=== PATIENT | female | born 1955 | race Caucasian/White ===

== ENCOUNTER → 2016-08-22 | Outpatient (REF) | payer MEDICARE, MEDICAID ==
[~2016-08-22] MED LIST: BACT2OIN2 TOP; CALC600T57 PO; COUM1TAB17 PO; COUM7.5T PO; DIGO0.12 PO; FOLI1TAB2 PO; FURO20TA2 PO; HYDR2.5C TOP; LASI40TA PO; LEVO125T3 PO; MACR100C42 PO; METH2.5TA PO; PRAV1TAB39 PO; PRED25TA PO; PRED5PAK PO; SPIR25TA2 PO; TORS20TA2 PO; TRAM50TA2 PO; TYVA0.6S INH; VERA120T2 PO; VITA-121 PO; WARF-22 PO; WARF-23 PO; [UNRECOGNIZED DRUG - CODE] PO; [UNRECOGNIZED DRUG - CODE] PO
== END ==
LOC: M SFHCLERA 18:42
PROVIDERS: ATTEND Nurse Practitioner Family
DX: J02.9 Acute pharyngitis, unspecified (principal)

== ENCOUNTER 2016-11-24 02:58 | Emergency (ER) | payer MEDICARE, MEDICAID ==
[~2016-11-24] VITALS: Ht 165.1 cm; Wt 71.7 kg
[2016-11-24] MEDS ORDERED: OMEP40CA2 PO (03:29)
[2016-11-24] MEDS ORDERED: TORS20TA2 PO (03:29)
[2016-11-24] MEDS ORDERED: ZYRT10CA PO (03:29)
[2016-11-24] MEDS ORDERED: TESS100C PO (03:29)
[2016-11-24 03:42] LABS: DIFF SLIDE NUMBER 121; MEAN CORPUSCULAR HEMOGLOBIN 29.1 pg (27.0-33.0); MEAN CORPUSCULAR HGB CONC 29.1 g/dl (32.0-36.5); PLATELET COUNT, AUTOMATED 184 k/mm3 (150-450); WHITE BLOOD COUNT 4.4 K/mm3 (4.0-10.0)
[2016-11-24 03:46] LABS: CALCIUM LEVEL 8.2 MG/DL (8.8-10.2); CREATININE FOR GFR 1.44 MG/DL (0.55-1.02); GLOMERULAR FILTRATION RATE 39.4 (>45)
[2016-11-24 04:03] LABS: BASOPHILS 1 % (0-4)
[2016-11-24 04:04] LABS: ANISOCYTOSIS 1+; HYPOCHROMASIA 2+; OVALOCYTES 1+
[2016-11-24 04:28] LABS: INR 2.06
[2016-11-24] MEDS ORDERED: ISOVUE-370 76% 100ML VIAL (Q9967) As Ordered ONE (04:29)
[2016-11-24] MEDS ORDERED: MORPHINE 4 MG/ML 1ML SYRINGE IV PRN (04:30)
[2016-11-24] MEDS ORDERED: ONDANSETRON 4MG/2ML VIAL (J2405) IV ONE (04:30)
[2016-11-24] MEDS ORDERED: MORPHINE 4 MG/ML 1ML SYRINGE As Ordered ONE (04:47)
[2016-11-24] MEDS ORDERED: ONDANSETRON 4MG/2ML VIAL (J2405) As Ordered ONE (04:47)
--- NOTE | 2016-11-24 05:00 | REP ---
Clinical: Trauma. Technique: Axial contrast enhanced images from the thoracic inlet to the upper abdomen using 100 ml Isovue 370 intravenous contrast material with coronal and sagittal re-formations. Comparison: 12/03/2014. Findings: Bilateral lung coon demonstrate diffuse moderate to advanced chronic fibrosis and interstitial disease along with mild bronchiectasis. No discrete focal consolidation, pleural effusion or pneumothorax. Cardiomegaly is unchanged. No pericardial effusion. Thoracic aorta demonstrates atherosclerotic changes without aneurysm or dissection. Mediastinal adenopathy is unchanged. Surrounding osseous structures are intact without evidence for acute injury. Impression: 1. Stable cardiomegaly. 2. Stable mediastinal adenopathy. 3. Moderate to advanced chronic fibrosis and interstitial disease similar to prior examination. 4. No acute mediastinal or pleuroparenchymal process. 5. Osseous structures appear intact. Signed by Matt Saxena MD 11/24/2016 04:51 A
--- NOTE | 2016-11-24 05:06 | REP ---
Clinical: Trauma. Technique: Axial contrast enhanced images from the lung bases to the pubic symphysis using 100 ml Isovue 370 intravenous contrast material with coronal and sagittal re-formations. Comparison: 01/30/2016. Findings: Lung bases demonstrate cardiomegaly along with chronic fibrosis and interstitial disease. No evidence for solid organ injury. Liver, spleen, pancreas, bilateral adrenal glands and kidneys are normal. The patient is status post cholecystectomy. The enteric system demonstrates fluid-filled esophagus suggesting the possibility of reflux disease. The stomach, small, and large bowel is unremarkable and without evidence for obstruction or acute inflammatory process. Scattered colonic diverticula noted without acute diverticulitis. Normal terminal ileum and appendix identified in the right lower quadrant. Pelvis demonstrates normal bladder and uterus/adnexa. No pelvic fluid or ascites. No free air. 2 cm fat containing midline ventral hernia noted. Atherosclerotic changes of the aorta and vasculature without aneurysm or dissection. No significant adenopathy. Musculoskeletal structures demonstrate age-related changes without evidence for acute injury. Impression: No evidence for acute pathology or trauma/injury. Chronic stable changes as described above. Signed by Matt Saxena MD 11/24/2016 04:57 A
[2016-11-24] MEDS ORDERED: PERCOCET 5MG/325MG TAB PO ONE (07:00)
[2016-11-24] MEDS ORDERED: PERC5TAB6 PO (07:32)
[2016-11-24 08:07] VITALS: BP 124/58
--- NOTE | 2016-11-24 08:25 | REP ---
Portable chest, single AP view, the patient semi upright: Comparison is 01/31/2016. Cardiomegaly and diffuse bilateral interstitial coarsening are again noted, unchanged. No definite pleural effusions are identified. No masses. Impression: No interval change. Signed by Harshad Harvey MD 11/24/2016 08:16 A
--- NOTE | 2016-11-25 20:06 | ECGEPIP ---
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
--- NOTE | 2016-11-25 20:09 | ECGEPIP ---
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
== END 2016-11-24 08:14 | disposition home or self-care (01) ==
LOC: M ED 04:00
DX: S30.1XXA Contusion of abdominal wall, initial encounter (principal); W19.XXXA Unspecified fall, initial encounter; Y92.89 Other specified places as the place of occurrence of the external cause; Y93.89 Activity, other specified; Y99.8 Other external cause status; I48.91 Unspecified atrial fibrillation; I45.10 Unspecified right bundle-branch block; R94.31 Abnormal electrocardiogram [ECG] [EKG]; Z79.899 Other long term (current) drug therapy; Z79.01 Long term (current) use of anticoagulants; Z79.52 Long term (current) use of systemic steroids
CPT/HCPCS: 71010; 71260; 74177; 80048; 82550; 82553; 84484; 85025; 85610; 85730; 93005; 93041; 94760; 96374; 96375; 99285; J2405; Q9967

== ENCOUNTER 2016-12-03 16:11 | Inpatient (IN) | payer MEDICARE, MEDICAID ==
[~2016-12-03] VITALS: Ht 167.6 cm; Wt 80.8 kg
[~2016-12-03 16:11] MED LIST changes: +OMEP40CA2 PO; +PERC5TAB6 PO; +TESS100C PO; +ZYRT10CA PO
[2016-12-03] MEDS ORDERED: ONDANSETRON 4MG/2ML VIAL (J2405) IV ONE (17:15)
[2016-12-03] MEDS ORDERED: MORPHINE 4 MG/ML 1ML SYRINGE IV ONE (17:15)
[2016-12-03 17:59] LABS: ADD MORPHOLOGY? YES; BASO % 0.3 % (0.0-1.0); EOS % 0.6 % (0.0-3.0); LARGE UNSTAINED CELL # 0.1 K/mm3 (0.0-0.4); LARGE UNSTAINED CELL % 1.3 % (0.0-4.0); LYMPH # 0.8 K/mm3 (1.5-4.5); LYMPH % 16.9 % (24.0-44.0); MEAN CORPUSCULAR HEMOGLOBIN 31.6 pg (27.0-33.0); MEAN CORPUSCULAR HGB CONC 31.6 g/dl (32.0-36.5); MONO # 0.3 K/mm3 (0.0-0.8); MONO % 6.9 % (0.0-5.0); NEUTROPHILS # 3.4 K/mm3 (1.8-7.7); PLATELET COUNT, AUTOMATED 177 k/mm3 (150-450); RED CELL DISTRIBUTION WIDTH 17.6 % (11.5-14.5); WHITE BLOOD COUNT 4.6 K/mm3 (4.0-10.0)
[2016-12-03 18:00] LABS: ALBUMIN 3.1 GM/DL (3.2-5.2); ALBUMIN/GLOBULIN RATIO 0.66 (1.00-1.93); BILIRUBIN,DIRECT 0.5 MG/DL (0.0-0.2); BILIRUBIN,TOTAL 1.1 MG/DL (0.2-1.0); CALCIUM LEVEL 8.4 MG/DL (8.8-10.2); CREATININE FOR GFR 1.41 MG/DL (0.55-1.02); GLOMERULAR FILTRATION RATE 40.4 (>45); TOTAL PROTEIN 7.8 GM/DL (6.4-8.2)
[2016-12-03] MEDS ORDERED: MORPHINE 2 MG/ML 1ML SYRINGE IV ONE (18:00)
[2016-12-03] MEDS ORDERED: MORPHINE 2 MG/ML 1ML SYRINGE As Ordered ONE (18:01)
[2016-12-03 18:12] LABS: POTASSIUM SERUM 5.4 MEQ/L (3.5-5.1)
[2016-12-03] MEDS ORDERED: ISOVUE-370 76% 100ML VIAL (Q9967) As Ordered ONE (18:32)
[2016-12-03 18:47] LABS: INR 2.27
--- NOTE | 2016-12-03 19:00 | REPUSA ---
Clinical history: Cough. Findings: Frontal and lateral views of the chest were obtained. The mediastinum is within normal limi ts. The heart is enlarged. There are diffuse interstitial changes noted. No pleural effusion or pneum othorax is seen. The osseous structures and soft tissues are unremarkable. Impression: Diffuse interstitial changes, suggesting a mixture of interstital lung disease and mild c ongestive heart failure. Cardiomegaly.
[2016-12-03 19:11] LABS: POLYCHROMASIA 1+
[2016-12-03 19:12] LABS: ANISOCYTOSIS 1+; HYPOCHROMASIA 1+; OVALOCYTES 1+; POIKILOCYTOSIS 1+; SCHISTOCYTES 1+
[2016-12-03] MEDS ORDERED: VERAP80TA PO (19:48)
[2016-12-03] MEDS ORDERED: LETA1TAB PO (19:48)
[2016-12-03] MEDS ORDERED: CALC600T68 PO (19:48)
[2016-12-03] MEDS ORDERED: WARF-23 PO (19:48)
[2016-12-03] MEDS ORDERED: PERC5TAB6 PO (19:49)
[2016-12-03] MEDS ORDERED: SPIR25TA2 PO (19:49)
[2016-12-03] MEDS ORDERED: cefTRIAXone SOD 1 GM in D5W MINI-BAG PLUS 50 ML IV ONE (20:15)
[2016-12-03] MEDS: TREPROSTINIL INH SCH (21:00)
[2016-12-03] MEDS ORDERED: NS 1,000 ML IV SCH (21:12)
[2016-12-03] MEDS ORDERED: ONDANSETRON 4MG/2ML VIAL (J2405) IV PRN (21:15)
[2016-12-03] MEDS ORDERED: traMADol 50 MG TAB PO PRN (21:30)
[2016-12-03] MEDS ORDERED: MUPIROCIN 2% OINT 22 GM TUBE TOP PRN (21:30)
[2016-12-03] MEDS ORDERED: ANUSOL HC CREAM 30GM TOP PRN (21:30)
--- NOTE | 2016-12-03 22:06 | HPEPDOC ---
General Date of Admission Primary Care Physician: PEGGY GARCES DO Attending Physician: LEANNE BUTTERFIELD MD Chief Complaint The patient is a 61-year-old female admitted with a reason for visit of Abdominal Pain. Source: Patient, Family Exam Limitations: No limitations History of Present Illness Ms. Novak is a 61-year-old female who presented to the emergency department with a two-week history of constipation and abdominal pain, who suddenly had intractable diarrhea today. She states that her abdominal pain and constipation has been off and on for the past 2 weeks, she has had intermittent episodes of nausea, but no vomiting. She did have one episode of diarrhea for 5 days ago, however at that time she had taken a laxative to help her with her constipation. Today however, she did not use any laxatives, but she was on and off the toilet every 15-30 minutes. She denies any recent antibiotic use, she has not drank for many wells, she denies any sick contacts. Denies fevers, chills, recent weight gain or weight loss. She is however on chronic prednisone therapy, as well as many other medications for her scleroderma and pulmonary fibrosis. In the emergency department was noted that she had an abnormal urinalysis, therefore this was sent for culture and she was given [address] scan of her abdomen also showed possible mild enteritis with mild mural thickening of small bowel in the left mid abdomen. No free air. No ascites. Chronic stable changes. Cardiomegaly and a small right effusion with mild pulmonary vascular congestion and chronic pulmonary changes. No fever, no leukocytosis, lipase and lactic acid are negative. She does have a mild elevation of her troponins, however these are chronically elevated and she has no acute changes on her EKG. Home Medications Scheduled (Letairis) 5 Mg Tab, 10 MG PO DAILY, (Reported) Calcium/Vitamin D (Calcium 600+D3 600-400 mg-Unit) 1 Tab Tab, 1 TAB PO DAILY, ( Reported) Cholecalciferol (Vitamin D-3) 1,000 Unit Tab, 1,000 UNIT PO DAILY, (Reported) Digoxin (Digoxin) 0.125 Mg Tab, 0.125 MG PO DAILY, (Reported) Levothyroxine Sodium (Synthroid) 125 Mcg Tab, 125 MCG PO DAILY, (Reported) Omeprazole (Omeprazole) 40 Mg Cap, 40 MG PO DAILY, (Reported) Pravastatin Sodium (Pravachol) 20 Mg Tab, 20 MG PO DAILY, (Reported) Prednisone (Prednisone) 2.5 Mg Tab, 2.5 MG PO BID, (Reported) Sildenafil Citrate (Revatio) 20 Mg Tab, 40 MG PO TID, (Reported) Spironolactone (Spironolactone) 25 Mg Tab, 25 MG PO BID, (Reported) Torsemide (Torsemide) 20 Mg Tab, 20 MG PO BID, (Reported) Treprostinil (Tyvaso) 0.6 Mg/Ml Ly, 1 NEB INH QID, (Reported) Verapamil HCl (Verapamil HCl) 80 Mg Tab, 80 MG PO TID, (Reported) Warfarin Sod (Warfarin Sodium) 5 Mg Tab, 5 MG PO DAILY, (Reported) @ 1900 Scheduled PRN Hydrocortisone Base (Hydrocortisone) 2.5 % Cre, 1 DOSE TOP for RASH/ITCHING, ( Reported) APPLIED TO ANKLES Mupirocin (Pseudomonas Fluores (Bactroban) 2 % Oin, 1 DOSE TOP TID PRN for REDNESS/IRRITATION, (Reported) APPLIED TO FINGERS Oxycodone/Acetaminophen (Percocet 5-325 mg) 1 Tab Tab, 1 TAB PO Q6H PRN for PAIN , (Reported) Tramadol HCl (Tramadol HCl) 50 Mg Tab, 100 MG PO TID PRN for PAIN, (Reported) Allergies Coded Allergies: No Known Allergies (Verified , 11/24/16) Past Medical History Medical History The scleroderma, mixed connective tissue disorder Interstitial pulmonary fibrosis Pulmonary hypertension, she does wear 2 L oxygen at home 24 hours a day Hypothyroidism Obstructive sleep apnea, has not worn her CPAP and years Atrial fibrillation Osteopenia Right sided congestive heart failure Raynaud's phenomenon of her fingers and toes Surgical History 2 Spinal surgeries in 1996 and 1997 Cholecystectomy 3-4 years ago Heart ablation 05/18/2015 Family History Father had multiple myeloma and a stroke and at the age of 67 years. Otherwise no additional pertinent family history Social History * Smoker: Denies Alcohol: Denies Drugs: denies Recent Travel/Sick Contacts: Denies: Recent travel, Recent sick contacts Review of Symptoms Constitutional: Reports: Malaise, Weakness, Fatigue, Denies: Chills, Fever, Night Sweats, Weight Loss, Lethargy Skin: Reports: Other (chronic skin changes consistent with scleroderma, however no new rashes, lumps, bumps, or bruises she cannot account for) Pulmonary: Reports: Dyspnea (chronic, although somewhat worsened by her recent illness), Denies: Cough, Pleuritic Chest Pain Cardiovascular: Reports: Edema (intermittent, not bad today), Denies: Chest Pain, Palpitations, Orthopnea Gastrointestinal: Reports: Nausea, Abdominal Pain, Diarrhea, Constipation, Denies: Vomiting, Melena Genitourinary: Reports: Retention (has had this in the past, but she does not feel it), Denies: Dysuria, Frequency, Incontinence, Hematuria Hematologic: Denies: Bruising, Bleeding Excessively Endocrine: Denies: Polydipsia, Polyphagia, Polyuria Musculoskeletal: Reports: Other Symptoms (chronic musculoskeletal complaints) Neurological: Denies: Weakness, Numbness, Change in speech, Confusion Psych: Reports: Mood Normal Physical Examination General Exam: Positive: Alert, Cooperative, Moderate Distress Eye Exam: Positive: Conjunctiva & lids normal, EOMI, Negative: Sclera icteric ENT Exam: Positive: Atraumatic, Mucous membr. moist/pink, Pharynx Normal Chest Exam: Positive: Rales (throughout, but most prominent at the bases) Heart Exam: Positive: Irregular Rhythm (irregularly irregular), Murmurs (2/6 systolic), Negative: Rubs Telemetry: Positive: Atrial fibrillation Abdomen Exam: Positive: Normal bowel sounds, Tenderness (she is significantly tender in all quadrants of her abdomen), Other (midline surgical scar noted from prior cholecystectomy) Extremity Exam: Positive: Normal pulses, Other (chronic changes consistent with scleroderma. Her toes are purple which is chronic Raynaud's phenomena) Skin Exam: Positive: Nl turgor and temperature, Negative: Breakdown, Lesion Neuro Exam: Positive: Normal Speech, Normal Tone, Sensation Intact, Cranial Nerves 3-12 NL Psych Exam: Positive: Mental status NL, Mood NL, Oriented x 3 Vital Signs Vital Signs Date Time Temp Pulse Resp B/P (MAP) Pulse Ox O2 Delivery O2 Flow Rate FiO2 12/03/16 18:14 85 26 96 Nasal Cannula 3.0 12/03/16 18:04 107/58 12/03/16 16:27 97.3 Laboratory Data Labs 24H Laboratory Tests 2 12/03/16 17:05: White Blood Count 4.6, Red Blood Count 2.90L, Hemoglobin 9.2L, Hematocrit 29.0L , Mean Corpuscular Volume 100.0H, Mean Corpuscular Hemoglobin 31.6, Mean Corpuscular Hemoglobin Concent 31.6L, Red Cell Distribution Width 17.6H, Platelet Count 177, Neutrophils (%) (Auto) 74.0H, Lymphocytes (%) (Auto) 16.9L, Monocytes (%) (Auto) 6.9H, Eosinophils (%) (Auto) 0.6, Basophils (%) (Auto) 0.3 , Neutrophils # (Auto) 3.4, Lymphocytes # (Auto) 0.8L, Monocytes # (Auto) 0.3, Eosinophils # (Auto) 0.0, Basophils # (Auto) 0.0, Large Unclassified Cells % 1.3 , Large Unclassified Cells # 0.1, Platelet Estimate NORMAL, Polychromasia 1+, Hypochromasia 1+, Poikilocytosis 1+, Anisocytosis 1+, Ovalocytes 1+, Schistocytes 1+, Prothrombin Time 25.1H, Prothromb Time International Ratio 2.27 , Activated Partial Thromboplast Time 33.8, Urine Appearance CLEAR, Urine Color YELLOW, Urine pH 5.0, Urine Specific [place] 1.008, Urine Protein NEGATIVE, Urine Glucose (UA) NEGATIVE, Urine Ketones NEGATIVE, Urine Urobilinogen 0.2, Urine Bilirubin NEGATIVE, Urine Leukocyte Esterase 1+H, Urine Blood 1+H, Urine Nitrite POSITIVE, Urine WBC (Auto) 8H, Urine RBC (Auto) 3, Urine Hyaline Casts ( Auto) 5, Urine Bacteria (Auto) 2+H, Urine Squamous Epithelial Cells 1, Urine Mucus (Auto) SMALL, Urine Sperm (Auto) , Anion Gap 10, Glomerular Filtration Rate 40.4L, Lactic Acid Level 1.8, Calcium Level 8.4L, Aspartate Amino Transf ( AST/SGOT) 12L, Alanine Aminotransferase (ALT/SGPT) 15, Alkaline Phosphatase 147H , Total Bilirubin 1.1H, Direct Bilirubin 0.5H, Total Creatine Kinase 41, Creatine Kinase MB 4.2H, Creatine Kinase MB Relative Index 10.24H, Troponin I 0.17H, Total Protein 7.8, Albumin 3.1L, Albumin/Globulin Ratio 0.66L, Lipase 104 , Digoxin Level 2.5H CBC/BMP Laboratory Tests 12/03/16 17:05 Red Blood Count 2.90 L, Mean Corpuscular Volume 100.0 H, Mean Corpuscular Hemoglobin 31.6, Mean Corpuscular Hemoglobin Concent 31.6 L, Red Cell Distribution Width 17.6 H, Neutrophils (%) (Auto) 74.0 H, Lymphocytes (%) (Auto ) 16.9 L, Monocytes (%) (Auto) 6.9 H, Eosinophils (%) (Auto) 0.6, Basophils (%) (Auto) 0.3, Neutrophils # (Auto) 3.4, Lymphocytes # (Auto) 0.8 L, Monocytes # ( Auto) 0.3, Eosinophils # (Auto) 0.0, Basophils # (Auto) 0.0 Microbiology Microbiology 12/03/16 Urine Culture, Received Pending Problems (1) Abdominal pain Status: Acute (2) Diarrhea Status: Acute (3) Urinary tract infection Status: Acute (4) Hyponatremia Status: Acute (5) Scleroderma Status: Chronic (6) Pulmonary hypertension Status: Chronic (7) Raynaud's disease Status: Chronic (8) Hypothyroidism Status: Chronic (9) Hypertension Status: Chronic (10) Congestive heart failure (CHF) Status: Chronic (11) Obstructive sleep apnea Status: Chronic Plan / VTE VTE Prophylaxis Ordered?: Yes (Warfarin) Plan Plan Will admit the patient to [facility] under the care Dr. Cierra Taveras. One dose of Rocephin and started been given in the ED for suspected UTI, urine cultures have been sent. Although she does not have fever or leukocytosis, she is on immunomodulators and may not be able to mount an appropriate response, therefore a GI panel has been sent. Will check an ESR and CRP. We will await the results of his GI panel prior to ordering additional antibiotics. Given her history of CHF and lung disease, and negative lactic acid with stable vitals, and the fact that her diarrhea has only been present for 1 day, we will only give her gentle rehydration for 1 L NS at this time. In regards to her hyponatremia, will check a random urine and serum osmolality, as well as put in for urine sodium and urea. BRANDY NAVARRETE DO Dec 03, 2016 22:06
[2016-12-03 23:04] LABS: ERYTHROCYTE SEDIMENTATION RATE 67 mm/hr (0-30)
[2016-12-03 23:30] VITALS: BP 102/78
[2016-12-03] MEDS: VERAPAMIL 80 MG TAB PO SCH (23:30)
[2016-12-04] MEDS: SILDENAFIL CITRATE 20 MG TABLET (REVATIO) PO SCH ×4 (01:33→20:16)
[2016-12-04] MEDS: predniSONE 2.5 MG TAB PO SCH ×2 (01:33→10:28)
[2016-12-04] MEDS: WARFARIN SOD 5 MG TAB PO SCH ×2 (01:34→16:54)
--- NOTE | 2016-12-04 04:31 | REP ---
Clinical: Diffuse abdominal pain and diarrhea. Technique: Axial contrast enhanced images from the thoracic inlet to the upper abdomen using 100 ml Isovue 370 intravenous contrast material with coronal and sagittal re-formations. Comparison: 11/24/2016. Findings: Lung bases demonstrate cardiomegaly along with small right pleural effusion and moderate pulmonary interstitial edema as well as chronic fibroatelectatic changes. Associated reflux into the hepatic veins as well as subcutaneous edema and subtle haziness to the central mesentery all suggest chronic cardiac dysfunction. Liver, spleen, pancreas, bilateral adrenal glands are normal. Kidneys demonstrate chronic-appearing age-related changes with satisfactory, symmetric enhancement and no evidence for hydroureteronephrosis or obvious abnormality. The enteric system suggests mural thickening to the small bowel in the left mid abdomen which may reflect a mild enteritis. There is no evidence for bowel obstruction. Pelvis demonstrates normal bladder and age-appropriate uterus/adnexa. Trace pelvic free fluid is nonspecific. Vasculature demonstrates minimal atherosclerotic changes without aortic aneurysm or dissection. Surrounding musculoskeletal structures demonstrate age-related degenerative changes. There is a stable 3 cm fat containing periumbilical hernia. Impression: 1. Mild enteritis cannot be excluded. 2. Cardiomegaly with evidence for moderate pulmonary interstitial edema, small right pleural effusion and chronic cardiac dysfunction. 3. 3 cm fat containing periumbilical hernia. Signed by Matt Saxena MD 12/04/2016 04:22 A
[2016-12-04] MEDS: LEVOTHYROXINE 0.125 MG TAB (125 MCG) PO SCH (05:56)
[2016-12-04 06:07] LABS: INR 2.5
[2016-12-04 06:13] LABS: MEAN CORPUSCULAR HGB CONC 29.6 g/dl (32.0-36.5); MEAN CORPUSCULAR VOLUME 101.5 fl (80.0-96.0); RED CELL DISTRIBUTION WIDTH 17.9 % (11.5-14.5)
[2016-12-04 06:23] LABS: CALCIUM LEVEL 8.6 MG/DL (8.8-10.2); CREATININE FOR GFR 1.45 MG/DL (0.55-1.02); GLOMERULAR FILTRATION RATE 39.1 (>45)
[2016-12-04 06:32] VITALS: BP 124/62
[2016-12-04] MEDS ORDERED: DEXTROSE 50% 50 ML SYRINGE IV STA (06:35)
[2016-12-04] MEDS ORDERED: GLUCAGON FOR INJ 1 MG VIAL (J1610) SC PRN (08:15)
[2016-12-04] MEDS ORDERED: DEXTROSE 50% 50 ML SYRINGE IV PRN (08:15)
[2016-12-04] MEDS ORDERED: GLUCOSE 4 GM CHEW TABLET PO PRN (08:15)
[2016-12-04] MEDS ORDERED: DIGOXIN 0.125 MG TAB PO SCH (09:00)
[2016-12-04] MEDS: TORSEMIDE 20 MG TAB PO SCH ×2 (09:00→16:37)
[2016-12-04] MEDS: VERAPAMIL 80 MG TAB PO SCH ×3 (09:00→20:15)
[2016-12-04] MEDS: SPIRONOLACTONE 25 MG TAB PO SCH ×2 (09:00→16:37)
[2016-12-04 10:00] VITALS: BP 103/59
[2016-12-04] MEDS: PRAVASTATIN 20 MG TAB PO SCH (10:25)
[2016-12-04] MEDS: VITAMIN D 1,000 INTERNATIONAL UNITS TABLET PO SCH (10:25)
[2016-12-04] MEDS: OMEPRAZOLE 20 MG CAP PO SCH (10:25)
[2016-12-04] MEDS: CALCIUM/VITAMIN D 500 MG TAB PO SCH (10:25)
[2016-12-04] MEDS: LETAIRIS 10 MG PO SCH (10:28)
--- NOTE | 2016-12-04 12:50 | IPNPDOC ---
Date Seen The patient was seen on 12/04/16. Progress Note Hospitalist Progress Note Subjective: The patient is able to be awoken easily. She states that she has not had any more diarrhea, but that her abdomen is quite sore. Objective: Physical Exam: Vitals: Vital Sign - Last 24 Hours 12/03/16 12/03/16 12/03/16 12/03/16 16:27 16:32 16:56 17:03 Temp 97.3 Pulse 93 81 82 Resp 20 28 B/P (MAP) 124/65 (84) 124/65 128/63 (84) Pulse Ox 88 87 92 O2 Delivery Nasal Cannula Nasal Cannula O2 Flow Rate 2.0 3.0 12/03/16 12/03/16 12/03/16 12/03/16 17:11 17:16 17:26 17:26 Pulse 82 80 Resp Pulse Ox 94 94 94 93 O2 Delivery Nasal Cannula Nasal Cannula O2 Flow Rate 3.0 3.0 12/03/16 12/03/16 12/03/16 12/03/16 17:33 17:35 18:04 18:14 Pulse 83 81 85 Resp 26 26 B/P (MAP) 110/58 (75) 107/58 Pulse Ox 93 93 95 96 O2 Delivery Nasal Cannula Nasal Cannula Nasal Cannula O2 Flow Rate 3.0 3.0 3.0 12/03/16 12/03/16 12/03/16 12/03/16 19:33 19:48 20:03 20:18 Pulse 82 B/P (MAP) 106/57 (73) 99/51 (67) 108/55 (72) 117/63 (81) Pulse Ox 96 12/03/16 12/03/16 12/03/16 12/03/16 20:33 20:48 21:03 21:18 B/P (MAP) 115/62 (79) 125/66 (85) 120/63 (82) 117/61 (79) 12/03/16 12/03/16 12/03/16 12/03/16 21:33 21:48 22:03 22:18 Pulse 84 B/P (MAP) 116/61 (79) 114/62 (79) 102/57 (72) 92/53 (66) Pulse Ox 96 12/03/16 12/03/16 12/03/16 12/03/16 22:33 23:30 23:30 23:47 Temp 98.3 97.8 Pulse 89 89 Resp 20 24 22 B/P (MAP) 98/55 (69) 102/78 (86) 102/78 Pulse Ox 92 90 O2 Delivery Nasal Cannula Nasal Cannula O2 Flow Rate 3.0 4.0 12/04/16 12/04/16 12/04/16 12/04/16 00:21 06:32 06:40 07:30 Temp 96.6 Pulse 89 101 Resp 18 18 B/P (MAP) 124/62 (82) O2 Delivery Nasal Cannula Nasal Cannula Nasal Cannula Nasal Cannula O2 Flow Rate 3.0 3.5 3.5 3.5 FiO2 92 12/04/16 12/04/16 09:00 10:00 Temp 96.9 Pulse 74 74 Resp 16 B/P (MAP) 103/59 103/59 (74) Pulse Ox 91 O2 Delivery Nasal Cannula O2 Flow Rate 3.5 General: Awake, alert, no acute distress HEENT: Normocephalic, atraumatic, extraocular movements intact CV: Irregularly irregular Lungs: Clear to auscultation bilaterally Abd: Soft, nondistended, diffuse tenderness to palpation Extremities: No edema Neuro: Alert and oriented 3, seems to be processing things just slightly slowly , normal speech Psych: Normal mood and affect Labs and Imaging: Laboratory Tests 12/03/16 17:05 Red Blood Count 2.90 L, Mean Corpuscular Volume 100.0 H, Mean Corpuscular Hemoglobin 31.6, Mean Corpuscular Hemoglobin Concent 31.6 L, Red Cell Distribution Width 17.6 H, Neutrophils (%) (Auto) 74.0 H, Lymphocytes (%) (Auto ) 16.9 L, Monocytes (%) (Auto) 6.9 H, Eosinophils (%) (Auto) 0.6, Basophils (%) (Auto) 0.3, Neutrophils # (Auto) 3.4, Lymphocytes # (Auto) 0.8 L, Monocytes # ( Auto) 0.3, Eosinophils # (Auto) 0.0, Basophils # (Auto) 0.0 12/04/16 05:47 Red Blood Count 3.17 L, Mean Corpuscular Volume 101.5 H, Mean Corpuscular Hemoglobin 30.0, Mean Corpuscular Hemoglobin Concent 29.6 L, Red Cell Distribution Width 17.9 H, Calcium Level 8.6 L Assessment and Plan: 61-year-old female with scleroderma, interstitial pulmonary fibrosis, chronic hypoxic respiratory failure secondary to pulmonary hypertension on 2 L chronically at home, hypothyroidism, KELLY, chronic A. fib, right-sided heart failure, Raynaud who presented to the emergency department with abdominal pain and diarrhea. This morning she is noted to be hypoglycemic, and I am concerned that she may have an adrenal insufficiency secondary to her chronic steroid use. It is unclear at this time, what has triggered it, but I suspect that she may have a UTI. 1. Concern for adrenal insufficiency: The patient has had soft BPs since admission last night. This morning, she was hypoglycemic to 27, and she has no history of diabetes and does not take any medication that would lower her glucose. Additionally, she was mildly hyponatremic and mildly hyperkalemic upon admission. All of these things work together to point to the potential adrenal crisis. At this time, we will stop her daily prednisone, and start her on stress dose hydrocortisone. We will monitor her fingersticks closely, and if necessary, we will start her on IV fluids with D5. 2. Supratherapeutic digoxin level: The patient's digoxin level is slightly above normal at 2.5. Some of the symptoms she is experiencing could also potentially be explained by her elevated digoxin level. We will hold her home digoxin, and check all level in the morning. We will also transfer her to the PCU for telemetry monitoring. 3. Hyponatremia: Sodium upon admission was 129. I believe that this is likely secondary to the above-mentioned concerns. She has been on IV fluids and has improved slightly to 1:30. We'll continue IV fluids. 4. Hyperkalemia: Potassium upon admission was 5.4. This has now resolved to 5.0 , but given the above concerns for potential adrenal insufficiency and supratherapeutic digoxin level, we will transfer her to the PCU for telemetry monitoring. 5. Abdominal pain and diarrhea: Etiology is not entirely clear at this point. CT of the abdomen and pelvis shows possible mild enteritis, which could certainly be the cause, and may even be why she is experiencing an adrenal crisis. GI panel has been ordered, but she has not stooled at this point. It is also possible, that the symptoms are secondary to an adrenal crisis or even supratherapeutic digoxin level. We will monitor her response to the stress dose steroids. 6. Possible UTI: UA showed 1+ blood and 1+ leuk esterase, as well as 2+ bacteria and nitrite. The patient received a dose of Rocephin in the ER, and I' ll continue it at this time. Urine culture is pending, and she is afebrile with a normal white count. 7. Scleroderma: Holding home prednisone while we are currently stress dosing her steroids. 8. Chronic hypoxic respiratory failure secondary to Interstitial pulmonary fibrosis and pulmonary hypertension on 2 L chronically at home: The patient is currently requiring a little bit more than her baseline oxygen. We will continue her on her home tyvaso, sildenafil and letairis. 9. Hypothyroidism: Continue home Synthroid. 10. Chronic A. fib: Patient is currently rate controlled, and her INR is therapeutic. We will continue home Coumadin, as well as home verapamil. We will also monitor her on telemetry. 11. Right-sided heart failure: Continue home Aldactone, torsemide. 12. Anemia: Upon review of the EMR, this appears to be chronic over the last year. Baseline hemoglobin is in the 8-9s, and she is currently at baseline. 13. Chronic kidney disease stage III: The patient's baseline creatinine appears to be in the low ones. She is near baseline but may be slightly above it right now at 1.4. We will continue IV fluids and monitor closely. DVT prophylaxis: Home Coumadin Dispo: pending improvement in her blood pressure and glucose, as well as further workup of her likely UTI VS, I&O, 24H, Fishbone Vital Signs/I&O Vital Signs Date Time Temp Pulse Resp B/P (MAP) Pulse Ox O2 Delivery O2 Flow Rate FiO2 12/04/16 10:00 96.9 74 16 103/59 (74) 91 Nasal Cannula 3.5 12/04/16 00:21 92 I&O- Last 24 Hours up to 6 AM 12/04/16 06:00 Intake Total 650 ml Output Total 450 ml Balance 200 ml Laboratory Data 24H LABS Laboratory Tests 2 12/03/16 17:05: White Blood Count 4.6, Red Blood Count 2.90L, Hemoglobin 9.2L, Hematocrit 29.0L , Mean Corpuscular Volume 100.0H, Mean Corpuscular Hemoglobin 31.6, Mean Corpuscular Hemoglobin Concent 31.6L, Red Cell Distribution Width 17.6H, Platelet Count 177, Neutrophils (%) (Auto) 74.0H, Lymphocytes (%) (Auto) 16.9L, Monocytes (%) (Auto) 6.9H, Eosinophils (%) (Auto) 0.6, Basophils (%) (Auto) 0.3 , Neutrophils # (Auto) 3.4, Lymphocytes # (Auto) 0.8L, Monocytes # (Auto) 0.3, Eosinophils # (Auto) 0.0, Basophils # (Auto) 0.0, Large Unclassified Cells % 1.3 , Large Unclassified Cells # 0.1, Platelet Estimate NORMAL, Polychromasia 1+, Hypochromasia 1+, Poikilocytosis 1+, Anisocytosis 1+, Ovalocytes 1+, Schistocytes 1+, Erythrocyte Sedimentation Rate 67H, Prothrombin Time 25.1H, Prothromb Time International Ratio 2.27, Activated Partial Thromboplast Time 33.8, Urine Appearance CLEAR, Urine Color YELLOW, Urine pH 5.0, Urine Specific [place] 1.008, Urine Protein NEGATIVE, Urine Glucose (UA) NEGATIVE, Urine Ketones NEGATIVE, Urine Urobilinogen 0.2, Urine Bilirubin NEGATIVE, Urine Leukocyte Esterase 1+H, Urine Blood 1+H, Urine Nitrite POSITIVE, Urine WBC (Auto ) 8H, Urine RBC (Auto) 3, Urine Hyaline Casts (Auto) 5, Urine Bacteria (Auto) 2+ H, Urine Squamous Epithelial Cells 1, Urine Mucus (Auto) SMALL, Urine Sperm ( Auto) , Anion Gap 10, Glomerular Filtration Rate 40.4L, Osmolality 279L, Lactic Acid Level 1.8, Calcium Level 8.4L, Aspartate Amino Transf (AST/SGOT) 12L, Alanine Aminotransferase (ALT/SGPT) 15, Alkaline Phosphatase 147H, Total Bilirubin 1.1H, Direct Bilirubin 0.5H, Total Creatine Kinase 41, Creatine Kinase MB 4.2H, Creatine Kinase MB Relative Index 10.24H, Troponin I 0.17H, Total Protein 7.8, Albumin 3.1L, Albumin/Globulin Ratio 0.66L, Lipase 104, Digoxin Level 2.5H 12/03/16 17:08: Urine Random Osmolality 341L, Urine Random Sodium 91 12/03/16 22:59: Total Creatine Kinase 34, Creatine Kinase MB 3.2, Creatine Kinase MB Relative Index 9.41H, Troponin I 0.14H, C-Reactive Protein, Quantitative 0.43H 12/04/16 05:47: Prothrombin Time 27.1H, Prothromb Time International Ratio 2.50, Anion Gap 11, Glomerular Filtration Rate 39.1L, Lactic Acid Level 2.0, Calcium Level 8.6L, Blood Urea Nitrogen 32H, Creatinine 1.45H, Sodium Level 130L, Potassium Level 5.0, Chloride Level 98, Carbon Dioxide Level 21 12/04/16 07:05: Bedside Glucose (Misc Panel) 130H 12/04/16 11:12: Bedside Glucose (Misc Panel) 87 CBC/BMP Laboratory Tests 12/03/16 17:05 Red Blood Count 2.90 L, Mean Corpuscular Volume 100.0 H, Mean Corpuscular Hemoglobin 31.6, Mean Corpuscular Hemoglobin Concent 31.6 L, Red Cell Distribution Width 17.6 H, Neutrophils (%) (Auto) 74.0 H, Lymphocytes (%) (Auto ) 16.9 L, Monocytes (%) (Auto) 6.9 H, Eosinophils (%) (Auto) 0.6, Basophils (%) (Auto) 0.3, Neutrophils # (Auto) 3.4, Lymphocytes # (Auto) 0.8 L, Monocytes # ( Auto) 0.3, Eosinophils # (Auto) 0.0, Basophils # (Auto) 0.0 12/04/16 05:47 Red Blood Count 3.17 L, Mean Corpuscular Volume 101.5 H, Mean Corpuscular Hemoglobin 30.0, Mean Corpuscular Hemoglobin Concent 29.6 L, Red Cell Distribution Width 17.9 H, Calcium Level 8.6 L Microbiology Microbiology 12/03/16 Urine Culture, Received Pending RAAD GEE Dec 04, 2016 12:50
[2016-12-04] MEDS ORDERED: HYDROCORTISONE 100 MG/2 ML VIAL (J1720) IV ONE (13:00)
[2016-12-04] MEDS: NS 1,000 ML IV SCH (13:08)
[2016-12-04 14:00] VITALS: BP 106/60
[2016-12-04 14:55] VITALS: BP 103/58
[2016-12-04 16:00] VITALS: BP 106/58
[2016-12-04] MEDS: TREPROSTINIL INH SCH ×3 (17:10→21:25)
[2016-12-04 20:00] VITALS: BP 111/60
[2016-12-04] MEDS: HYDROCORTISONE 100 MG/2 ML VIAL (J1720) IV SCH (20:16)
[2016-12-04] MEDS: cefTRIAXone SOD 1 GM in D5W MINI-BAG PLUS 50 ML IV SCH (20:17)
[2016-12-05 00:27] VITALS: BP 105/56
[2016-12-05] MEDS: PERCOCET 5MG/325MG TAB PO PRN (00:32)
[2016-12-05 03:38] VITALS: BP 114/60
[2016-12-05] MEDS: NS 1,000 ML IV SCH ×2 (04:43→20:41)
[2016-12-05] MEDS: LEVOTHYROXINE 0.125 MG TAB (125 MCG) PO SCH (04:44)
[2016-12-05] MEDS: HYDROCORTISONE 100 MG/2 ML VIAL (J1720) IV SCH ×3 (04:44→20:39)
[2016-12-05 05:29] LABS: MEAN CORPUSCULAR HEMOGLOBIN 29.5 pg (27.0-33.0); MEAN CORPUSCULAR HGB CONC 29.8 g/dl (32.0-36.5); RED CELL DISTRIBUTION WIDTH 17.8 % (11.5-14.5); WHITE BLOOD COUNT 5.2 K/mm3 (4.0-10.0)
[2016-12-05 05:30] LABS: INR 3.78
[2016-12-05 05:41] LABS: CALCIUM LEVEL 8.1 MG/DL (8.8-10.2); CREATININE FOR GFR 1.27 MG/DL (0.55-1.02); DIGOXIN LEVEL 1.5 NG/ML (0.5-2.0); GLOMERULAR FILTRATION RATE 45.5 (>45); MAGNESIUM LEVEL 2.1 MG/DL (1.8-2.4)
[2016-12-05 05:44] LABS: POTASSIUM SERUM 5.6 MEQ/L (3.5-5.1)
--- NOTE | 2016-12-05 05:51 | ECGEPIP ---
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
[2016-12-05 07:25] VITALS: BP 107/57
[2016-12-05] MEDS ORDERED: SOD POLYSTYRENE SULFONATE SUSP 15 GM/60 ML UD PO ONE (08:00)
[2016-12-05] MEDS: VERAPAMIL 80 MG TAB PO SCH ×3 (09:00→20:40)
[2016-12-05] MEDS: TREPROSTINIL INH SCH ×3 (09:00→20:36)
[2016-12-05] MEDS: TORSEMIDE 20 MG TAB PO SCH ×2 (09:00→16:19)
[2016-12-05] MEDS: PRAVASTATIN 20 MG TAB PO SCH (09:12)
[2016-12-05] MEDS: LETAIRIS 10 MG PO SCH ×2 (09:12→11:56)
[2016-12-05] MEDS: CALCIUM/VITAMIN D 500 MG TAB PO SCH (09:12)
[2016-12-05] MEDS: OMEPRAZOLE 20 MG CAP PO SCH (09:12)
[2016-12-05] MEDS: VITAMIN D 1,000 INTERNATIONAL UNITS TABLET PO SCH (09:13)
[2016-12-05] MEDS: SILDENAFIL CITRATE 20 MG TABLET (REVATIO) PO SCH ×3 (09:18→20:40)
[2016-12-05 12:00] VITALS: BP 122/71
--- NOTE | 2016-12-05 14:32 | IPNPDOC ---
Date Seen The patient was seen on 12/05/16. Progress Note Hospitalist Progress Note Subjective: The patient feels much better today but still reports a sore abd and no BM Objective: Physical Exam: Vitals: Vital Sign - Last 24 Hours 12/04/16 12/04/16 12/04/16 12/04/16 14:45 14:55 16:00 16:00 Temp 98.3 98.6 Pulse 97 93 87 Resp 18 18 B/P (MAP) 103/58 (73) 106/58 (74) 106/58 Pulse Ox 94 95 O2 Delivery Nasal Cannula Nasal Cannula Nasal Cannula O2 Flow Rate 3.0 3.0 3.0 12/04/16 12/04/16 12/04/16 12/04/16 20:00 20:00 20:15 21:01 Temp 99.1 Pulse 100 88 Resp 20 18 B/P (MAP) 111/60 (77) 111/60 Pulse Ox 96 O2 Delivery Nasal Cannula Nasal Cannula Nasal Cannula O2 Flow Rate 3.0 3.0 3.0 12/04/16 12/05/16 12/05/16 12/05/16 21:31 00:27 00:32 01:02 Temp 98.5 Pulse 95 Resp 18 18 18 20 B/P (MAP) 105/56 (72) Pulse Ox 93 O2 Delivery Nasal Cannula Nasal Cannula Nasal Cannula Nasal Cannula O2 Flow Rate 3.0 3.0 3.0 3.0 12/05/16 12/05/16 12/05/16 12/05/16 03:38 07:25 07:30 09:00 Temp 98.5 96.9 Pulse 112 101 101 Resp 22 20 B/P (MAP) 114/60 (78) 107/57 (74) 107/57 Pulse Ox 92 99 O2 Delivery Nasal Cannula Nasal Cannula Nasal Cannula O2 Flow Rate 3.0 3.0 3.0 12/05/16 12:00 Temp 96.1 Pulse 104 Resp 20 B/P (MAP) 122/71 (88) Pulse Ox 95 O2 Delivery Nasal Cannula O2 Flow Rate 3.0 General: Awake, alert, no acute distress HEENT: Normocephalic, atraumatic, extraocular movements intact CV: Irregularly irregular Lungs: Clear to auscultation bilaterally Abd: Soft, nondistended, diffuse tenderness to palpation Extremities: No edema Neuro: Alert and oriented 3, normal speech, much quicker today and no longer processing things slowly Psych: Normal mood and affect Labs and Imaging: Laboratory Tests 12/04/16 21:46 12/05/16 04:36 Red Blood Count 2.74 L, Mean Corpuscular Volume 99.0 H, Mean Corpuscular Hemoglobin 29.5, Mean Corpuscular Hemoglobin Concent 29.8 L, Red Cell Distribution Width 17.8 H, Calcium Level 8.1 L Assessment and Plan: 61-year-old female with scleroderma, interstitial pulmonary fibrosis, chronic hypoxic respiratory failure secondary to pulmonary hypertension on 2 L chronically at home, hypothyroidism, KELLY, chronic A. fib, right-sided heart failure, Raynaud who presented to the emergency department with abdominal pain and diarrhea. The morning after admission she was noted to be hypoglycemic, and I am concerned that she may have an adrenal insufficiency secondary to her chronic steroid use, triggered by a UTI. 1. Concern for adrenal insufficiency: The patient has had soft BPs since admission. The morning after admission, she was hypoglycemic to 27, and she has no history of diabetes and does not take any medication that would lower her glucose. Additionally, she was mildly hyponatremic and mildly hyperkalemic upon admission. All of these things work together to point to the potential adrenal crisis. We have now stopped her daily prednisone, and start her on stress dose hydrocortisone. Hypoglycemia has resolved. 2. Supratherapeutic digoxin level: The patient's digoxin level was slightly above normal at 2.5. Some of the symptoms she is experiencing could also potentially be explained by her elevated digoxin level. We are holding her home digoxin, and check the level in the morning. Continue telemetry monitoring. 3. Hyponatremia: Sodium upon admission was 129. I believe that this is likely secondary to the above-mentioned concerns. She has been on IV fluids and has improved slightly to 131. We'll continue IV fluids. 4. Hyperkalemia: Potassium upon admission was 5.4. This initially resolved, but given the above concerns for potential adrenal insufficiency and supratherapeutic digoxin level, we transferred her to the PCU for telemetry monitoring. Today, K is 5.6 again, so I am stopping her spironolactone, giving a dose of kayexelate, and will recheck K this afternoon. 5. Abdominal pain and diarrhea: Etiology is not entirely clear at this point. CT of the abdomen and pelvis shows possible mild enteritis, which could certainly be the cause, and may even be why she is experiencing an adrenal crisis. GI panel has been ordered, but she has not stooled at this point. It is also possible, that the symptoms are secondary to an adrenal crisis or even supratherapeutic digoxin level. We will monitor her response to the stress dose steroids. 6. UTI: UA showed 1+ blood and 1+ leuk esterase, as well as 2+ bacteria and nitrite. Ucx grew klebsiella. Continue rocephin; she is afebrile with a normal white count. 7. Scleroderma: Holding home prednisone while we are currently stress dosing her steroids. 8. Chronic hypoxic respiratory failure secondary to Interstitial pulmonary fibrosis and pulmonary hypertension on 2 L chronically at home: The patient is currently requiring a little bit more than her baseline oxygen. We will continue her on her home tyvaso, sildenafil and letairis. 9. Hypothyroidism: Continue home Synthroid. 10. Chronic A. fib: Patient is currently rate controlled. We will continue home verapamil. We will also monitor her on telemetry. INR is supratherapeutic today so we will hold coumadin and recheck daily INR. 11. Right-sided heart failure: Continue home torsemide. Stop home aldactone given hyperkalemia. 12. Anemia: Upon review of the EMR, this appears to be chronic over the last year. Baseline hemoglobin is in the 8-9s, and she is currently at baseline. 13. Chronic kidney disease stage III: The patient's baseline creatinine appears to be in the low ones. She is near baseline. We will continue IV fluids and monitor closely. DVT prophylaxis: supratherapeutic INR Dispo: pending improvement in her blood pressure and glucose and completion of stress dose steroids VS, I&O, 24H, Fishbone Vital Signs/I&O Vital Signs Date Time Temp Pulse Resp B/P (MAP) Pulse Ox O2 Delivery O2 Flow Rate FiO2 12/05/16 12:00 96.1 104 20 122/71 (88) 95 Nasal Cannula 3.0 12/04/16 00:21 92 I&O- Last 24 Hours up to 6 AM 12/05/16 06:00 Intake Total 3570 ml Output Total 850 ml Balance 2720 ml Laboratory Data 24H LABS Laboratory Tests 2 12/04/16 15:58: Bedside Glucose (Misc Panel) 105 12/04/16 20:56: Bedside Glucose (Misc Panel) 132H 12/05/16 04:36: Prothrombin Time 37.3H, Prothromb Time International Ratio 3.78, Anion Gap 8, Glomerular Filtration Rate 45.5, Blood Urea Nitrogen 28H, Creatinine 1.27H, Sodium Level 131L, Potassium Level 5.6H, Chloride Level 101, Carbon Dioxide Level 22, Calcium Level 8.1L, Magnesium Level 2.1, Digoxin Level 1.5 CBC/BMP Laboratory Tests 12/04/16 21:46 12/05/16 04:36 Red Blood Count 2.74 L, Mean Corpuscular Volume 99.0 H, Mean Corpuscular Hemoglobin 29.5, Mean Corpuscular Hemoglobin Concent 29.8 L, Red Cell Distribution Width 17.8 H, Calcium Level 8.1 L Microbiology Microbiology 12/03/16 Urine Culture - Final, Complete Klebsiella Pneumoniae RAAD GEE December 05, 2016 14:32
[2016-12-05 16:00] VITALS: BP 122/63
[2016-12-05 20:00] VITALS: BP 138/72
[2016-12-05] MEDS: cefTRIAXone SOD 1 GM in D5W MINI-BAG PLUS 50 ML IV SCH (20:41)
[2016-12-06] VITALS: BP 121/69
[2016-12-06 04:00] VITALS: BP 154/60
[2016-12-06] MEDS: LEVOTHYROXINE 0.125 MG TAB (125 MCG) PO SCH (06:05)
[2016-12-06] MEDS: HYDROCORTISONE 100 MG/2 ML VIAL (J1720) IV SCH ×2 (06:05→17:47)
[2016-12-06 06:09] LABS: MEAN CORPUSCULAR HEMOGLOBIN 30.4 pg (27.0-33.0); MEAN CORPUSCULAR HGB CONC 29.8 g/dl (32.0-36.5); RED CELL DISTRIBUTION WIDTH 17.9 % (11.5-14.5); WHITE BLOOD COUNT 6.4 K/mm3 (4.0-10.0)
[2016-12-06 06:12] LABS: INR 4.25
[2016-12-06 06:47] LABS: CALCIUM LEVEL 7.8 MG/DL (8.8-10.2); CREATININE FOR GFR 1.34 MG/DL (0.55-1.02); DIGOXIN LEVEL 1.2 NG/ML (0.5-2.0); GLOMERULAR FILTRATION RATE 42.8 (>45); MAGNESIUM LEVEL 2.1 MG/DL (1.8-2.4)
[2016-12-06 07:30] VITALS: BP 107/59
[2016-12-06] MEDS: TREPROSTINIL INH SCH ×4 (07:35→20:11)
--- NOTE | 2016-12-06 08:22 | IPNPDOC ---
Subjective Date Seen The patient was seen on 12/06/16. Subjective Chief Complaint/HPI The patient is a 61-year-old female admitted with a reason for visit of Abdominal Pain. General: Denies: ROS Unobtainable, Chills, Night Sweats, Fatigue, Malaise, Normal Appetite, Other Symptoms Constitutional: Denies: Chills, Fever, Malaise, Night Sweats, Weakness, Fatigue , Weight Loss, Lethargy, Other Eyes: Denies: Pain, Vision change, Conjunctivae inflammation, Eyelid inflammation, Redness, Other ENT: Denies: Head Aches, Ear Pain, Dysphagia, Sinus Congestion, Post Nasal Drip , Sore Throat, Epistaxis, Other Symptoms Skin: Denies: Rash, Lesions, Jaundice, Bruising, Itching, Dry, Breakdown, Nail Changes, Other Pulmonary: Denies: Dyspnea, Cough, Pleuritic Chest Pain, Other Symptoms Cardiovascular: Denies: Chest Pain, Palpitations, Orthopnea, Paroxysmal Noc. Dyspnea, Edema, Lt Headedness, Other Symptoms Gastrointestinal: Reports: Constipation, Denies: Nausea, Vomiting, Abdominal Pain, Diarrhea, Melena, Hematochezia, Other Symptoms Genitourinary: Denies: Dysuria, Frequency, Incontinence, Hematuria, Retention, Other Symptoms Objective Physical Examination General Exam: Positive: Alert, Cooperative, Moderate Distress Eye Exam: Positive: Conjunctiva & lids normal, EOMI, Negative: Sclera icteric ENT Exam: Positive: Atraumatic, Mucous membr. moist/pink, Pharynx Normal Chest Exam: Positive: Rales (throughout, but most prominent at the bases) Heart Exam: Positive: Irregular Rhythm (irregularly irregular), Murmurs (2/6 systolic), Negative: Rubs Telemetry: Positive: Atrial fibrillation Abdomen Exam: Positive: Normal bowel sounds, Tenderness (she is significantly tender in all quadrants of her abdomen), Other (midline surgical scar noted from prior cholecystectomy) Extremity Exam: Positive: Normal pulses, Other (chronic changes consistent with scleroderma. Her toes are purple which is chronic Raynaud's phenomena) Skin Exam: Positive: Nl turgor and temperature, Negative: Breakdown, Lesion Neuro Exam: Positive: Normal Speech Psych Exam: Positive: Mental status NL, Mood NL, Oriented x 3 Assessment /Plan Problems (1) Adrenal insufficiency Response to Treatment: Improving Discussed With: Patient Problem Specific Plan: Monitor Clinically Problem Text: Stress dose hydrocortisone. Wean to q12 h dosing for tomorrow (2) Abdominal pain Status: Acute Response to Treatment: Improving Discussed With: Patient Problem Specific Plan: Monitor Clinically (3) Diarrhea Status: Resolved Discussed With: Patient Problem Specific Plan: Monitor Clinically Problem Text: Actually has constipation now. Will continue with gentle bowel prep. Encourage ambulation. (4) Urinary tract infection Status: Acute Response to Treatment: Progressing Discussed With: Patient Problem Specific Plan: Monitor Clinically Problem Text: Continue rocephin. Patient is asymptomatic. (5) Hyponatremia Status: Acute Response to Treatment: Improving Discussed With: Patient Problem Specific Plan: Monitor Clinically, Repeat Labs Problem Text: Continue IV fluids (6) Scleroderma Status: Chronic Discussed With: Patient Problem Specific Plan: Monitor Clinically Problem Text: Continue steroids. (7) Pulmonary hypertension Status: Chronic Discussed With: Patient Problem Specific Plan: Monitor Clinically Problem Text: Continue letairis, revatio, treprostinil. (8) Raynaud's disease Status: Chronic Discussed With: Patient Problem Specific Plan: Monitor Clinically (9) Hypothyroidism Status: Chronic Discussed With: Patient Problem Specific Plan: Monitor Clinically Problem Text: Continue synthroid (10) Hypertension Status: Chronic Discussed With: Patient Problem Specific Plan: Monitor Clinically Problem Text: torsemide has been mostly held due to low systolic (11) Congestive heart failure (CHF) Status: Chronic Discussed With: Patient Problem Specific Plan: Monitor Clinically Problem Text: Continue torsemide. Aldactone on hold given hyperkalemia on admission. (12) Afib Status: Chronic Discussed With: Patient Problem Specific Plan: Monitor Clinically Problem Text: rate controlled with verapamil. coumadin on hold given elevated INR dig levels superatherapeutic on admission - resolved - therapeutic now resume digoxin (13) CKD (chronic kidney disease) Status: Chronic Discussed With: Patient Problem Specific Plan: Repeat Labs Problem Text: grossly at baseline (14) Anemia Status: Chronic Discussed With: Patient Problem Specific Plan: Monitor Clinically, Repeat Labs Problem Text: grossly at baseline h/h stable (15) Obstructive sleep apnea on CPAP Status: Chronic Discussed With: Patient Problem Specific Plan: Monitor Clinically Plan/VTE VTE Prophylaxis Ordered?: Yes (Warfarin) Plan IVF: Continue Diet: Continue Current Activity: Continue Current Therapy: PT Medications: Replete Electrolytes IV Respiratory: Wean Oxygen Diagnostics: Repeat Labs in AM Anticipated Discharge: Home, Home With Services Disposition Continue IV fluids, taper steroids, IV antibiotics. VS, I&O, 24H, Fishbone Vital Signs/I&O Vital Signs Date Time Temp Pulse Resp B/P (MAP) Pulse Ox O2 Delivery O2 Flow Rate FiO2 12/06/16 07:30 96.4 60 20 107/59 (75) 95 Nasal Cannula 2.0 12/04/16 00:21 92 I&O- Last 24 Hours up to 6 AM 12/06/16 06:00 Intake Total 2930 ml Output Total 300 ml Balance 2630 ml Laboratory Data 24H LABS Laboratory Tests 2 12/05/16 11:23: Bedside Glucose (Misc Panel) 119H 12/05/16 16:21: Bedside Glucose (Misc Panel) 116H 12/05/16 19:29: Bedside Glucose (Misc Panel) 148H 12/06/16 05:56: Prothrombin Time 40.8H, Prothromb Time International Ratio 4.25, Anion Gap 10, Glomerular Filtration Rate 42.8L, Blood Urea Nitrogen 31H, Creatinine 1.34H, Sodium Level 133L, Potassium Level 5.0, Chloride Level 102, Carbon Dioxide Level 21, Calcium Level 7.8L, Magnesium Level 2.1, Digoxin Level 1.2 CBC/BMP Laboratory Tests 12/05/16 14:15 12/05/16 21:59 12/06/16 05:56 Red Blood Count 2.68 L, Mean Corpuscular Volume 102.0 H, Mean Corpuscular Hemoglobin 30.4, Mean Corpuscular Hemoglobin Concent 29.8 L, Red Cell Distribution Width 17.9 H, Calcium Level 7.8 L Microbiology Microbiology 12/03/16 Urine Culture - Final, Complete Klebsiella Pneumoniae ALEX STAHL MD December 06, 2016 08:22
[2016-12-06] MEDS: VERAPAMIL 80 MG TAB PO SCH ×3 (09:00→20:49)
[2016-12-06] MEDS: TORSEMIDE 20 MG TAB PO SCH ×2 (09:00→17:47)
[2016-12-06] MEDS: PRAVASTATIN 20 MG TAB PO SCH (09:09)
[2016-12-06] MEDS: VITAMIN D 1,000 INTERNATIONAL UNITS TABLET PO SCH (09:09)
[2016-12-06] MEDS: CALCIUM/VITAMIN D 500 MG TAB PO SCH (09:09)
[2016-12-06] MEDS: SILDENAFIL CITRATE 20 MG TABLET (REVATIO) PO SCH ×3 (09:09→20:49)
[2016-12-06] MEDS: OMEPRAZOLE 20 MG CAP PO SCH (09:09)
[2016-12-06] MEDS: NS 1,000 ML IV SCH (10:06)
[2016-12-06 12:00] VITALS: BP 131/68
[2016-12-06 16:00] VITALS: BP 137/75
[2016-12-06 20:00] VITALS: BP 139/83
[2016-12-06] MEDS: cefTRIAXone SOD 1 GM in D5W MINI-BAG PLUS 50 ML IV SCH (20:47)
[2016-12-07] VITALS (8 sets, daily range): BP systolic 113–135; BP diastolic 61–77
[2016-12-07] MEDS: NS 1,000 ML IV SCH (03:12)
[2016-12-07] MEDS: LEVOTHYROXINE 0.125 MG TAB (125 MCG) PO SCH (05:09)
[2016-12-07] MEDS: HYDROCORTISONE 100 MG/2 ML VIAL (J1720) IV SCH (05:09)
[2016-12-07 05:57] LABS: INR 3.15; MEAN CORPUSCULAR HGB CONC 29.8 g/dl (32.0-36.5); MEAN CORPUSCULAR VOLUME 100.9 fl (80.0-96.0); RED CELL DISTRIBUTION WIDTH 18.1 % (11.5-14.5); WHITE BLOOD COUNT 6.8 K/mm3 (4.0-10.0)
[2016-12-07 06:21] LABS: CALCIUM LEVEL 8.1 MG/DL (8.8-10.2); CREATININE FOR GFR 1.56 MG/DL (0.55-1.02); GLOMERULAR FILTRATION RATE 35.9 (>45); POTASSIUM SERUM 4.5 MEQ/L (3.5-5.1)
[2016-12-07] MEDS: TREPROSTINIL INH SCH ×4 (07:22→20:44)
[2016-12-07] MEDS: VERAPAMIL 80 MG TAB PO SCH ×3 (09:00→21:44)
[2016-12-07] MEDS: TORSEMIDE 20 MG TAB PO SCH ×2 (09:00→16:16)
[2016-12-07] MEDS: CALCIUM/VITAMIN D 500 MG TAB PO SCH (09:19)
[2016-12-07] MEDS: VITAMIN D 1,000 INTERNATIONAL UNITS TABLET PO SCH (09:19)
[2016-12-07] MEDS: SILDENAFIL CITRATE 20 MG TABLET (REVATIO) PO SCH ×3 (09:19→21:45)
[2016-12-07] MEDS: OMEPRAZOLE 20 MG CAP PO SCH (09:20)
[2016-12-07] MEDS: LETAIRIS 10 MG PO SCH (09:21)
[2016-12-07] MEDS: PRAVASTATIN 20 MG TAB PO SCH (09:21)
[2016-12-07] MEDS: PERCOCET 5MG/325MG TAB PO PRN ×2 (10:31→18:05)
--- NOTE | 2016-12-07 13:38 | IPNPDOC ---
Subjective Date Seen The patient was seen on 12/07/16. Subjective Chief Complaint/HPI The patient is a 61-year-old female admitted with a reason for visit of Abdominal Pain. General: Denies: ROS Unobtainable, Chills, Night Sweats, Fatigue, Malaise, Normal Appetite, Other Symptoms Constitutional: Denies: Chills, Fever, Malaise, Night Sweats, Weakness, Fatigue , Weight Loss, Lethargy, Other Eyes: Denies: Pain, Vision change, Conjunctivae inflammation, Eyelid inflammation, Redness, Other Skin: Denies: Rash, Lesions, Jaundice, Bruising, Itching, Dry, Breakdown, Nail Changes, Other Pulmonary: Reports: Cough, Denies: Dyspnea Cardiovascular: Denies: Chest Pain, Palpitations, Orthopnea, Paroxysmal Noc. Dyspnea, Edema, Lt Headedness, Other Symptoms Gastrointestinal: Reports: Abdominal Pain, Denies: Nausea, Vomiting, Diarrhea, Constipation, Melena, Hematochezia, Other Symptoms Genitourinary: Denies: Dysuria, Frequency, Incontinence, Hematuria, Retention, Other Symptoms Objective Physical Examination General Exam: Positive: Alert, Cooperative, Moderate Distress Eye Exam: Positive: Conjunctiva & lids normal, EOMI, Negative: Sclera icteric ENT Exam: Positive: Atraumatic, Mucous membr. moist/pink, Pharynx Normal Chest Exam: Positive: Rales (throughout, but most prominent at the bases) Heart Exam: Positive: Irregular Rhythm (irregularly irregular), Murmurs (2/6 systolic), Negative: Rubs Telemetry: Positive: Atrial fibrillation Abdomen Exam: Positive: Normal bowel sounds, Tenderness (RLQ tenderness), Other (midline surgical scar noted from prior cholecystectomy) Extremity Exam: Positive: Normal pulses, Other (chronic changes consistent with scleroderma. Her toes are purple which is chronic Raynaud's phenomena) Skin Exam: Positive: Nl turgor and temperature, Negative: Breakdown, Lesion Neuro Exam: Positive: Normal Speech Psych Exam: Positive: Mental status NL, Mood NL, Oriented x 3 Assessment /Plan Problems (1) Adrenal insufficiency Response to Treatment: Improving Discussed With: Patient Problem Specific Plan: Monitor Clinically Problem Text: Stress dose hydrocortisone. Wean to PO prednisone tomorrow (2) Abdominal pain Status: Acute Response to Treatment: Improving Discussed With: Patient Problem Specific Plan: Monitor Clinically (3) Diarrhea Status: Resolved Discussed With: Patient Problem Specific Plan: Monitor Clinically Problem Text: Actually has constipation now. Will continue with gentle bowel prep. Encourage ambulation. (4) Urinary tract infection Status: Acute Response to Treatment: Progressing Discussed With: Patient Problem Specific Plan: Monitor Clinically Problem Text: Continue rocephin. Patient is asymptomatic. (5) Hyponatremia Status: Acute Response to Treatment: Improving Discussed With: Patient Problem Specific Plan: Monitor Clinically, Repeat Labs Problem Text: Continue IV fluids (6) Scleroderma Status: Chronic Discussed With: Patient Problem Specific Plan: Monitor Clinically Problem Text: Continue steroids. (7) Pulmonary hypertension Status: Chronic Discussed With: Patient Problem Specific Plan: Monitor Clinically Problem Text: Continue letairis, revatio, treprostinil. (8) Raynaud's disease Status: Chronic Discussed With: Patient Problem Specific Plan: Monitor Clinically (9) Hypothyroidism Status: Chronic Discussed With: Patient Problem Specific Plan: Monitor Clinically Problem Text: Continue synthroid (10) Hypertension Status: Chronic Discussed With: Patient Problem Specific Plan: Monitor Clinically Problem Text: torsemide has been mostly held due to low systolic (11) Congestive heart failure (CHF) Status: Chronic Discussed With: Patient Problem Specific Plan: Monitor Clinically Problem Text: Continue torsemide. Aldactone on hold given hyperkalemia on admission. (12) Afib Status: Chronic Discussed With: Patient Problem Specific Plan: Monitor Clinically Problem Text: rate controlled with verapamil. coumadin on hold given elevated INR dig levels superatherapeutic on admission - resolved - therapeutic now resume digoxin (13) CKD (chronic kidney disease) Status: Chronic Discussed With: Patient Problem Specific Plan: Repeat Labs Problem Text: grossly at baseline (14) Anemia Status: Chronic Discussed With: Patient Problem Specific Plan: Monitor Clinically, Repeat Labs Problem Text: grossly at baseline h/h stable (15) Obstructive sleep apnea on CPAP Status: Chronic Discussed With: Patient Problem Specific Plan: Monitor Clinically Plan/VTE VTE Prophylaxis Ordered?: Yes (Warfarin) Plan IVF: Discontinue Diet: Advance Activity: Continue Current Therapy: PT Medications: Replete Electrolytes IV Respiratory: Wean Oxygen Diagnostics: Repeat Labs in AM Anticipated Discharge: Home, Home With Services VS, I&O, 24H, [facility] Vital Signs/I&O Vital Signs Date Time Temp Pulse Resp B/P (MAP) Pulse Ox O2 Delivery O2 Flow Rate FiO2 12/07/16 12:00 97.9 99 16 113/63 (80) 97 Nasal Cannula 2.0 12/04/16 00:21 92 I&O- Last 24 Hours up to 6 AM 12/07/16 06:00 Intake Total 3560 ml Output Total 1050 ml Balance 2510 ml Laboratory Data 24H LABS Laboratory Tests 2 12/07/16 05:29: Prothrombin Time 32.4H, Prothromb Time International Ratio 3.15, Anion Gap 10, Glomerular Filtration Rate 35.9L, Blood Urea Nitrogen 35H, Creatinine 1.56H, Sodium Level 134L, Potassium Level 4.5, Chloride Level 104, Carbon Dioxide Level 20L, Calcium Level 8.1L, Magnesium Level 2.0 CBC/BMP Laboratory Tests 12/06/16 13:50 12/06/16 21:50 12/07/16 05:29 Red Blood Count 2.69 L, Mean Corpuscular Volume 100.9 H, Mean Corpuscular Hemoglobin 30.0, Mean Corpuscular Hemoglobin Concent 29.8 L, Red Cell Distribution Width 18.1 H, Calcium Level 8.1 L Microbiology Microbiology 12/06/16 Gastrointestinal Tract Panel (PCR) - Final, Complete 12/03/16 Urine Culture - Final, Complete Klebsiella Pneumoniae ALEX STAHL MD December 07, 2016 13:38
--- NOTE | 2016-12-07 14:13 | REP ---
KUB ONE VIEW: HISTORY: Abdominal pain. Air is present in small and large intestine. There are no air-fluid levels or dilated loops of intestine. There is no pneumoperitoneum. Surgical clips are present in the right upper quadrant. IMPRESSION: Nonspecific bowel gas pattern. Signed by Kelvin Felix MD 12/07/2016 02:23 P
[2016-12-07] MEDS ORDERED: SLF 3 ML SYR IV PRN (15:30)
[2016-12-07] MEDS ORDERED: HYDROCORTISONE 100 MG/2 ML VIAL (J1720) IV ONE (18:00)
[2016-12-07] MEDS: cefTRIAXone SOD 1 GM in D5W MINI-BAG PLUS 50 ML IV SCH (19:49)
[2016-12-07] MEDS: SLF 3 ML SYR IV SCH (21:45)
[2016-12-08 03:56] VITALS: BP 121/67
[2016-12-08] MEDS: LEVOTHYROXINE 0.125 MG TAB (125 MCG) PO SCH (05:39)
[2016-12-08] MEDS: SLF 3 ML SYR IV SCH ×3 (05:39→21:00)
[2016-12-08 05:56] LABS: INR 2.4
[2016-12-08 06:08] LABS: MEAN CORPUSCULAR HEMOGLOBIN 30.6 pg (27.0-33.0); MEAN CORPUSCULAR HGB CONC 29.8 g/dl (32.0-36.5); MEAN CORPUSCULAR VOLUME 102.6 fl (80.0-96.0); RED CELL DISTRIBUTION WIDTH 17.8 % (11.5-14.5); WHITE BLOOD COUNT 7.9 K/mm3 (4.0-10.0)
[2016-12-08 06:13] LABS: CALCIUM LEVEL 8.2 MG/DL (8.8-10.2); CREATININE FOR GFR 1.38 MG/DL (0.55-1.02); GLOMERULAR FILTRATION RATE 41.4 (>45); MAGNESIUM LEVEL 1.9 MG/DL (1.8-2.4); POTASSIUM SERUM 4.4 MEQ/L (3.5-5.1)
[2016-12-08] MEDS: TREPROSTINIL INH SCH ×4 (07:09→21:26)
[2016-12-08 08:15] VITALS: BP 124/69
[2016-12-08] MEDS: PRAVASTATIN 20 MG TAB PO SCH (09:51)
[2016-12-08] MEDS: VITAMIN D 1,000 INTERNATIONAL UNITS TABLET PO SCH (09:51)
[2016-12-08] MEDS: VERAPAMIL 80 MG TAB PO SCH ×3 (09:52→20:59)
[2016-12-08] MEDS: OMEPRAZOLE 20 MG CAP PO SCH (09:52)
[2016-12-08] MEDS: predniSONE 50 MG TAB PO SCH (09:52)
[2016-12-08] MEDS: SILDENAFIL CITRATE 20 MG TABLET (REVATIO) PO SCH ×3 (09:52→20:59)
[2016-12-08] MEDS: CALCIUM/VITAMIN D 500 MG TAB PO SCH (09:52)
[2016-12-08] MEDS: TORSEMIDE 20 MG TAB PO SCH ×2 (09:53→16:32)
[2016-12-08] MEDS: LETAIRIS 10 MG PO SCH (09:55)
--- NOTE | 2016-12-08 10:44 | IPNPDOC ---
Subjective Date Seen The patient was seen on 12/08/16. Subjective Chief Complaint/HPI The patient is a 61-year-old female admitted with a reason for visit of Abdominal Pain. General: Denies: ROS Unobtainable, Chills, Night Sweats, Fatigue, Malaise, Normal Appetite, Other Symptoms Constitutional: Denies: Chills, Fever, Malaise, Night Sweats, Weakness, Fatigue , Weight Loss, Lethargy, Other Eyes: Denies: Pain, Vision change, Conjunctivae inflammation, Eyelid inflammation, Redness, Other ENT: Denies: Head Aches, Ear Pain, Dysphagia, Sinus Congestion, Post Nasal Drip , Sore Throat, Epistaxis, Other Symptoms Skin: Denies: Rash, Lesions, Jaundice, Bruising, Itching, Dry, Breakdown, Nail Changes, Other Pulmonary: Denies: Dyspnea, Cough, Pleuritic Chest Pain, Other Symptoms Cardiovascular: Denies: Chest Pain, Palpitations, Orthopnea, Paroxysmal Noc. Dyspnea, Edema, Lt Headedness, Other Symptoms Gastrointestinal: Denies: Nausea, Vomiting, Abdominal Pain, Diarrhea, Constipation, Melena, Hematochezia, Other Symptoms Objective Physical Examination General Exam: Positive: Alert, Cooperative, Moderate Distress Eye Exam: Positive: PERRLA, Conjunctiva & lids normal, EOMI, Negative: Sclera icteric ENT Exam: Positive: Atraumatic, Mucous membr. moist/pink, Pharynx Normal Neck Exam: Positive: Supple Chest Exam: Positive: Normal air movement, Other (bilateral crackles R>L) Heart Exam: Positive: Tachycardic, Irregular Rhythm (irregularly irregular), Murmurs (2/6 systolic), Negative: Rubs Telemetry: Positive: Atrial fibrillation Abdomen Exam: Positive: Normal bowel sounds, Tenderness (RLQ tenderness), Other (midline surgical scar noted from prior cholecystectomy) Extremity Exam: Positive: Normal pulses, Other (chronic changes consistent with scleroderma. Her toes are purple which is chronic Raynaud's phenomena) Skin Exam: Positive: Nl turgor and temperature, Negative: Breakdown, Lesion Neuro Exam: Positive: Normal Speech Psych Exam: Positive: Mental status NL, Mood NL, Oriented x 3 Assessment /Plan Problems (1) Adrenal insufficiency Response to Treatment: Improving Discussed With: Patient Problem Specific Plan: Monitor Clinically Problem Text: Weaned to PO prednisone today. (2) Abdominal pain Status: Chronic Response to Treatment: Improving Discussed With: Patient Problem Specific Plan: Monitor Clinically (3) Diarrhea Status: Resolved Discussed With: Patient Problem Specific Plan: Monitor Clinically Problem Text: Actually has constipation now. Will continue with gentle bowel prep. Encourage ambulation. (4) Urinary tract infection Status: Resolved Response to Treatment: Progressing Discussed With: Patient Problem Specific Plan: Monitor Clinically Problem Text: Completed 5 day course of Rocephin. Patient is asymptomatic. (5) Hyponatremia Status: Acute Response to Treatment: Improving Discussed With: Patient Problem Specific Plan: Monitor Clinically, Repeat Labs Problem Text: Asymptomatic. Continue to follow BMP. (6) Scleroderma Status: Chronic Discussed With: Patient Problem Specific Plan: Monitor Clinically Problem Text: Continue steroids. (7) Pulmonary hypertension Status: Chronic Discussed With: Patient Problem Specific Plan: Monitor Clinically Problem Text: Continue letairis, revatio, treprostinil. (8) Raynaud's disease Status: Chronic Discussed With: Patient Problem Specific Plan: Monitor Clinically (9) Hypothyroidism Status: Chronic Discussed With: Patient Problem Specific Plan: Monitor Clinically Problem Text: Continue synthroid. Check TSH. (10) Hypertension Status: Chronic Discussed With: Patient Problem Specific Plan: Monitor Clinically Problem Text: torsemide has been mostly held due to low systolic (11) Congestive heart failure (CHF) Status: Chronic Discussed With: Patient Problem Specific Plan: Monitor Clinically Problem Text: Continue torsemide. Aldactone on hold given hyperkalemia on admission. (12) Afib Status: Chronic Discussed With: Patient Problem Specific Plan: Monitor Clinically Problem Text: appears to be in RVR late last night - continue verapamil. ECG pending resumed coumadin dig levels supratherapeutic on admission - resolved - therapeutic now resumed digoxin (13) CKD (chronic kidney disease) Status: Chronic Discussed With: Patient Problem Specific Plan: Repeat Labs Problem Text: grossly at baseline (14) Anemia Status: Chronic Discussed With: Patient Problem Specific Plan: Monitor Clinically, Repeat Labs Problem Text: grossly at baseline h/h stable (15) Obstructive sleep apnea on CPAP Status: Chronic Discussed With: Patient Problem Specific Plan: Monitor Clinically Plan/VTE VTE Prophylaxis Ordered?: Yes (Warfarin) Plan IVF: Discontinue Diet: Advance Activity: Continue Current Therapy: PT Respiratory: Wean Oxygen Diagnostics: Repeat Labs in AM, EKG Anticipated Discharge: Home, Home With Services Monitor on telemetry for tachycardia. ECG pending. TSH pending. Have transitioned to PO prednisone. VS, I&O, 24H, Fishbone Vital Signs/I&O Vital Signs Date Time Temp Pulse Resp B/P (MAP) Pulse Ox O2 Delivery O2 Flow Rate FiO2 12/08/16 09:52 98 124/69 12/08/16 08:15 98.3 20 100 Nasal Cannula 2.0 12/04/16 00:21 92 I&O- Last 24 Hours up to 6 AM 12/08/16 06:00 Intake Total 1958 ml Output Total 1650 ml Balance 308 ml Laboratory Data 24H LABS Laboratory Tests 2 12/07/16 18:47: Bedside Glucose (Misc Panel) 124H 12/07/16 21:38: Bedside Glucose (Misc Panel) 107 12/08/16 05:39: Prothrombin Time 26.2H, Prothromb Time International Ratio 2.40, Anion Gap 10, Glomerular Filtration Rate 41.4L, Blood Urea Nitrogen 34H, Creatinine 1.38H, Sodium Level 133L, Potassium Level 4.4, Chloride Level 102, Carbon Dioxide Level 21, Calcium Level 8.2L, Magnesium Level 1.9 CBC/BMP Laboratory Tests 12/08/16 05:39 Red Blood Count 2.76 L, Mean Corpuscular Volume 102.6 H, Mean Corpuscular Hemoglobin 30.6, Mean Corpuscular Hemoglobin Concent 29.8 L, Red Cell Distribution Width 17.8 H, Calcium Level 8.2 L Microbiology Microbiology 12/06/16 Gastrointestinal Tract Panel (PCR) - Final, Complete 12/03/16 Urine Culture - Final, Complete Klebsiella Pneumoniae ALEX STAHL MD December 08, 2016 10:44
[2016-12-08] MEDS: DIGOXIN 0.125 MG TAB PO SCH (11:26)
[2016-12-08 12:00] VITALS: BP 128/70
--- NOTE | 2016-12-08 15:31 | REP ---
Right lower extremity Duplex Doppler venous ultrasound: Real time compression and duplex Doppler interrogation of the right lower extremity deep venous system is performed. The right common femoral, superficial femoral and popliteal veins are fully compressible with transducer pressure and demonstrate normal spontaneous and phasic flow, without evidence of deep venous thrombosis. Impression: No evidence of deep venous thrombosis of the right lower extremity femoral popliteal venous system. Signed by Harshad Rosas MD 12/08/2016 03:23 P
[2016-12-08 16:00] VITALS: BP 146/52
[2016-12-08] MEDS: WARFARIN SOD 4 MG TAB PO SCH (16:33)
--- NOTE | 2016-12-08 18:56 | ECGEPIP ---
Stationary ECG Study 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
[2016-12-08] MEDS: cefTRIAXone SOD 1 GM in D5W MINI-BAG PLUS 50 ML IV SCH (20:59)
[2016-12-08 23:23] VITALS: BP 117/64
[2016-12-09 03:18] VITALS: BP 100/62
[2016-12-09 05:44] LABS: INR 1.79
[2016-12-09 05:45] LABS: MEAN CORPUSCULAR HGB CONC 30.1 g/dl (32.0-36.5); MEAN CORPUSCULAR VOLUME 99.4 fl (80.0-96.0); RED CELL DISTRIBUTION WIDTH 17.9 % (11.5-14.5); WHITE BLOOD COUNT 5.8 K/mm3 (4.0-10.0)
[2016-12-09 05:55] LABS: CALCIUM LEVEL 8.6 MG/DL (8.8-10.2); CREATININE FOR GFR 1.37 MG/DL (0.55-1.02); GLOMERULAR FILTRATION RATE 41.7 (>45); POTASSIUM SERUM 4.6 MEQ/L (3.5-5.1)
[2016-12-09] MEDS: SLF 3 ML SYR IV SCH ×3 (06:28→21:54)
[2016-12-09] MEDS: LEVOTHYROXINE 0.125 MG TAB (125 MCG) PO SCH (06:28)
[2016-12-09 08:00] VITALS: BP 119/59
[2016-12-09] MEDS: TREPROSTINIL INH SCH ×4 (08:04→20:09)
--- NOTE | 2016-12-09 08:19 | IPNPDOC ---
Subjective Date Seen The patient was seen on 12/09/16. Subjective Chief Complaint/HPI The patient is a 61-year-old female admitted with a reason for visit of Abdominal Pain. General: Denies: ROS Unobtainable, Chills, Night Sweats, Fatigue, Malaise, Normal Appetite, Other Symptoms Constitutional: Denies: Chills, Fever, Malaise, Night Sweats, Weakness, Fatigue , Weight Loss, Lethargy, Other Eyes: Denies: Pain, Vision change, Conjunctivae inflammation, Eyelid inflammation, Redness, Other ENT: Denies: Head Aches, Ear Pain, Dysphagia, Sinus Congestion, Post Nasal Drip , Sore Throat, Epistaxis, Other Symptoms Skin: Denies: Rash, Lesions, Jaundice, Bruising, Itching, Dry, Breakdown, Nail Changes, Other Pulmonary: Reports: Dyspnea, Cough, Denies: Pleuritic Chest Pain, Other Symptoms Cardiovascular: Denies: Chest Pain, Palpitations, Orthopnea, Paroxysmal Noc. Dyspnea, Edema, Lt Headedness, Other Symptoms Gastrointestinal: Denies: Nausea, Vomiting, Abdominal Pain, Diarrhea, Constipation, Melena, Hematochezia, Other Symptoms Genitourinary: Denies: Dysuria, Frequency, Incontinence, Hematuria, Retention, Other Symptoms Objective Physical Examination General Exam: Positive: Alert, Cooperative, No Acute Distress Eye Exam: Positive: PERRLA, Conjunctiva & lids normal, EOMI, Negative: Sclera icteric ENT Exam: Positive: Atraumatic, Mucous membr. moist/pink, Pharynx Normal Neck Exam: Positive: Supple Chest Exam: Positive: Normal air movement, Other (bilateral crackles R>L) Heart Exam: Positive: Rate Normal, Irregular Rhythm (irregularly irregular), Murmurs (2/6 systolic), Negative: Rubs Telemetry: Positive: Atrial fibrillation Abdomen Exam: Positive: Normal bowel sounds, Other (midline surgical scar noted from prior cholecystectomy), Negative: Tenderness Extremity Exam: Positive: Normal pulses, Other (chronic changes consistent with scleroderma. Her toes are purple which is chronic Raynaud's phenomena) Skin Exam: Positive: Nl turgor and temperature, Negative: Breakdown, Lesion Neuro Exam: Positive: Normal Speech Psych Exam: Positive: Mental status NL, Mood NL, Oriented x 3 Assessment /Plan Problems (1) Anemia Status: Chronic Response to Treatment: Progressing Discussed With: Patient Problem Specific Plan: Monitor Clinically, Repeat Labs Problem Text: h/h slowly dropping - today 7.9 repeat h/h this afternoon stool for occult blood last colonoscopy on our record is from 2004 which was unremarkable - egd also unremarkable - performed because of melena (2) Adrenal insufficiency Response to Treatment: Improving Discussed With: Patient Problem Specific Plan: Monitor Clinically Problem Text: Weaned to PO prednisone today. (3) Abdominal pain Status: Chronic Response to Treatment: Improving Discussed With: Patient Problem Specific Plan: Monitor Clinically (4) Diarrhea Status: Resolved Discussed With: Patient Problem Specific Plan: Monitor Clinically Problem Text: Actually has constipation now. Will continue with gentle bowel prep. Encourage ambulation. (5) Urinary tract infection Status: Resolved Response to Treatment: Progressing Discussed With: Patient Problem Specific Plan: Monitor Clinically Problem Text: Completed 5 day course of Rocephin. Patient is asymptomatic. (6) Hyponatremia Status: Chronic Response to Treatment: Improving Discussed With: Patient Problem Specific Plan: Monitor Clinically, Repeat Labs Problem Text: Asymptomatic. Continue to follow BMP. (7) Scleroderma Status: Chronic Discussed With: Patient Problem Specific Plan: Monitor Clinically Problem Text: Continue steroids. (8) Pulmonary hypertension Status: Chronic Discussed With: Patient Problem Specific Plan: Monitor Clinically Problem Text: Continue letairis, revatio, treprostinil. (9) Raynaud's disease Status: Chronic Discussed With: Patient Problem Specific Plan: Monitor Clinically (10) Hypothyroidism Status: Chronic Discussed With: Patient Problem Specific Plan: Monitor Clinically Problem Text: Continue synthroid. Check TSH. (11) Hypertension Status: Chronic Discussed With: Patient Problem Specific Plan: Monitor Clinically Problem Text: torsemide has been mostly held due to low systolic (12) Congestive heart failure (CHF) Status: Chronic Discussed With: Patient Problem Specific Plan: Monitor Clinically Problem Text: Continue torsemide. Aldactone on hold given hyperkalemia on admission. (13) Afib Status: Chronic Discussed With: Patient Problem Specific Plan: Monitor Clinically Problem Text: appears to be in RVR late last night - continue verapamil. ECG pending resumed coumadin dig levels supratherapeutic on admission - resolved - therapeutic now resumed digoxin (14) CKD (chronic kidney disease) Status: Chronic Discussed With: Patient Problem Specific Plan: Repeat Labs Problem Text: grossly at baseline (15) Obstructive sleep apnea on CPAP Status: Chronic Discussed With: Patient Problem Specific Plan: Monitor Clinically Plan/VTE VTE Prophylaxis Ordered?: Yes (Warfarin) Plan IVF: Discontinue Diet: Advance Activity: Continue Current Therapy: PT Respiratory: Wean Oxygen Diagnostics: Repeat Labs in AM, EKG Anticipated Discharge: Home, Home With Services continue to monitor h/h if stable - recommend outpatient colonoscopy if continues to drop likely inpatient colonoscopy transfuse if <7 VS, I&O, 24H, Fishbone Vital Signs/I&O Vital Signs Date Time Temp Pulse Resp B/P (MAP) Pulse Ox O2 Delivery O2 Flow Rate FiO2 12/09/16 03:18 98.1 80 18 100/62 (75) 93 Nasal Cannula 2.0 12/08/16 12:00 92 I&O- Last 24 Hours up to 6 AM 12/09/16 05:59 Intake Total 1520 ml Output Total 1815 ml Balance -295 ml Laboratory Data 24H LABS Laboratory Tests 2 12/09/16 05:22: Prothrombin Time 20.9H, Prothromb Time International Ratio 1.79 12/09/16 05:23: Anion Gap 8, Glomerular Filtration Rate 41.7L, Blood Urea Nitrogen 39H, Creatinine 1.37H, Sodium Level 133L, Potassium Level 4.6, Chloride Level 102, Carbon Dioxide Level 23, Calcium Level 8.6L, Magnesium Level 2.0 CBC/BMP Laboratory Tests 12/09/16 05:23 Red Blood Count 2.63 L, Mean Corpuscular Volume 99.4 H, Mean Corpuscular Hemoglobin 30.0, Mean Corpuscular Hemoglobin Concent 30.1 L, Red Cell Distribution Width 17.9 H, Calcium Level 8.6 L Microbiology Microbiology 12/06/16 Gastrointestinal Tract Panel (PCR) - Final, Complete 12/03/16 Urine Culture - Final, Complete Klebsiella Pneumoniae ALEX STAHL MD December 09, 2016 08:19
[2016-12-09] MEDS: CALCIUM/VITAMIN D 500 MG TAB PO SCH (08:34)
[2016-12-09] MEDS: VITAMIN D 1,000 INTERNATIONAL UNITS TABLET PO SCH (08:34)
[2016-12-09] MEDS: SILDENAFIL CITRATE 20 MG TABLET (REVATIO) PO SCH ×3 (08:34→21:53)
[2016-12-09] MEDS: DIGOXIN 0.125 MG TAB PO SCH (08:35)
[2016-12-09] MEDS: predniSONE 50 MG TAB PO SCH (08:35)
[2016-12-09] MEDS: VERAPAMIL 80 MG TAB PO SCH ×3 (08:37→21:53)
[2016-12-09] MEDS: PRAVASTATIN 20 MG TAB PO SCH (08:38)
[2016-12-09] MEDS: TORSEMIDE 20 MG TAB PO SCH ×2 (08:38→16:30)
[2016-12-09] MEDS: OMEPRAZOLE 20 MG CAP PO SCH (08:38)
[2016-12-09] MEDS: LETAIRIS 10 MG PO SCH (08:39)
[2016-12-09 12:00] VITALS: BP 100/68
[2016-12-09 16:00] VITALS: BP 110/70
[2016-12-09] MEDS: WARFARIN SOD 4 MG TAB PO SCH (16:29)
[2016-12-09 20:00] VITALS: BP 125/70
[2016-12-09 23:59] VITALS: BP 106/56
[2016-12-10 04:00] VITALS: BP 127/74
[2016-12-10] MEDS: LEVOTHYROXINE 0.125 MG TAB (125 MCG) PO SCH (05:07)
[2016-12-10] MEDS: SLF 3 ML SYR IV SCH (05:07)
[2016-12-10 05:53] LABS: INR 1.64
[2016-12-10 05:55] LABS: MEAN CORPUSCULAR HEMOGLOBIN 30.9 pg (27.0-33.0); MEAN CORPUSCULAR HGB CONC 30.4 g/dl (32.0-36.5); MEAN CORPUSCULAR VOLUME 101.6 fl (80.0-96.0); RED CELL DISTRIBUTION WIDTH 17.9 % (11.5-14.5)
[2016-12-10 06:11] LABS: CALCIUM LEVEL 8.1 MG/DL (8.8-10.2); CREATININE FOR GFR 1.23 MG/DL (0.55-1.02); GLOMERULAR FILTRATION RATE 47.3 (>45); MAGNESIUM LEVEL 1.9 MG/DL (1.8-2.4); POTASSIUM SERUM 4.5 MEQ/L (3.5-5.1)
[2016-12-10] MEDS ORDERED: PRED10TA PO (07:46)
[2016-12-10 08:00] VITALS: BP 113/70
[2016-12-10] MEDS: TREPROSTINIL INH SCH ×2 (08:03→12:40)
[2016-12-10 09:00] VITALS: BP 113/70
[2016-12-10] MEDS ORDERED: predniSONE 20 MG TAB PO SCH (09:00)
[2016-12-10] MEDS: VERAPAMIL 80 MG TAB PO SCH (09:00)
[2016-12-10] MEDS: TORSEMIDE 20 MG TAB PO SCH (09:00)
[2016-12-10] MEDS: LETAIRIS 10 MG PO SCH (09:52)
[2016-12-10] MEDS: DIGOXIN 0.125 MG TAB PO SCH (09:52)
[2016-12-10] MEDS: VITAMIN D 1,000 INTERNATIONAL UNITS TABLET PO SCH (09:53)
[2016-12-10] MEDS: OMEPRAZOLE 20 MG CAP PO SCH (09:53)
[2016-12-10] MEDS: SILDENAFIL CITRATE 20 MG TABLET (REVATIO) PO SCH (09:53)
[2016-12-10] MEDS: CALCIUM/VITAMIN D 500 MG TAB PO SCH (09:54)
[2016-12-10] MEDS: PRAVASTATIN 20 MG TAB PO SCH (09:54)
--- NOTE | 2016-12-10 10:07 | DS.PDOC ---
Discharge Summary General Date of Admission Dec 03, 2016 at 21:40 Date of Discharge 12/10/16 Primary Care Physician: PEGGY GARCES DO Discharge Summary PROCEDURES PERFORMED DURING STAY: [None]. DISCHARGE DIAGNOSES: 1. Adrenal insufficiency 1. Scleroderma - mixed connective tissue disorder - chronic steroid therapy 2. pulmonary fibrosis - interstitial lung disease 3. pulmonary hypertension 4. chronic hypoxic respiratory failure - 2L supplemental O2 at baseline 5. KELLY - non compliant with CPAP 6. Hypothyroidism 7. A fib - s/p ablation on coumadin 8. Anemia 9. right sided CHF 10. Raynauds's phenomenon COMPLICATIONS/CHIEF COMPLAINT: Abdominal Pain. HOSPITAL COURSE: 61-year old female presented for two weeks constipation and abdominal pain, with sudden onset diarrhea. She was found to have UTI, with CT evidence of enteritis/colitis. No diarrhea during hospital stay, was actually constipated. She completed a 5 day course of Rocephin for her UTI. Patient was found to hyponatremic and hyperkalemic with hypoglycemia. Deemed to be secondary to adrenal insufficiency, and stress dose steroids implemented which resolved her electrolyte abnormalities. Digoxin levels also found to be supratherapeutic, digoxin was held and resumed when levels returned to therapeutic limits. Hospital stay also significant for asymptomatic anemia, in the setting of chronic anti-coagulation for afib. Stool for occult blood was negative. Her anemia is likely multi-factorial however recommendations to follow up CBC with her PCP in the setting of warfarin use. DISCHARGE MEDICATIONS: Please see below. ALLERGIES: Please see below. PHYSICAL EXAMINATION ON DISCHARGE: VITAL SIGNS: Please see below. GENERAL: NAD HEENT: NC/AT, EOMI, PERRL NECK: supple CARDIOVASCULAR EXAMINATION: +S1S2, irregularly irregular, + systolic murmur RESPIRATORY EXAMINATION: CTA B/L ABDOMINAL EXAMINATION: soft, NT, +BS EXTREMITIES: no edema PSYCHIATRIC EXAMINATION: AAOx3 LABORATORY DATA: Please see below. ACTIVITY: As tolerated DIET: 2 gram sodium DISPOSITION: Discharge home. DISCHARGE INSTRUCTIONS: 1. PCP in 3-5 days. 2. Medications as directed. ITEMS TO FOLLOWUP ON ON OUTPATIENT: 1. Follow up CBC. DISCHARGE CONDITION: [Stable]. TIME SPENT ON DISCHARGE: Greater than 30 minutes. Vital Signs/I&Os Vital Signs Date Time Temp Pulse Resp B/P (MAP) Pulse Ox O2 Delivery O2 Flow Rate FiO2 12/10/16 08:00 97.0 111 19 113/70 (84) 92 Nasal Cannula 2.0 12/08/16 12:00 92 I&O- Last 24 Hours up to 6 AM 12/10/16 06:00 Intake Total 1420 ml Output Total 1600 ml Balance -180 ml Laboratory Data Labs 24H Laboratory Tests 2 12/09/16 12:44: Bedside Glucose (Misc Panel) 77L 12/10/16 04:53: Prothrombin Time 19.5H, Prothromb Time International Ratio 1.64, Anion Gap 8, Glomerular Filtration Rate 47.3, Blood Urea Nitrogen 36H, Creatinine 1.23H, Sodium Level 134L, Potassium Level 4.5, Chloride Level 102, Carbon Dioxide Level 24, Calcium Level 8.1L, Magnesium Level 1.9 CBC/BMP Laboratory Tests 12/09/16 14:55 12/10/16 04:53 Red Blood Count 2.61 L, Mean Corpuscular Volume 101.6 H, Mean Corpuscular Hemoglobin 30.9, Mean Corpuscular Hemoglobin Concent 30.4 L, Red Cell Distribution Width 17.9 H, Calcium Level 8.1 L FSBS Laboratory Tests Test 12/09/16 12:44 Range/Units Bedside Glucose (Misc Panel) 77 80-115 MG/DL Microbiology Microbiology 12/09/16 Stool Occult Blood (KARLA) - Final, Complete 12/06/16 Gastrointestinal Tract Panel (PCR) - Final, Complete 12/03/16 Urine Culture - Final, Complete Klebsiella Pneumoniae Discharge Medications Scheduled (Letairis) 5 Mg Tab, 10 MG PO DAILY, (Reported) Calcium/Vitamin D (Calcium 600+D3 600-400 mg-Unit) 1 Tab Tab, 1 TAB PO DAILY, ( Reported) Cholecalciferol (Vitamin D-3) 1,000 Unit Tab, 1,000 UNIT PO DAILY, (Reported) Digoxin (Digoxin) 0.125 Mg Tab, 0.125 MG PO DAILY, (Reported) Levothyroxine Sodium (Synthroid) 125 Mcg Tab, 125 MCG PO DAILY, (Reported) Omeprazole (Omeprazole) 40 Mg Cap, 40 MG PO DAILY, (Reported) Pravastatin Sodium (Pravachol) 20 Mg Tab, 20 MG PO DAILY, (Reported) Prednisone (Prednisone) 10 Mg Tab, 10 MG PO ASDIRECTED Sildenafil Citrate (Revatio) 20 Mg Tab, 40 MG PO TID, (Reported) Spironolactone (Spironolactone) 25 Mg Tab, 25 MG PO BID, (Reported) Torsemide (Torsemide) 20 Mg Tab, 20 MG PO BID, (Reported) Treprostinil (Tyvaso) 0.6 Mg/Ml Ly, 1 NEB INH QID, (Reported) Verapamil HCl (Verapamil HCl) 80 Mg Tab, 80 MG PO TID, (Reported) Warfarin Sod (Warfarin Sodium) 5 Mg Tab, 5 MG PO DAILY, (Reported) @ 1900 Scheduled PRN Hydrocortisone Base (Hydrocortisone) 2.5 % Cre, 1 DOSE TOP for RASH/ITCHING, ( Reported) APPLIED TO ANKLES Mupirocin (Pseudomonas Fluores (Bactroban) 2 % Oin, 1 DOSE TOP TID PRN for REDNESS/IRRITATION, (Reported) APPLIED TO FINGERS Oxycodone/Acetaminophen (Percocet 5-325 mg) 1 Tab Tab, 1 TAB PO Q6H PRN for PAIN , (Reported) Tramadol HCl (Tramadol HCl) 50 Mg Tab, 100 MG PO TID PRN for PAIN, (Reported) Allergies Coded Allergies: No Known Allergies (Verified , 11/24/16) ALEX STAHL MD December 10, 2016 10:07
== END 2016-12-10 13:35 | disposition home or self-care (01) | DRG 644 ==
LOC: EDBD 16:11 → M ED 17:18 → EDBEDREQSVC 20:17 → M ED INP 21:40 → M MSPAV 23:30 → M PCU 12-04 14:46
PROVIDERS: ADMIT Internal Medicine; ATTEND Hospitalist
DX: E27.2 Addisonian crisis (principal); N39.0 Urinary tract infection, site not specified; J96.11 Chronic respiratory failure with hypoxia; E87.1 Hypo-osmolality and hyponatremia; N18.3 Chronic kidney disease, stage 3 (moderate); G47.33 Obstructive sleep apnea (adult) (pediatric); E03.9 Hypothyroidism, unspecified; D64.9 Anemia, unspecified; K59.00 Constipation, unspecified; E87.5 Hyperkalemia; I48.91 Unspecified atrial fibrillation; I73.00 Raynaud's syndrome without gangrene; I50.9 Heart failure, unspecified; M34.9 Systemic sclerosis, unspecified; I27.2 Other secondary pulmonary hypertension; J84.10 Pulmonary fibrosis, unspecified; Z79.52 Long term (current) use of systemic steroids; Z79.899 Other long term (current) drug therapy; Z91.19 Patient's noncompliance with other medical treatment and regimen; Z79.01 Long term (current) use of anticoagulants; Z99.81 Dependence on supplemental oxygen; Z90.49 Acquired absence of other specified parts of digestive tract; Z80.7 Family history of other malignant neoplasms of lymphoid, hematopoietic and related tissues; Z82.3 Family history of stroke

== ENCOUNTER → 2016-12-16 | Outpatient (REF) | payer MEDICARE, MEDICAID ==
[~2016-12-16] MED LIST changes: +CALC600T68 PO; +LETA1TAB PO; +PRED10TA PO; +VERAP80TA PO
[2016-12-16 12:17] LABS: BASO % 0.3 % (0.0-1.0); EOS # 0.2 K/mm3 (0.0-0.50); EOS % 2.3 % (0.0-3.0); LARGE UNSTAINED CELL # 0.1 K/mm3 (0.0-0.4); LARGE UNSTAINED CELL % 1.1 % (0.0-4.0); LYMPH # 0.8 K/mm3 (1.5-4.5); LYMPH % 12.1 % (24.0-44.0); MEAN CORPUSCULAR HEMOGLOBIN 30.3 pg (27.0-33.0); MEAN CORPUSCULAR HGB CONC 29.4 g/dl (32.0-36.5); MEAN CORPUSCULAR VOLUME 102.9 fl (80.0-96.0); MONO # 0.5 K/mm3 (0.0-0.8); MONO % 7.5 % (0.0-5.0); NEUTROPHILS # 5.2 K/mm3 (1.8-7.7); NEUTROPHILS % 76.7 % (36.0-66.0); PLATELET COUNT, AUTOMATED 197 k/mm3 (150-450); RED CELL DISTRIBUTION WIDTH 17.7 % (11.5-14.5); WHITE BLOOD COUNT 6.7 K/mm3 (4.0-10.0)
[2016-12-16 12:19] LABS: CALCIUM LEVEL 8.5 MG/DL (8.8-10.2); CREATININE FOR GFR 1.49 MG/DL (0.55-1.02); GLOMERULAR FILTRATION RATE 37.9 (>45); POTASSIUM SERUM 4.5 MEQ/L (3.5-5.1)
== END ==
LOC: M SFHCPLAZ 08:45
PROVIDERS: ATTEND Family Medicine
DX: E27.40 Unspecified adrenocortical insufficiency (principal); D64.9 Anemia, unspecified

== ENCOUNTER 2016-12-21 21:32 | Inpatient (IN) | payer MEDICARE, MEDICAID ==
[~2016-12-21] VITALS: Ht 167.6 cm; Wt 75.1 kg
[~2016-12-21 21:32] MED LIST changes: -BUME1TA PO; -DEXT30SUSP PO; -PRED5TA PO
[2016-12-21] MEDS ORDERED: DEXT30SUSP PO (22:02)
[2016-12-21] MEDS ORDERED: PRED5TA PO (22:02)
[2016-12-21] MEDS ORDERED: ASPIRIN 81 MG CHEW TABLET PO ONE (22:15)
[2016-12-21] MEDS ORDERED: NITROGLYCERIN 0.4 MG SUBL TABLET SL PRN (22:15)
[2016-12-21] MEDS ORDERED: FUROSEMIDE 40 MG/4 ML VIAL (J1940) IV ONE (22:30)
[2016-12-21 22:52] LABS: ABG BASE EXCESS 1.1 (-2.0-2.0); ABG HCO3 25.5 MEQ/L (22.0-26.0); ABG PARTIAL PRESSURE CO2 39.8 mmHg (35.0-45.0); ABG PARTIAL PRESSURE O2 92.2 mmHg (75.0-100.0); ABG STANDARD HCO3 25.4 MEQ/L (22.0-26.0); ABG TOTAL CO2 26.8 MEQ/L (23.0-31.0); ABG pH (ARTERIAL) 7.425 UNITS (7.350-7.450)
[2016-12-21 23:05] LABS: BASO % 0.3 % (0.0-1.0); EOS # 0.1 K/mm3 (0.0-0.50); EOS % 1.7 % (0.0-3.0); LARGE UNSTAINED CELL # 0.1 K/mm3 (0.0-0.4); LARGE UNSTAINED CELL % 1.1 % (0.0-4.0); LYMPH # 0.6 K/mm3 (1.5-4.5); LYMPH % 9.7 % (24.0-44.0); MEAN CORPUSCULAR HEMOGLOBIN 30.7 pg (27.0-33.0); MEAN CORPUSCULAR HGB CONC 30.4 g/dl (32.0-36.5); MONO # 0.3 K/mm3 (0.0-0.8); MONO % 4.7 % (0.0-5.0); NEUTROPHILS # 5.5 K/mm3 (1.8-7.7); NEUTROPHILS % 82.5 % (36.0-66.0); PLATELET COUNT, AUTOMATED 174 k/mm3 (150-450); RED CELL DISTRIBUTION WIDTH 18.3 % (11.5-14.5); WHITE BLOOD COUNT 6.6 K/mm3 (4.0-10.0)
[2016-12-21 23:25] LABS: CALCIUM LEVEL 8.7 MG/DL (8.8-10.2); CREATININE FOR GFR 1.97 MG/DL (0.55-1.02); GLOMERULAR FILTRATION RATE 27.4 (>45)
[2016-12-21 23:30] LABS: POTASSIUM SERUM 5.4 MEQ/L (3.5-5.1)
[2016-12-22] VITALS (15 sets, daily range): BP systolic 98–113; BP diastolic 50–60
[2016-12-22] MEDS ORDERED: DOPamine HCL 400 MG in APPROPRIATE DILUENT 1 EA IV SCH (00:15)
[2016-12-22 01:14] LABS: PERCENT SATURATION 6.2 % (13.2-37.4)
[2016-12-22] MEDS: FUROSEMIDE injection 250 MG in D5W 225 ML IV SCH (01:34)
[2016-12-22] MEDS ORDERED: ANUSOL HC CREAM 30GM TOP PRN (02:30)
[2016-12-22] MEDS ORDERED: MUPIROCIN 2% OINT 22 GM TUBE TOP PRN (02:30)
--- NOTE | 2016-12-22 02:39 | HPEPDOC ---
General Date of Admission December 22, 2016 at 00:03 Primary Care Physician: PEGGY GARCES DO Attending Physician: BETITO STEINBERG MD Chief Complaint The patient is a 61-year-old female admitted with a reason for visit of Congestive Heart Failure. Source: Patient, Family, RN notes reviewed, Old records Exam Limitations: No limitations Timing/Duration: Day(s) Associated Symptoms: Chest Pain, Cough, Loss of appetite, Shortness of breath, Weakness, Dizziness History of Present Illness Ms. Novak is a 61-year-old female who presents to [facility]'s emergency Department with chest pain and difficulty breathing. She is accompanied by her and daughter. They provide some of the history. Past medical history is significant for diastolic congestive heart failure, pulmonary hypertension, pulmonary fibrosis, Raynaud's phenomenon, anemia, atrial fibrillation, obstructive sleep apnea, scleroderma, osteopenia, gastroesophageal reflux disease, dyslipidemia, rheumatoid arthritis. Patient reports a centralized, tight chest pain and difficulty breathing since yesterday. Reports that her medications have not been relieving symptoms. Reports a sore throat with a cough productive of phlegm that was initially yellow, but turned white. Denies emesis. Admits to abdominal pain. Describes chronic and unrelenting edema in her lower extremities. States that she feels weak and unsteady on her feet. Reports decreased appetite. Reports shortness of breath. Admits to constipation without melena or hematochezia. Other review of systems were negative. Patient reports similar episode last year. Patient was recently admitted on 12/03/2016 and discharged on 12/10/2016. At that time she presented with two weeks constipation and abdominal pain and sudden onset diarrhea. She was found to have UTI, with CT evidence of enteritis/ colitis. No diarrhea during hospital stay, was actually constipated. She completed a 5 day course of Rocephin for her UTI. Patient was found to hyponatremic and hyperkalemic with hypoglycemia. Deemed to be secondary to adrenal insufficiency, and stress dose steroids implemented which resolved her electrolyte abnormalities. Digoxin levels also found to be supratherapeutic, digoxin was held and resumed when levels returned to therapeutic limits. Hospital stay also significant for asymptomatic anemia, in the setting of chronic anti-coagulation for atrial fibrillation. Stool for occult blood was negative. Her anemia is likely multi-factorial however recommendations to follow up CBC with her PCP in the setting of warfarin use. Hospitalist service was consulted and patient was admitted for further medical management. Home Medications Scheduled (Letairis) 5 Mg Tab, 10 MG PO DAILY, (Reported) Calcium/Vitamin D (Calcium 600+D3 600-400 mg-Unit) 1 Tab Tab, 1 TAB PO DAILY, ( Reported) Cholecalciferol (Vitamin D-3) 1,000 Unit Tab, 1,000 UNIT PO DAILY, (Reported) Digoxin (Digoxin) 0.125 Mg Tab, 0.125 MG PO DAILY, (Reported) Levothyroxine Sodium (Synthroid) 125 Mcg Tab, 125 MCG PO DAILY, (Reported) Omeprazole (Omeprazole) 40 Mg Cap, 40 MG PO QHS, (Reported) Pravastatin Sodium (Pravachol) 20 Mg Tab, 20 MG PO QHS, (Reported) Prednisone (Prednisone) 5 Mg Tab, 5 MG PO DAILY, (Reported) Sildenafil Citrate (Revatio) 20 Mg Tab, 40 MG PO TID, (Reported) Spironolactone (Spironolactone) 25 Mg Tab, 25 MG PO BID, (Reported) Torsemide (Torsemide) 20 Mg Tab, 20 MG PO BID, (Reported) Treprostinil (Tyvaso) 0.6 Mg/Ml Ly, 1 NEB INH QID, (Reported) Verapamil HCl (Verapamil HCl) 80 Mg Tab, 80 MG PO BID, (Reported) Warfarin Sod (Warfarin Sodium) 5 Mg Tab, 5 MG PO DAILY, (Reported) @ 1900 Scheduled PRN Dextromethorphan (Delsym) 5 Ml Susp, 5 ML PO Q12H PRN for COUGH, (Reported) Hydrocortisone Base (Hydrocortisone) 2.5 % Cre, 1 DOSE TOP for RASH/ITCHING, ( Reported) APPLIED TO ANKLES Mupirocin (Pseudomonas Fluores (Bactroban) 2 % Oin, 1 DOSE TOP TID PRN for REDNESS/IRRITATION, (Reported) APPLIED TO FINGERS Tramadol HCl (Tramadol HCl) 50 Mg Tab, 100 MG PO TID PRN for PAIN, (Reported) Allergies Coded Allergies: No Known Allergies (Verified , 11/24/16) Past Medical History Medical History 1. Diastolic congestive heart failure 2. Pulmonary hypertension 3. Raynaud's phenomena 4. Anemia 5. Atrial fibrillation 6. History of obstructive sleep apnea 7. Pulmonary fibrosis 8. Scleroderma 9. Osteopenia 10. Gastroesophageal reflux disease 11. Dyslipidemia 12. Rheumatoid arthritis Surgical History 1. Cholecystectomy 2. Cardiac ablation, 2015 3. Spinal surgeries 4. Bronchoscopy 5. Colonoscopy 6. 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 [employer] Admits to horses on the property Denies environmental exposures Denies tobacco use, alcohol, illicit drug use Review of Symptoms Constitutional: Reports: Weakness, Weight Loss (unintentional, many years ago) , Denies: Chills, Fever, Night Sweats Eyes: Denies: Vision change ENT: Reports: Sore Throat, Denies: Head Aches, Sinus Congestion, Post Nasal Drip, Epistaxis Skin: Denies: Rash, Lesions Pulmonary: Reports: Dyspnea, Cough Cardiovascular: Reports: Chest Pain, Edema, Denies: Palpitations Gastrointestinal: Reports: Abdominal Pain, Constipation, Denies: Nausea, Vomiting, Diarrhea, Melena, Hematochezia Genitourinary: Denies: Dysuria, Frequency, Incontinence, Hematuria Hematologic: Denies: Bruising, Petecchia, Enlarged Lymph Nodes Musculoskeletal: Denies: Neck Pain, Back Pain, Joint Pain Neurological: Reports: Weakness, Denies: Numbness Physical Examination General Exam: Positive: Alert, Cooperative Eye Exam: Positive: PERRLA, Conjunctiva & lids normal, EOMI, Negative: Sclera icteric, Ptosis ENT Exam: Positive: Atraumatic, Tongue Midline, Nares Patent Neck Exam: Positive: Supple, Negative: JVD, thyromegaly, Lymphadenopathy Chest Exam: Positive: Rales Heart Exam: Positive: Irregular Rhythm, Normal S1, Normal S2, Murmurs Telemetry: Positive: Atrial fibrillation Abdomen Exam: Positive: BS Hypoactive, Soft, Tenderness Extremity Exam: Positive: Cyanosis, Edema, Normal pulses, Negative: Clubbing, Tenderness Skin Exam: Negative: Rash, Lesion Neuro Exam: Positive: Normal Speech, Strength at 5/5 X4 ext, Cranial Nerves 3- 12 NL Vital Signs Vital Signs Date Time Temp Pulse Resp B/P (MAP) Pulse Ox O2 Delivery O2 Flow Rate FiO2 12/22/16 01:17 65 95 12/22/16 01:16 102/59 (73) 12/22/16 00:17 Venturi Mask 15.0 50 12/21/16 21:45 97.3 22 Height (in): 66 Weight (kg): 84.7 BMI (kg): 30.1 Laboratory Data Labs 24H Laboratory Tests 2 12/21/16 22:35: White Blood Count 6.6, Red Blood Count 2.69L, Hemoglobin 8.3L, Hematocrit 27.2L , Mean Corpuscular Volume 101.0H, Mean Corpuscular Hemoglobin 30.7, Mean Corpuscular Hemoglobin Concent 30.4L, Red Cell Distribution Width 18.3H, Platelet Count 174, Neutrophils (%) (Auto) 82.5H, Lymphocytes (%) (Auto) 9.7L, Monocytes (%) (Auto) 4.7, Eosinophils (%) (Auto) 1.7, Basophils (%) (Auto) 0.3, Neutrophils # (Auto) 5.5, Lymphocytes # (Auto) 0.6L, Monocytes # (Auto) 0.3, Eosinophils # (Auto) 0.1, Basophils # (Auto) 0.0, Large Unclassified Cells % 1.1 , Large Unclassified Cells # 0.1, Anion Gap 7L, Glomerular Filtration Rate 27.4L , Blood Urea Nitrogen 57H, Creatinine 1.97H, Sodium Level 127L, Potassium Level 5.4H, Chloride Level 89L, Carbon Dioxide Level 31, Calcium Level 8.7L, Total Creatine Kinase 41, Iron Level 24L, Total Iron Binding Capacity 390, Transferrin % Saturation 6.2L, Ferritin 35, Creatine Kinase MB 4.6H, Creatine Kinase MB Relative Index 11.21H, Troponin I 0.10, B-Type Natriuretic Peptide 3240H 12/21/16 22:36: Blood Gas Bicarbonate Standard 25.4, Arterial Blood pH 7.425, Arterial Blood Partial Pressure CO2 39.8, Arterial Blood Partial Pressure O2 92.2, Arterial Blood Total CO2 26.8, Arterial Blood HCO3 25.5, Arterial Blood Base Excess 1.1, Arterial Blood Oxygen Saturation 97.0 CBC/BMP Laboratory Tests 12/21/16 22:35 Red Blood Count 2.69 L, Mean Corpuscular Volume 101.0 H, Mean Corpuscular Hemoglobin 30.7, Mean Corpuscular Hemoglobin Concent 30.4 L, Red Cell Distribution Width 18.3 H, Neutrophils (%) (Auto) 82.5 H, Lymphocytes (%) (Auto ) 9.7 L, Monocytes (%) (Auto) 4.7, Eosinophils (%) (Auto) 1.7, Basophils (%) ( Auto) 0.3, Neutrophils # (Auto) 5.5, Lymphocytes # (Auto) 0.6 L, Monocytes # ( Auto) 0.3, Eosinophils # (Auto) 0.1, Basophils # (Auto) 0.0, Calcium Level 8.7 L , Total Creatine Kinase 41 Assessment/Plan Ms. Novak is a 61-year-old female with a past medical history is significant for diastolic congestive heart failure, pulmonary hypertension, pulmonary fibrosis, Raynaud's phenomenon, anemia, atrial fibrillation, obstructive sleep apnea, scleroderma, osteopenia, gastroesophageal reflux disease, dyslipidemia, rheumatoid arthritis to be in respiratory failure secondary to exacerbation of diastolic congestive heart failure. Plan / VTE VTE Prophylaxis Ordered?: Yes (Warfarin) Plan / Urinary Catheter Reason for insertion/continuin: Critical Pt monitoring Plan Plan Acute respiratory failure Likely secondary to acute exacerbation of congestive heart failure and cor pulmonale. Pulmonary hypertension and pulmonary fibrosis likely exacerbated clinical picture. ABG was optimal. Remains on Venturi mask with appropriate oxygenation. Initiate furosemide drip. Obtain echocardiogram. Monitor strict I/ Os. Admit to the intensive care unit. Hypotension Likely secondary to decreased renal perfusion. Initiating furosemide drip. Could consider adding a vasodilator to increase renal perfusion in order to improve blood pressure. Monitor vital signs. Acute kidney injury superimposed on chronic kidney disease Likely cardiorenal component secondary to exacerbation of diastolic congestive heart failure. Nephrotoxic medications held at this time. Consulted nephrology. Monitor BMP every 12 hours. Chest pain EKG shows atrial fibrillation. Obtaining cardiac markers. Hyponatremia Likely cardiorenal component. Lasix drip will provide some replenishment. Monitor with BMP every 12 hours. Hyperkalemia Likely secondary to blood pressure medication. Holding spironolactone at this time. Anemia Asymptomatic this time. Obtaining iron studies, vitamin B12 level, and folate level. Monitor with CBC. Atrial fibrillation Currently stable. Obtain digoxin level. Continue with her medication regimen. Obtain daily PT/INRs secondary to being on warfarin. Disposition Admit: Intensive care unit And is better hospitalization: 2 nights Attending: Dr. Shetty Diet: Continue Current Activity: Continue Current Diagnostics: Check Labs, Repeat Labs in AM, TTE Anticipated Discharge: Home MATTHEW KAPLAN December 22, 2016 02:39 BETITO STEINBERG MD December 23, 2016 01:01
[2016-12-22 04:33] LABS: MEAN CORPUSCULAR HEMOGLOBIN 31.2 pg (27.0-33.0); MEAN CORPUSCULAR HGB CONC 31.2 g/dl (32.0-36.5); MEAN CORPUSCULAR VOLUME 100.2 fl (80.0-96.0); RED CELL DISTRIBUTION WIDTH 18.3 % (11.5-14.5)
[2016-12-22 04:50] LABS: INR 3.54
[2016-12-22 04:59] LABS: CALCIUM LEVEL 8.4 MG/DL (8.8-10.2); CREATININE FOR GFR 1.87 MG/DL (0.55-1.02); GLOMERULAR FILTRATION RATE 29.1 (>45)
[2016-12-22 05:02] LABS: POTASSIUM SERUM 5.2 MEQ/L (3.5-5.1)
[2016-12-22] MEDS: LEVOTHYROXINE 0.125 MG TAB (125 MCG) PO SCH (06:19)
--- NOTE | 2016-12-22 07:38 | IPNPDOC ---
Subjective Date Seen The patient was seen on 12/22/16. Subjective Chief Complaint/HPI The patient is a 61-year-old female admitted with a reason for visit of Congestive Heart Failure. General: Denies: ROS Unobtainable, Chills, Night Sweats, Fatigue, Malaise, Normal Appetite, Other Symptoms Constitutional: Denies: Chills, Fever, Malaise, Night Sweats, Weakness, Fatigue , Weight Loss, Lethargy, Other Eyes: Denies: Pain, Vision change, Conjunctivae inflammation, Eyelid inflammation, Redness, Other ENT: Denies: Head Aches, Ear Pain, Dysphagia, Sinus Congestion, Post Nasal Drip , Sore Throat, Epistaxis, Other Symptoms Skin: Denies: Rash, Lesions, Jaundice, Bruising, Itching, Dry, Breakdown, Nail Changes, Other Pulmonary: Reports: Dyspnea, Denies: Cough, Pleuritic Chest Pain, Other Symptoms Cardiovascular: Denies: Chest Pain, Palpitations, Orthopnea, Paroxysmal Noc. Dyspnea, Edema, Lt Headedness, Other Symptoms Gastrointestinal: Denies: Nausea, Vomiting, Abdominal Pain, Diarrhea, Constipation, Melena, Hematochezia, Other Symptoms Objective Physical Examination General Exam: Positive: Alert, Cooperative, No Acute Distress Eye Exam: Positive: PERRLA, Conjunctiva & lids normal, EOMI, Negative: Sclera icteric, Ptosis ENT Exam: Positive: Atraumatic, Tongue Midline, Nares Patent Neck Exam: Positive: Supple, Negative: JVD, thyromegaly, Lymphadenopathy Chest Exam: Positive: Rales, Negative: Clear to auscultation Heart Exam: Positive: Irregular Rhythm, Normal S1, Normal S2, Murmurs Telemetry: Positive: Atrial fibrillation Abdomen Exam: Positive: Soft, Tenderness Extremity Exam: Positive: Cyanosis, Edema, Normal pulses, Negative: Clubbing, Tenderness Skin Exam: Negative: Rash, Lesion Psych Exam: Positive: Oriented x 3 Assessment /Plan Problems (1) Acute on chronic respiratory failure with hypoxia Status: Acute Response to Treatment: Improving Discussed With: Patient Problem Specific Plan: Consult Specialist, Monitor Clinically, Repeat Labs Problem Text: Secondary to decompensated heart failure, currently on continuous furosemide infusion. Follow as per nephrology, assistance appreciated. Wean O2 - baseline 2L O2 via nasal cannula. (2) Congestive heart failure (CHF) Status: Acute Response to Treatment: Improving Discussed With: Patient Problem Specific Plan: Consult Specialist, Monitor Clinically, Repeat Labs Problem Text: as per a/c respiratory failure lasix gtt nephro c/s 2d echo pending (3) Rheumatoid arthritis Status: Chronic Problem Specific Plan: Monitor Clinically Problem Text: chronic steroid prednisone 5mg daily (4) Pulmonary fibrosis Status: Chronic Discussed With: Patient Problem Specific Plan: Monitor Clinically Problem Text: Further complicating factor to her respiratory failure. Cor pulmonale. (5) Afib Status: Chronic Discussed With: Patient Problem Text: dig levels were supratherapeuric on admission - digoxin on hold inr supratherapeuric - coumadin on hold - check daily inr (6) Obstructive sleep apnea Status: Chronic Discussed With: Patient (7) Hypertension Status: Chronic Discussed With: Patient Problem Specific Plan: Monitor Clinically (8) Hypothyroidism Status: Chronic Problem Text: continue synthroid (9) Raynaud's disease Status: Chronic Discussed With: Patient Problem Specific Plan: Monitor Clinically (10) Pulmonary hypertension Status: Chronic Discussed With: Patient Problem Specific Plan: Monitor Clinically Problem Text: continue revatio, tyvaso, letairis (11) Scleroderma Status: Chronic Discussed With: Patient Problem Specific Plan: Monitor Clinically Problem Text: chronic steroid - prednisone 5mg daily (12) CKD (chronic kidney disease) Status: Acute Discussed With: Patient Problem Specific Plan: Consult Specialist, Monitor Clinically, Repeat Labs Problem Text: acute on chronic kidney disease - likely hypoperfusion d/t decomp chf Plan/VTE VTE Prophylaxis Ordered?: Yes (supratherapeutic on coumadin) Plan/Urinary Catheter Reason for insertion/continuin: Critical Pt monitoring Plan Diet: Continue Current Activity: Continue Current Respiratory: Wean Oxygen Diagnostics: Check Labs, Repeat Labs in AM, TTE Anticipated Discharge: Home Continue lasix gtt, wean O2, 2d echo, follow up with nephro. Patient to discuss code status with today, currently full code. VS, I&O, 24H, Fishbone Vital Signs/I&O Vital Signs Date Time Temp Pulse Resp B/P (MAP) Pulse Ox O2 Delivery O2 Flow Rate FiO2 12/22/16 04:30 72 99/54 (69) 97 Venturi Mask 50 12/22/16 04:00 98.1 18 12/22/16 00:17 15.0 I&O- Last 24 Hours up to 6 AM 12/22/16 06:00 Intake Total 40 ml Output Total 650 ml Balance -610 ml Laboratory Data 24H LABS Laboratory Tests 2 12/21/16 22:35: White Blood Count 6.6, Red Blood Count 2.69L, Hemoglobin 8.3L, Hematocrit 27.2L , Mean Corpuscular Volume 101.0H, Mean Corpuscular Hemoglobin 30.7, Mean Corpuscular Hemoglobin Concent 30.4L, Red Cell Distribution Width 18.3H, Platelet Count 174, Neutrophils (%) (Auto) 82.5H, Lymphocytes (%) (Auto) 9.7L, Monocytes (%) (Auto) 4.7, Eosinophils (%) (Auto) 1.7, Basophils (%) (Auto) 0.3, Neutrophils # (Auto) 5.5, Lymphocytes # (Auto) 0.6L, Monocytes # (Auto) 0.3, Eosinophils # (Auto) 0.1, Basophils # (Auto) 0.0, Large Unclassified Cells % 1.1 , Large Unclassified Cells # 0.1, Anion Gap 7L, Glomerular Filtration Rate 27.4L , Blood Urea Nitrogen 57H, Creatinine 1.97H, Sodium Level 127L, Potassium Level 5.4H, Chloride Level 89L, Carbon Dioxide Level 31, Calcium Level 8.7L, Total Creatine Kinase 41, Iron Level 24L, Total Iron Binding Capacity 390, Transferrin % Saturation 6.2L, Ferritin 35, Creatine Kinase MB 4.6H, Creatine Kinase MB Relative Index 11.21H, Troponin I 0.10, B-Type Natriuretic Peptide 3240H, Digoxin Level 3.0*H 12/21/16 22:36: Blood Gas Bicarbonate Standard 25.4, Arterial Blood pH 7.425, Arterial Blood Partial Pressure CO2 39.8, Arterial Blood Partial Pressure O2 92.2, Arterial Blood Total CO2 26.8, Arterial Blood HCO3 25.5, Arterial Blood Base Excess 1.1, Arterial Blood Oxygen Saturation 97.0 12/22/16 04:23: Anion Gap 8, Glomerular Filtration Rate 29.1L, Blood Urea Nitrogen 57H, Creatinine 1.87H, Sodium Level 126L, Potassium Level 5.2H, Chloride Level 90L, Carbon Dioxide Level 28, Calcium Level 8.4L, Total Creatine Kinase 30, Creatine Kinase MB 3.4, Creatine Kinase MB Relative Index 11.33H, Troponin I 0.12H, Prothrombin Time 35.4H, Prothromb Time International Ratio 3.54 CBC/BMP Laboratory Tests 12/21/16 22:35 Red Blood Count 2.69 L, Mean Corpuscular Volume 101.0 H, Mean Corpuscular Hemoglobin 30.7, Mean Corpuscular Hemoglobin Concent 30.4 L, Red Cell Distribution Width 18.3 H, Neutrophils (%) (Auto) 82.5 H, Lymphocytes (%) (Auto ) 9.7 L, Monocytes (%) (Auto) 4.7, Eosinophils (%) (Auto) 1.7, Basophils (%) ( Auto) 0.3, Neutrophils # (Auto) 5.5, Lymphocytes # (Auto) 0.6 L, Monocytes # ( Auto) 0.3, Eosinophils # (Auto) 0.1, Basophils # (Auto) 0.0, Calcium Level 8.7 L , Total Creatine Kinase 41 12/22/16 04:23 Red Blood Count 2.61 L, Mean Corpuscular Volume 100.2 H, Mean Corpuscular Hemoglobin 31.2, Mean Corpuscular Hemoglobin Concent 31.2 L, Red Cell Distribution Width 18.3 H, Calcium Level 8.4 L, Total Creatine Kinase 30 ALEX STAHL MD December 22, 2016 07:38
[2016-12-22] MEDS: TREPROSTINIL INH SCH ×4 (08:00→20:06)
--- NOTE | 2016-12-22 08:07 | ECGEPIP ---
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
--- NOTE | 2016-12-22 08:20 | ECGEPIP ---
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
--- NOTE | 2016-12-22 08:42 | REP ---
Portable chest, single AP view, the patient semi upright, 10:34 p.m., 12/21/2016. Comparison is 12/03/2016. Cardiomegaly and diffuse interstitial coarsening are again noted, unchanged. There are no pleural effusions. The lauren, mediastinum, and bony thorax are unremarkable. Signed by Harshad Harvey MD 12/22/2016 08:34 A
[2016-12-22] MEDS ORDERED: DIGOXIN 0.125 MG TAB PO SCH (09:00)
[2016-12-22 09:29] LABS: FOLATE 14.2 NG/ML (>5.4)
[2016-12-22] MEDS: VITAMIN D 1,000 INTERNATIONAL UNITS TABLET PO SCH (09:39)
[2016-12-22] MEDS: predniSONE 5 MG TAB PO SCH (09:39)
[2016-12-22] MEDS: SILDENAFIL CITRATE 20 MG TABLET (REVATIO) PO SCH ×3 (09:39→20:26)
[2016-12-22] MEDS: LETAIRIS 10MG TABLET PO SCH (11:17)
--- NOTE | 2016-12-22 13:59 | CR ---
DATE OF CONSULTATION: 12/22/2016 REQUESTING PHYSICIAN: Dr. Kelvin Shetty. CONSULTING PHYSICIAN: Dr. Moya. REASON FOR CONSULTATION: Management of acute kidney injury and hyponatremia along with hyperkalemia. CHIEF COMPLAINT: Patient presented to the emergency room last night because of progressive shortness of breath and edema. HISTORY OF PRESENT ILLNESS: Kimberly Novak is a 61-year-old female with past medical history of chronic kidney disease with a baseline creatinine of around 1.2 to 1.4 as outpatient. She has history of pulmonary hypertension, pulmonary fibrosis, Raynaud's disease, scleroderma along with right heart failure. Patient presented to the emergency room last night because of progressively worsening shortness of breath, some cough with phlegm that was initially yellow but it turned white later on. She was progressively gaining weight. She had swelling of the lower extremities. She reports that her diuretic regimen was recently increased as outpatient but that was not helping her. She felt very weak and unsteady. Patient also report decreased appetite. On initial presentation yesterday, patient was found to have a creatinine of 1.97, sodium was 127, potassium was 5.4. Patient was found to be in congestive heart failure. She has been started on IV Lasix drip. She is currently in the intensive care unit (ICU). Nephrology service was called for further help in the management of acute kidney injury along with multiple electrolyte abnormalities. As reported by patient since overnight, ever since she was started on Lasix drip, her shortness of breath is improving. She was on VentiMask initially. She is currently on 2 liters of nasal cannula. She is 900 mL negative so far. She is making good amount of urine, however patient continues to be hyponatremic and hyperkalemic at this time. PAST MEDICAL HISTORY: 1. Pulmonary fibrosis. 2. Severe pulmonary hypertension. 3. Scleroderma. 4. Congestive heart failure, most likely right heart failure. 5. Raynaud's phenomena. 6. Anemia. 7. Atrial fibrillation. 8. Obstructive sleep apnea. 9. Arthritis. PAST SURGICAL HISTORY: 1. Status post cholecystectomy. 2. Status post spinal surgery. 3. History of ablation for atrial fibrillation in 2014. ALLERGIES: No known drug allergies. FAMILY HISTORY: No significant family history of end stage renal disease or hemodialysis in the family but her father had multiple myeloma and cerebrovascular accident (CVA) and mother had heart disease. SOCIAL HISTORY: Patient lives at home with her . She denies any smoking, elicit drug abuse or alcohol abuse. REVIEW OF SYSTEMS: Constitutional: Patient reported feeling very weak, tired and fatigued. Eyes: She denies any blurry vision or double vision. ENT: Patient reported sore throat and cough. Otherwise she denies any ear discharge or nose bleeds. Cardiovascular: Patient reports history of congestive heart failure (CHF) and she reports edema. Respiratory: Patient reports cough, dyspnea and phlegm. Gastrointestinal (GI): Patient reports abdominal pain, constipation, decreased appetite. Genitourinary: Patient denies any dysuria or hematuria but she does report decreased urine output. Hematological/oncological: Patient reports history of anemia. Otherwise she denies any history of tumors. Musculoskeletal: Patient reports muscle weakness. She does report history of back pain. Central nervous system: Patient reports weakness but denies any history of seizures or strokes. Psych: Patient denies any history of depression or anxiety. Skin: Patient denies any rashes or ulcers. Endocrine: There is no history of diabetes, hypothyroidism or hyperthyroidism. All other review of system is negative. PHYSICAL EXAMINATION: General: Patient is awake, alert, oriented times three, sitting on the bed in mild respiratory distress. Vital signs: Temperature is 99 degrees Fahrenheit, blood pressure is 105/60, pulse is 72, respiratory rate of 16, saturating 99% on nasal cannula at 3 liters. Intake and output: Urine output recorded so far is 1.1 liters so far. She is 995 mL negative since overnight. Head and neck exam: Extraocular muscles intact. Pupils equally round and reactive to light. Mucous membranes are moist. There is mild cyanosis of the lips. Neck is supple, there is significantly jugular venous distention (JVD). Cardiovascular: S1, S2. Irregularly irregular heart rate. Otherwise no murmur , rub or gallop. Respiratory: Decreased breath sounds at the bases. Crepitations at the bases bilaterally on inspiration. Abdomen: Soft, positive bowel sounds, mild amount of ascites. Mild amount of abdominal wall edema. There is no organomegaly. Extremities: Patient has cyanosed toes bilaterally. She has 3+ pitting edema of the bilateral lower extremities. Central nervous system: No focal neurological deficit. Power is 5/5 in bilateral upper extremities. Skin: No rashes or ulcers. Psych: Normal mood and affect. Lymph node: No significant cervical, axillary or inguinal lymphadenopathy. LAB REVIEW: CBC showed WBC of 7, hemoglobin 8.1, platelets 139. INR is 3.5. BMP showed sodium 126, potassium 5.2, chloride 90, bicarbonate 28, BUN 57, creatinine 1.8. It was 1.9 yesterday. Glomerular filtration rate is 29. Calcium is 8.4. Troponin is 0.12. BNP is 3240. Iron is 24. TIBC 33/90. Transferrin saturation is 6.2%. Ferritin is 35. Imaging: Chest x-ray was done last night which showed cardiomegaly and diffuse interstitial coarsening which is concerning for edema. CURRENT INPATIENT MEDICATIONS: Patient's inpatient medications are all reviewed by me. She is currently on: - Lasix infusion at 10 mg/hr - aspirin 325 mg one dose was given - digoxin is on hold because of high digoxin levels - levothyroxine 0.25 mcg by mouth daily - omeprazole 40 mg by mouth daily at bedtime - Pravachol 20 mg daily at bedtime - prednisone 5 mg by mouth daily - Revatio 40 mg by mouth three times daily - tramadol 100 mg by mouth three times daily - vitamin D 1000 units by mouth daily - warfarin 5 mg by mouth daily ASSESSMENT: 61-year-old female with past medical history of pulmonary fibrosis, severe pulmonary hypertension, Raynaud's phenomena, congestive heart failure, admitted this time because of acute decompressive acute congestive heart failure and fluid overload along with acute kidney injury and multiple electrolyte abnormalities. PLAN: 1. Acute kidney injury. It is most likely cardiorenal in nature. Echocardiogram report is pending but clinically the patient looks like to be in severe right heart failure. I agree with the Lasix drip at this time. If patient becomes hypotensive, she will need dobutamine infusion. Patient is responding well to the Lasix taper. I will not add any more diuretics at this time. Continue to monitor daily weight and intake and output. 2. Acute decompressive decongestive heart failure. Patient most likely has cor pulmonale secondary to severe pulmonary hypertension. Continue Revatio at this time. Continue diuretics. It will be very technical to diurese this patient because she might be dependent on pre-load because of severe pulmonary hypertension and right heart failure. Patient's prognosis is guarded at this time and it was explained to the family as well. 3. Hyponatremia. Hyponatremia is secondary to hypervolemia. Continue aggressive diuresis. Sodium level is expected to improve with diuretics. 4. Hyperkalemia. Hyperkalemia is secondary to acute renal failure. Potassium is 5.2. It is acceptable at this time. Avoid giving Kayexalate to this patient because she has digoxin toxicity as well and hyperkalemia is protective. I expect that the potassium level will come down with the diuresis that patient is having. 5. Atrial fibrillation. Patient's heart rate is controlled at this time. Continue Coumadin as per primary team. Digoxin is on hold because of high digoxin levels. 6. Severe pulmonary hypertension. Continue Revatio 40 mg by mouth twice daily. Continue Letairis 10 mg as per home dose. Continue Treprostinil as per patient' s home dose as well. 7. Iron deficiency anemia. Patient is being diuresed at this time. Once patient's volume status improves, I would give her IV Venofer. Continue to monitor for now. No need of blood transfusion at this time. 8. Digoxin toxicity. Patient's digoxin level is 3. Digoxin is on hold. She is hemodynamically stable at this time. Continue to monitor for now. Thank you for involving us in the case of this patient. We shall be happy to follow the patient along with you tomorrow morning. Plan of care was discussed with patient's family members at the bedside and with the patient's RN. CARLOS
[2016-12-22] MEDS ORDERED: WARFARIN SOD 5 MG TAB PO SCH (17:00)
[2016-12-22 18:37] LABS: CALCIUM LEVEL 8.4 MG/DL (8.8-10.2); CREATININE FOR GFR 1.91 MG/DL (0.55-1.02); GLOMERULAR FILTRATION RATE 28.4 (>45)
[2016-12-22] MEDS: OMEPRAZOLE 20 MG CAP PO SCH (20:33)
[2016-12-22] MEDS: PRAVASTATIN 20 MG TAB PO SCH (20:33)
[2016-12-23] VITALS (13 sets, daily range): BP systolic 95–113; BP diastolic 50–57
[2016-12-23] MEDS: FUROSEMIDE injection 250 MG in D5W 225 ML IV SCH (00:45)
[2016-12-23] MEDS: traMADol 50 MG TAB PO PRN (01:43)
[2016-12-23 04:33] LABS: MEAN CORPUSCULAR HEMOGLOBIN 30.2 pg (27.0-33.0); MEAN CORPUSCULAR HGB CONC 30.2 g/dl (32.0-36.5); MEAN CORPUSCULAR VOLUME 99.9 fl (80.0-96.0); RED CELL DISTRIBUTION WIDTH 18.4 % (11.5-14.5); WHITE BLOOD COUNT 6.6 K/mm3 (4.0-10.0)
[2016-12-23 04:43] LABS: INR 3.83
[2016-12-23 05:13] LABS: CALCIUM LEVEL 8.2 MG/DL (8.8-10.2); CREATININE FOR GFR 1.76 MG/DL (0.55-1.02); DIGOXIN LEVEL 2.5 NG/ML (0.5-2.0); GLOMERULAR FILTRATION RATE 31.3 (>45); POTASSIUM SERUM 4.8 MEQ/L (3.5-5.1)
[2016-12-23] MEDS: LEVOTHYROXINE 0.125 MG TAB (125 MCG) PO SCH (05:53)
[2016-12-23] MEDS: TREPROSTINIL INH SCH ×4 (08:08→20:12)
[2016-12-23] MEDS: predniSONE 5 MG TAB PO SCH (08:20)
[2016-12-23] MEDS: SILDENAFIL CITRATE 20 MG TABLET (REVATIO) PO SCH ×3 (08:20→21:05)
[2016-12-23] MEDS: VITAMIN D 1,000 INTERNATIONAL UNITS TABLET PO SCH (08:20)
[2016-12-23] MEDS: LETAIRIS 10MG TABLET PO SCH (08:20)
--- NOTE | 2016-12-23 08:25 | IPNPDOC ---
Subjective Date Seen The patient was seen on 12/23/16. Subjective Chief Complaint/HPI The patient is a 61-year-old female admitted with a reason for visit of Congestive Heart Failure. General: Denies: ROS Unobtainable, Chills, Night Sweats, Fatigue, Malaise, Normal Appetite, Other Symptoms Constitutional: Denies: Chills, Fever, Malaise, Night Sweats, Weakness, Fatigue , Weight Loss, Lethargy, Other Eyes: Denies: Pain, Vision change, Conjunctivae inflammation, Eyelid inflammation, Redness, Other ENT: Denies: Head Aches, Ear Pain, Dysphagia, Sinus Congestion, Post Nasal Drip , Sore Throat, Epistaxis, Other Symptoms Skin: Denies: Rash, Lesions, Jaundice, Bruising, Itching, Dry, Breakdown, Nail Changes, Other Pulmonary: Denies: Dyspnea, Cough, Pleuritic Chest Pain, Other Symptoms Cardiovascular: Denies: Chest Pain, Palpitations, Orthopnea, Paroxysmal Noc. Dyspnea, Edema, Lt Headedness, Other Symptoms Gastrointestinal: Denies: Nausea, Vomiting, Abdominal Pain, Diarrhea, Constipation, Melena, Hematochezia, Other Symptoms Genitourinary: Denies: Dysuria, Frequency, Incontinence, Hematuria, Retention, Other Symptoms Objective Physical Examination General Exam: Positive: Alert, Cooperative, No Acute Distress Eye Exam: Positive: PERRLA, Conjunctiva & lids normal, EOMI, Negative: Sclera icteric, Ptosis ENT Exam: Positive: Atraumatic, Tongue Midline, Nares Patent Neck Exam: Positive: Supple, Negative: Lymphadenopathy Chest Exam: Positive: Normal air movement, Rales Heart Exam: Positive: Irregular Rhythm, Normal S1, Normal S2, Murmurs Telemetry: Positive: Atrial fibrillation Abdomen Exam: Positive: BS Hypoactive, Soft, Tenderness Neuro Exam: Positive: Normal Speech, Cranial Nerves 3-12 NL Psych Exam: Positive: Oriented x 3 Assessment /Plan Problems (1) Acute on chronic respiratory failure with hypoxia Status: Resolved Discussed With: Patient Problem Specific Plan: Consult Specialist, Monitor Clinically, Repeat Labs Problem Text: Secondary to decompensated heart failure, currently on continuous furosemide infusion. Saturating well on 2L - as per her baseline. Anticipating d/c furosemide drip today. Follow as per nephrology, assistance appreciated. (2) Congestive heart failure (CHF) Status: Resolved Discussed With: Patient Problem Specific Plan: Consult Specialist, Monitor Clinically, Repeat Labs Problem Text: as per a/c respiratory failure lasix gtt - anticipating d/c today nephro c/s appreciated 2d echo pending (3) Rheumatoid arthritis Status: Chronic Problem Specific Plan: Monitor Clinically Problem Text: chronic steroid prednisone 5mg daily (4) Pulmonary fibrosis Status: Chronic Discussed With: Patient Problem Specific Plan: Monitor Clinically Problem Text: Further complicating factor to her respiratory failure. Cor pulmonale. (5) Afib Status: Chronic Discussed With: Patient Problem Text: dig levels were supratherapeuric on admission - therapeutic today digoxin on hold - likely resume M, W, F dosing inr supratherapeutic - coumadin on hold - check daily inr (6) Obstructive sleep apnea Status: Chronic Discussed With: Patient (7) Hypertension Status: Chronic Discussed With: Patient Problem Specific Plan: Monitor Clinically (8) Hypothyroidism Status: Chronic Problem Text: continue synthroid (9) Raynaud's disease Status: Chronic Discussed With: Patient Problem Specific Plan: Monitor Clinically (10) Pulmonary hypertension Status: Chronic Discussed With: Patient Problem Specific Plan: Monitor Clinically Problem Text: continue revatio, tyvaso, letairis (11) Scleroderma Status: Chronic Discussed With: Patient Problem Specific Plan: Monitor Clinically Problem Text: chronic steroid - prednisone 5mg daily (12) CKD (chronic kidney disease) Status: Acute Response to Treatment: Improving Discussed With: Patient Problem Specific Plan: Consult Specialist, Monitor Clinically, Repeat Labs Problem Text: acute on chronic kidney disease - likely hypoperfusion d/t decomp chf Plan/VTE VTE Prophylaxis Ordered?: Yes (Warfarin) Plan/Urinary Catheter Reason for insertion/continuin: Critical Pt monitoring Plan Diet: Continue Current Activity: Continue Current Respiratory: Wean Oxygen Diagnostics: Check Labs, Repeat Labs in AM, TTE Anticipated Discharge: Home Likely transfer to PCU today, anticipating discontinuing lasix drip. 2d echo pending. likely resume digoxin with m,w,f dosing. INR still supra therapeutic. Resume lower dosage when therapeutic. VS, I&O, 24H, Fishbone Vital Signs/I&O Vital Signs Date Time Temp Pulse Resp B/P (MAP) Pulse Ox O2 Delivery O2 Flow Rate FiO2 12/23/16 04:00 Nasal Cannula 2.0 12/23/16 04:00 97.4 94 18 110/52 (71) 100 5/18/17 04:30 50 I&O- Last 24 Hours up to 6 AM 12/23/16 06:00 Intake Total 910 ml Output Total 5425 ml Balance -4515 ml Laboratory Data 24H LABS Laboratory Tests 2 12/22/16 12:01: Osmolality 282, Total Creatine Kinase 24L, Creatine Kinase MB 2.8, Creatine Kinase MB Relative Index 11.66H, Troponin I 0.12H 12/22/16 12:32: Urine Random Osmolality 273L, Urine Random Creatinine 15.1, Urine Random Sodium 94 12/22/16 17:49: Total Creatine Kinase 25L, Creatine Kinase MB 2.6, Creatine Kinase MB Relative Index 10.40H, Anion Gap 7L, Glomerular Filtration Rate 28.4L, Blood Urea Nitrogen 61H, Creatinine 1.91H, Sodium Level 125L, Potassium Level 5.0, Chloride Level 88L, Carbon Dioxide Level 30, Calcium Level 8.4L 12/23/16 04:21: Anion Gap 7L, Glomerular Filtration Rate 31.3L, Blood Urea Nitrogen 57H, Creatinine 1.76H, Sodium Level 127L, Potassium Level 4.8, Chloride Level 88L, Carbon Dioxide Level 32, Calcium Level 8.2L, Prothrombin Time 37.7H, Prothromb Time International Ratio 3.83, Digoxin Level 2.5H CBC/BMP Laboratory Tests 12/22/16 17:49 Calcium Level 8.4 L, Total Creatine Kinase 25 L 12/23/16 04:21 Calcium Level 8.2 L, Red Blood Count 2.64 L, Mean Corpuscular Volume 99.9 H, Mean Corpuscular Hemoglobin 30.2, Mean Corpuscular Hemoglobin Concent 30.2 L, Red Cell Distribution Width 18.4 H ALEX STAHL MD December 23, 2016 08:25
[2016-12-23] MEDS: FERROUS SULFATE 325MG TAB PO SCH (10:42)
[2016-12-23 11:08] LABS: MAGNESIUM LEVEL 2.3 MG/DL (1.8-2.4); PHOSPHORUS LEVEL 3.2 MG/DL (2.5-4.9)
[2016-12-23] MEDS: IRON SUCROSE 100 MG/5 ML INJ (J1756) IV SCH (11:19)
[2016-12-23] MEDS: FUROSEMIDE 40 MG/4 ML VIAL (J1940) IV SCH ×2 (11:20→17:24)
--- NOTE | 2016-12-23 16:51 | IPN ---
DATE: 12/23/2016 SUBJECTIVE: Patient was seen and examined at the bedside today morning in the intensive care unit (ICU). She reports her shortness of breath is significantly getting better. Patient is on intravenous (IV) Lasix infusion at this time. She had a very good urine output. She made about 5 liters of urine in the last 24 hours. Patient otherwise is hemodynamically stable at this time. REVIEW OF SYSTEMS: Patient denies any fevers, chills, rigors, headache, nausea, vomiting, chest pain. She does report shortness of breath is significantly getting better. Patient does report decreased appetite, but she denies any constipation or diarrhea. Rest of review of systems is negative. OBJECTIVE: Vital signs: Temperature is 98.2 degrees Fahrenheit, blood pressure is 103/56, pulse is 91, respiratory rate of 18, saturating 97% on nasal cannula at 2 liters. Intake and output: Urine output recorded is 5 liters yesterday, 3.2 liters so far today since overnight. Weight in the bed scale is 85 kg. PHYSICAL EXAMINATION: GENERAL: Patient is awake, alert, oriented times three, sitting in the bed in No apparent distress. HEAD AND NECK: Extraocular muscles intact. Pupils equally round and reactive to light. Mucous membranes are moist. Neck is supple. There is moderate elevated jugular venous distention (JVD). CARDIOVASCULAR: S1, S2, irregularly irregular heart rate. No murmur, rub, or gallop. RESPIRATORY: Decreased breath sounds at the bases with crepitations on deep inspiration. ABDOMEN: Abdomen is soft. Positive bowel sounds. Nontender. No ascites. Mild amount of abdominal wall edema. EXTREMITIES: Patient has cyanosed toes in both feet, and she has 2+ pitting edema of the bilateral lower extremities. CENTRAL NERVOUS SYSTEM: No focal neurological deficit. Power is 5/5 in all extremities. PSYCHIATRIC: Normal mood and affect. LABORATORY REVIEW: CBC showed a WBC 6.6, hemoglobin is 8, platelets are 133. INR is 3.8. BMP showed sodium 127, potassium 4.8, chloride 88, bicarbonate is 32, BUN 57, creatinine is 1.7, glucose is 82, calcium is 8.2, phosphorus is 3.2, magnesium is 2.3. Digoxin level is 2.5. CURRENT MEDICATIONS: The patient's medications were all reviewed by me. I have stopped her Lasix infusion. I have changed her oral digoxin to 0.125 mg by mouth 48 hours. She has been started on oral iron 325 mg by mouth daily. Patient has been started on Lasix 40 mg IV every 6 hours. She has been started on IV Venofer 100 mg IV daily times five doses. There is no other change in the medications today as compared with yesterday. ASSESSMENT: A 61-year-old female with past medical history of pulmonary fibrosis, severe pulmonary hypertension, Raynaud's phenomenon, congestive heart failure, admitted this time because of acute decompensated congestive heart failure and fluid overload along with acute kidney injury and multiple electrolyte abnormalities. PLAN: 1. Acute kidney injury. It is secondary to cardiorenal syndrome. Her official echocardiogram report is pending. She is on IV Lasix drip at this time. She made about 5 liters of urine yesterday. I have stopped the Lasix drip, and I am starting the patient on Lasix 40 mg IV every 6 hours. Continue to monitor daily intake and output and daily weight as well. 2. Acute decompensated congestive heart failure. Patient most likely has cor pulmonale secondary to severe pulmonary hypertension and pulmonary fibrosis. Continue Revatio. Continue the diuretics as mentioned above. 3. Hyponatremia. It is hypervolemic hyponatremia. Continue the aggressive diuretics at this time. 4. Hyperkalemia. Her potassium level is significantly better with diuresis now. Potassium is 4.8 at this time. Diuresis will help maintain low potassium levels. 5. Atrial fibrillation. Patient's digoxin levels are still high. I have changed the digoxin dose to 0.125 mcg by mouth every 48 hours. 6. Severe pulmonary hypertension. Continue current home dose of Revatio 40 mg by mouth twice a day, Letairis 10 mg, and treprostinil as per home dose as well. 7. Iron deficiency anemia. Patient has been started on oral iron 325 mg by mouth daily, and I have ordered IV Venofer 100 mg IV daily times five doses. No need of blood transfusion at this time. The plan of care was discussed with the hospitalist team, Dr. Kelvin Shetty.
[2016-12-23] MEDS ORDERED: SLF 3 ML SYR IV PRN (17:45)
[2016-12-23 18:35] LABS: CALCIUM LEVEL 8.8 MG/DL (8.8-10.2); CREATININE FOR GFR 1.76 MG/DL (0.55-1.02); GLOMERULAR FILTRATION RATE 31.3 (>45); POTASSIUM SERUM 4.9 MEQ/L (3.5-5.1)
--- NOTE | 2016-12-23 19:34 | ECHO ---
DATE OF PROCEDURE: 12/22/2016 AGE: 61 GENDER: Female HEIGHT: 66 inches. WEIGHT: 183 pounds. BODY SURFACE AREA: 1.93 sq m. INPATIENT: Progressive care unit (PCU) Room 3210 REFERRING PHYSICIAN: Dr. Margot Henriquez INDICATION: Dyspnea. MEASUREMENTS: 2D MEASUREMENTS: RV - 5.6 cm LV- 5.4 cm Septum - 1.2 cm Posterior wall - 1.2 cm Aortic root - 3.5 cm LA - 4.5 cm LVEF - 55-60% DOPPLER MEASUREMENTS: AV - 2.5 m/s LVOT - 0.64 m/s LVOT diameter - 2.0 cm Mean AV gradient- 13 mmHg MV E-110 Early mitral deceleration time 144 ms E-prime - 7.6 E/E prime ratio - 14 PV - 0.6 m/s Pulmonary artery acceleration time 77 ms RVSP - 99 mmHg IVC - 2.9 cm COMMENTS: Underlying atrial fibrillation with controlled ventricular response. No intraventricular conduction disturbance. Moderately dilated left atrium but normal left ventricular size. Prominently dilated right atrium and right ventricle. Mild concentric left ventricle hypertrophy with also hypertrophy of the right ventricular free wall. On real-time imaging from the parasternal and projections there appeared to be a subtle septal wall motion abnormality believed to be due to right ventricular pressure overload but other left ventricular barrett move normally or were hyperkinetic. Right ventricular wall motion was markedly hypokinetic. There is moderately thickened mitral annulus with slight thickening of the mitral leaflets with "low flow" appearance to mitral leaflet motion. Three equal size aortic cusps with mildly thickened cusp edges and slightly reduced cusp separation with premature cusp closure suggestive of a reduced forward stroke volume. No apparent intracardiac mass. Very small posterior pericardial effusion. The patient's coronary sinus was markedly dilated. Color flow Doppler study taken from the parasternal and apical projection showed very mild aortic, moderate mitral and mild pulmonic as well as moderately severe tricuspid insufficiency. Guided continuous wave Doppler of her aortic valve and pulsed Doppler study of her left ventricle (LV) outflow tract taken from the apical long axis of five chamber projection showed an increased peak systolic velocity and mean gradient with dimensionless index of 0.34 - in keeping with at least mild calcific aortic stenosis. Pulsed and continuous wave Doppler of her LV inflow tract taken from the apical four-chamber projection showed normal diastolic filling velocities against mitral stenosis. There was only early diastolic / passive filling pattern as we would expect with her atrial fibrillation. Her early mitral deceleration time was somewhat abbreviated but current estimated mean left atrial pressure was only mildly increased. Pulsed and continuous wave Doppler of her pulmonary trunk showed a normal peak systolic velocity against right ventricular (RV) outflow tract obstruction. Her pulmonary artery acceleration time was abbreviated consistent with an elevated pulmonary vascular resistance. Guided continuous wave Doppler of her tricuspid valve allowed our estimation of her right ventricular systolic pressure (severely increased). Her inferior vena cava was also prominently dilated with absent respiratory collapse in keeping with markedly elevated central venous pressure of 20 mmHg or higher. CONCLUSIONS: Mild concentric left ventricle hypertrophy with septal wall motion abnormality due to right ventricular pressure overload yet preserved global left ventricular systolic function. Moderately dilated left atrium with estimated mean left atrial pressure least mildly increased. Reduced forward cardiac output. Prominently dilated right heart chambers with right ventricular hypertrophy and marked hypokinesis. Doppler evidence of very severe pulmonary hypertension. Markedly dilated inferior vena cava and coronary sinus in keeping with a markedly elevated central venous pressure / right heart failure. Mild calcific aortic stenosis with very mild insufficiency. Moderate mitral annular calcification without inflow tract obstruction but moderate insufficiency. Normal appearing tricuspid valve but at least moderately severe insufficiency. Small pericardial effusion. Comparing the above test findings with those described on 12/15/2013, there did not appear to be a significant change with the observed severe pulmonary hypertension, the fact that she has survived to this point, (3 years) is quite remarkable. Her prognosis is extremely guarded.
[2016-12-23] MEDS: PRAVASTATIN 20 MG TAB PO SCH (21:05)
[2016-12-23] MEDS: OMEPRAZOLE 20 MG CAP PO SCH (21:05)
[2016-12-23] MEDS: SLF 3 ML SYR IV SCH (21:06)
[2016-12-24 04:00] VITALS: BP 117/58
[2016-12-24] MEDS: LEVOTHYROXINE 0.125 MG TAB (125 MCG) PO SCH (05:19)
[2016-12-24] MEDS: FUROSEMIDE 40 MG/4 ML VIAL (J1940) IV SCH ×2 (05:19)
[2016-12-24] MEDS: SLF 3 ML SYR IV SCH ×3 (05:20→21:06)
[2016-12-24 05:27] LABS: MEAN CORPUSCULAR HEMOGLOBIN 30.1 pg (27.0-33.0); MEAN CORPUSCULAR HGB CONC 30.1 g/dl (32.0-36.5); RED CELL DISTRIBUTION WIDTH 18.3 % (11.5-14.5); WHITE BLOOD COUNT 6.6 K/mm3 (4.0-10.0)
[2016-12-24 05:35] LABS: CALCIUM LEVEL 8.5 MG/DL (8.8-10.2); CREATININE FOR GFR 1.48 MG/DL (0.55-1.02); GLOMERULAR FILTRATION RATE 38.2 (>45); INR 3.12; POTASSIUM SERUM 4.6 MEQ/L (3.5-5.1)
[2016-12-24 08:00] VITALS: BP 104/56
[2016-12-24] MEDS: TREPROSTINIL INH SCH ×5 (08:00→19:56)
[2016-12-24] MEDS: VITAMIN D 1,000 INTERNATIONAL UNITS TABLET PO SCH (09:38)
[2016-12-24] MEDS: LETAIRIS 10MG TABLET PO SCH (09:39)
[2016-12-24] MEDS: predniSONE 5 MG TAB PO SCH (09:39)
[2016-12-24] MEDS: IRON SUCROSE 100 MG/5 ML INJ (J1756) IV SCH (09:39)
[2016-12-24] MEDS: SILDENAFIL CITRATE 20 MG TABLET (REVATIO) PO SCH ×3 (09:39→21:06)
[2016-12-24] MEDS: FERROUS SULFATE 325MG TAB PO SCH (09:39)
--- NOTE | 2016-12-24 10:39 | IPNPDOC ---
Subjective Date Seen The patient was seen on 12/24/16. Subjective Chief Complaint/HPI The patient is a 61-year-old female admitted with a reason for visit of Congestive Heart Failure. General: Denies: ROS Unobtainable, Chills, Night Sweats, Fatigue, Malaise, Normal Appetite, Other Symptoms Constitutional: Denies: Chills, Fever, Malaise, Night Sweats, Weakness, Fatigue , Weight Loss, Lethargy, Other Eyes: Denies: Pain, Vision change, Conjunctivae inflammation, Eyelid inflammation, Redness, Other ENT: Denies: Head Aches, Ear Pain, Dysphagia, Sinus Congestion, Post Nasal Drip , Sore Throat, Epistaxis, Other Symptoms Skin: Denies: Rash, Lesions, Jaundice, Bruising, Itching, Dry, Breakdown, Nail Changes, Other Pulmonary: Reports: Dyspnea, Cough, Denies: Pleuritic Chest Pain, Other Symptoms Cardiovascular: Denies: Chest Pain, Palpitations, Orthopnea, Paroxysmal Noc. Dyspnea, Edema, Lt Headedness, Other Symptoms Gastrointestinal: Denies: Nausea, Vomiting, Abdominal Pain, Diarrhea, Constipation, Melena, Hematochezia, Other Symptoms Genitourinary: Reports: Frequency, Denies: Dysuria, Incontinence, Hematuria, Retention, Other Symptoms Objective Physical Examination General Exam: Positive: Alert, Cooperative, No Acute Distress Eye Exam: Positive: PERRLA, Conjunctiva & lids normal, EOMI, Negative: Sclera icteric, Ptosis ENT Exam: Positive: Atraumatic, Tongue Midline, Nares Patent Neck Exam: Positive: Supple, Negative: Lymphadenopathy Chest Exam: Positive: Normal air movement, Rales Heart Exam: Positive: Irregular Rhythm, Normal S1, Normal S2, Murmurs Telemetry: Positive: Atrial fibrillation Abdomen Exam: Positive: BS Hypoactive, Soft, Tenderness Neuro Exam: Positive: Normal Speech, Cranial Nerves 3-12 NL Psych Exam: Positive: Oriented x 3 Assessment /Plan Problems (1) Acute on chronic respiratory failure with hypoxia Status: Resolved Discussed With: Patient Problem Specific Plan: Consult Specialist, Monitor Clinically, Repeat Labs Problem Text: Secondary to decompensated heart failure, currently on IV lasix - significant urinary output. Saturating well on 2L - as per her baseline. Follow as per nephrology, assistance appreciated. (2) Congestive heart failure (CHF) Status: Resolved Discussed With: Patient Problem Specific Plan: Consult Specialist, Monitor Clinically, Repeat Labs Problem Text: as per a/c respiratory failure lasix iv nephro c/s appreciated 2d echo with preserved lv systolic function (3) Rheumatoid arthritis Status: Chronic Problem Specific Plan: Monitor Clinically Problem Text: chronic steroid prednisone 5mg daily (4) Pulmonary fibrosis Status: Chronic Discussed With: Patient Problem Specific Plan: Monitor Clinically Problem Text: Further complicating factor to her respiratory failure. Cor pulmonale. (5) Afib Status: Chronic Discussed With: Patient Problem Text: dig levels were supratherapeuric on admission - therapeutic today digoxin on hold - likely resume M, W, F dosing inr supratherapeutic - coumadin on hold - check daily inr - likely resume coumadin tomorrow and reduced dosage (6) Obstructive sleep apnea Status: Chronic Discussed With: Patient (7) Hypertension Status: Chronic Discussed With: Patient Problem Specific Plan: Monitor Clinically (8) Hypothyroidism Status: Chronic Problem Text: continue synthroid (9) Raynaud's disease Status: Chronic Discussed With: Patient Problem Specific Plan: Monitor Clinically (10) Pulmonary hypertension Status: Chronic Discussed With: Patient Problem Specific Plan: Monitor Clinically Problem Text: continue revatio, tyvaso, letairis (11) Scleroderma Status: Chronic Discussed With: Patient Problem Specific Plan: Monitor Clinically Problem Text: chronic steroid - prednisone 5mg daily (12) CKD (chronic kidney disease) Status: Acute Response to Treatment: Improving Discussed With: Patient Problem Specific Plan: Consult Specialist, Monitor Clinically, Repeat Labs Problem Text: acute on chronic kidney disease - likely hypoperfusion d/t decomp chf Plan/VTE VTE Prophylaxis Ordered?: Yes (Warfarin) Plan/Urinary Catheter Reason for insertion/continuin: Critical Pt monitoring Plan Diet: Continue Current Activity: Continue Current Respiratory: Wean Oxygen Diagnostics: Check Labs, Repeat Labs in AM Anticipated Discharge: Home Diuresing with IV lasix. Follow up with nephrology. Anticipating discharge in 48-72 hours. VS, I&O, 24H, Fishbone Vital Signs/I&O Vital Signs Date Time Temp Pulse Resp B/P (MAP) Pulse Ox O2 Delivery O2 Flow Rate FiO2 12/24/16 08:00 98.1 104 20 104/56 (72) 99 Nasal Cannula 3.0 12/22/16 04:30 50 I&O- Last 24 Hours up to 6 AM 12/24/16 06:00 Intake Total 760 ml Output Total 8150 ml Balance -7390 ml Laboratory Data 24H LABS Laboratory Tests 2 12/23/16 18:05: Anion Gap 5L, Glomerular Filtration Rate 31.3L, Blood Urea Nitrogen 53H, Creatinine 1.76H, Sodium Level 126L, Potassium Level 4.9, Chloride Level 85L, Carbon Dioxide Level 36H, Calcium Level 8.8 12/24/16 04:44: Anion Gap 6L, Glomerular Filtration Rate 38.2L, Blood Urea Nitrogen 47H, Creatinine 1.48H, Sodium Level 126L, Potassium Level 4.6, Chloride Level 83L, Carbon Dioxide Level 37H, Calcium Level 8.5L, Prothrombin Time 32.1H, Prothromb Time International Ratio 3.12 CBC/BMP Laboratory Tests 12/23/16 18:05 Calcium Level 8.8 12/24/16 04:44 Calcium Level 8.5 L, Red Blood Count 2.67 L, Mean Corpuscular Volume 100.0 H, Mean Corpuscular Hemoglobin 30.1, Mean Corpuscular Hemoglobin Concent 30.1 L, Red Cell Distribution Width 18.3 H ALEX STAHL MD December 24, 2016 10:39
[2016-12-24 12:00] VITALS: BP 102/54
[2016-12-24] MEDS ORDERED: TOLVAPTAN 15 MG TAB (SAMSCA) PO ONE (13:00)
[2016-12-24 16:00] VITALS: BP 107/53
[2016-12-24 18:18] LABS: CALCIUM LEVEL 8.6 MG/DL (8.8-10.2); CREATININE FOR GFR 1.48 MG/DL (0.55-1.02); GLOMERULAR FILTRATION RATE 38.2 (>45); POTASSIUM SERUM 4.6 MEQ/L (3.5-5.1)
[2016-12-24 20:00] VITALS: BP 123/56
[2016-12-24] MEDS: PRAVASTATIN 20 MG TAB PO SCH (21:06)
[2016-12-24] MEDS: OMEPRAZOLE 20 MG CAP PO SCH (21:06)
[2016-12-24 22:00] VITALS: BP 112/57
[2016-12-25] MEDS: SLF 3 ML SYR IV SCH ×3 (05:33→20:56)
[2016-12-25] MEDS: LEVOTHYROXINE 0.125 MG TAB (125 MCG) PO SCH (05:33)
[2016-12-25 06:00] VITALS: BP 120/58
[2016-12-25 06:26] LABS: MEAN CORPUSCULAR HEMOGLOBIN 30.6 pg (27.0-33.0); MEAN CORPUSCULAR VOLUME 101.7 fl (80.0-96.0); RED CELL DISTRIBUTION WIDTH 18.4 % (11.5-14.5); WHITE BLOOD COUNT 4.7 K/mm3 (4.0-10.0)
[2016-12-25 06:28] LABS: INR 2.28
[2016-12-25 07:02] LABS: CALCIUM LEVEL 8.7 MG/DL (8.8-10.2); CREATININE FOR GFR 1.38 MG/DL (0.55-1.02); DIGOXIN LEVEL 1.6 NG/ML (0.5-2.0); GLOMERULAR FILTRATION RATE 41.4 (>45); MAGNESIUM LEVEL 2.3 MG/DL (1.8-2.4); POTASSIUM SERUM 4.5 MEQ/L (3.5-5.1)
[2016-12-25] MEDS: TREPROSTINIL INH SCH ×4 (07:17→20:56)
--- NOTE | 2016-12-25 08:08 | IPNPDOC ---
Subjective Date Seen The patient was seen on 12/25/16. Subjective Chief Complaint/HPI The patient is a 61-year-old female admitted with a reason for visit of Congestive Heart Failure. General: Denies: ROS Unobtainable, Chills, Night Sweats, Fatigue, Malaise, Normal Appetite, Other Symptoms Constitutional: Denies: Chills, Fever, Malaise, Night Sweats, Weakness, Fatigue , Weight Loss, Lethargy, Other Eyes: Denies: Pain, Vision change, Conjunctivae inflammation, Eyelid inflammation, Redness, Other ENT: Denies: Head Aches, Ear Pain, Dysphagia, Sinus Congestion, Post Nasal Drip , Sore Throat, Epistaxis, Other Symptoms Skin: Denies: Rash, Lesions, Jaundice, Bruising, Itching, Dry, Breakdown, Nail Changes, Other Pulmonary: Reports: Cough, Denies: Dyspnea, Pleuritic Chest Pain, Other Symptoms Cardiovascular: Denies: Chest Pain, Palpitations, Orthopnea, Paroxysmal Noc. Dyspnea, Edema, Lt Headedness, Other Symptoms Gastrointestinal: Denies: Nausea, Vomiting, Abdominal Pain, Diarrhea, Constipation, Melena, Hematochezia, Other Symptoms Genitourinary: Reports: Frequency, Denies: Dysuria, Incontinence, Hematuria, Retention, Other Symptoms Hematologic: Denies: Bruising, Bleeding Excessively, Petecchia, Purpura, Enlarged Lymph Nodes, Other Hematologic Objective Physical Examination General Exam: Positive: Alert, Cooperative, No Acute Distress Eye Exam: Positive: PERRLA, Conjunctiva & lids normal ENT Exam: Positive: Atraumatic Neck Exam: Positive: Supple, Negative: Lymphadenopathy Chest Exam: Positive: Normal air movement, Rales Heart Exam: Positive: Irregular Rhythm, Normal S1, Normal S2, Murmurs Abdomen Exam: Positive: Normal bowel sounds, Soft, Negative: Tenderness Psych Exam: Positive: Oriented x 3 Assessment /Plan Problems (1) Acute on chronic respiratory failure with hypoxia Status: Resolved Discussed With: Patient Problem Specific Plan: Consult Specialist, Monitor Clinically, Repeat Labs Problem Text: Secondary to decompensated heart failure, currently receiving Bumex - excellent urinary output. Saturating well on 2L - as per her baseline. Follow as per nephrology, assistance appreciated. (2) Congestive heart failure (CHF) Status: Resolved Discussed With: Patient Problem Specific Plan: Consult Specialist, Monitor Clinically, Repeat Labs Problem Text: as per a/c respiratory failure Bumex nephro c/s appreciated 2d echo with preserved lv systolic function (3) Rheumatoid arthritis Status: Chronic Problem Specific Plan: Monitor Clinically Problem Text: chronic steroid prednisone 5mg daily (4) Pulmonary fibrosis Status: Chronic Discussed With: Patient Problem Specific Plan: Monitor Clinically Problem Text: Further complicating factor to her respiratory failure. Cor pulmonale. (5) Afib Status: Chronic Discussed With: Patient Problem Text: dig levels were supratherapeuric on admission - therapeutic today digoxin - resumed today inr therapeutic - resumed coumadin - check daily inr (6) Obstructive sleep apnea Status: Chronic Discussed With: Patient (7) Hypertension Status: Chronic Discussed With: Patient Problem Specific Plan: Monitor Clinically (8) Hypothyroidism Status: Chronic Problem Text: continue synthroid (9) Raynaud's disease Status: Chronic Discussed With: Patient Problem Specific Plan: Monitor Clinically (10) Pulmonary hypertension Status: Chronic Discussed With: Patient Problem Specific Plan: Monitor Clinically Problem Text: continue revatio, tyvaso, letairis (11) Scleroderma Status: Chronic Discussed With: Patient Problem Specific Plan: Monitor Clinically Problem Text: chronic steroid - prednisone 5mg daily (12) CKD (chronic kidney disease) Status: Acute Response to Treatment: Improving Discussed With: Patient Problem Specific Plan: Consult Specialist, Monitor Clinically, Repeat Labs Problem Text: acute on chronic kidney disease - likely hypoperfusion d/t decomp chf (13) Hyponatremia Status: Acute Discussed With: Patient Problem Specific Plan: Consult Specialist, Repeat Labs Problem Text: Vaptan administered yesterday follow as per nephrology, assistance appreciated. Plan/VTE VTE Prophylaxis Ordered?: Yes (Warfarin) Plan/Urinary Catheter Reason for insertion/continuin: Critical Pt monitoring Plan Diet: Continue Current Activity: Continue Current Respiratory: Wean Oxygen Diagnostics: Check Labs, Repeat Labs in AM Anticipated Discharge: Home VS, I&O, [facility] Vital Signs/I&O Vital Signs Date Time Temp Pulse Resp B/P (MAP) Pulse Ox O2 Delivery O2 Flow Rate FiO2 12/25/16 06:00 99.2 117 20 120/58 (78) 92 Nasal Cannula 3.0 12/22/16 04:30 50 I&O- Last 24 Hours up to 6 AM 12/25/16 06:00 Intake Total 480 ml Output Total 4925 ml Balance -4445 ml Laboratory Data 24H LABS Laboratory Tests 2 5/20/17 17:40: Anion Gap 8, Glomerular Filtration Rate 38.2L, Blood Urea Nitrogen 45H, Creatinine 1.48H, Sodium Level 127L, Potassium Level 4.6, Chloride Level 82L, Carbon Dioxide Level 37H, Calcium Level 8.6L, Magnesium Level 2.0 12/25/16 05:18: Anion Gap 7L, Glomerular Filtration Rate 41.4L, Blood Urea Nitrogen 42H, Creatinine 1.38H, Sodium Level 131L, Potassium Level 4.5, Chloride Level 85L, Carbon Dioxide Level 39H, Calcium Level 8.7L, Magnesium Level 2.3, Prothrombin Time 25.2H, Prothromb Time International Ratio 2.28, Digoxin Level 1.6 CBC/BMP Laboratory Tests 12/24/16 17:40 Calcium Level 8.6 L 12/25/16 05:18 Calcium Level 8.7 L, Red Blood Count 2.85 L, Mean Corpuscular Volume 101.7 H, Mean Corpuscular Hemoglobin 30.6, Mean Corpuscular Hemoglobin Concent 30.0 L, Red Cell Distribution Width 18.4 H ALEX STAHL MD December 25, 2016 08:08
[2016-12-25] MEDS ORDERED: DIGOXIN 0.125 MG TAB PO SCH (09:00)
[2016-12-25] MEDS ORDERED: TOLVAPTAN 15 MG TAB (SAMSCA) PO ONE (09:00)
[2016-12-25] MEDS ORDERED: BUMETANIDE 1 MG TAB PO SCH (09:00)
[2016-12-25] MEDS: VITAMIN D 1,000 INTERNATIONAL UNITS TABLET PO SCH (09:13)
[2016-12-25] MEDS: predniSONE 5 MG TAB PO SCH (09:13)
[2016-12-25] MEDS: FERROUS SULFATE 325MG TAB PO SCH (09:13)
[2016-12-25] MEDS: SILDENAFIL CITRATE 20 MG TABLET (REVATIO) PO SCH ×3 (09:13→20:56)
[2016-12-25] MEDS: IRON SUCROSE 100 MG/5 ML INJ (J1756) IV SCH (09:15)
[2016-12-25] MEDS: LETAIRIS 10MG TABLET PO SCH (09:15)
[2016-12-25] MEDS: DIGOXIN 0.125 MG TAB PO SCH (11:17)
[2016-12-25] MEDS: traMADol 50 MG TAB PO PRN (11:20)
--- NOTE | 2016-12-25 12:20 | IPN ---
DATE: 12/24/2016 SUBJECTIVE: The patient was seen and examined at the bedside today. She is currently asymptomatic. Her shortness of breath is significantly better. She is afebrile, hemodynamically stable. She is having very good urine output with the current dose of diuretics, and her creatinine continues to improve. REVIEW OF SYSTEMS: The patient denies any fever, chills, rigors, headache, nausea, vomiting or chest pain. She does report mild shortness of breath, which is significantly improving as compared with 2 days ago, and she also reports that the leg edema is also significantly getting better. The rest of the review of systems is negative. OBJECTIVE: VITAL SIGNS: Temperature is 97.6 degrees Fahrenheit, blood pressure is 107/53, pulse is 104, respiratory rate of 18, saturating 94% on nasal cannula at 3 liters. INTAKE/OUTPUT: Urine output recorded as 7 liters yesterday, 3.9 liters so far today since overnight. Weight on the bed scale is 77 kg. PHYSICAL EXAMINATION: GENERAL: The patient is awake, alert, oriented times three, sitting in the bed, in no apparent distress. HEAD AND NECK EXAM: Extraocular muscles intact. Pupils equally round and reactive to light. Mucous membranes are moist. Neck is supple. There is mild elevation of jugular venous distention (JVD). CARDIOVASCULAR: S1, S2, irregularly irregular heart rate. No murmur, rub or gallop. RESPIRATORY: Mildly decreased breath sounds at the bases with mild crepitations on deep inspiration. ABDOMEN: Abdomen is soft. Positive bowel sounds. Nontender. No ascites. EXTREMITIES: The patient has cyanosed bilateral toes, which are significantly better as compared with yesterday and her leg edema is also getting better. She only has 1+ edema at this time. CENTRAL NERVOUS SYSTEM: No focal neurological deficit. Power is 5/5 in all extremities. PSYCHIATRIC: Normal mood and affect. LAB REVIEW: CBC showed a WBC of 6.6, hemoglobin is 8, platelets are 124. BMP showed sodium 126, potassium 4.6, chloride 83, bicarbonate is 37, BUN is 47, creatinine is 1.4, calcium is 8.5. CURRENT MEDICATIONS: The patient's medications are all reviewed by me. Her IV Lasix has been stopped. The patient has been started on Bumex 2 mg by mouth daily. Her digoxin has been changed to 0.125 mg by mouth every 48 hours, and the patient was given one dose of tolvaptan 15 mg by mouth today. ASSESSMENT: A 61-year-old female with a past medical history of pulmonary fibrosis, severe pulmonary hypertension, Raynaud's phenomena, congestive heart failure with severe cor pulmonale, admitted at this time because of acute decompensated congestive heart failure and fluid overload, along with acute kidney injury. PLAN: 1. Acute kidney injury. It is secondary to cardiorenal syndrome. The patient is being aggressively diuresed. She was on Lasix 40 mg IV every 6 hours. She is in a negative fluid balance for the last 3 days, and she is getting slightly alkalotic, so I have stopped her IV Lasix today. She will be started on oral Bumex starting tomorrow morning. 2. Acute decompensated congestive heart failure. It is secondary to severe pulmonary hypertension and cor pulmonale. The patient responded very well to diuretics. The regimen has been changed, as mentioned above, because the patient has congestive heart failure (CHF), patient continues to be hyponatremic. 3. Hyponatremia. It is hypervolemic hyponatremia in the setting of decompensated CHF. The patient's sodium level continues to be 126. I have given the patient a dose of tolvaptan 15 mg by mouth daily, which would do selective aquaresis and help in the improvement of hyponatremia. At the same time, would treat CHF as well. 4. Hyperkalemia. Hyperkalemia is significantly better. Potassium is 4.6. Continue to monitor for now. 5. Atrial fibrillation. Continue current dose of digoxin 0.125 mg by mouth every 48 hours. 6. Severe pulmonary hypertension. Continue the home dosage of Revatio, Letairis and treprostinil. The rest of the management is as per pulmonary service. 7. Iron deficiency anemia. Continue oral iron. The patient is getting IV Venofer 100 mg daily. She will get a total of five doses. Hemoglobin is 8 at this time. No need of blood transfusion at this time because we are already treating the patient for congestive heart failure.
[2016-12-25 14:00] VITALS: BP 131/59
--- NOTE | 2016-12-25 16:38 | IPN ---
DATE: 12/25/2016 SUBJECTIVE: The patient was seen and examined at the bedside today in the morning. She feels much better. Shortness of breath is significantly better. She was getting ready to eat her breakfast when I saw her. The patient had good urine output with a Samsca tablet yesterday. Her sodium is also coming up. REVIEW OF SYSTEMS: The patient denies any fevers, chills, rigors, headaches, nausea, vomiting, chest pain. She denies any shortness of breath. She denies any pain abdomen, constipation, or diarrhea. Rest of review of systems is negative. OBJECTIVE: VITAL SIGNS: Temperature is 98.5 degrees Fahrenheit, blood pressure is 131/59, pulse is 113, respiratory rate of 18, saturating 100% on nasal cannula at two liters. INTAKE AND OUTPUT: Urine output recorded as six liters yesterday, 1900 mL so far today since overnight. Weight in the bed scale is 76.5 kg. PHYSICAL EXAMINATION: GENERAL: The patient is awake, alert, and oriented times three, sitting in the bed in no apparent distress. HEAD/NECK: Extraocular muscles intact. Pupils equal, round, and reactive to light. Mucous membranes are moist. Neck is supple. There is no jugular venous distention (JVD) at this time. CARDIOVASCULAR: S1, S2, irregularly irregular heart rate and slightly tachycardic. No murmur, rub, or gallop. RESPIRATORY: Mildly decreased breath sounds at the bases. No significant crepitations today. ABDOMEN: Soft. Positive bowel sounds. Nontender. No ascites. No organomegaly. EXTREMITIES: Cyanosis of the toes has improved. The patient has very trace edema on the bilateral lower extremities. CENTRAL NERVOUS SYSTEM ([employer]ATE F[employer]ER): No focal neurological deficit. Power is 5/5 in all extremities. PSYCHIATRIC: Normal mood and affect. LABORATORY DATA: CBC showed a WBC of 4.7, hemoglobin 8.7, platelets of 124. BMP showed sodium 131, potassium 4.5, chloride 85, bicarbonate 39, BUN 42, creatinine 1.3, calcium 8.7. Digoxin level is 1.6. CURRENT MEDICATIONS: The patient's medications were all reviewed by me. She has been restarted on digoxin 0.125 mg by mouth every 48 hours. One dose was given this morning. Bumex is on hold. She will get the first dose of Bumex 2 mg tomorrow. She was given one dose of tolvaptan 15 mg yesterday. ASSESSMENT: A 61-year-old female with past medical history of pulmonary fibrosis, severe pulmonary hypertension, Raynaud's phenomena, congestive heart failure, with severe cor pulmonale, admitted this time because of acute decompensated congestive heart failure, along with acute kidney injury. PLAN: 1. Acute kidney injury. It is secondary to cardiorenal syndrome. The patient is responding very well to diuretics. Her creatinine has improved to 1.38 today. Her diuretics are on hold. At this time, the patient will be given another dose of Samsca today. 2. Acute decompensated congestive heart failure. It is secondary to severe pulmonary hypertension and cor pulmonale. She was not responding to oral diuretics. She was given intravenous (IV) Lasix which was stopped yesterday. The patient was given a dose of Samsca yesterday. She had a very good urine output with that. I will give her another dose of Samsca today instead of diuretics because it would help improve her sodium level as well. The patient will start Bumex 2 mg by mouth daily starting from tomorrow morning. 3. Hyponatremia. It his hypervolemic hyponatremia in the setting of decompensated congestive heart failure. Sodium was not improving despite aggressive diuresis. I gave the patient one dose of tolvaptan yesterday that has improved sodium from 126 to 131. The patient will get another dose of tolvaptan. I am hopeful that by tomorrow her sodium level will be around 135. 4. Hyperkalemia. Hyperkalemia is stable at this time. Potassium is 4.5. Continue to monitor for now. 5. Metabolic alkalosis. It is secondary to aggressive diuresis. The patient was making about 6-7 liters of urine for the last two days. I stopped the diuretics. Today patient will just get a dose of tolvaptan. Bicarbonate level is expected to improve by holding diuretics. If bicarbonate does not improve by tomorrow, then patient will be started on acetazolamide instead of Bumex. 6. Atrial fibrillation with rapid ventricular rate. The patient's digoxin was on hold because of high digoxin levels. Levels are normal today. We are restarting the digoxin 0.125 mg by mouth every 48 hours. First dose will be given today. 7. Iron-deficiency anemia. The patient's hemoglobin is gradually improving. It is 8.7 today. Continue IV Venofer for a total of five days. Last dose will be given on 12/27/2016. 8. Severe pulmonary hypertension. Continue home dose of Revatio, Letairis and treprostinil.
[2016-12-25] MEDS: WARFARIN SOD 3 MG TAB PO SCH (17:07)
[2016-12-25 19:13] LABS: CALCIUM LEVEL 8.3 MG/DL (8.8-10.2); CREATININE FOR GFR 1.36 MG/DL (0.55-1.02); GLOMERULAR FILTRATION RATE 42.1 (>45); POTASSIUM SERUM 4.6 MEQ/L (3.5-5.1)
[2016-12-25] MEDS: PRAVASTATIN 20 MG TAB PO SCH (20:56)
[2016-12-25] MEDS: OMEPRAZOLE 20 MG CAP PO SCH (20:56)
[2016-12-25 22:00] VITALS: BP 117/57
[2016-12-26] MEDS: traMADol 50 MG TAB PO PRN (02:58)
[2016-12-26 06:00] VITALS: BP 123/59
[2016-12-26 06:15] LABS: MEAN CORPUSCULAR HEMOGLOBIN 30.6 pg (27.0-33.0); MEAN CORPUSCULAR HGB CONC 30.1 g/dl (32.0-36.5); RED CELL DISTRIBUTION WIDTH 18.6 % (11.5-14.5); WHITE BLOOD COUNT 4.7 K/mm3 (4.0-10.0)
[2016-12-26 06:23] LABS: INR 2.1
[2016-12-26] MEDS: LEVOTHYROXINE 0.125 MG TAB (125 MCG) PO SCH (06:23)
[2016-12-26] MEDS: SLF 3 ML SYR IV SCH ×3 (06:23→20:17)
[2016-12-26 06:28] LABS: CALCIUM LEVEL 8.7 MG/DL (8.8-10.2); CREATININE FOR GFR 1.17 MG/DL (0.55-1.02); GLOMERULAR FILTRATION RATE 50.1 (>45); MAGNESIUM LEVEL 2.5 MG/DL (1.8-2.4); POTASSIUM SERUM 4.3 MEQ/L (3.5-5.1)
[2016-12-26] MEDS: TREPROSTINIL INH SCH ×4 (07:13→20:15)
[2016-12-26] MEDS: IRON SUCROSE 100 MG/5 ML INJ (J1756) IV SCH (07:47)
[2016-12-26] MEDS: LETAIRIS 10MG TABLET PO SCH (07:47)
[2016-12-26] MEDS: BUMETANIDE 1 MG TAB PO SCH (07:48)
[2016-12-26] MEDS: VITAMIN D 1,000 INTERNATIONAL UNITS TABLET PO SCH (07:49)
[2016-12-26] MEDS: SILDENAFIL CITRATE 20 MG TABLET (REVATIO) PO SCH ×3 (07:49→20:17)
[2016-12-26] MEDS: predniSONE 5 MG TAB PO SCH (07:49)
[2016-12-26] MEDS: FERROUS SULFATE 325MG TAB PO SCH (07:49)
--- NOTE | 2016-12-26 07:52 | IPNPDOC ---
Subjective Date Seen The patient was seen on 12/26/16. Subjective Chief Complaint/HPI The patient is a 61-year-old female admitted with a reason for visit of Congestive Heart Failure. General: Denies: ROS Unobtainable, Chills, Night Sweats, Fatigue, Malaise, Normal Appetite, Other Symptoms Constitutional: Denies: Chills, Fever, Malaise, Night Sweats, Weakness, Fatigue , Weight Loss, Lethargy, Other Eyes: Denies: Pain, Vision change, Conjunctivae inflammation, Eyelid inflammation, Redness, Other ENT: Denies: Head Aches, Ear Pain, Dysphagia, Sinus Congestion, Post Nasal Drip , Sore Throat, Epistaxis, Other Symptoms Skin: Denies: Rash, Lesions, Jaundice, Bruising, Itching, Dry, Breakdown, Nail Changes, Other Pulmonary: Denies: Dyspnea, Cough, Pleuritic Chest Pain, Other Symptoms Cardiovascular: Denies: Chest Pain, Palpitations, Orthopnea, Paroxysmal Noc. Dyspnea, Edema, Lt Headedness, Other Symptoms Gastrointestinal: Denies: Nausea, Vomiting, Abdominal Pain, Diarrhea, Constipation, Melena, Hematochezia, Other Symptoms Genitourinary: Denies: Dysuria, Frequency, Incontinence, Hematuria, Retention, Other Symptoms Objective Physical Examination General Exam: Positive: Alert, Cooperative, No Acute Distress Eye Exam: Positive: PERRLA, Conjunctiva & lids normal ENT Exam: Positive: Atraumatic, Negative: Mucous membr. moist/pink Neck Exam: Positive: Supple, Negative: Lymphadenopathy Chest Exam: Positive: Normal air movement Heart Exam: Positive: Tachycardic, Irregular Rhythm, Normal S1, Normal S2, Murmurs Abdomen Exam: Positive: Normal bowel sounds, Soft, Negative: Tenderness Psych Exam: Positive: Oriented x 3 Assessment /Plan Problems (1) Acute on chronic respiratory failure with hypoxia Status: Resolved Discussed With: Patient Problem Specific Plan: Consult Specialist, Monitor Clinically, Repeat Labs Problem Text: Secondary to decompensated heart failure, currently receiving Bumex - good urinary output. Saturating well on 2L - as per her baseline. Follow as per nephrology, assistance appreciated. (2) Congestive heart failure (CHF) Status: Resolved Discussed With: Patient Problem Specific Plan: Consult Specialist, Monitor Clinically, Repeat Labs Problem Text: as per a/c respiratory failure Bumex nephro c/s appreciated 2d echo with preserved lv systolic function likely dc macario today - trial of voiding (3) Rheumatoid arthritis Status: Chronic Problem Specific Plan: Monitor Clinically Problem Text: chronic steroid prednisone 5mg daily (4) Pulmonary fibrosis Status: Chronic Discussed With: Patient Problem Specific Plan: Monitor Clinically Problem Text: Further complicating factor to her respiratory failure. Cor pulmonale. (5) Afib Status: Chronic Discussed With: Patient Problem Text: dig levels were supratherapeuric on admission digoxin - resumed q48h inr therapeutic - resumed coumadin - check daily inr (6) Obstructive sleep apnea Status: Chronic Discussed With: Patient (7) Hypertension Status: Chronic Discussed With: Patient Problem Specific Plan: Monitor Clinically (8) Hypothyroidism Status: Chronic Problem Text: continue synthroid (9) Raynaud's disease Status: Chronic Discussed With: Patient Problem Specific Plan: Monitor Clinically (10) Pulmonary hypertension Status: Chronic Discussed With: Patient Problem Specific Plan: Monitor Clinically Problem Text: continue revatio, tyvaso, letairis (11) Scleroderma Status: Chronic Discussed With: Patient Problem Specific Plan: Monitor Clinically Problem Text: chronic steroid - prednisone 5mg daily (12) CKD (chronic kidney disease) Status: Acute Response to Treatment: Improving Discussed With: Patient Problem Specific Plan: Consult Specialist, Monitor Clinically, Repeat Labs Problem Text: acute on chronic kidney disease - likely hypoperfusion d/t decomp chf creatinine improving follow up with nephrology - assistance appreciated (13) Hyponatremia Status: Resolved Response to Treatment: Stable Discussed With: Patient Problem Specific Plan: Consult Specialist, Repeat Labs Problem Text: excellent response to vaptan therapy - resolved follow as per nephrology, assistance appreciated. Plan/VTE VTE Prophylaxis Ordered?: Yes (Warfarin) Plan/Urinary Catheter Urinary Catheter: D/C Macario (anticipating d/c macario today) Reason for insertion/continuin: Critical Pt monitoring Plan Diet: Continue Current Activity: Continue Current Therapy: PT, OT Respiratory: Wean Oxygen Diagnostics: Check Labs, Repeat Labs in AM Anticipated Discharge: Home D/C macario today, trial of voiding. PT/OT eval/treat. Follow up nephrology. Still tachycardic/rapid afib - continue digoxin Anticipating discharge 24-48 hours. VS, I&O, 24H, Fishbone Vital Signs/I&O Vital Signs Date Time Temp Pulse Resp B/P (MAP) Pulse Ox O2 Delivery O2 Flow Rate FiO2 5/22/17 06:00 98.4 110 20 123/59 (80) 94 Nasal Cannula 2.0 12/22/16 04:30 50 I&O- Last 24 Hours up to 6 AM 12/26/16 05:59 Intake Total 840 ml Output Total 1900 ml Balance -1060 ml Laboratory Data 24H LABS Laboratory Tests 2 12/25/16 18:40: Anion Gap 4L, Glomerular Filtration Rate 42.1L, Blood Urea Nitrogen 37H, Creatinine 1.36H, Sodium Level 133L, Potassium Level 4.6, Chloride Level 89L, Carbon Dioxide Level 40H, Calcium Level 8.3L 12/26/16 05:48: Anion Gap 4L, Glomerular Filtration Rate 50.1, Blood Urea Nitrogen 34H, Creatinine 1.17H, Sodium Level 136, Potassium Level 4.3, Chloride Level 94L, Carbon Dioxide Level 38H, Calcium Level 8.7L, Prothrombin Time 23.6H, Prothromb Time International Ratio 2.10, Magnesium Level 2.5H CBC/BMP Laboratory Tests 12/25/16 18:40 Calcium Level 8.3 L 12/26/16 05:48 Calcium Level 8.7 L, Red Blood Count 2.63 L, Mean Corpuscular Volume 102.0 H, Mean Corpuscular Hemoglobin 30.6, Mean Corpuscular Hemoglobin Concent 30.1 L, Red Cell Distribution Width 18.6 H ALEX STAHL MD December 26, 2016 07:52
[2016-12-26] MEDS ORDERED: DIGOXIN 0.125 MG TAB PO SCH (09:00)
--- NOTE | 2016-12-26 13:02 | IPN ---
DATE OF VISIT: 12/26/2016 Mrs. Novak was seen this morning on her bedside. She remains short of breath and weak. She denies any nausea or vomiting. She has no fever or chills. There is no history of hemoptysis or cough. She has been admitted with decompensated congestive heart failure in the setting of cor pulmonale and also had hyponatremia. She has been diuresed and was also given two doses of Samsca over last 2 days. She responded well and her hyponatremia has completely resolved. Her volume status has improved significantly. Today on physical exam, her temperature is 98.4 degrees Fahrenheit, heart rate 110 per minute and respiratory rate 20 per minute. Blood pressure 123/59 mmHg and oxygen saturation 94% on 2 liters oxygen. Intake and output records from yesterday reveals intake 840 and output 1900 while last 3 days her output has been between 5 and 7 liters. So I am not sure if yesterday's output was recorded accurately. Her total intake and output since admission is negative by 18.5 liters. Her head is atraumatic. Neck veins are at least 8 cm above sternal angle. Neck is supple and there is no thyroid enlargement. Pupils are equal and reactive to light and sclera is anicteric. Ears, nose and throat are unremarkable. She is using oxygen via nasal cannula. Heart sounds are irregular in rhythm and tachycardiac. Lungs with bilateral coarse basilar crepitations. Abdomen soft and nontender, and bowel sounds are normal. Extremities have no cyanosis or clubbing. She has a petechial rash on her legs and 1+ edema. Today's sodium level is 136 and potassium 4.3. CO2 38 and chloride 94, BUN 34 and creatinine 1.17. Calcium level 8.5 and magnesium 2.5. WBC count is 4.7, hemoglobin 8.1 and hematocrit 26.9. Platelets 121. PROBLEMS: 1. Acute kidney injury superimposed on chronic kidney disease. Kidney function is improving nicely as her congestive heart failure is improving. Her kidney injury is most likely related to cardiorenal syndrome. 2. Decompensated congestive heart failure. Volume status has improved significantly and she is 18.5 liters negative fluid balance since admission. She is now on Bumex 2 mg daily. We will see how much she diuresis today. So far she has about 1 liter negative fluid balance today. 3. Hyponatremia. Sodium level has corrected and we will not give Samsca any further. She would have risk of worsening hypernatremia. 4. Anemia. Her anemia is stable and she is receiving intravenous (IV) iron. She does have iron deficiency and IV iron is likely to help with her anemia. 5. Thrombocytopenia. This is chronic and unchanged. She has petechial rash on her leg. At this point, we will continue to monitor. 6. Atrial fibrillation. Her ventricular rate is still about 100. She is now getting digoxin and her digoxin level need to be monitored. I feel that she can probably have a daily dose of digoxin as her kidney function has now improved. Yesterday, her digoxin level was therapeutic at 1.6.
[2016-12-26 14:00] VITALS: BP 121/61
[2016-12-26] MEDS: WARFARIN SOD 3 MG TAB PO SCH (15:58)
[2016-12-26 19:21] LABS: CALCIUM LEVEL 8.6 MG/DL (8.8-10.2); CREATININE FOR GFR 1.25 MG/DL (0.55-1.02); GLOMERULAR FILTRATION RATE 46.4 (>45); POTASSIUM SERUM 4.6 MEQ/L (3.5-5.1)
[2016-12-26] MEDS: PRAVASTATIN 20 MG TAB PO SCH (20:17)
[2016-12-26] MEDS: OMEPRAZOLE 20 MG CAP PO SCH (20:17)
[2016-12-26 22:00] VITALS: BP 110/61
[2016-12-27] MEDS: SLF 3 ML SYR IV SCH ×3 (06:00→20:53)
[2016-12-27] MEDS: LEVOTHYROXINE 0.125 MG TAB (125 MCG) PO SCH (06:00)
[2016-12-27 06:52] LABS: INR 2.03
[2016-12-27 07:02] LABS: MAGNESIUM LEVEL 2.1 MG/DL (1.8-2.4)
[2016-12-27 07:51] LABS: ALBUMIN 2.5 GM/DL (3.2-5.2); CALCIUM LEVEL 8.4 MG/DL (8.8-10.2); CREATININE FOR GFR 1.02 MG/DL (0.55-1.02); GLOMERULAR FILTRATION RATE 58.7 (>45); PHOSPHORUS LEVEL 2.4 MG/DL (2.5-4.9); POTASSIUM SERUM 4.1 MEQ/L (3.5-5.1)
[2016-12-27] MEDS: TREPROSTINIL INH SCH ×4 (08:00→20:34)
[2016-12-27] MEDS: FERROUS SULFATE 325MG TAB PO SCH (08:41)
[2016-12-27] MEDS: BUMETANIDE 1 MG TAB PO SCH (08:41)
[2016-12-27] MEDS: SILDENAFIL CITRATE 20 MG TABLET (REVATIO) PO SCH ×3 (08:41→20:52)
[2016-12-27] MEDS: DIGOXIN 0.125 MG TAB PO SCH ×2 (08:42→09:00)
[2016-12-27] MEDS: predniSONE 5 MG TAB PO SCH (08:42)
[2016-12-27] MEDS: LETAIRIS 10MG TABLET PO SCH (09:00)
[2016-12-27] MEDS: VITAMIN D 1,000 INTERNATIONAL UNITS TABLET PO SCH (09:00)
[2016-12-27] MEDS: IRON SUCROSE 100 MG/5 ML INJ (J1756) IV SCH (10:18)
[2016-12-27] MEDS: VERAPAMIL 80 MG TAB PO SCH ×2 (10:18→20:53)
[2016-12-27 12:30] VITALS: BP 92/50
[2016-12-27 14:00] VITALS: BP 116/57
[2016-12-27 14:30] VITALS: O2SAT 98
[2016-12-27] MEDS: WARFARIN SOD 3 MG TAB PO SCH (16:18)
--- NOTE | 2016-12-27 19:20 | IPNPDOC ---
Subjective Date Seen The patient was seen on 12/27/16. Subjective Chief Complaint/HPI The patient is a 61-year-old female admitted with a reason for visit of Congestive Heart Failure. Events since last encounter Feeling better - would like to go home, tolerating diet, feeling stronger, on home level of oxygen Constitutional: Denies: Chills, Fever Pulmonary: Denies: Dyspnea, Cough Cardiovascular: Denies: Chest Pain, Palpitations Gastrointestinal: Denies: Nausea, Vomiting, Abdominal Pain Objective Physical Examination General Exam: Positive: Alert, Cooperative, No Acute Distress Eye Exam: Negative: Sclera icteric ENT Exam: Positive: Atraumatic, Negative: Mucous membr. moist/pink Neck Exam: Positive: Supple, Negative: Lymphadenopathy Chest Exam: Positive: Normal air movement Heart Exam: Positive: Tachycardic, Irregular Rhythm, Normal S1, Normal S2, Murmurs Abdomen Exam: Positive: Normal bowel sounds, Soft, Negative: Tenderness Psych Exam: Positive: Oriented x 3 Assessment /Plan Problems (1) Acute on chronic respiratory failure with hypoxia Status: Resolved Discussed With: Patient Problem Specific Plan: Consult Specialist, Monitor Clinically, Repeat Labs Problem Text: Secondary to decompensated right sided heart failure, currently receiving Bumex - good urinary output. Saturating well on 2L - as per her baseline. Follow as per nephrology, assistance appreciated. (2) Congestive heart failure (CHF) Status: Resolved Discussed With: Patient Problem Specific Plan: Consult Specialist, Monitor Clinically, Repeat Labs Problem Text: as per a/c respiratory failure Bumex nephro c/s appreciated 2d echo with preserved lv systolic function macario removed (3) Rheumatoid arthritis Status: Chronic Problem Specific Plan: Monitor Clinically Problem Text: chronic steroid prednisone 5mg daily (4) Pulmonary fibrosis Status: Chronic Discussed With: Patient Problem Specific Plan: Monitor Clinically Problem Text: Further complicating factor to her respiratory failure. Cor pulmonale. (5) Afib Status: Chronic Discussed With: Patient Problem Text: dig levels were supratherapeuric on admission digoxin - resumed daily inr therapeutic - resumed coumadin - check daily inr Resumed calcium channel dottie due to tachycardia (6) Obstructive sleep apnea Status: Chronic Discussed With: Patient (7) Hypertension Status: Chronic Discussed With: Patient Problem Specific Plan: Monitor Clinically (8) Hypothyroidism Status: Chronic Problem Text: continue synthroid (9) Raynaud's disease Status: Chronic Discussed With: Patient Problem Specific Plan: Monitor Clinically (10) Pulmonary hypertension Status: Chronic Discussed With: Patient Problem Specific Plan: Monitor Clinically Problem Text: continue revatiodmitriy letairis (11) Scleroderma Status: Chronic Discussed With: Patient Problem Specific Plan: Monitor Clinically Problem Text: chronic steroid - prednisone 5mg daily (12) CKD (chronic kidney disease) Status: Acute Response to Treatment: Improving Discussed With: Patient Problem Specific Plan: Consult Specialist, Monitor Clinically, Repeat Labs Problem Text: acute on chronic kidney disease - likely hypoperfusion d/t decomp chf creatinine improving follow up with nephrology - assistance appreciated (13) Hyponatremia Status: Resolved Response to Treatment: Stable Discussed With: Patient Problem Specific Plan: Consult Specialist, Repeat Labs Problem Text: excellent response to vaptan therapy - resolved I discussed with Dr. Puckett Plan/VTE VTE Prophylaxis Ordered?: Yes (Warfarin) Plan/Urinary Catheter Urinary Catheter: D/C Macario (anticipating d/c macario today) Reason for insertion/continuin: Critical Pt monitoring Plan Diet: Continue Current Activity: Continue Current Therapy: PT, OT Respiratory: Wean Oxygen Diagnostics: Check Labs, Repeat Labs in AM Anticipated Discharge: Home VS, I&O, 24H, [facility] Vital Signs/I&O Vital Signs Date Time Temp Pulse Resp B/P (MAP) Pulse Ox O2 Delivery O2 Flow Rate FiO2 12/27/16 14:30 98 Nasal Cannula 2.0 12/27/16 14:00 98.3 68 18 116/57 (76) 12/22/16 04:30 50 I&O- Last 24 Hours up to 6 AM 12/27/16 06:00 Intake Total 1560 ml Output Total 3150 ml Balance -1590 ml Laboratory Data 24H LABS Laboratory Tests 2 12/27/16 06:22: Prothrombin Time 23.0H, Prothromb Time International Ratio 2.03, Blood Urea Nitrogen 28H, Creatinine 1.02, Sodium Level 134L, Potassium Level 4.1, Chloride Level 93L, Carbon Dioxide Level 34H, Anion Gap 7L, Glomerular Filtration Rate 58.7, Calcium Level 8.4L, Phosphorus Level 2.4L, Magnesium Level 2.1, Albumin 2.5L CBC/BMP Laboratory Tests 12/27/16 06:22 Anion Gap 7 L LEANNE BUTTERFIELD MD December 27, 2016 19:19
--- NOTE | 2016-12-27 20:32 | IPN ---
DATE: 12/27/2016 Mrs. Novak is seen this afternoon on her bedside. She is feeling much better and currently sitting in the chair. She is anticipating discharge to home tomorrow. Her dyspnea and leg edema has improved significantly. She denies any nausea, vomiting, fever or chills. PHYSICAL EXAMINATION: Temperature is 98.3 degrees Fahrenheit, heart rate 68 per minute and respiratory rate 18 per minute. Blood pressure 116/57 mmHg and oxygen saturation is 100% on 2 liters oxygen. Intake and output records from yesterday showed total intake 900 and output 4550. Her total cumulative intake and output records since admission show a negative fluid balance of almost 21 liters. Her head is atraumatic. Neck veins are still moderately distended. Ears, nose and throat are unremarkable. Neck is supple and without any thyroid enlargement. Heart: Sounds are regular and without a pericardial friction rub. Lungs: Have bibasilar coarse crepitations. Abdomen: Soft and nontender and without a palpable organomegaly. Extremities: Have no cyanosis or clubbing. Skin has petechial rash on her lower legs. Neurologically, she is awake, alert and oriented x3. Today's labs show sodium level 134, potassium 4.1, chloride 93, CO2 34, BUN 28 and creatinine 1.02. Glucose 71, calcium 8.4 and phosphorus 2.4. She did not have a CBC done today. PROBLEMS: 1. Acute kidney injury. Kidney function has improved and this is the best kidney function in last 5 days. We will recheck her renal profile tomorrow morning. 2. Hyponatremia. Once again she has developed mild hyponatremia while on diuretic. She remains on fluid restriction of less than 1500 mL per day. She is diuresing well. We will continue with Bumex 2 mg daily and recheck her electrolytes tomorrow morning. 3. Congestive heart failure/hypervolemia. She is about 21 liters negative in fluid balance and her volume status has improved significantly. We will continue to diurese her as she still has elevated neck veins and peripheral edema. 4. Hypophosphatemia. This is nutritional and likely to improve as her appetite improved. She is not on any phosphate binders. 5. Anemia. She has iron deficiency anemia and has received oral and intravenous iron supplement. CBC will be checked again tomorrow morning. There is no indication for transfusion. However, she will need followup for her anemia, even after discharge.
[2016-12-27] MEDS: PRAVASTATIN 20 MG TAB PO SCH (20:52)
[2016-12-27] MEDS: OMEPRAZOLE 20 MG CAP PO SCH (20:53)
[2016-12-27 22:00] VITALS: BP 120/65
[2016-12-28 06:00] VITALS: BP 100/54
[2016-12-28] MEDS: SLF 3 ML SYR IV SCH (06:00)
[2016-12-28] MEDS: LEVOTHYROXINE 0.125 MG TAB (125 MCG) PO SCH (06:17)
[2016-12-28] MEDS ORDERED: BUME1TA PO (06:42)
[2016-12-28 07:12] LABS: INR 2.02
[2016-12-28] MEDS: TREPROSTINIL INH SCH ×2 (07:53→11:30)
[2016-12-28 08:12] LABS: ALBUMIN 2.6 GM/DL (3.2-5.2); CALCIUM LEVEL 8.2 MG/DL (8.8-10.2); CREATININE FOR GFR 1.22 MG/DL (0.55-1.02); GLOMERULAR FILTRATION RATE 47.7 (>45); PHOSPHORUS LEVEL 2.1 MG/DL (2.5-4.9); POTASSIUM SERUM 4.4 MEQ/L (3.5-5.1)
[2016-12-28] MEDS: DIGOXIN 0.125 MG TAB PO SCH (08:59)
[2016-12-28 09:00] VITALS: BP 99/52
[2016-12-28] MEDS: LETAIRIS 10MG TABLET PO SCH (09:00)
[2016-12-28] MEDS: VERAPAMIL 80 MG TAB PO SCH (09:00)
[2016-12-28] MEDS: VITAMIN D 1,000 INTERNATIONAL UNITS TABLET PO SCH (09:01)
[2016-12-28] MEDS: BUMETANIDE 1 MG TAB PO SCH (09:01)
[2016-12-28] MEDS: FERROUS SULFATE 325MG TAB PO SCH (09:02)
[2016-12-28] MEDS: predniSONE 5 MG TAB PO SCH (09:02)
[2016-12-28] MEDS: SILDENAFIL CITRATE 20 MG TABLET (REVATIO) PO SCH (09:03)
--- NOTE | 2016-12-30 16:33 | DSES ---
DATE OF ADMISSION: 12/22/2016 DATE OF DISCHARGE: 12/28/2016 Specialists involved in her care include Dr. Glen Puckett and Dr. Destiny Moya. No procedures performed during her stay. No complications of her stay. DISCHARGE DIAGNOSES: 1. Acute on chronic respiratory failure with hypoxia, baseline oxygen requirement of 2 liters. 2. Congestive heart failure with diastolic dysfunction. 3. Rheumatoid arthritis. 4. Pulmonary fibrosis. 5. Atrial fibrillation. 6. Obstructive sleep apnea. 7. Hypertension. 8. Hypothyroidism. 9. Raynaud's disease. 10. Pulmonary hypertension. 11. Scleroderma. 12. Chronic kidney disease. 13. Hyponatremia. The following is a summary of her hospitalization: This is a 61-year-old who presented with chest pain and difficulty breathing who was thought to have acute on chronic respiratory failure with hypoxia and congestive heart failure. Consultation was obtained from nephrology and she was started on diuresis. 2D echocardiogram was obtained which showed mild concentric left ventricular hypertrophy with septal wall motion abnormality due to right ventricular pressure overload with normal left ventricular function, small pericardial effusion with no significant change when compared to December 2013. She had an element of acute kidney injury and was thought to have cardiorenal syndrome. Heart failure was thought to be due to right-sided overload and cor pulmonale. She did respond well to diuretics. Did have an element of hyperkalemia at the beginning of her stay which resolved nicely. Her fluid status improved slowly and she was evaluated by physical therapy and thought to be safe to return home. On the day of discharge, she is feeling well. She did have tachycardia on the day prior to discharge which was resolved by restarting her calcium channel dottie. On the day of discharge, temperature is 98.3, pulse 90, respiratory rate 18, blood pressure 100/54, 98% on 2 liters. She is awake, appropriately interactive, pleasantly conversant. Breathing is symmetrical, rested, speaking in complete sentences, no accessory muscle use. Heart is distant sounding, normal S1, S2, borderline tachycardic. Abdomen soft, doughy, nontender. White cell count 4.7 on 12/26/2016, and hemoglobin 8.1. Creatinine on 12/28/2016, is 1.22. DISCHARGE INSTRUCTIONS: Include the following: Followup with Dr. Mcneil in 1 week, Dr. Puckett in 2 weeks. Activity as tolerated. 2 gram sodium diet with 1.8 mL per 24 hour fluid restriction. PT, INR, and CBC are ordered for followup as an outpatient. Continue: - bumetanide 2 mg by mouth daily - calcium with vitamin D supplement - vitamin B supplement - dextromethorphan 5 mg by mouth every 12 hours as needed for cough - digoxin 0.125 mg by mouth daily - hydrocortisone cream as needed - Letairis 10 mg by mouth daily - Synthroid 125 mcg by mouth daily - Bactroban topically as needed - omeprazole 40 mg by mouth daily at bedtime - Pravachol 20 mg by mouth daily at bedtime - prednisone 5 mg by mouth daily - sildenafil 40 mg by mouth three times a day - tramadol 100 mg by mouth three times a day - Tyvaso inhaled four times daily - verapamil 80 mg by mouth twice daily - coumadin 5 mg by mouth daily Discontinue spironolactone, discontinue torsemide for now.
== END 2016-12-28 12:25 | disposition home or self-care (01) | DRG 291 ==
LOC: M ED 23:31 → M ED INP 12-22 00:03 → M ICU 12-22 02:14 → M PCU 12-23 15:18 → M MS5PR 12-24 22:42
PROVIDERS: ADMIT General Practice; ATTEND Internal Medicine
DX: I13.0 Hypertensive heart and chronic kidney disease with heart failure and stage 1 through stage 4 chronic kidney disease, or unspecified chronic kidney disease (principal); J96.21 Acute and chronic respiratory failure with hypoxia; I50.33 Acute on chronic diastolic (congestive) heart failure; E87.2 Acidosis; E87.1 Hypo-osmolality and hyponatremia; M34.9 Systemic sclerosis, unspecified; I27.2 Other secondary pulmonary hypertension; J84.10 Pulmonary fibrosis, unspecified; I73.00 Raynaud's syndrome without gangrene; E83.39 Other disorders of phosphorus metabolism; D50.9 Iron deficiency anemia, unspecified; D69.6 Thrombocytopenia, unspecified; I27.81 Cor pulmonale (chronic); I48.2 Chronic atrial fibrillation; G47.33 Obstructive sleep apnea (adult) (pediatric); M85.80 Other specified disorders of bone density and structure, unspecified site; T46.0X5A Adverse effect of cardiac-stimulant glycosides and drugs of similar action, initial encounter; K21.9 Gastro-esophageal reflux disease without esophagitis; E87.5 Hyperkalemia; N18.9 Chronic kidney disease, unspecified; E78.5 Hyperlipidemia, unspecified; M06.9 Rheumatoid arthritis, unspecified; Z79.01 Long term (current) use of anticoagulants; Z79.899 Other long term (current) drug therapy; Z79.52 Long term (current) use of systemic steroids

== ENCOUNTER → 2016-12-21 | Outpatient (REF) | payer MEDICARE, MEDICAID ==
[~2016-12-21] MED LIST changes: +BUME1TA PO; +DEXT30SUSP PO; +PRED5TA PO
[2016-12-24 00:07] LABS: FREE CORTISOL 24HR URINE 2 ug/24 hr (0-50); FREE CORTISOL URINE 2 ug/L (Undefined)
== END ==
LOC: M SFHCPLAZ 09:47
PROVIDERS: ATTEND Family Medicine
DX: D64.9 Anemia, unspecified (principal); E27.40 Unspecified adrenocortical insufficiency

== ENCOUNTER → 2016-12-30 | Outpatient (REF) | payer MEDICARE, MEDICAID ==
[~2016-12-30] MED LIST changes: +BUME1TA PO; +DEXT30SUSP PO; +PRED5TA PO
== END ==
LOC: M LAB REF 16:39
PROVIDERS: ATTEND Surgery
DX: Z53.8 Procedure and treatment not carried out for other reasons (principal)

== ENCOUNTER → 2016-12-30 | Outpatient (CLI) | payer MEDICARE, MEDICAID ==
[2016-12-30 18:14] LABS: MEAN CORPUSCULAR HEMOGLOBIN 31.3 pg (27.0-33.0); MEAN CORPUSCULAR HGB CONC 30.4 g/dl (32.0-36.5); MEAN CORPUSCULAR VOLUME 102.9 fl (80.0-96.0); RED CELL DISTRIBUTION WIDTH 19.5 % (11.5-14.5); WHITE BLOOD COUNT 4.7 K/mm3 (4.0-10.0)
== END ==
LOC: M LRY 11:14
PROVIDERS: ATTEND Internal Medicine
DX: D64.9 Anemia, unspecified (principal)

== ENCOUNTER → 2017-01-05 | Outpatient (REF) | payer MEDICARE, MEDICAID ==
[2017-01-05 15:58] LABS: MEAN CORPUSCULAR HEMOGLOBIN 31.6 pg (27.0-33.0); MEAN CORPUSCULAR VOLUME 101.9 fl (80.0-96.0); RED CELL DISTRIBUTION WIDTH 18.9 % (11.5-14.5); WHITE BLOOD COUNT 5.3 K/mm3 (4.0-10.0)
== END ==
LOC: M SFHCPLAZ 15:30
PROVIDERS: ATTEND Student in an Organized Health Care Education/Training Program
DX: I50.9 Heart failure, unspecified (principal)
CPT/HCPCS: 36415; 85027; G0463

== ENCOUNTER → 2017-01-18 | Outpatient (REF) | payer MEDICARE, MEDICAID ==
[2017-01-18 14:09] LABS: FREE T4 1.53 NG/DL (0.76-1.46)
[2017-01-18 18:21] LABS: PERCENT SATURATION 20.7 % (13.2-37.4)
== END ==
LOC: M LAB REF 13:32
PROVIDERS: ATTEND Internal Medicine Nephrology
DX: E03.9 Hypothyroidism, unspecified (principal); D50.9 Iron deficiency anemia, unspecified; I50.33 Acute on chronic diastolic (congestive) heart failure

== ENCOUNTER → 2017-01-19 | Outpatient (REF) | payer MEDICARE, MEDICAID ==
[2017-01-19 14:16] LABS: INR 4.22
== END ==
LOC: M LAB REF 13:30
PROVIDERS: ATTEND Student in an Organized Health Care Education/Training Program
DX: Z51.81 Encounter for therapeutic drug level monitoring (principal); Z79.01 Long term (current) use of anticoagulants

== ENCOUNTER 2017-02-13 11:31 | Inpatient (IN) | payer MEDICARE, MEDICAID ==
[~2017-02-13] VITALS: Ht 167.6 cm; Wt 65.9 kg
[~2017-02-13 11:31] MED LIST changes: +BACT2OIN10 TOP; -BACT2OIN2 TOP; -FOLI1TAB2 PO; +FOLI1TAB4 PO; -LEVO125T3 PO; +LEVO125T4 PO; +PERC5TAB12 PO; -PERC5TAB6 PO; -PRED10TA PO; +PRED10TA2 PO
[2017-02-13] MEDS ORDERED: Oxygen (11:56)
[2017-02-13] MEDS ORDERED: SPIR50TA2 PO (11:56)
[2017-02-13] MEDS ORDERED: FERR325T16 PO (11:56)
[2017-02-13 12:33] LABS: BASO % 1.2 % (0.0-1.0); EOS % 1.2 % (0.0-3.0); LARGE UNSTAINED CELL # 0.1 K/mm3 (0.0-0.4); LARGE UNSTAINED CELL % 1.4 % (0.0-4.0); LYMPH # 0.7 K/mm3 (1.5-4.5); LYMPH % 13.5 % (24.0-44.0); MEAN CORPUSCULAR HEMOGLOBIN 31.7 pg (27.0-33.0); MEAN CORPUSCULAR HGB CONC 31.8 g/dl (32.0-36.5); MEAN CORPUSCULAR VOLUME 99.9 fl (80.0-96.0); MONO # 0.3 K/mm3 (0.0-0.8); MONO % 5.8 % (0.0-5.0); NEUTROPHILS # 3.4 K/mm3 (1.8-7.7); NEUTROPHILS % 76.9 % (36.0-66.0); PLATELET COUNT, AUTOMATED 199 k/mm3 (150-450); RED CELL DISTRIBUTION WIDTH 16.3 % (11.5-14.5); WHITE BLOOD COUNT 4.4 K/mm3 (4.0-10.0)
[2017-02-13 12:39] LABS: ABG PARTIAL PRESSURE CO2 46.7 mmHg (35.0-45.0); ABG PARTIAL PRESSURE O2 133.6 mmHg (75.0-100.0); ABG TOTAL CO2 31.5 MEQ/L (23.0-31.0); ABG pH (ARTERIAL) 7.426 UNITS (7.350-7.450)
[2017-02-13 12:44] LABS: ALBUMIN 2.7 GM/DL (3.2-5.2); ALBUMIN/GLOBULIN RATIO 0.51 (1.00-1.93); BILIRUBIN,DIRECT 0.6 MG/DL (0.0-0.2); CALCIUM LEVEL 9.3 MG/DL (8.8-10.2); CREATININE FOR GFR 1.33 MG/DL (0.55-1.02); GLOMERULAR FILTRATION RATE 43.2 (>45); POTASSIUM SERUM 4.7 MEQ/L (3.5-5.1)
[2017-02-13] MEDS ORDERED: ONDANSETRON 4MG/2ML VIAL (J2405) IV ONE (13:00)
[2017-02-13] MEDS ORDERED: fentaNYL 100 MCG/2 ML INJECTION (J3010) IV ONE (13:00)
[2017-02-13] MEDS ORDERED: ISOVUE-370 76% 100ML VIAL (Q9967) As Ordered ONE (13:01)
[2017-02-13] MEDS ORDERED: NS 500 ML IV ONE ×2 (13:15→14:30)
[2017-02-13] MEDS ORDERED: DEXTROSE 50% 50 ML SYRINGE IV STA ×2 (13:23→14:16)
--- NOTE | 2017-02-13 13:47 | REP ---
REASON FOR EXAM: Diffuse abdominal pain. COMPARISON: 12/03/2016 The contrast utilized 100 mL Isovue 370. There are chronic changes seen throughout the lung bases with evidence of fibrosis and pine cone lung changes. There are no pleural or pericardial effusions. There is four-chamber cardiac enlargement status quo. The liver and spleen are unchanged. The patient is status post cholecystectomy. The pancreas, adrenal glands, and kidneys are unchanged. The abdominal aorta and para-aortic regions are unchanged. The bowel loops and their mesenteries are within normal limits. There is no free fluid or free air in the abdomen. There is a tiny ventral hernia status quo. There is no evidence of an intra-abdominal mass or adenopathy. CT PELVIS: There is no free fluid or free air. There is no evidence of a mass or adenopathy. The bowel loops and their mesenteries are within normal limits. Bone window technique throughout the exam shows no significant change in the appearance of the osseous structures. L5 laminotomy defect status quo. IMPRESSION: 1. Chronic lung coon changes. 2. No evidence of acute intra-abdominal or intrapelvic disease with findings as described above. Signed by Bryce Tracey DO 02/13/2017 01:58 P
[2017-02-13] MEDS ORDERED: BUME1TAB29 PO (14:15)
[2017-02-13] MEDS ORDERED: BENZ100C5 PO (14:16)
--- NOTE | 2017-02-13 15:16 | HPEPDOC ---
Medical History and Physical Date of Admission 02/13/17 History and Physical ATTENDING: Dr. Riley PCP: Dr Hines [facility]. Tile Layer Helper. Dr Puckett. Pulmonary. Dr Acuña Isotope Hydrologist. Dr Dominique CC: abnormal lab results. Sent to ED from Dr Puckett's office. HPI: 61yoF most recently admitted to [facility] 12/22/16-12/28/16 with acute respiratory failure,hypoxia and CHF. She reports that 2 days ago she began to feel weak, nauseated with decreased po intake, back pain and flank pain bilaterally. Denies vomiting. She also reports feeling SOB, denies cough. She states "annoying" chest pain " on and off" for past 1 week. Denies association with activity. Denies radiation of pain, diaphoresis, palpitations. Denies any fevers, chills, BOLIVAR, abdominal pain, or changes in bowel or bladder habits. Upon presentation to the hospital the patient was found to have hyponatremia, thus the hospitalist team was consulted. PMHx: 1. Diastolic congestive heart failure. Dr Dominique. 2. Pulmonary hypertension. Follows with Dr Acuña and Pulm [facility]. 3. Raynaud's phenomena 4. Anemia 5. Atrial fibrillation 6. History of obstructive sleep apnea 7. Pulmonary fibrosis 8. Scleroderma 9. Osteopenia 10. Gastroesophageal reflux disease 11. Dyslipidemia 12. Rheumatoid arthritis 13. CKD3. Lavern. Surgical History 1. Cholecystectomy 2. Cardiac ablation, 2014 3. Spinal surgeries 4. Bronchoscopy 5. Colonoscopy 6. 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 PE: GEN: 61yoF, appears stated age. thin appearing. No acute distress. Alert and oriented x 3. Pleasant, interactive. HEENT: Normocephalic, atraumatic. Pupils are equal, round, and reactive to light. Extraocular movements are intact. No nystagmus appreciated. Sclera are nonicteric. Conjunctiva without injection. Nose midline. Nasal turbinates without bogginess. EACs both patent BL. TMs both visualized and garcia with good cone of light, no bulging or erythema. No facial asymmetry. Moist mucous membranes. Dentition fair. Pharynx pink and moist, no cobblestoning. Neck supple , trachea midline. No lymphadenopathy or thyromegaly appreciated. Cardiac: irreg irreg S1S2. Systolic murmur noted. JVD does not appear elevated. CHEST:Insp rales bilaterally. No wheezes, rhonchi. Breathing appears symmetric and easy. Patient is speaking in full sentences. No accessory muscle use. ABD: Flat, soft, TTP across upper abdomen, non-distended. +Bowel sounds throughout. No rebound or guarding. No costovertebral angle tenderness. EXT: Chronic venous stasis changes noted. Trace lower extremity edema appreciated. SKIN: Viola, dry, warm. NEURO: Alert and oriented x 3. Cranial nerves III-XII are intact. No focal deficits appreciated. CT A/P: Chronic lung coon changes. No evidence of acute intra-abdominal or intrapelvic disease with findings as described above. EKG: Afib, 68bpm, RAD, inc RBBB, ST T abn. LA 0.6 A&P: 61yoF most recently admitted to [facility] 12/22/16-12/28/16 with acute respiratory failure,hypoxia and CHF. She reports that 2 days ago she began to feel weak, nauseated with decreased po intake, back pain and flank pain bilaterally. Denies vomiting. She also reports feeling SOB, denies cough. She states "annoying" chest pain " on and off" for past 1 week 1. The patient will be admitted to PCU for at least [address] Riley's service. Pt is discussed with Dr Garcia. 2. Hyponatremia. Recent trend 125-132. S/P IVF 1 liter in ED. Monitor BMP Q12hr. Ur Na/Osm/Ur Cr/TSH pending. 3. CP. No EKG changes at this time. Troponin 0.15 , could be related to CKD. PCU/TM. Serial CIP/Troponin. Consider Cardiology if CIP/Trop trends upward. 4. Nausea with poor po intake. IVF @75cc/hr. Zofran prn. Clear liq diet. 5. CKD3. Appears to be at baseline 1.2-1.4. Consider nephrology consult if needed. 4. Diastolic CHF. Hold diuretics temporarily. Consider restarting in Am. ( Bumex/Aldactone) 5. Pulmonary HTN. Cont outpt regimen. 6. Hypothyroid. Continue supplement. TSH pending. 5. HLD. Statin. 6. GERD. PPI. 7. KELLY. CPAP from home. 8. Chronic Afib. Hold Verapamil related to hypotension. Continue digoxin, add dig level. Coumadin continue with home dose, INR today pending. Daily INR. 9. Anemia in CKD. Cont Fe supplement. DVT prophylaxis. Pt on Coumadin. Vital Signs Vital Signs Date Time Temp Pulse Resp B/P (MAP) Pulse Ox O2 Delivery O2 Flow Rate FiO2 02/13/17 13:42 105/54 (71) 02/13/17 13:31 72 02/13/17 13:28 18 02/13/17 13:01 91 02/13/17 12:04 Nasal Cannula 3.0 02/13/17 11:37 97.3 Laboratory Data Labs 24H Laboratory Tests 2 02/13/17 11:58: White Blood Count 4.4, Red Blood Count 3.36L, Hemoglobin 10.7L, Hematocrit 33.6L , Mean Corpuscular Volume 99.9H, Mean Corpuscular Hemoglobin 31.7, Mean Corpuscular Hemoglobin Concent 31.8L, Red Cell Distribution Width 16.3H, Platelet Count 199, Neutrophils (%) (Auto) 76.9H, Lymphocytes (%) (Auto) 13.5L, Monocytes (%) (Auto) 5.8H, Eosinophils (%) (Auto) 1.2, Basophils (%) (Auto) 1.2H , Neutrophils # (Auto) 3.4, Lymphocytes # (Auto) 0.7L, Monocytes # (Auto) 0.3, Eosinophils # (Auto) 0.0, Basophils # (Auto) 0.0, Large Unclassified Cells % 1.4 , Large Unclassified Cells # 0.1, Anion Gap 7L, Glomerular Filtration Rate 43.2L , Calcium Level 9.3, Aspartate Amino Transf (AST/SGOT) 20, Alanine Aminotransferase (ALT/SGPT) 15, Alkaline Phosphatase 202H, Total Bilirubin 1.0, Direct Bilirubin 0.6H, Total Protein 8.0, Albumin 2.7L, Albumin/Globulin Ratio 0.51L, Lipase 100 02/13/17 12:29: Blood Gas Bicarbonate Standard 29.0H, Arterial Blood pH 7.426, Arterial Blood Partial Pressure CO2 46.7H, Arterial Blood Partial Pressure O2 133.6H, Arterial Blood Total CO2 31.5H, Arterial Blood HCO3 30.0H, Arterial Blood Base Excess 5.0H, Arterial Blood Oxygen Saturation 99.0 02/13/17 13:21: Lactic Acid Level 0.6, Total Creatine Kinase 20L, Creatine Kinase MB 2.1, Creatine Kinase MB Relative Index 10.50H, Troponin I 0.15H 02/13/17 14:14: Bedside Glucose (Misc Panel) 70L CBC/BMP Laboratory Tests 02/13/17 11:58 Red Blood Count 3.36 L, Mean Corpuscular Volume 99.9 H, Mean Corpuscular Hemoglobin 31.7, Mean Corpuscular Hemoglobin Concent 31.8 L, Red Cell Distribution Width 16.3 H, Neutrophils (%) (Auto) 76.9 H, Lymphocytes (%) (Auto ) 13.5 L, Monocytes (%) (Auto) 5.8 H, Eosinophils (%) (Auto) 1.2, Basophils (%) (Auto) 1.2 H, Neutrophils # (Auto) 3.4, Lymphocytes # (Auto) 0.7 L, Monocytes # (Auto) 0.3, Eosinophils # (Auto) 0.0, Basophils # (Auto) 0.0 Home Medications Scheduled (Letairis) 5 Mg Tab, 10 MG PO DAILY Bumetanide (Bumex) 2 Mg Tab, 2 MG PO BID Calcium/Vitamin D (Calcium 600+D3 600-400 mg-Unit) 1 Tab Tab, 1 TAB PO DAILY Digoxin (Digoxin) 0.125 Mg Tab, 0.125 MG PO DAILY Ferrous Gluconate (Ferrous Gluconate) 324 Mg Tab, 324 MG PO BID Levothyroxine Sodium (Synthroid) 125 Mcg Tab, 125 MCG PO DAILY Omeprazole (Omeprazole) 40 Mg Cap, 40 MG PO QHS Pravastatin Sodium (Pravachol) 20 Mg Tab, 20 MG PO QHS Prednisone (Prednisone) 5 Mg Tab, 5 MG PO QHS Sildenafil Citrate (Revatio) 20 Mg Tab, 40 MG PO TID Spironolactone (Spironolactone) 50 Mg Tab, 25 MG PO BID Treprostinil (Tyvaso) 0.6 Mg/Ml Ly, 1 NEB INH QID Verapamil HCl (Verapamil HCl) 80 Mg Tab, 80 MG PO BID Warfarin Sod (Warfarin Sodium) 5 Mg Tab, 5 MG PO QPM @ 1900 Scheduled PRN Benzonatate (Benzonatate) 100 Mg Cap, 100 MG PO TID PRN for COUGH Hydrocortisone Base (Hydrocortisone) 2.5 % Cre, 1 DOSE TOP for RASH/ITCHING APPLIED TO ANKLES Mupirocin (Pseudomonas Fluores (Bactroban) 2 % Oin, 1 DOSE TOP TID PRN for REDNESS/IRRITATION APPLIED TO FINGERS Tramadol HCl (Tramadol HCl) 50 Mg Tab, 100 MG PO TID PRN for PAIN Allergies Coded Allergies: No Known Allergies (Verified , 11/24/16) Monik Mcelroy Feb 13, 2017 15:15
[2017-02-13] MEDS ORDERED: ONDANSETRON 4MG/2ML VIAL (J2405) IV PRN (15:30)
[2017-02-13] MEDS ORDERED: BENZONATATE 100 MG CAP PO PRN (15:30)
[2017-02-13] MEDS: SILDENAFIL CITRATE 20 MG TABLET (REVATIO) PO SCH ×2 (16:00→20:10)
[2017-02-13 17:05] VITALS: BP 114/56
[2017-02-13] MEDS: NS 1,000 ML IV SCH (17:29)
[2017-02-13 18:11] LABS: INR 1.9
[2017-02-13 18:21] LABS: CALCIUM LEVEL 8.4 MG/DL (8.8-10.2); CREATININE FOR GFR 1.17 MG/DL (0.55-1.02); GLOMERULAR FILTRATION RATE 50.1 (>45); POTASSIUM SERUM 4.6 MEQ/L (3.5-5.1)
[2017-02-13 18:31] LABS: MAGNESIUM LEVEL 1.9 MG/DL (1.8-2.4); URIC ACID 6.4 MG/DL (2.6-6.0)
[2017-02-13 19:57] VITALS: BP 109/53
[2017-02-13] MEDS: PRAVASTATIN 20 MG TAB PO SCH (20:08)
[2017-02-13] MEDS: FERROUS GLUCONATE 324 MG TAB PO SCH (20:08)
[2017-02-13] MEDS: WARFARIN SOD 5 MG TAB PO SCH (20:08)
[2017-02-13] MEDS: predniSONE 5 MG TAB PO SCH (20:08)
[2017-02-13] MEDS ORDERED: OMEPRAZOLE 20 MG CAP PO SCH (21:00)
[2017-02-13] MEDS ORDERED: VERAPAMIL 80 MG TAB PO SCH (21:00)
[2017-02-13 23:59] VITALS: BP 109/56
[2017-02-14 04:00] VITALS: BP 115/56
[2017-02-14] MEDS: LEVOTHYROXINE 125MCG TABLET (0.125MG) PO SCH (05:31)
[2017-02-14] MEDS: NS 1,000 ML IV SCH ×2 (05:32→23:51)
[2017-02-14 05:47] LABS: MEAN CORPUSCULAR HEMOGLOBIN 31.5 pg (27.0-33.0); MEAN CORPUSCULAR HGB CONC 31.2 g/dl (32.0-36.5); MEAN CORPUSCULAR VOLUME 100.8 fl (80.0-96.0); RED CELL DISTRIBUTION WIDTH 16.3 % (11.5-14.5); WHITE BLOOD COUNT 3.6 K/mm3 (4.0-10.0)
[2017-02-14 05:51] LABS: INR 2.13
[2017-02-14 06:09] LABS: ALBUMIN 2.1 GM/DL (3.2-5.2); ALBUMIN/GLOBULIN RATIO 0.5 (1.00-1.93); BILIRUBIN,TOTAL 0.8 MG/DL (0.2-1.0); CALCIUM LEVEL 8.4 MG/DL (8.8-10.2); CREATININE FOR GFR 1.05 MG/DL (0.55-1.02); GLOMERULAR FILTRATION RATE 56.7 (>45); POTASSIUM SERUM 4.8 MEQ/L (3.5-5.1); TOTAL PROTEIN 6.3 GM/DL (6.4-8.2)
[2017-02-14 07:45] VITALS: BP 103/55
[2017-02-14] MEDS: FERROUS GLUCONATE 324 MG TAB PO SCH ×2 (08:28→21:05)
[2017-02-14] MEDS: DIGOXIN 0.125 MG TAB PO SCH (08:29)
[2017-02-14] MEDS: SILDENAFIL CITRATE 20 MG TABLET (REVATIO) PO SCH ×3 (09:00→21:00)
[2017-02-14] MEDS: LETAIRIS 10 MG PO SCH ×2 (09:00→17:16)
[2017-02-14] MEDS: TYVASO INH SCH ×4 (09:00→21:00)
[2017-02-14] MEDS ORDERED: MORPHINE 2 MG/ML 1ML SYRINGE IV PRN (09:15)
[2017-02-14] MEDS ORDERED: GI COCKTAIL 50ML BTL(HYOSCYAMINE/MAALOX/LIDOCAINE VISCOUS)(1:3:1) PO PRN (10:00)
[2017-02-14 12:00] VITALS: BP 119/60
--- NOTE | 2017-02-14 12:39 | IPNPDOC ---
Subjective Date Seen The patient was seen on 02/14/17. Subjective Chief Complaint/HPI The patient is a 61-year-old female admitted with a reason for visit of Chest Pain Hyponatremia. Events since last encounter still with soreness of abdomen , no diarrhea, no vomiting . no fever or chills, no chest pain , no cough , no sob. Objective Physical Examination General Exam: Positive: Alert, Cooperative, No Acute Distress Eye Exam: Positive: PERRLA, Conjunctiva & lids normal, EOMI, Negative: Sclera icteric ENT Exam: Positive: Atraumatic, Mucous membr. moist/pink, Pharynx Normal Neck Exam: Positive: Supple, Negative: JVD, thyromegaly Chest Exam: Positive: Clear to auscultation, Normal air movement Heart Exam: Positive: Rate Normal, Regular Rhythm, Normal S1, Normal S2, Negative: Murmurs, Rubs Telemetry: Positive: No significant arrhythmia Abdomen Exam: Positive: Normal bowel sounds, Soft, Tenderness, Negative: Hepatospenomegaly Extremity Exam: Positive: Normal pulses, Negative: Clubbing, Cyanosis, Edema Assessment /Plan Problems (1) Chest pain Status: Resolved Problem Text: non cardiological . possibly musculoskeletal . (2) Abdominal pain Status: Acute Problem Text: acute on chronic possibly gastritis / duodenitis. gerd will stat ppi, sucralfate and gi coctail (3) Obstructive sleep apnea on CPAP Status: Chronic (4) COPD (chronic obstructive pulmonary disease) Status: Chronic (5) Paroxysmal atrial fibrillation Status: Chronic (6) Scleroderma Status: Chronic (7) Pulmonary hypertension Status: Chronic (8) Raynaud's disease Status: Chronic (9) Hypothyroidism Status: Chronic (10) Hypertension Status: Chronic (11) Rheumatoid arthritis Status: Chronic (12) Pulmonary fibrosis Status: Chronic (13) Hyponatremia Status: Acute Problem Text: acute worsening of chronic hyponatremia possibly depletional as improved with normal saline. (14) Chronic respiratory failure with hypoxia Status: Chronic Problem Text: due to restrictive and obstructive lung diseae continue home oxygen Plan/VTE VTE Prophylaxis Ordered?: Yes VS, I&O, 24H, Fishbone Vital Signs/I&O Vital Signs Date Time Temp Pulse Resp B/P (MAP) Pulse Ox O2 Delivery O2 Flow Rate FiO2 02/14/17 08:50 Nasal Cannula 3.0 02/14/17 08:29 93 02/14/17 04:00 99.3 20 115/56 (67) 94 I&O- Last 24 Hours up to 6 AM 02/14/17 06:00 Intake Total 2475 ml Output Total 525 ml Balance 1950 ml Laboratory Data 24H LABS Laboratory Tests 2 02/13/17 12:29: Blood Gas Bicarbonate Standard 29.0H, Arterial Blood pH 7.426, Arterial Blood Partial Pressure CO2 46.7H, Arterial Blood Partial Pressure O2 133.6H, Arterial Blood Total CO2 31.5H, Arterial Blood HCO3 30.0H, Arterial Blood Base Excess 5.0H, Arterial Blood Oxygen Saturation 99.0 02/13/17 13:21: Lactic Acid Level 0.6, Total Creatine Kinase 20L, Creatine Kinase MB 2.1, Creatine Kinase MB Relative Index 10.50H, Troponin I 0.15H 02/13/17 14:14: Bedside Glucose (Misc Panel) 70L 02/13/17 15:12: Bedside Glucose (Misc Panel) 101 02/13/17 17:49: Prothrombin Time 22.4H, Prothromb Time International Ratio 1.90, Anion Gap 8, Glomerular Filtration Rate 50.1, Uric Acid 6.4H, Blood Urea Nitrogen 33H, Creatinine 1.17H, Sodium Level 125L, Potassium Level 4.6, Chloride Level 89L, Carbon Dioxide Level 28, Calcium Level 8.4L, Magnesium Level 1.9, Total Creatine Kinase 20L, Creatine Kinase MB 2.3, Creatine Kinase MB Relative Index 11.50H, Troponin I 0.17H, Thyroid Stimulating Hormone (TSH) 1.770, Digoxin Level 2.0 02/13/17 19:07: Urine Appearance HAZY, Urine Color YELLOW, Urine pH 5.0, Urine Specific [place] 1.026, Urine Protein NEGATIVE, Urine Glucose (UA) NEGATIVE, Urine Ketones NEGATIVE, Urine Urobilinogen 2.0H, Urine Bilirubin NEGATIVE, Urine Leukocyte Esterase 1+H, Urine Blood NEGATIVE, Urine Nitrite NEGATIVE, Urine WBC (Auto) 4H , Urine RBC (Auto) 6H, Urine Hyaline Casts (Auto) 0, Urine Bacteria (Auto) 1+H, Urine Squamous Epithelial Cells 1, Urine Sperm (Auto) , Urine Random Osmolality 397L, Urine Random Creatinine 41.6, Urine Random Sodium 70 02/14/17 01:46: Total Creatine Kinase 18L, Creatine Kinase MB 1.3, Creatine Kinase MB Relative Index 7.22H, Troponin I 0.17H 02/14/17 05:28: Prothrombin Time 24.6H, Prothromb Time International Ratio 2.13, Anion Gap 6L, Glomerular Filtration Rate 56.7, Blood Urea Nitrogen 27H, Creatinine 1.05H, Sodium Level 129L, Potassium Level 4.8, Chloride Level 94L, Carbon Dioxide Level 29, Calcium Level 8.4L, Aspartate Amino Transf (AST/SGOT) 16, Alanine Aminotransferase (ALT/SGPT) 13, Alkaline Phosphatase 159H, Total Bilirubin 0.8, Total Protein 6.3#L, Albumin 2.1#L, Albumin/Globulin Ratio 0.50L 02/14/17 09:37: Total Creatine Kinase 16L, Creatine Kinase MB 1.6, Creatine Kinase MB Relative Index 10.00H, Troponin I 0.18H CBC/BMP Laboratory Tests 02/13/17 17:49 Calcium Level 8.4 L 02/14/17 05:28 Calcium Level 8.4 L, Red Blood Count 2.71 L, Mean Corpuscular Volume 100.8 H, Mean Corpuscular Hemoglobin 31.5, Mean Corpuscular Hemoglobin Concent 31.2 L, Red Cell Distribution Width 16.3 H, Aspartate Amino Transf (AST/SGOT) 16, Alanine Aminotransferase (ALT/SGPT) 13, Alkaline Phosphatase 159 H, Total Bilirubin 0.8, Total Protein 6.3 #L, Albumin 2.1 #L Microbiology Microbiology 02/13/17 Urine Culture, Received Pending YOCASTA PAUL MD Feb 14, 2017 12:39
[2017-02-14] MEDS ORDERED: ACETAMINOPHEN TAB 650MG DOSE (2X325MG) PO PRN (13:15)
[2017-02-14] MEDS: PANTOPRAZOLE 40MG INJ (PROTONIX) (C9113) IV SCH ×2 (13:23→21:04)
[2017-02-14] MEDS: SUCRALFATE SUSP 1GM/10ML UD PO SCH ×3 (13:23→21:05)
[2017-02-14 16:00] VITALS: BP 118/60
[2017-02-14] MEDS: WARFARIN SOD 5 MG TAB PO SCH (17:17)
[2017-02-14 20:00] VITALS: BP 107/53
[2017-02-14] MEDS: PRAVASTATIN 20 MG TAB PO SCH (21:05)
[2017-02-14] MEDS: predniSONE 5 MG TAB PO SCH (21:05)
[2017-02-14 23:59] VITALS: BP 119/55
[2017-02-15 04:00] VITALS: BP 119/63
[2017-02-15] MEDS: LEVOTHYROXINE 125MCG TABLET (0.125MG) PO SCH (05:30)
[2017-02-15 05:59] LABS: MEAN CORPUSCULAR HEMOGLOBIN 31.4 pg (27.0-33.0); MEAN CORPUSCULAR HGB CONC 30.6 g/dl (32.0-36.5); MEAN CORPUSCULAR VOLUME 102.8 fl (80.0-96.0); RED CELL DISTRIBUTION WIDTH 16.3 % (11.5-14.5); WHITE BLOOD COUNT 2.8 K/mm3 (4.0-10.0)
[2017-02-15 06:05] LABS: INR 2.83
[2017-02-15 06:11] LABS: ALBUMIN 2.1 GM/DL (3.2-5.2); ALBUMIN/GLOBULIN RATIO 0.51 (1.00-1.93); BILIRUBIN,TOTAL 0.5 MG/DL (0.2-1.0); CALCIUM LEVEL 8.4 MG/DL (8.8-10.2); CREATININE FOR GFR 1.01 MG/DL (0.55-1.02); GLOMERULAR FILTRATION RATE 59.3 (>45); POTASSIUM SERUM 4.7 MEQ/L (3.5-5.1); TOTAL PROTEIN 6.2 GM/DL (6.4-8.2)
[2017-02-15] MEDS: LETAIRIS 10 MG PO SCH (07:21)
[2017-02-15 08:00] VITALS: BP 110/56
[2017-02-15] MEDS: SUCRALFATE SUSP 1GM/10ML UD PO SCH ×4 (08:23→20:20)
[2017-02-15] MEDS: SILDENAFIL CITRATE 20 MG TABLET (REVATIO) PO SCH ×3 (08:24→20:20)
[2017-02-15] MEDS: DIGOXIN 0.125 MG TAB PO SCH (08:24)
[2017-02-15] MEDS: PANTOPRAZOLE 40MG INJ (PROTONIX) (C9113) IV SCH ×2 (08:24→20:20)
[2017-02-15] MEDS: FERROUS GLUCONATE 324 MG TAB PO SCH ×2 (08:24→20:20)
--- NOTE | 2017-02-15 11:26 | IPNPDOC ---
Subjective Date Seen The patient was seen on 02/15/17. Subjective Chief Complaint/HPI The patient is a 61-year-old female admitted with a reason for visit of Chest Pain Hyponatremia. Events since last encounter feeling better today, no chest pain or abdominal pain , had good bowel movement. no fever or chills, no nausea or vomiting. Objective Physical Examination General Exam: Positive: Alert, Cooperative, No Acute Distress Eye Exam: Positive: PERRLA, Conjunctiva & lids normal, EOMI, Negative: Sclera icteric ENT Exam: Positive: Atraumatic, Mucous membr. moist/pink, Pharynx Normal Neck Exam: Positive: Supple, Negative: JVD, thyromegaly Chest Exam: Positive: Clear to auscultation, Normal air movement Heart Exam: Positive: Rate Normal, Regular Rhythm, Normal S1, Normal S2, Negative: Murmurs, Rubs Telemetry: Positive: No significant arrhythmia Abdomen Exam: Positive: Normal bowel sounds, Soft, Tenderness, Negative: Hepatospenomegaly Extremity Exam: Positive: Normal pulses, Negative: Clubbing, Cyanosis, Edema Assessment /Plan Problems (1) Hyponatremia Status: Acute Problem Text: acute worsening of chronic hyponatremia possibly depletional as improved with normal saline. will stop IVF restarting to build up fluids again will restart diuretics at lower dose. (2) Chest pain Status: Resolved Problem Text: non cardiological . possibly musculoskeletal . (3) Abdominal pain Status: Acute Problem Text: acute on chronic possibly gastritis / duodenitis. gerd will stat ppi, sucralfate and gi coctail (4) Obstructive sleep apnea on CPAP Status: Chronic (5) COPD (chronic obstructive pulmonary disease) Status: Chronic (6) Paroxysmal atrial fibrillation Status: Chronic (7) Scleroderma Status: Chronic (8) Pulmonary hypertension Status: Chronic Problem Text: on Letairis and revatio will continue (9) Raynaud's disease Status: Chronic (10) Hypothyroidism Status: Chronic (11) Hypertension Status: Chronic (12) Rheumatoid arthritis Status: Chronic (13) Pulmonary fibrosis Status: Chronic Problem Text: with severe pulmonary Hypertension an corpulmonale will restart spironolactone and torsemide. (14) Chronic respiratory failure with hypoxia Status: Chronic Problem Text: due to restrictive and obstructive lung diseae continue home oxygen (15) Anemia Status: Chronic Response to Treatment: Stable Problem Text: Anemia of chronic disease and iron deficiency. (16) Adrenal insufficiency Status: Chronic Response to Treatment: Stable Problem Text: continue prednisone. Plan/VTE VTE Prophylaxis Ordered?: Yes VS, I&O, 24H, Fishbone Vital Signs/I&O Vital Signs Date Time Temp Pulse Resp B/P (MAP) Pulse Ox O2 Delivery O2 Flow Rate FiO2 02/15/17 08:24 100 02/15/17 08:00 98.1 20 110/56 (74) 98 Nasal Cannula 2.0 I&O- Last 24 Hours up to 6 AM 02/15/17 05:59 Intake Total 2445 ml Output Total 1510 ml Balance 935 ml Laboratory Data 24H LABS Laboratory Tests 2 02/15/17 05:22: Prothrombin Time 31.0H, Prothromb Time International Ratio 2.83, Anion Gap 5L, Glomerular Filtration Rate 59.3, Blood Urea Nitrogen 25H, Creatinine 1.01, Sodium Level 131L, Potassium Level 4.7, Chloride Level 98, Carbon Dioxide Level 28, Calcium Level 8.4L, Aspartate Amino Transf (AST/SGOT) 15, Alanine Aminotransferase (ALT/SGPT) 10L, Alkaline Phosphatase 152H, Total Bilirubin 0.5 , Total Protein 6.2L, Albumin 2.1L, Albumin/Globulin Ratio 0.51L CBC/BMP Laboratory Tests 02/15/17 05:22 Red Blood Count 2.59 L, Mean Corpuscular Volume 102.8 H, Mean Corpuscular Hemoglobin 31.4, Mean Corpuscular Hemoglobin Concent 30.6 L, Red Cell Distribution Width 16.3 H, Calcium Level 8.4 L, Aspartate Amino Transf (AST/SGOT ) 15, Alanine Aminotransferase (ALT/SGPT) 10 L, Alkaline Phosphatase 152 H, Total Bilirubin 0.5, Total Protein 6.2 L, Albumin 2.1 L Microbiology Microbiology 02/13/17 Urine Culture - Final, Complete YOCASTA PAUL MD Feb 15, 2017 11:25
[2017-02-15] MEDS: TYVASO INH SCH ×3 (11:28→21:11)
[2017-02-15 12:00] VITALS: BP 122/58
[2017-02-15] MEDS: BUMETANIDE 1 MG TAB PO SCH (15:33)
[2017-02-15] MEDS: SPIRONOLACTONE 25 MG TAB PO SCH ×3 (15:33→20:28)
[2017-02-15] MEDS: WARFARIN SOD 5 MG TAB PO SCH (17:23)
[2017-02-15 20:00] VITALS: BP 113/54
[2017-02-15] MEDS: PRAVASTATIN 20 MG TAB PO SCH (20:20)
[2017-02-15] MEDS: predniSONE 5 MG TAB PO SCH (20:20)
[2017-02-15 21:55] VITALS: BP 116/58
[2017-02-15] MEDS ORDERED: MAGNESIUM CITRATE 300 ML BTL PO PRN (23:00)
[2017-02-15] MEDS ORDERED: FLEET ENEMA PR PRN (23:00)
[2017-02-15] MEDS: SENOKOT S TAB PO SCH (23:14)
[2017-02-16 06:00] VITALS: BP 102/68
[2017-02-16] MEDS: LEVOTHYROXINE 125MCG TABLET (0.125MG) PO SCH (06:00)
--- NOTE | 2017-02-16 06:58 | ECGEPIP ---
Stationary ECG Study [facility] - ED Test Date: 2017-02-13 Pat Name: FREDERICK TAVERA Department: Room: - Gender: F Home Care Companion: adrianna : 1955 Requested By: PERCY Stevenson Order Number: [id number] Reading MD: Mahesh Roger Measurements Intervals [place] Rate: 68 P: -32 [place]: 195 QRS: 109 QRSD: 93 T: -74 QT: 340 QTc: 362 Interpretive Statements ATRIAL FIBRILLATION MARKED RIGHT AXIS DEVIATION INCOMPLETE RIGHT BUNDLE BRANCH BLOCK ST DEVIATION AND MODERATE T-WAVE ABNORMALITY, CONSIDER ANTEROLATERAL ISCHEMIA ST DEVIATION AND MODERATE T-WAVE ABNORMALITY, CONSIDER INFERIOR ISCHEMIA SIMILAR TO 12/22/16 Electronically Signed On 02-16-2017 6:57:39 EDT by Mahesh Roger
[2017-02-16 07:20] LABS: MEAN CORPUSCULAR HEMOGLOBIN 31.7 pg (27.0-33.0); MEAN CORPUSCULAR HGB CONC 31.5 g/dl (32.0-36.5); MEAN CORPUSCULAR VOLUME 100.6 fl (80.0-96.0); RED CELL DISTRIBUTION WIDTH 15.9 % (11.5-14.5)
[2017-02-16 07:24] LABS: INR 2.84
[2017-02-16 07:40] LABS: ALBUMIN 2.1 GM/DL (3.2-5.2); ALBUMIN/GLOBULIN RATIO 0.57 (1.00-1.93); ALKALINE PHOSPHATASE 154 U/L (45-117); ALT/SGPT 10 U/L (12-78); ANION GAP 7 MEQ/L (8-16); AST/SGOT 16 U/L (15-37); BILIRUBIN,TOTAL 0.5 MG/DL (0.2-1.0); BLOOD UREA NITROGEN 21 MG/DL (7-18); CALCIUM LEVEL 8.1 MG/DL (8.8-10.2); CARBON DIOXIDE LEVEL 29 MEQ/L (21-32); CHLORIDE LEVEL 98 MEQ/L (98-107); CREATININE FOR GFR 0.83 MG/DL (0.55-1.02); GLOMERULAR FILTRATION RATE > 60.0 (>45); GLUCOSE, FASTING 79 MG/DL (80-110); POTASSIUM SERUM 4.3 MEQ/L (3.5-5.1); SODIUM LEVEL 134 MEQ/L (136-145); TOTAL PROTEIN 5.8 GM/DL (6.4-8.2)
[2017-02-16] MEDS: TYVASO INH SCH (07:51)
[2017-02-16] MEDS: SUCRALFATE SUSP 1GM/10ML UD PO SCH ×2 (09:27→12:10)
[2017-02-16] MEDS: LETAIRIS 10 MG PO SCH (09:27)
[2017-02-16] MEDS: SENOKOT S TAB PO SCH (09:28)
[2017-02-16] MEDS: FERROUS GLUCONATE 324 MG TAB PO SCH (09:28)
[2017-02-16] MEDS: BUMETANIDE 1 MG TAB PO SCH (09:28)
[2017-02-16] MEDS: DIGOXIN 0.125 MG TAB PO SCH (09:29)
[2017-02-16] MEDS: SILDENAFIL CITRATE 20 MG TABLET (REVATIO) PO SCH (09:29)
[2017-02-16] MEDS: PANTOPRAZOLE 40MG INJ (PROTONIX) (C9113) IV SCH (09:29)
[2017-02-16] MEDS: SPIRONOLACTONE 25 MG TAB PO SCH (09:29)
[2017-02-16] MEDS ORDERED: BUME1TAB27 PO (09:58)
[2017-02-16] MEDS ORDERED: SPIR25TA2 PO (09:58)
[2017-02-16] MEDS ORDERED: DULC10SU2 PR (10:00)
[2017-02-16] MEDS ORDERED: SENN-23 PO (10:00)
--- NOTE | 2017-02-18 13:04 | DSES ---
DATE OF ADMISSION: 02/13/2017 DATE OF DISCHARGE: 02/16/2017 PRIMARY CARE PROVIDER: At the [facility] clinic. LEAD PHP DEVELOPER: Dr. Puckett. CHEMICAL EDUCATOR: Dr. Acuña. CLASSROOM TECHNOLOGY COACH: Dr. Dominique. DISCHARGE DIAGNOSES: 1. Abdominal pain thought to be related to gastritis and gastroesophageal reflux disease. 2. Chest pain, thought to be musculoskeletal. Workup for cardiology consult was negative. 3. Hyponatremia. Depletion improved with normal saline. 4. Primary pulmonary hypertension. 5. Scleroderma. 6. Paroxysmal atrial fibrillation. 7. Obstructive sleep apnea on continuous positive airway pressure (C-PAP). 8. Raynaud's phenomenon 9. Hypothyroidism. 10. Hypertension. 11. Rheumatoid arthritis. 12. Interstitial lung disease due to pulmonary fibrosis. 13. Chronic respiratory failure due to restrictive and obstructive lung disease, on home oxygen. 14. Chronic kidney disease. 15. Chronic anemia. 16. Diastolic congestive heart failure, chronic. 17. Chronic constipation. DISCHARGE MEDICATIONS: - Dulcolax 10 mg suppository daily as needed for constipation - Bumex 1 mg by mouth twice a day - docusate senna one tablet by mouth twice a day - spironolactone 25 mg by mouth daily - benzonatate 100 mg by mouth three times a day as needed for cough - calcium with vitamin D one tablet by mouth daily - digoxin 0.125 mg by mouth daily - ferrous gluconate 324 mg by mouth twice a day - hydrocortisone topical cream as needed for itching - Letairis 10 mg by mouth daily - Synthroid 125 mcg by mouth daily - mupirocin ointment one dose topically three times a day as needed - omeprazole 40 mg at bedtime - pravastatin 20 mg at bedtime - prednisone 5 mg at bedtime - sildenafil 40 mg by mouth three times a day - tramadol 100 mg by mouth three times a day as needed for pain - Tyvaso 0.6 mg per mL solution, one solution inhalation four times a day - verapamil 80 mg by mouth twice a day - warfarin 5 mg by mouth daily HOSPITAL COURSE: This is a 61-year-old female with scleroderma, primary pulmonary hypertension, interstitial lung disease, pulmonary fibrosis with chronic hypoxic respiratory failure on 2 liters home oxygen and multiple other medical problems, presented to the hospital with abdominal pain, nausea, decreased oral intake, generalized body pain, back pain, flank pain, as well as chest pain off and on for one week, which was not associated with any activity and did not have any radiation. Patient was worked up for cardiological etiology of chest pain, which came back negative. Patient complained of severe constipation along with the generalized pain in the hospital. Patient was given sucralfate along with proton pump inhibitors (PPIs) and bowel regimen and with that, abdominal pain and chest pain improved. Patient was also noted to be hyponatremic on admission, which was felt to be depletion due to poor intake in the background of being on diuretics. Her hyponatremia improved with 24 hours of normal saline. Patient had good bowel movements after bowel regimen and she felt much better. On the day of discharge, patient did not have any complaints. Her vitals were stable and functionally, she was at baseline. PHYSICAL EXAMINATION: VITAL SIGNS: Temperature 98.5, pulse 102, respiratory rate 20, blood pressure 102/68, pulse oximetry 100% with 2 liters nasal cannula. GENERAL: Patient awake, alert, oriented times three, sitting up in bed in no acute distress. HEENT: Normocephalic, atraumatic. Moist mucous membranes. Anicteric eyes. CHEST: Bilateral diffuse crackles. Poor air entry. CARDIOVASCULAR: S1, S2. Irregular. No rub, murmur or gallop. ABDOMEN: Soft, nontender. Bowel sounds present. EXTREMITIES: No edema. LABORATORY DATA: WBC 4, hemoglobin 8.4, platelets 197. Sodium 134, potassium 4.3, chloride 98, bicarbonate 29, BUN 21, creatinine 0.8, glucose 79, calcium 8.1. ALT 10, alkaline phosphatase 154, albumin 2.1. Blood gas was pH of 7.42, pCO2 of 46, pO2 of 133. Urine culture did not show any growth. Abdomen and pelvis CT showed chronic lung field changes. No evidence of acute intraabdominal or intrapelvic disease. An L5 laminotomy was seen. DISPOSITION: The patient is discharged home in stable condition. DISCHARGE INSTRUCTIONS: Patient to follow up with primary care provider in one week. Patient to follow up with Dr. Acuña and Dr. Puckett as per outpatient schedule. Mechanical soft diet. Activity as tolerated.
== END 2017-02-16 13:25 | disposition home health service (06) | DRG 392 ==
LOC: M ED 11:31 → M ED INP 15:44 → M PCU 17:00 → OBSVTOIN 02-14 11:38 → M MSPAV 02-15 21:47
PROVIDERS: ADMIT Internal Medicine; ATTEND Internal Medicine Nephrology
DX: K29.70 Gastritis, unspecified, without bleeding (principal); E87.1 Hypo-osmolality and hyponatremia; E27.40 Unspecified adrenocortical insufficiency; I50.32 Chronic diastolic (congestive) heart failure; J96.11 Chronic respiratory failure with hypoxia; K29.80 Duodenitis without bleeding; I27.2 Other secondary pulmonary hypertension; I73.00 Raynaud's syndrome without gangrene; D63.1 Anemia in chronic kidney disease; I48.0 Paroxysmal atrial fibrillation; K59.00 Constipation, unspecified; R07.89 Other chest pain; G47.33 Obstructive sleep apnea (adult) (pediatric); J84.10 Pulmonary fibrosis, unspecified; M34.9 Systemic sclerosis, unspecified; M85.80 Other specified disorders of bone density and structure, unspecified site; K21.9 Gastro-esophageal reflux disease without esophagitis; E78.5 Hyperlipidemia, unspecified; M06.9 Rheumatoid arthritis, unspecified; Z79.01 Long term (current) use of anticoagulants; Z79.52 Long term (current) use of systemic steroids; Z79.899 Other long term (current) drug therapy; Z99.81 Dependence on supplemental oxygen

== ENCOUNTER → 2017-02-27 | Outpatient (REF) | payer MEDICARE, MEDICAID ==
[~2017-02-27] MED LIST changes: +BENZ100C5 PO; +BISA10SU4 PR; +BUME1TAB27 PO; +BUME1TAB29 PO; +DULC10SU2 PR; +ELIQ5TAB PO; +FERR325T16 PO; +HYDR25OIN TOP; +MUPI2OI EXT; +Oxygen; +SENN-23 PO; +SENN8.6T7 PO; +SPIR50TA2 PO
== END ==
LOC: M SFHCPLAZ 14:09
PROVIDERS: ATTEND Family Medicine
DX: I50.9 Heart failure, unspecified (principal); I48.91 Unspecified atrial fibrillation

== ENCOUNTER → 2017-03-07 | Outpatient (REF) | payer MEDICARE, MEDICAID ==
[2017-03-07 13:14] LABS: CALCIUM LEVEL 8.7 MG/DL (8.8-10.2); CREATININE FOR GFR 1.15 MG/DL (0.55-1.02); GLOMERULAR FILTRATION RATE 51.1 (>45); POTASSIUM SERUM 4.3 MEQ/L (3.5-5.1)
== END ==
LOC: M SFHCPLAZ 10:13 → M LRY 10:13
PROVIDERS: ATTEND Family Medicine
DX: Z51.89 Encounter for other specified aftercare (principal)

== ENCOUNTER → 2017-03-16 | Outpatient (REF) | payer MEDICARE, MEDICAID ==
[2017-03-16 18:48] LABS: FOLATE 7.4 NG/ML (>5.4)
[2017-03-16 19:02] LABS: ALBUMIN 2.8 GM/DL (3.2-5.2); ALBUMIN/GLOBULIN RATIO 0.68 (1.00-1.93); BILIRUBIN,DIRECT 0.2 MG/DL (0.0-0.2); BILIRUBIN,TOTAL 0.4 MG/DL (0.2-1.0); TOTAL PROTEIN 6.9 GM/DL (6.4-8.2)
== END ==
LOC: M SFHCPLAZ 14:56
DX: D53.9 Nutritional anemia, unspecified (principal)
CPT/HCPCS: 80076; 82607; 82746; 85610; G0463

== ENCOUNTER 2017-04-27 18:27 | Inpatient (IN) | payer MEDICARE, MEDICAID ==
[~2017-04-27] VITALS: Ht 165.1 cm; Wt 65.4 kg
[~2017-04-27 18:27] MED LIST changes: -BISA10SU4 PR; -ELIQ5TAB PO; -HYDR25OIN TOP; -MUPI2OI EXT; -SENN8.6T7 PO
[2017-04-27 19:10] LABS: BASO % 0.3 % (0.0-1.0); LARGE UNSTAINED CELL # 0.1 K/mm3 (0.0-0.4); LARGE UNSTAINED CELL % 1.4 % (0.0-4.0); LYMPH # 0.5 K/mm3 (1.5-4.5); LYMPH % 9.7 % (24.0-44.0); MEAN CORPUSCULAR HEMOGLOBIN 34.1 pg (27.0-33.0); MEAN CORPUSCULAR HGB CONC 33.5 g/dl (32.0-36.5); MEAN CORPUSCULAR VOLUME 101.6 fl (80.0-96.0); MONO # 0.3 K/mm3 (0.0-0.8); MONO % 5.7 % (0.0-5.0); PLATELET COUNT, AUTOMATED 179 k/mm3 (150-450); WHITE BLOOD COUNT 4.9 K/mm3 (4.0-10.0)
--- NOTE | 2017-04-27 19:18 | REP ---
HISTORY: Dyspnea and cough. COMPARISON: 12/21/2016. Increased interstitial opacities are again seen throughout the lung coon, status quo. The technique utilized in obtaining the radiograph has magnified the cardiac silhouette and accentuated the interstitial markings. There is gross cardiomegaly, status quo. There is no definite plain portable radiographic evidence of an acute patchy parenchymal opacity or pleural effusion. There is no change in the osseous structures. IMPRESSION: Stable appearing chronic changes. Signed by Bryce Tracey DO 04/27/2017 07:31 P
[2017-04-27 19:37] LABS: CALCIUM LEVEL 8.9 MG/DL (8.8-10.2); CREATININE FOR GFR 1.92 MG/DL (0.55-1.02); GLOMERULAR FILTRATION RATE 28.3 (>45); POTASSIUM SERUM 4.8 MEQ/L (3.5-5.1)
[2017-04-27 19:39] LABS: ALBUMIN 3.2 GM/DL (3.2-5.2); ALBUMIN/GLOBULIN RATIO 0.78 (1.00-1.93); BILIRUBIN,DIRECT 0.4 MG/DL (0.0-0.2); BILIRUBIN,TOTAL 0.8 MG/DL (0.2-1.0); TOTAL PROTEIN 7.3 GM/DL (6.4-8.2)
[2017-04-27] MEDS ORDERED: FUROSEMIDE 100 MG/10 ML VIAL (J1940) IV ONE (20:00)
[2017-04-27] MEDS: IPRATROPIUM 0.5MG/ALBUTEROL 2.5MG INH SOL UD 3ML (DUONEB)(J7620) NEB SCH ×3 (20:23→20:36)
[2017-04-27 20:28] LABS: DIGOXIN LEVEL 2.2 NG/ML (0.5-2.0)
[2017-04-27 20:30] VITALS: O2SAT 93
[2017-04-27] MEDS ORDERED: methylPREDNISolone INJ 125 MG/2 ML VIAL (J2930) IV ONE (21:15)
[2017-04-27] MEDS ORDERED: SENN8.6T7 PO (22:14)
[2017-04-27] MEDS ORDERED: BISA10SU4 PR (22:14)
[2017-04-27] MEDS ORDERED: BUME1TA PO (22:14)
[2017-04-27] MEDS ORDERED: ELIQ5TAB PO (22:14)
[2017-04-27] MEDS ORDERED: SPIR25TA2 PO (22:14)
[2017-04-27] MEDS ORDERED: MUPI2OI EXT (22:14)
[2017-04-27] MEDS ORDERED: HYDR25OIN TOP (22:14)
[2017-04-27 22:53] LABS: ABG BASE EXCESS -2.2 (-2.0-2.0); ABG HCO3 21.3 MEQ/L (22.0-26.0); ABG PARTIAL PRESSURE CO2 31.5 mmHg (35.0-45.0); ABG PARTIAL PRESSURE O2 59.8 mmHg (75.0-100.0); ABG STANDARD HCO3 22.5 MEQ/L (22.0-26.0); ABG TOTAL CO2 22.3 MEQ/L (23.0-31.0); ABG pH (ARTERIAL) 7.448 UNITS (7.350-7.450)
[2017-04-27] MEDS ORDERED: ONDANSETRON 4MG/2ML VIAL (J2405) IV PRN (23:45)
[2017-04-28] MEDS: IPRATROPIUM 0.5MG/ALBUTEROL 2.5MG INH SOL UD 3ML (DUONEB)(J7620) NEB SCH ×4 (02:00→19:24)
[2017-04-28] MEDS: FUROSEMIDE 100 MG/10 ML VIAL (J1940) IV SCH ×4 (03:00→20:39)
--- NOTE | 2017-04-28 03:51 | HPEPDOC ---
[facility] Medical History & Physical History and Physical Primary care provider: Dr. Hines Control Clerk Head: Dr. Puckett Geriatric Aide: Dr. Acuña Public Events Facilities Rental Manager: Dr. Wilkerson Date of Admission: 04/27/2017 Attending: Dr. Lisa Riley CHIEF COMPLAINT: Shortness of breath 3 days with increased swelling in bilateral lower extremities HISTORY OF PRESENT ILLNESS: Miss Novak is a 61-year-old female with an extensive medical history as indicated below. She does have some baseline shortness of breath, however she states that her shortness of breath has been worsening over the past 3 days , and now she has begun to develop some lower extremity swelling, therefore she presented to the emergency department for evaluation. She states that over the past few days she has also had poor appetite and has not been eating and drinking as well as usual, but she has continued to take her medications as prescribed. She denies any nausea or vomiting. 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 FAMILY HISTORY: Her father has multiple myeloma and had a stroke. Her mother had heart disease REVIEW OF SYSTEMS: Constitutional: Patient denies fevers, chills, night sweats, recent weight gain/ loss. HEENT: Patient denies blurred or double vision, transient visual disturbances, postnasal drip, epistaxis, sore throat, difficulty chewing or swallowing food. Cardiovascular: She admits to exertional dyspnea, now even in the point where she cannot even walk from room to room in her house. She is not dyspneic at rest. Denies orthopnea or paroxysmal nocturnal dyspnea. She has noticed some increased swelling in the lower extremities up to the level of her mid calf. She denies any palpitations, chest pressure, she does have some chest discomfort when she feels short of breath, but when her shortness of breath improves, so does her chest discomfort. Respiratory: She did start to have a mild cough beginning last night, nonproductive. Denies wheezing. Gastrointestinal: Patient denies nausea, vomiting, diarrhea, constipation, abdominal pain, melena, hematochezia, hematemesis, jaundice. PHYSICAL EXAMINATION: Vitals: Temperature 98.6, pulse 104, respiratory rate 18, blood pressure 112/59 , pulse oximetry 95% on 2 L nasal cannula General: Awake, alert, oriented 3. She is in mild distress at this time. HEENT: Head normocephalic atraumatic, conjunctiva are pink, sclera are nonicteric, buccal mucosa is pink and moist with no lesions in the oropharynx. Hearing is grossly intact to conversation. Respiratory: She does have some crackles at the bases, right worse than left, but otherwise lung sounds appear clear the remainder of the lung coon, although they are somewhat diminished. Cardiovascular: Tachycardic, I cannot appreciate any murmurs Abdomen: Soft, nontender, nondistended, no hepatosplenomegaly appreciated. Bowel sounds present. Extremities: 2+ pulses in the radial and dorsalis pedis bilaterally. No evidence of clubbing or cyanosis. She does have 1+ pitting edema to mid calf IMAGING: Chest x-ray performed in the ED did not reveal any acute consolidations or opacities, just a stable appearing chronic changes. ASSESSMENT/PLAN: 1. Acute decompensation of congestive heart failure. She does appear to be fluid overloaded clinically, and I suspect that her prerenal azotemia may be from heart failure as well, therefore we will attempt to diurese her. She was already given 60 mg of IV Lasix in the ED, we will continue to give her 60 mg IV every 6 hours, monitor her I's and O's, daily weights, and her clinical status. 2. Acute kidney injury with prerenal azotemia: Diuresis as indicated above, as this is most likely from heart failure 3. Hyponatremia: I suspect that this is from her hypervolemia, we will recheck labs in the morning. 4. Pulmonary hypertension and pulmonary fibrosis: Continue with home dose of prednisone and sildenafil, as well as inhalers, will continue Letairis , treprostinil which are home medications 5. Atrial fibrillation: Continue with home dose of Eliquis, digoxin, and verapamil 6. Hypothyroidism: Continue with home dose of Synthroid 7. Hyperlipidemia: Continue home dose of pravastatin 8. DVT prophylaxis: Sequential's 9.Chronic respiratory failure with hypoxia : abgs checked no co2 retention. will continue with oxygen supplementation My preceptor for this patient encounter was physically present in the building during the encounter and was fully available. As needed, all aspects of the patient interview, examination, medical decision making process, and medical care plan development were reviewed and approved by the preceptor. Preceptor is aware and concurs with the plan as stated in the body of this note and will attest to such by his/her cosignature. Laboratory Data Labs 24H Laboratory Tests 2 04/27/17 18:57: White Blood Count 4.9, Red Blood Count 2.61L, Hemoglobin 8.9L, Hematocrit 26.5L , Mean Corpuscular Volume 101.6H, Mean Corpuscular Hemoglobin 34.1H, Mean Corpuscular Hemoglobin Concent 33.5, Red Cell Distribution Width 16.0H, Platelet Count 179, Neutrophils (%) (Auto) 82.0H, Lymphocytes (%) (Auto) 9.7L, Monocytes (%) (Auto) 5.7H, Eosinophils (%) (Auto) 1.0, Basophils (%) (Auto) 0.3 , Neutrophils # (Auto) 4.0, Lymphocytes # (Auto) 0.5L, Monocytes # (Auto) 0.3, Eosinophils # (Auto) 0.0, Basophils # (Auto) 0.0, Large Unclassified Cells % 1.4 , Large Unclassified Cells # 0.1, Anion Gap 4L, Glomerular Filtration Rate 28.3L , Blood Urea Nitrogen 53H, Creatinine 1.92H, Sodium Level 123L, Potassium Level 4.8, Chloride Level 90L, Carbon Dioxide Level 29, Calcium Level 8.9, Total Creatine Kinase 27, Aspartate Amino Transf (AST/SGOT) 15, Alanine Aminotransferase (ALT/SGPT) 14, Alkaline Phosphatase 181H, Total Bilirubin 0.8, Direct Bilirubin 0.4H, Creatine Kinase MB 2.6, Creatine Kinase MB Relative Index 9.62H, Troponin I 0.13H, QL-[id number]-R-Type Natriuretic Peptide 85692A, Total Protein 7.3, Albumin 3.2, Albumin/Globulin Ratio 0.78L, Digoxin Level 2.2H 04/27/17 22:28: Blood Gas Bicarbonate Standard 22.5, Arterial Blood pH 7.448, Arterial Blood Partial Pressure CO2 31.5L, Arterial Blood Partial Pressure O2 59.8L, Arterial Blood Total CO2 22.3L, Arterial Blood HCO3 21.3L, Arterial Blood Base Excess - 2.2L, Arterial Blood Oxygen Saturation 89.2L CBC/BMP Laboratory Tests 04/27/17 18:57 Red Blood Count 2.61 L, Mean Corpuscular Volume 101.6 H, Mean Corpuscular Hemoglobin 34.1 H, Mean Corpuscular Hemoglobin Concent 33.5, Red Cell Distribution Width 16.0 H, Neutrophils (%) (Auto) 82.0 H, Lymphocytes (%) (Auto ) 9.7 L, Monocytes (%) (Auto) 5.7 H, Eosinophils (%) (Auto) 1.0, Basophils (%) ( Auto) 0.3, Neutrophils # (Auto) 4.0, Lymphocytes # (Auto) 0.5 L, Monocytes # ( Auto) 0.3, Eosinophils # (Auto) 0.0, Basophils # (Auto) 0.0, Calcium Level 8.9, Total Creatine Kinase 27 Home Medications Scheduled (Letairis) 5 Mg Tab, 5 MG PO DAILY Apixaban Base (Eliquis) 5 Mg Tab, 5 MG PO BID Bumetanide (Bumetanide) 1 Mg Tab, 1 MG PO BID Calcium/Vitamin D (Calcium 600+D3 600-400 mg-Unit) 1 Tab Tab, 1 TAB PO DAILY TAKES AT NOON Digoxin (Digoxin) 0.125 Mg Tab, 0.125 MG PO DAILY Ferrous Gluconate (Ferrous Gluconate) 324 Mg Tab, 324 MG PO BID Levothyroxine Sodium (Synthroid) 125 Mcg Tab, 125 MCG PO DAILY Omeprazole (Omeprazole) 40 Mg Cap, 40 MG PO QHS Pravastatin Sodium (Pravachol) 20 Mg Tab, 20 MG PO QHS Prednisone (Prednisone) 5 Mg Tab, 5 MG PO QHS Sildenafil Citrate (Revatio) 20 Mg Tab, 40 MG PO TID Spironolactone (Spironolactone) 25 Mg Tab, 25 MG PO DAILY TAKES AT NOON Treprostinil (Tyvaso) 0.6 Mg/Ml Ly, 1 NEB INH QID Verapamil HCl (Verapamil HCl) 80 Mg Tab, 80 MG PO BID HOLD IF HR < 60 Scheduled PRN Benzonatate (Benzonatate) 100 Mg Cap, 100 MG PO TID PRN for COUGH Bisacodyl (Bisacodyl) 10 Mg Sup, 10 MG CA DAILY PRN for CONSTIPATION Docusate Sod/Senna (Senna S 8.6-50 mg) 1 Tab Tab, 1 TAB PO BID PRN for CONSTIPATION Hydrocortisone (Hydrocortisone 2.5%) 1 Dose/20 Gm Oint, 1 DOSE TOP DAILY PRN for RASH/ITCHING USES ON ANKLES Mupirocin (Mupirocin) 2 % Oin, 1 DOSE EXT TID PRN for REDNESS/IRRITATION USES ON FINGERS Tramadol HCl (Tramadol HCl) 50 Mg Tab, 100 MG PO TID PRN for PAIN Allergies Coded Allergies: No Known Allergies (Verified , 11/24/16) BRANDY NAVARRETE DO Apr 28, 2017 03:51 LISA RILEY MD May 01, 2017 19:24
[2017-04-28] MEDS: traMADol 50 MG TAB PO PRN (04:00)
[2017-04-28 04:19] VITALS: BP 120/58
[2017-04-28] MEDS: LEVOTHYROXINE 125MCG TABLET (0.125MG) PO SCH (05:10)
[2017-04-28 05:48] LABS: BASO % 0.2 % (0.0-1.0); EOS % 0.1 % (0.0-3.0); LARGE UNSTAINED CELL % 1.3 % (0.0-4.0); LYMPH # 0.2 K/mm3 (1.5-4.5); MEAN CORPUSCULAR HEMOGLOBIN 33.7 pg (27.0-33.0); MEAN CORPUSCULAR HGB CONC 33.4 g/dl (32.0-36.5); MONO # 0.1 K/mm3 (0.0-0.8); MONO % 2.3 % (0.0-5.0); NEUTROPHILS % 91.2 % (36.0-66.0); PLATELET COUNT, AUTOMATED 186 k/mm3 (150-450); RED CELL DISTRIBUTION WIDTH 15.9 % (11.5-14.5); WHITE BLOOD COUNT 3.2 K/mm3 (4.0-10.0)
[2017-04-28 06:05] LABS: CALCIUM LEVEL 8.7 MG/DL (8.8-10.2); CREATININE FOR GFR 1.83 MG/DL (0.55-1.02); GLOMERULAR FILTRATION RATE 29.9 (>45); POTASSIUM SERUM 4.6 MEQ/L (3.5-5.1)
[2017-04-28 07:43] VITALS: BP 116/53
--- NOTE | 2017-04-28 08:26 | REP ---
CT of the abdomen pelvis without IV or bowel contrast: Comparison 02/13/2017. There are chronic fibrotic changes in the visualized lung coon, similar to the prior study. Cardiomegaly is again identified. The unenhanced hepatic parenchyma, pancreas and spleen are unremarkable and there are surgical clips in the gallbladder fossa. The adrenals, kidneys and abdominal aorta are unremarkable. There is no bowel distension. Mesentery is unremarkable. There is a small fat-containing umbilical hernia. This is unchanged. Pelvis: The uterus is unremarkable. Phleboliths in the pelvis. There is a ring-shaped 17-mm calcification in the left adnexa, unchanged from prior studies dating to at least 01/30/2016, likely a calcified cyst wall. There are no inflammatory changes or loculated fluid collections in the adjacent pelvic fat. There is no ascites or adenopathy. There is bilateral hip osteoarthritis and degenerative disc disease in the lumbar spine. Impression: Essentially negative CT study of the abdomen and pelvis. There is no change from prior studies. Signed by Harshad Harvey MD 04/28/2017 08:17 A
[2017-04-28] MEDS: FERROUS GLUCONATE 324 MG TAB PO SCH ×2 (08:58→20:41)
[2017-04-28] MEDS: APIXABAN 5 MG TAB (ELIQUIS) PO SCH ×2 (08:58→20:41)
[2017-04-28] MEDS: VERAPAMIL 80 MG TAB PO SCH ×2 (08:58→20:41)
[2017-04-28] MEDS: SILDENAFIL CITRATE 20 MG TABLET (REVATIO) PO SCH ×3 (08:58→20:40)
[2017-04-28] MEDS: SENOKOT S TAB PO SCH ×2 (08:58→20:40)
[2017-04-28] MEDS ORDERED: PANTOPRAZOLE 40MG TAB (PROTONIX) PO SCH (09:00)
[2017-04-28] MEDS ORDERED: SLF 3 ML SYR IV PRN (10:30)
[2017-04-28] MEDS: SPIRONOLACTONE 25 MG TAB PO SCH (11:38)
[2017-04-28 11:41] VITALS: BP 100/51
--- NOTE | 2017-04-28 11:44 | ECGEPIP ---
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
[2017-04-28] MEDS: SLF 3 ML SYR IV SCH ×2 (15:47→20:41)
[2017-04-28] MEDS: LETAIRIS 10 MG PO SCH (15:47)
[2017-04-28 16:00] VITALS: BP 127/67
[2017-04-28 20:00] VITALS: BP 113/66
[2017-04-28] MEDS: PRAVASTATIN 20 MG TAB PO SCH (20:40)
[2017-04-28] MEDS: predniSONE 5 MG TAB PO SCH (20:41)
[2017-04-28] MEDS: OMEPRAZOLE 20 MG CAP PO SCH (20:41)
[2017-04-28 23:56] VITALS: BP 106/56
[2017-04-29] VITALS (7 sets, daily range): BP systolic 109–124; BP diastolic 53–62
[2017-04-29] MEDS: FUROSEMIDE 100 MG/10 ML VIAL (J1940) IV SCH ×5 (02:46→23:57)
[2017-04-29] MEDS: SLF 3 ML SYR IV SCH ×3 (05:24→20:42)
[2017-04-29] MEDS: LEVOTHYROXINE 125MCG TABLET (0.125MG) PO SCH (05:24)
[2017-04-29 05:44] LABS: EOS % 0.4 % (0.0-3.0); LARGE UNSTAINED CELL % 0.4 % (0.0-4.0); LYMPH # 0.3 K/mm3 (1.5-4.5); LYMPH % 4.3 % (24.0-44.0); MEAN CORPUSCULAR HEMOGLOBIN 33.6 pg (27.0-33.0); MEAN CORPUSCULAR HGB CONC 33.3 g/dl (32.0-36.5); MEAN CORPUSCULAR VOLUME 100.9 fl (80.0-96.0); MONO # 0.3 K/mm3 (0.0-0.8); MONO % 3.2 % (0.0-5.0); NEUTROPHILS # 7.1 K/mm3 (1.8-7.7); NEUTROPHILS % 91.7 % (36.0-66.0); PLATELET COUNT, AUTOMATED 192 k/mm3 (150-450); RED CELL DISTRIBUTION WIDTH 15.7 % (11.5-14.5); WHITE BLOOD COUNT 7.8 K/mm3 (4.0-10.0)
[2017-04-29 06:21] LABS: CALCIUM LEVEL 8.9 MG/DL (8.8-10.2); CREATININE FOR GFR 2.44 MG/DL (0.55-1.02); DIGOXIN LEVEL 1.9 NG/ML (0.5-2.0); GLOMERULAR FILTRATION RATE 21.4 (>45); MAGNESIUM LEVEL 2.1 MG/DL (1.8-2.4); POTASSIUM SERUM 5.1 MEQ/L (3.5-5.1)
[2017-04-29] MEDS: IPRATROPIUM 0.5MG/ALBUTEROL 2.5MG INH SOL UD 3ML (DUONEB)(J7620) NEB SCH ×2 (07:09→14:05)
--- NOTE | 2017-04-29 08:35 | IPNPDOC ---
Text Note Date of Service The patient was seen on 04/29/17. NOTE Subjective: Patient seen and examined at bedside. Patient states she feels she has not been urinating well. No other medical complaints. Objective: General: NAD, lying comfortably in bed HEENT: NC/AT, EOMI Lungs: bilateral crackles in lower bases R>L Heart: systolic murmur, irregularly irregular Abd: soft, tender, +BS Ext: trace peripheral edema Psych: AAOx3 Assessment/Plan: 61 yo female admitted for decompensated congestive heart failure. 1. Decomp heart failure - continue IV lasix - very minimal fluid output - macario catheter for accurate i/o's - continue fluid restriction - patient had 2d echo recently on record - daily i/o's, daily weights 2. SU - worsening, likely secondary to #1 3 Hyponatremia - osmolality pending 4. Pulmonary hypertension - continue prednisone, sildenafil, respiratory treatments 5. Afib - continue digoxin, verapamil, Eliquis - dig levels slightly high on admission, repeat pending 6. Hypothyroidism - continue synthroid 7. Hyperlipidemia - continue pravastatin 8. DVT prophylaxis - Eliquis as per Afib VS,Fishbone, I+O VS, Fishbone, I+O Laboratory Tests 04/29/17 04:57 Red Blood Count 2.41 L, Mean Corpuscular Volume 100.9 H, Mean Corpuscular Hemoglobin 33.6 H, Mean Corpuscular Hemoglobin Concent 33.3, Red Cell Distribution Width 15.7 H, Neutrophils (%) (Auto) 91.7 H, Lymphocytes (%) (Auto ) 4.3 L, Monocytes (%) (Auto) 3.2, Eosinophils (%) (Auto) 0.4, Basophils (%) ( Auto) 0.0, Neutrophils # (Auto) 7.1, Lymphocytes # (Auto) 0.3 L, Monocytes # ( Auto) 0.3, Eosinophils # (Auto) 0.0, Basophils # (Auto) 0.0, Calcium Level 8.9 Vital Signs Date Time Temp Pulse Resp B/P (MAP) Pulse Ox O2 Delivery O2 Flow Rate FiO2 04/29/17 07:30 97.8 70 18 119/62 (81) 100 Nasal Cannula 2.0 I&O- Last 24 Hours up to 6 AM 04/30/17 06:00 Output Total 100 ml Balance -100 ml LALDIN,ALEX S. MD Apr 29, 2017 08:35
[2017-04-29] MEDS: LETAIRIS 10 MG PO SCH (09:24)
[2017-04-29] MEDS: FERROUS GLUCONATE 324 MG TAB PO SCH ×2 (09:25→20:42)
[2017-04-29] MEDS: SENOKOT S TAB PO SCH ×2 (09:25→20:41)
[2017-04-29] MEDS: SILDENAFIL CITRATE 20 MG TABLET (REVATIO) PO SCH ×3 (09:25→20:40)
[2017-04-29] MEDS: APIXABAN 5 MG TAB (ELIQUIS) PO SCH ×2 (09:25→20:41)
[2017-04-29] MEDS: DIGOXIN 0.125 MG TAB PO SCH (09:26)
[2017-04-29] MEDS: VERAPAMIL 80 MG TAB PO SCH ×2 (09:26→20:42)
[2017-04-29] MEDS: SPIRONOLACTONE 25 MG TAB PO SCH (13:02)
--- NOTE | 2017-04-29 14:36 | REP ---
RENAL ULTRASOUND: Real-time sonographic evaluation of the kidneys performed. Kidneys normal in size and echotexture, the right kidney measuring 11.0 x 5.1 x 4.7 cm and left kidney 9.3 x 4.7 x 4.3 cm. There is no hydronephrosis bilaterally. No renal mass or stone is seen. Urinary bladder is not optimally distended and is not evaluated. IMPRESSION: No hydronephrosis. No renal abnormality is seen. Signed by Harshad Rosas MD 04/29/2017 07:42 P
--- NOTE | 2017-04-29 15:23 | CR ---
DATE OF CONSULTATION: 04/29/2017 REASON FOR CONSULTATION: Acute renal failure and shortness of breath. HISTORY OF PRESENT ILLNESS: Ms. Novak is a 61-year-old female known to have multiple chronic medical problems. She was admitted to [facility] last evening with shortness of breath of 3 days' duration and increased lower extremity edema. She has known history of diastolic congestive heart failure, pulmonary hypertension, atrial fibrillation, and chronic kidney disease. She also has history of acute renal failure previously. She did not respond very well to diuretics. She is currently receiving intravenous (IV) Lasix 60 mg every 6 hours. Her BUN and creatinine increased further, due to which nephrology consultation was requested this morning, and the patient is seen in the progressive care unit. PAST MEDICAL HISTORY: Significant for: 1. History of diastolic congestive heart failure. 2. Pulmonary hypertension. 3. Pulmonary fibrosis. 4. Atrial fibrillation. 5. Obstructive sleep apnea. 6. History of scleroderma. 7. Stage III of chronic kidney disease. 8. Rheumatoid arthritis. 9. Dyslipidemia. 10. Gastroesophageal reflux disease. 11. Hypothyroidism. PAST SURGICAL HISTORY: Significant for: 1. Cholecystectomy. 2. Cardiac ablation. 3. Multiple spinal surgeries. PERSONAL AND SOCIAL HISTORY: The patient lives with her family. She denies any alcohol, drugs, or smoking. FAMILY HISTORY: Father with multiple myeloma and also had a stroke. Mother had heart disease. MEDICATIONS: Her home medications included: - Eliquis 5 mg twice a day - bumetanide 1 mg twice a day - calcium with vitamin D one tablet daily - digoxin 0.125 mg daily - ferrous gluconate 324 mg twice a day - levothyroxine 125 mcg daily - omeprazole 40 mg at bedtime - pravastatin 20 mg at bedtime - prednisone 5 mg at bedtime - Revatio 20 mg three times a day - spironolactone 25 mg daily - Tyvaso 0.6 mg/mL solution one nebulizer four times a day - verapamil 80 mg twice a day ALLERGIES: The patient has no known drug allergies. REVIEW OF SYSTEMS: The patient denies any fever or chills. She reports increasing leg edema and shortness of breath for 3 days prior to admission. Her symptoms have not changed significantly since admission. EARS, NOSE AND THROAT: Unremarkable. CARDIOVASCULAR SYSTEM: Significant for chronic diastolic congestive heart failure. She reports increasing leg edema and shortness of breath. She denies any chest pain. RESPIRATORY SYSTEM: Significant for history of pulmonary fibrosis and pulmonary hypertension. GASTROINTESTINAL SYSTEM: Negative for vomiting, diarrhea, or abdominal pain. GENITOURINARY SYSTEM: Significant for decreased urine output. She denies any dysuria or hematuria. ENDOCRINE SYSTEM: Negative for diabetes. She does have hypothyroidism. PSYCHOSOCIAL SYSTEM: Significant for depression. NEUROLOGICAL SYSTEM: Negative for seizures. HEMATOLOGICAL SYSTEM: Significant for chronic anticoagulation due to atrial fibrillation. SKIN: Negative for rash or ulcers. MUSCULOSKELETAL SYSTEM: Significant for generalized weakness and lower extremity edema. PHYSICAL EXAMINATION: The patient is examined in the stretcher while she was getting ready to go down for a renal ultrasound. Her temperature is 97.7 degrees Fahrenheit, heart rate 80 per minute and respiratory rate 20 per minute. Blood pressure 114/53 mm of mercury and oxygen saturation 98% on 2 liters oxygen. Head is atraumatic. Ears, nose and throat are unremarkable. She is using oxygen via nasal cannula. Neck is supple, and jugular venous distention (JVD) is elevated at least 10 cm above sternal angle. There is no thyroid enlargement and no abnormal cervical lymph nodes. Heart sounds are regular. Lungs have bilateral rales at lower two-thirds. Abdomen is soft and nontender. There is no palpable organomegaly, and bowel sounds are normal. Extremities have no cyanosis or clubbing. Lower extremity edema is present bilaterally. Neurologically she is awake, alert and oriented times three LABORATORY DATA: Today's labs show WBC count 7.8, hemoglobin 8.1, hematocrit 24.3, platelets 192. Sodium 125, potassium 5.1, BUN is 71, creatinine 2.44, glucose 130, and calcium 8.9. A serum osmolality is 286. Pro BNP level is 39,642. Urinalysis showed 1+ blood and no protein. Chest x-ray and abdominal and pelvic CT scan is reviewed independently. She has cardiomegaly and bilateral interstitial edema on her chest x-ray. CT scan of abdomen and pelvis is negative for any hydronephrosis or any other intra-abdominal pathology. PROBLEMS: 1. Acute renal failure superimposed on chronic kidney disease. Most likely related to congestive heart failure. At present, the patient is oliguric and has not responded well to current dose of diuretic. Will try to diurese her with higher dose and continue to monitor her kidney function. I have reviewed the CT scan, and the patient did not have any evidence of obstruction. 2. Acute on chronic diastolic congestive heart failure. At present the patient is quite decompensated with volume overload. Will increase the Lasix dose to 100 mg every 6 hours and continue with calcium channel dottie and digoxin. 3. Atrial fibrillation with rapid ventricular rate. She has chronic atrial fibrillation; however, her ventricular rate was faster. Her digoxin level was slightly high yesterday, and today it is down to 1.9. I suggest to continue with digoxin and low-dose calcium channel dottie. She is also on chronic anticoagulation. 4. Hyponatremia. This is related to decompensated congestive heart failure and acute renal failure. I will try to aggressively diurese her. The patient should be placed on fluid restriction of 1200 per day. We will recheck her electrolytes tomorrow morning. 5. Anemia. Her anemia is chronic. At present no indication for transfusion. 6. Pulmonary fibrosis and pulmonary hypertension. The patient will remain on her chronic medications. I thank you for involving me in the care of Ms. Novak. I will follow her along with you.
--- NOTE | 2017-04-29 15:27 | REP ---
CT CHEST WITH IV CONTRAST: CT chest is performed without IV contrast. Comparison made with prior study of 11/24/2016. Once again there is diffuse interstitial fibrosis appearing similar to the prior exam. There is bronchiectasis predominantly in the lower lobes bilaterally. Lung coon appear essentially unchanged since the prior exam. Cardiomegaly is again noted. There is again an enlarged pulmonary trunk with enlarged pulmonary arteries. No pericardial effusion or pleural effusion is seen. Mild diffuse mediastinal lymphadenopathy is seen. Largest lymph nodes are in the precarinal region measuring 1.5 cm in short axis dimension. Moderate atherosclerotic calcifications are seen of the thoracic aorta without aneurysm. There are degenerative changes of the spine. IMPRESSION: Cardiomegaly. Mild mediastinal adenopathy. Diffuse interstitial fibrosis with bronchiectasis unchanged since 11/24/2016. Signed by Harshad Rosas MD 04/29/2017 07:45 P
[2017-04-29] MEDS: PRAVASTATIN 20 MG TAB PO SCH (20:40)
[2017-04-29] MEDS: OMEPRAZOLE 20 MG CAP PO SCH (20:41)
[2017-04-29] MEDS: predniSONE 5 MG TAB PO SCH (20:41)
[2017-04-29] MEDS: BENZONATATE 100 MG CAP PO PRN (21:10)
[2017-04-30] MEDS: IPRATROPIUM 0.5MG/ALBUTEROL 2.5MG INH SOL UD 3ML (DUONEB)(J7620) NEB SCH ×5 (02:00→20:07)
[2017-04-30 04:00] VITALS: BP 111/55
[2017-04-30] MEDS: LEVOTHYROXINE 125MCG TABLET (0.125MG) PO SCH (05:39)
[2017-04-30] MEDS: FUROSEMIDE 100 MG/10 ML VIAL (J1940) IV SCH ×4 (05:39→23:39)
[2017-04-30] MEDS: SLF 3 ML SYR IV SCH ×3 (05:40→21:05)
[2017-04-30 05:59] LABS: EOS % 0.4 % (0.0-3.0); LARGE UNSTAINED CELL # 0.1 K/mm3 (0.0-0.4); LARGE UNSTAINED CELL % 0.7 % (0.0-4.0); LYMPH # 0.3 K/mm3 (1.5-4.5); LYMPH % 4.5 % (24.0-44.0); MEAN CORPUSCULAR HEMOGLOBIN 33.9 pg (27.0-33.0); MEAN CORPUSCULAR HGB CONC 33.4 g/dl (32.0-36.5); MEAN CORPUSCULAR VOLUME 101.6 fl (80.0-96.0); MONO # 0.3 K/mm3 (0.0-0.8); MONO % 4.3 % (0.0-5.0); NEUTROPHILS # 6.7 K/mm3 (1.8-7.7); NEUTROPHILS % 90.1 % (36.0-66.0); PLATELET COUNT, AUTOMATED 203 k/mm3 (150-450); RED CELL DISTRIBUTION WIDTH 15.7 % (11.5-14.5); WHITE BLOOD COUNT 7.5 K/mm3 (4.0-10.0)
[2017-04-30 06:31] LABS: CALCIUM LEVEL 8.7 MG/DL (8.8-10.2); CREATININE FOR GFR 2.76 MG/DL (0.55-1.02); GLOMERULAR FILTRATION RATE 18.6 (>45)
[2017-04-30 07:45] VITALS: BP 110/55
--- NOTE | 2017-04-30 07:51 | IPNPDOC ---
Text Note Date of Service The patient was seen on 04/30/17. NOTE Subjective: Patient seen and examined at bedside. Patient is feeling better today, her abdominal pain has resolved. Her urinary output has picked up. No other medical complaints. Objective: General: NAD, lying comfortably in bed HEENT: NC/AT, EOMI Lungs: bilateral crackles in lower bases R>L Heart: systolic murmur, irregularly irregular Abd: soft, tender, +BS Ext: B/L LE edema Psych: AAOx3 Assessment/Plan: 61 yo female admitted for decompensated congestive heart failure. 1. Decomp heart failure - continue aldactone; IV lasix - dosage increased - urine output has increased, minimally net negative - continue fluid restriction - has been adjusted to 1200 cc/daily - patient had 2d echo recently on record - diastolic failure - daily i/o's, daily weights 2. CKD III/SU - worsening, likely secondary to #1 - nephrology consultation appreciated 3 Hyponatremia - improving - likely secondary to #1 4. Pulmonary hypertension/pulmonary fibrosis - continue sildenafil, letairis, respiratory treatments 5. Afib - continue digoxin, verapamil, Eliquis - dig levels slightly high on admission, repeat WNL 6. Hypothyroidism - continue synthroid 7. Hyperlipidemia - continue pravastatin 8. RA - chronic steroid therapy 9. Scleroderma 10. GERD - continue prilosec 11. DVT prophylaxis - Eliquis as per Afib VS,Fishbone, I+O VS, Fishbone, I+O Laboratory Tests 04/30/17 05:07 Red Blood Count 2.35 L, Mean Corpuscular Volume 101.6 H, Mean Corpuscular Hemoglobin 33.9 H, Mean Corpuscular Hemoglobin Concent 33.4, Red Cell Distribution Width 15.7 H, Neutrophils (%) (Auto) 90.1 H, Lymphocytes (%) (Auto ) 4.5 L, Monocytes (%) (Auto) 4.3, Eosinophils (%) (Auto) 0.4, Basophils (%) ( Auto) 0.0, Neutrophils # (Auto) 6.7, Lymphocytes # (Auto) 0.3 L, Monocytes # ( Auto) 0.3, Eosinophils # (Auto) 0.0, Basophils # (Auto) 0.0, Calcium Level 8.7 L Vital Signs Date Time Temp Pulse Resp B/P (MAP) Pulse Ox O2 Delivery O2 Flow Rate FiO2 04/30/17 04:00 Nasal Cannula 2.0 04/30/17 04:00 97.8 93 18 111/55 (28) 96 ALEX STAHL MD Apr 30, 2017 07:51
[2017-04-30] MEDS: SENOKOT S TAB PO SCH ×2 (08:20→21:03)
[2017-04-30] MEDS: VERAPAMIL 80 MG TAB PO SCH ×2 (08:20→21:04)
[2017-04-30] MEDS: SILDENAFIL CITRATE 20 MG TABLET (REVATIO) PO SCH ×3 (08:20→21:03)
[2017-04-30] MEDS: ACETAMINOPHEN TAB 650MG DOSE (2X325MG) PO PRN ×2 (08:20→21:03)
[2017-04-30] MEDS: FERROUS GLUCONATE 324 MG TAB PO SCH ×2 (08:21→21:03)
[2017-04-30] MEDS: APIXABAN 5 MG TAB (ELIQUIS) PO SCH ×2 (08:21→21:03)
[2017-04-30] MEDS: DIGOXIN 0.125 MG TAB PO SCH (08:21)
[2017-04-30] MEDS: LETAIRIS 10 MG PO SCH (08:21)
[2017-04-30] MEDS: SPIRONOLACTONE 25 MG TAB PO SCH (11:36)
[2017-04-30 12:00] VITALS: BP 109/56
[2017-04-30 16:00] VITALS: BP 108/55
[2017-04-30 20:00] VITALS: BP 108/54
[2017-04-30] MEDS: OMEPRAZOLE 20 MG CAP PO SCH (21:03)
[2017-04-30] MEDS: predniSONE 5 MG TAB PO SCH (21:03)
[2017-04-30] MEDS: PRAVASTATIN 20 MG TAB PO SCH (21:05)
[2017-04-30 23:08] VITALS: BP 122/57
[2017-05-01] VITALS: BP 117/66
[2017-05-01] MEDS: ONDANSETRON 4MG/2ML VIAL (J2405) IV PRN ×2 (00:34→05:40)
[2017-05-01] MEDS: IPRATROPIUM 0.5MG/ALBUTEROL 2.5MG INH SOL UD 3ML (DUONEB)(J7620) NEB SCH ×4 (01:09→20:11)
[2017-05-01 04:00] VITALS: BP 117/66
[2017-05-01] MEDS ORDERED: PROCHLORPERAZINE 10 MG/2 ML VIAL (J0780) IV ONE (04:15)
[2017-05-01] MEDS: SLF 3 ML SYR IV SCH ×3 (04:24→21:46)
[2017-05-01 05:36] LABS: BASO % 0.1 % (0.0-1.0); EOS # 0.1 K/mm3 (0.0-0.50); EOS % 0.7 % (0.0-3.0); LARGE UNSTAINED CELL % 0.6 % (0.0-4.0); LYMPH # 0.4 K/mm3 (1.5-4.5); LYMPH % 5.4 % (24.0-44.0); MEAN CORPUSCULAR HEMOGLOBIN 33.8 pg (27.0-33.0); MEAN CORPUSCULAR HGB CONC 33.2 g/dl (32.0-36.5); MEAN CORPUSCULAR VOLUME 101.9 fl (80.0-96.0); MONO # 0.3 K/mm3 (0.0-0.8); MONO % 3.3 % (0.0-5.0); NEUTROPHILS # 7.1 K/mm3 (1.8-7.7); PLATELET COUNT, AUTOMATED 202 k/mm3 (150-450); RED CELL DISTRIBUTION WIDTH 15.7 % (11.5-14.5); WHITE BLOOD COUNT 7.9 K/mm3 (4.0-10.0)
[2017-05-01 05:44] LABS: CALCIUM LEVEL 8.6 MG/DL (8.8-10.2); CREATININE FOR GFR 2.15 MG/DL (0.55-1.02); GLOMERULAR FILTRATION RATE 24.8 (>45); POTASSIUM SERUM 4.1 MEQ/L (3.5-5.1)
[2017-05-01] MEDS: FUROSEMIDE 100 MG/10 ML VIAL (J1940) IV SCH ×2 (06:07→17:32)
[2017-05-01] MEDS ORDERED: PROMETHAZINE INJ 25 MG/ML VIAL (J2550) IV PRN (07:30)
[2017-05-01 08:00] VITALS: BP 120/53
[2017-05-01 08:42] LABS: ALBUMIN 3.3 GM/DL (3.2-5.2); ALBUMIN/GLOBULIN RATIO 0.7 (1.00-1.93); BILIRUBIN,DIRECT 0.2 MG/DL (0.0-0.2); BILIRUBIN,TOTAL 0.5 MG/DL (0.2-1.0); PERCENT SATURATION 18.4 % (13.2-45.0)
--- NOTE | 2017-05-01 09:58 | IPN ---
DATE OF VISIT: 04/30/2017 Mrs. Novak is seen in the morning of April 30 on her bedside. She is sitting in the chair at the time of my visit. She reports feeling better and her dyspnea is improving. She was admitted with shortness of breath and was found to have decompensated congestive heart failure and oliguric acute renal failure. Abdominal CAT scan was done on admission, which did not show any hydronephrosis. We had increased her Lasix dose to 100 mg every 6 hours on April 29 and she seems to be responding. She reports improving leg edema and good urine output. She currently has a Boone catheter in place. The patient denies any nausea or vomiting. She has no fever or chills. On physical exam, temperature 98.6 degrees Fahrenheit, heart rate 95 per minute and respiratory rate 18 per minute. Blood pressure 110/60 mmHg and oxygen saturation 98% on 2 liters of oxygen. Intake and output records from April 29 show a negative fluid balance of only 65 mL, however, today she has diuresed very well so far. She seems to be in negative fluid balance of about 1.5 liters as of noon on April 30. Her head is atraumatic. Ears, nose and throat are unremarkable. Pupils equal and reactive to light and sclera is anicteric. Neck is supple and JVD is now about 6-7 cm above the sternal angle. She has no thyroid enlargement. Heart sounds are irregular and without a pericardial friction rub. Lungs have slightly improved bilateral rales. She has no wheezing. Abdomen is soft and nontender and without palpable organomegaly. Bowel sounds are normal. Extremities have no cyanosis or clubbing. Lower extremity edema is improving. Skin is without any rash or ulcers. Neurologically she is awake, alert and oriented times three. Today's labs show WBC count 7.5, hemoglobin 8.0 and hematocrit 23.9. Platelets 203. Sodium 130 and potassium 5.0. BUN 76 and creatinine 2.76. BNP level is now 36,269. PROBLEMS: 1. Oliguric acute renal failure superimposed on chronic kidney disease. The patient has become nonoliguric with good response to high dose diuretic. She has slight increase in BUN and creatinine. At this point, there is no emergent indication for dialysis and we will continue to monitor her kidney function closely while she is being diuresed. 2. Hyponatremia. Sodium level has improved appropriately up to 130. At this point, we will continue to diurese as her hyponatremia is likely related to congestive heart failure and acute renal failure. 3. Acute congestive heart failure superimposed on chronic diastolic congestive heart failure. The patient is still decompensated however, she has responded very well to high dose diuretic. I am going to continue with Lasix 100 mg every 6 hours for next the 18-24 hours. We will reevaluate her tomorrow morning and readjust the dose of diuretic. 4. Anemia. Her anemia is significant and chronic. We will monitor closely and not transfuse her at this point as she is already decompensated with her volume status. Once her volume status is corrected then we will reevaluate the need for transfusion. We will check her iron studies tomorrow. 5. Atrial fibrillation with rapid ventricular rate. This is a chronic issue and the patient is already on digoxin and calcium channel dottie. DISPOSITION: At this point, the patient is not ready for discharge. She is likely to stay in the hospital for at least another couple of days.
--- NOTE | 2017-05-01 10:03 | IPN ---
DATE: 05/01/2017 Ms. Novak had a rough night. She had nausea and crampy generalized abdominal pain. She had some soft stools. No diarrhea. Has had significant negative fluid status based on her Lasix dosing. Temperature is 97.7, pulse 119, respiratory rate 18 and blood pressure is 117/66, 93% on 2 liters. Negative fluid status of minus 3000. She is awake. Appears somewhat uncomfortable. She was holding a blue bag for vomit close to her. Mucous membranes tachy. Neck supple. Breathing is symmetrical, crackles in bilateral bases that do not clear with deep inspiration. Heart is distant sounding. Normal S1, S2. Abdomen soft, mild right lower quadrant and left upper quadrant tenderness, without rebound or guarding. White cell count 7.9, hemoglobin 9.4. BUN 72, creatinine 2.15. Sodium is 129. This is a 61-year-old with decompensated congestive heart failure. Plan is as follows: 1. Congestive heart failure and chronic kidney disease in a setting of acute renal failure. Patient has been started on intravenous (IV) Lasix at increased dose. Greatly appreciate Dr. Puckett for his assistance. She has had excellent diuresis at this point. 2. Hyponatremia. Is improved from 04/27/2017. Will continue to monitor. 3. Patient has pulmonary hypertension and pulmonary fibrosis. 4. Patient has atrial fibrillation. Digoxin level is still elevated but trending downward. 5. Patient has hypothyroidism. 6. Patient has hyperlipidemia. 7. Patient has ongoing abdominal pain, nausea and vomiting. Will give a dose of Phenergan and trial re-CT her abdomen. I believe this is most likely related to fluid shifts but will look more deeply. 8. Patient has rheumatoid arthritis. On chronic steroid therapy. 9. Patient has scleroderma. 10. Patient has gastroesophageal reflux disease (GERD). On Prilosec. 11. Deep venous thrombosis (DVT) prophylaxis is currently Eliquis, and the patient does have improving renal function.
[2017-05-01] MEDS: VERAPAMIL 80 MG TAB PO SCH ×2 (10:43→21:44)
[2017-05-01] MEDS: SPIRONOLACTONE 25 MG TAB PO SCH (10:43)
[2017-05-01] MEDS: APIXABAN 5 MG TAB (ELIQUIS) PO SCH ×2 (10:43→21:43)
[2017-05-01] MEDS: SILDENAFIL CITRATE 20 MG TABLET (REVATIO) PO SCH ×3 (10:43→21:46)
[2017-05-01] MEDS: SENOKOT S TAB PO SCH ×2 (10:43→21:43)
[2017-05-01] MEDS: LEVOTHYROXINE 125MCG TABLET (0.125MG) PO SCH (10:43)
[2017-05-01] MEDS: traMADol 50 MG TAB PO PRN (10:44)
[2017-05-01] MEDS: DIGOXIN 0.125 MG TAB PO SCH (10:44)
[2017-05-01] MEDS: FERROUS GLUCONATE 324 MG TAB PO SCH ×2 (10:44→21:44)
[2017-05-01] MEDS: LETAIRIS 10 MG PO SCH (10:45)
[2017-05-01] MEDS: cefTRIAXone SOD 1 GM in D5W MINI-BAG PLUS 50 ML IV SCH (10:45)
--- NOTE | 2017-05-01 11:24 | IPN ---
DATE: 05/01/2017 Ms. Novak is seen this morning on her bedside. She is quite lethargic today and nursing staff reports that she was nauseated and vomiting through the night. She received Zofran and Compazine and now she is receiving intravenous Phenergan. She is still not feeling too good. She has no fever or chills. Her dyspnea has improved and she has diuresed very well. On physical examination, temperature 97.1 degrees Fahrenheit, heart rate 107 per minute and respiratory rate 18 per minute. Blood pressure 122/74 mmHg and oxygen saturation 98% on 2 liters oxygen. Intake and output records from yesterday showed total intake 1140 and output 4200 with a negative fluid balance of just over 3 liters. So far today, her oral intake is only 310 and output 2250 mL with a negative fluid balance of just below 2 liters. Her head is atraumatic. Neck veins have improved significantly. Her neck is supple. Ears, nose and throat are unremarkable. Oral mucosa is somewhat dry. Heart sounds are irregular and tachycardiac. Lungs with much improved bilateral air entry, but a few basilar rales are still present. Abdomen is soft and nontender. Bowel sounds are hypoactive. Extremities have no cyanosis or clubbing. Lower extremity edema has also improved significantly. Neurologically, she is arousable, but somewhat lethargic. Today's labs show WBC count 7.9, hemoglobin 9.4 and hematocrit 28.4. Platelets 202. Sodium 129 and potassium 4.1. CO2 31, BUN 72 and creatinine 2.15. Total protein is 8.0 and albumin 3.3. PROBLEMS: 1. Acute renal failure superimposed on chronic kidney disease. Improvement in BUN and creatinine is noted despite a significant negative fluid balance over the last 24 hours. At this point, I do not feel that her nausea and vomiting is caused by uremia. I think that she may have some intra-abdominal problem. She already had a CAT scan of abdomen and pelvis done. There is no emergent indication for dialysis. 2. Acute congestive heart failure superimposed on diastolic congestive heart failure. Her volume status has also improved significantly. She is almost 5 liters negative fluid balance over the last 36 hours. I am going to hold further diuretic dose today. She received one dose of Lasix 100 mg this morning. 3. Hyponatremia. Sodium level had improved to 130 yesterday and it is 125 today. At this point, we are going to stop the diuretic and will recheck her electrolytes tomorrow. 4. Nausea and vomiting. Most likely, this is related to intra-abdominal problem. She may have small bowel obstruction or ileus. She already had a CAT scan of abdomen and pelvis done this morning and results are still pending. I would recommend not to give her IV fluid as she has already been in congestive heart failure. We will stop the diuretic for now. 5. Anemia. Her anemia has also improved significantly with improvement in her volume status. There is no indication for transfusion.
--- NOTE | 2017-05-01 11:37 | REP ---
A CT of the abdomen and pelvis without IV and oral contrast: Comparison 04/28/2017. There are chronic fibrotic changes in the visualized lower lung coon. There is cardiomegaly. This is unchanged. The unenhanced hepatic parenchyma is homogeneous. There is a small volume of the ascites along the lateral margin of the liver. This was not present previously. There are surgical clips in the gallbladder fossa. Pancreas and spleen are unremarkable. The adrenals and kidneys are unremarkable. Abdominal aorta is unremarkable. There is a small fat-containing ventral hernia, unchanged. There is small bowel distension as an interval change, ileus versus obstruction. There is small bowel wall thickening. This is nonspecific and could be related to enteritis or ischemia. There is no adenopathy. Pelvis: There is no a small volume of ascites. The uterus and adnexa are unremarkable. A ring-shaped calcification in the left adnexa again noted, likely a calcified cyst wall. There is a Boone catheter in the bladder. The bladder is collapsed. Impression: There has been interim distension of the small bowel,( ileus versus obstruction). There is small bowel wall thickening, nonspecific, enteritis versus ischemia. Small fat containing midline ventral hernia, unchanged. Signed by Harshad Harvey MD 05/01/2017 11:29 A
[2017-05-01 12:00] VITALS: BP 123/56
--- NOTE | 2017-05-01 13:27 | CR.PDOC ---
[facility] Consultation Consultation DATE OF CONSULTATION: Apr 27, 2017 at 18:27 PRIMARY CARE PHYSICIAN: Dr. Vega REFERRING PROVIDER: Dr. Hutchins ATTENDING PHYSICIAN: Dr. Lisa Riley REASON FOR CONSULTATION/CHIEF COMPLAINT: . HISTORY OF PRESENT ILLNESS: Ms. Novak is a 61-year-old female with an extensive medical history. She was admitted on 04/27 2017 for shortness of breath of 3 days and swelling in bilateral lower extremity's. CT abdomen showed interim distension of the small bowel,( ileus versus obstruction). As well as a small bowel wall thickening, nonspecific, enteritis versus ischemia. Surgery was consulted as a result. ALLERGIES: Please see below. HOME MEDICATIONS: Please see below. PAST MEDICAL HISTORY: 1. Diastolic congestive heart failure. 2. Pulmonary hypertension. 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 HEENT: Denies double or blurred vision, denies postnasal drip . CARDIOVASCULAR: Denies chest pains, palpitation RESPIRATORY: She admits to exertional dyspnea, does not occur at rest GENITOURINARY: No issues to report MUSCULOSKELETAL: Miss abdominal pain GASTROINTESTINAL: Denies nausea, denies vomiting, denies diarrhea, denies constipation admits to abdominal pain HEMATOLOGIC/LYMPHATIC: Eyes any bleeding bleeding. PHYSICAL EXAMINATION: VITAL SIGNS: Please see below. GENERAL APPEARANCE: Alert lying in bed RESPIRATORY: Clear to auscultate the lungs anterior and posterior. CARDIOVASCULAR: S1 and S2 present no murmurs rubs or gallops. ABDOMEN: Tender to palpating all 4 quadrants, bowel sounds present. LABORATORY DATA: Please see below. ASSESSMENT/PLAN: A 61-year-old female admitted on 04/27/2017 for shortness of breath 3 days and increased swelling in bilateral lower extremities. On 05/01/2017 CT abdomen showed interim distension of the small bowel. As well as a small bowel wall thickening, nonspecific, enteritis versus ischemia. Surgery was consulted as a result. Patient's bowel thickening is most likely due to ileus versus small bowel obstruction. This is unlikely to be an ischemic issue, because patient does not fit the clinical picture for ischemic bowel. It is unlikely to be infectious etiology, because patient does not show any clinical signs of infection. An NG tube has been placed for stomach decompression. Patient has been made nothing by mouth. I expect patient to improve by tomorrow at which point diet can be restarted and advanced slowly as tolerated by patient. If patient has not improve, workup for other possible etiologies will be initiated. Vital Signs/I&O Vital Signs Date Time Temp Pulse Resp B/P (MAP) Pulse Ox O2 Delivery O2 Flow Rate FiO2 05/01/17 12:00 98.2 120 18 123/56 (78) 94 Nasal Cannula 2.0 I&O- Last 24 Hours up to 6 AM 05/02/17 06:00 Intake Total 60 ml Output Total 900 ml Balance -840 ml Laboratory Data Labs 24H Laboratory Tests 2 05/01/17 04:54: White Blood Count 7.9, Red Blood Count 2.79L, Hemoglobin 9.4L, Hematocrit 28.4L , Mean Corpuscular Volume 101.9H, Mean Corpuscular Hemoglobin 33.8H, Mean Corpuscular Hemoglobin Concent 33.2, Red Cell Distribution Width 15.7H, Platelet Count 202, Neutrophils (%) (Auto) 90.0H, Lymphocytes (%) (Auto) 5.4L, Monocytes (%) (Auto) 3.3, Eosinophils (%) (Auto) 0.7, Basophils (%) (Auto) 0.1, Neutrophils # (Auto) 7.1, Lymphocytes # (Auto) 0.4L, Monocytes # (Auto) 0.3, Eosinophils # (Auto) 0.1, Basophils # (Auto) 0.0, Large Unclassified Cells % 0.6 , Large Unclassified Cells # 0.0, Anion Gap 8, Glomerular Filtration Rate 24.8L , Blood Urea Nitrogen 72H, Creatinine 2.15H, Sodium Level 129L, Potassium Level 4.1, Chloride Level 90L, Carbon Dioxide Level 31, Calcium Level 8.6L, Iron Level 59, Total Iron Binding Capacity 321, Transferrin % Saturation 18.4, Ferritin 41, Aspartate Amino Transf (AST/SGOT) 12L, Alanine Aminotransferase ( ALT/SGPT) 14, Alkaline Phosphatase 148H, Total Bilirubin 0.5, Direct Bilirubin 0.2, Total Protein 8.0, Albumin 3.3, Albumin/Globulin Ratio 0.70L, Lipase 79, Digoxin Level 1.7 CBC/BMP Laboratory Tests 05/01/17 04:54 Red Blood Count 2.79 L, Mean Corpuscular Volume 101.9 H, Mean Corpuscular Hemoglobin 33.8 H, Mean Corpuscular Hemoglobin Concent 33.2, Red Cell Distribution Width 15.7 H, Neutrophils (%) (Auto) 90.0 H, Lymphocytes (%) (Auto ) 5.4 L, Monocytes (%) (Auto) 3.3, Eosinophils (%) (Auto) 0.7, Basophils (%) ( Auto) 0.1, Neutrophils # (Auto) 7.1, Lymphocytes # (Auto) 0.4 L, Monocytes # ( Auto) 0.3, Eosinophils # (Auto) 0.1, Basophils # (Auto) 0.0, Calcium Level 8.6 L Microbiology Microbiology 04/28/17 Blood Culture - Preliminary, Resulted No Growth after 72 hours. All specime... 05/01/17 Stool Occult Blood (KARLA) - Final, Complete 04/29/17 Gram Stain - Final, Complete 04/29/17 Sputum Culture - Final, Complete 04/29/17 Urine Culture - Final, Complete Escherichia Coli Allergies Coded Allergies: No Known Allergies (Verified , 11/24/16) Home Medications Scheduled (Letairis) 5 Mg Tab, 5 MG PO DAILY, (Reported) Apixaban Base (Eliquis) 5 Mg Tab, 5 MG PO BID, (Reported) Bumetanide (Bumetanide) 1 Mg Tab, 1 MG PO BID, (Reported) Calcium/Vitamin D (Calcium 600+D3 600-400 mg-Unit) 1 Tab Tab, 1 TAB PO DAILY, ( Reported) TAKES AT NOON Digoxin (Digoxin) 0.125 Mg Tab, 0.125 MG PO DAILY, (Reported) Ferrous Gluconate (Ferrous Gluconate) 324 Mg Tab, 324 MG PO BID, (Reported) Levothyroxine Sodium (Synthroid) 125 Mcg Tab, 125 MCG PO DAILY, (Reported) Omeprazole (Omeprazole) 40 Mg Cap, 40 MG PO QHS, (Reported) Pravastatin Sodium (Pravachol) 20 Mg Tab, 20 MG PO QHS, (Reported) Prednisone (Prednisone) 5 Mg Tab, 5 MG PO QHS, (Reported) Sildenafil Citrate (Revatio) 20 Mg Tab, 40 MG PO TID, (Reported) Spironolactone (Spironolactone) 25 Mg Tab, 25 MG PO DAILY, (Reported) TAKES AT NOON Treprostinil (Tyvaso) 0.6 Mg/Ml Ly, 1 NEB INH QID, (Reported) Verapamil HCl (Verapamil HCl) 80 Mg Tab, 80 MG PO BID, (Reported) HOLD IF HR < 60 Scheduled PRN Benzonatate (Benzonatate) 100 Mg Cap, 100 MG PO TID PRN for COUGH, (Reported) Bisacodyl (Bisacodyl) 10 Mg Sup, 10 MG FL DAILY PRN for CONSTIPATION, (Reported) Docusate Sod/Senna (Senna S 8.6-50 mg) 1 Tab Tab, 1 TAB PO BID PRN for CONSTIPATION, (Reported) Hydrocortisone (Hydrocortisone 2.5%) 1 Dose/20 Gm Oint, 1 DOSE TOP DAILY PRN for RASH/ITCHING, (Reported) USES ON ANKLES Mupirocin (Mupirocin) 2 % Oin, 1 DOSE EXT TID PRN for REDNESS/IRRITATION, ( Reported) USES ON FINGERS Tramadol HCl (Tramadol HCl) 50 Mg Tab, 100 MG PO TID PRN for PAIN, (Reported) GME ATTESTATION GME ATTESTATION My preceptor for this patient encounter was physically present in the building during the encounter and was fully available. As needed, all aspects of the patient interview, examination, medical decision making process, and medical care plan development were reviewed and approved by the preceptor. Preceptor is aware and concurs with the plan as stated in the body of this note and will attest to such by his/her cosignature. BRENDA VAZQUEZ DO May 01, 2017 13:27
[2017-05-01 16:00] VITALS: BP 127/68
[2017-05-01 20:00] VITALS: BP 117/58
[2017-05-01] MEDS: OMEPRAZOLE 20 MG CAP PO SCH (21:43)
[2017-05-01] MEDS: PRAVASTATIN 20 MG TAB PO SCH (21:43)
[2017-05-01] MEDS: predniSONE 5 MG TAB PO SCH (21:43)
[2017-05-02] VITALS: BP 120/61
[2017-05-02] MEDS: IPRATROPIUM 0.5MG/ALBUTEROL 2.5MG INH SOL UD 3ML (DUONEB)(J7620) NEB SCH ×4 (01:34→19:58)
[2017-05-02 04:00] VITALS: BP 112/60
[2017-05-02 05:40] LABS: MEAN CORPUSCULAR HEMOGLOBIN 33.1 pg (27.0-33.0); MEAN CORPUSCULAR HGB CONC 31.8 g/dl (32.0-36.5); PLATELET COUNT, AUTOMATED 209 10^3/uL (150-450); RED CELL DISTRIBUTION WIDTH 16.8 % (11.5-14.5); WHITE BLOOD COUNT 8.5 10^3/uL (4.0-10.0)
[2017-05-02 05:44] LABS: ADD MANUAL DIFFER YES; DIFF SLIDE NUMBER 15
[2017-05-02 06:03] LABS: CREATININE FOR GFR 1.78 MG/DL (0.55-1.02); GLOMERULAR FILTRATION RATE 30.8 (>45); POTASSIUM SERUM 4.1 MEQ/L (3.5-5.1)
[2017-05-02] MEDS: LEVOTHYROXINE 125MCG TABLET (0.125MG) PO SCH (06:06)
[2017-05-02] MEDS: SLF 3 ML SYR IV SCH ×3 (06:07→22:42)
[2017-05-02] MEDS: FUROSEMIDE 100 MG/10 ML VIAL (J1940) IV SCH ×2 (06:07→18:15)
[2017-05-02 06:19] LABS: EOSINOPHILS 1 % (0-5)
[2017-05-02 06:20] LABS: ANISOCYTOSIS 1+
[2017-05-02 08:00] VITALS: BP 112/65
[2017-05-02] MEDS: DIGOXIN 0.125 MG TAB PO SCH (09:25)
[2017-05-02] MEDS: VERAPAMIL 80 MG TAB PO SCH ×2 (09:25→20:48)
[2017-05-02] MEDS: SENOKOT S TAB PO SCH ×2 (09:25→20:46)
[2017-05-02] MEDS: FERROUS GLUCONATE 324 MG TAB PO SCH ×2 (09:25→20:48)
[2017-05-02] MEDS: APIXABAN 5 MG TAB (ELIQUIS) PO SCH ×2 (09:25→20:46)
[2017-05-02] MEDS: LETAIRIS 10 MG PO SCH (09:27)
[2017-05-02] MEDS: SILDENAFIL CITRATE 20 MG TABLET (REVATIO) PO SCH ×3 (09:27→20:46)
[2017-05-02] MEDS: traMADol 50 MG TAB PO PRN (09:27)
--- NOTE | 2017-05-02 10:36 | IPNPDOC ---
Date Seen The patient was seen on 05/02/17. Progress Note SUBJECTIVE: Ms. Novak is a 61-year-old female with an extensive medical history. She was admitted on 04/27 2017 for shortness of breath of 3 days and swelling in bilateral lower extremity's. CT abdomen showed interim distension of the small bowel,( ileus versus obstruction). As well as a small bowel wall thickening, nonspecific, enteritis versus ischemia. Surgery was consulted as a result. An NG tube was placed on 05/01/2017 for bowel decompression. This morning patient reports that her pain feels better. She had a total of 200 mL of clear drainage overnight. Patient admits to flatus but denies BM PHYSICAL EXAMINATION: OBJECTIVE VITAL SIGNS: Please see below. PHYSICAL EXAMINATION: VITAL SIGNS: Please see below. GENERAL APPEARANCE: Alert lying in bed, patient currently has an NG tube placed. Admits that the NG tube is causing mild discomfort RESPIRATORY: Clear to auscultate the lungs anterior and posterior. CARDIOVASCULAR: S1 and S2 present no murmurs rubs or gallops. ABDOMEN: Tender to palpating all 4 quadrants, decrease pain from yesterday, bowel sounds present. LABORATORY DATA: Please see below. MICROBIOLOGY: Please see below. IMAGING: Abdominal CT showed: There has been interim distension of the small bowel,( ileus versus obstruction). There is small bowel wall thickening, nonspecific, enteritis versus ischemia ASSESSMENT AND PLAN: A 61-year-old female admitted on 04/27/2017 for shortness of breath 3 days and increased swelling in bilateral lower extremities. On CT abdomen showed interim distension of the small bowel. As well as a small bowel wall thickening, nonspecific, enteritis versus ischemia. Surgery was consulted as a result. Patient's bowel thickening is most likely due to ileus versus small bowel obstruction. This is unlikely to be an ischemic issue, because patient does not fit the clinical picture for ischemic bowel. It is unlikely to be infectious etiology, because patient does not show any clinical signs of infection. An NG tube has been placed for stomach decompression on . Overnight patient had 200 mg drainage from the NG tube. The NG tube was discontinued on 05/02/2017. Patient reports improved pain. Will begin patient on clear liquid diet and advance diet as tolerated VS, I&O, 24H, Fishbone Vital Signs/I&O Vital Signs Date Time Temp Pulse Resp B/P (MAP) Pulse Ox O2 Delivery O2 Flow Rate FiO2 05/02/17 09:27 18 05/02/17 09:25 110 05/02/17 08:00 97.0 112/65 (81) 98 Nasal Cannula 2.0 I&O- Last 24 Hours up to 6 AM 05/03/17 06:00 Intake Total 0 ml Output Total 1000 ml Balance -1000 ml Laboratory Data 24H LABS Laboratory Tests 2 05/02/17 05:22: White Blood Count 8.5, Red Blood Count 2.75L, Hemoglobin 9.1L, Hematocrit 28.6L , Mean Corpuscular Volume 104.0H, Mean Corpuscular Hemoglobin 33.1H, Mean Corpuscular Hemoglobin Concent 31.8L, Red Cell Distribution Width 16.8H, Platelet Count 209, Lymphocytes # (Auto) , Neutrophils 81H, Lymphocytes (Manual ) 16, Monocytes (Manual) 2, Eosinophils (Manual) 1, Platelet Estimate NORMAL, Anisocytosis 1+, Anion Gap 5L, Glomerular Filtration Rate 30.8L, Blood Urea Nitrogen 68H, Creatinine 1.78H, Sodium Level 132L, Potassium Level 4.1, Chloride Level 93L, Carbon Dioxide Level 34H, Calcium Level 9.0 CBC/BMP Laboratory Tests 05/02/17 05:22 Red Blood Count 2.75 L, Mean Corpuscular Volume 104.0 H, Mean Corpuscular Hemoglobin 33.1 H, Mean Corpuscular Hemoglobin Concent 31.8 L, Red Cell Distribution Width 16.8 H, Lymphocytes # (Auto) , Calcium Level 9.0 Microbiology Microbiology 04/28/17 Blood Culture - Preliminary, Resulted No Growth after 72 hours. All specime... 05/01/17 Stool Occult Blood (KARLA) - Final, Complete 04/29/17 Gram Stain - Final, Complete 04/29/17 Sputum Culture - Final, Complete 04/29/17 Urine Culture - Final, Complete Escherichia Coli GME ATTESTATION GME ATTESTATION My preceptor for this patient encounter was physically present in the building during the encounter and was fully available. As needed, all aspects of the patient interview, examination, medical decision making process, and medical care plan development were reviewed and approved by the preceptor. Preceptor is aware and concurs with the plan as stated in the body of this note and will attest to such by his/her cosignature. BRENDA VAZQUEZ DO May 02, 2017 10:36
[2017-05-02] MEDS: SPIRONOLACTONE 25 MG TAB PO SCH (11:53)
[2017-05-02] MEDS: cefTRIAXone SOD 1 GM in D5W MINI-BAG PLUS 50 ML IV SCH (11:53)
[2017-05-02 12:00] VITALS: BP 105/63
[2017-05-02] MEDS: BENZONATATE 100 MG CAP PO PRN (12:25)
[2017-05-02 16:00] VITALS: BP 113/70
--- NOTE | 2017-05-02 16:58 | IPN ---
DATE: 05/02/2017 Ms. Novak is feeling better this morning. She has no complaints of chest pain, no shortness of breath. She would like the tube out of her nose and is somewhat thirsty. Temperature 97, pulse 110, respiratory rate 18, blood pressure 112/60, 97% on 2 liters. Intake and output notable for a negative fluid balance of -3400 yesterday, including 200 mL of gastric drainage and 500 mL of estimated emesis. Body mass index 25.3. She is awake, appears somewhat tired, but more interactive than yesterday and engaged. Head is normocephalic. Sinuses nontender. Mucous membranes tacky. Neck supple but thin. Breathing is symmetrical, coarse upper airway sounds are noted, speaking in complete sentences, no accessory muscle use. Heart is distant sounding, normal S1, S2. Radial pulses 2+. Capillary refill is less than 2 seconds. Abdomen soft, nontender to deep palpation. No impressive lower extremity edema. White cell count 8.5, hemoglobin 9.1, and platelets of 209, BUN 68, creatinine 1.78. Urine yesterday grew Escherichia (E) coli. My assessment is as follows: This is a 61-year-old with decompensated congestive heart failure, ileus, and Escherichia (E) coli urinary tract infection. Plan is as follows: 1. Congestive heart failure and chronic kidney disease in the setting of acute renal failure. I have discussed this case in person with Dr. Puckett. Her renal function is improving. Greatly appreciate his management of her fluid status. 2. Patient has resolving ileus. Nasogastric (NG) tube has been removed. Diet has been restarted and will be advanced per Dr. Hutchins's input. 3. Patient has pulmonary hypertension and pulmonary fibrosis. 4. Patient had positive urinary cultures and has been started on ceftriaxone based on her change in status yesterday. Will continue for a short course of antibiotic treatment. 5. Patient has atrial fibrillation. Rate is somewhat variable. For rate control she is currently on digoxin and verapamil. Blood pressure is somewhat soft. Will continue with current management. Patient may improve with the volume she will take in today. 6. Patient has hypothyroidism. 7. Patient has hyperlipidemia. 8. Patient has rheumatoid arthritis and is on chronic steroid therapy. 9. Patient has scleroderma. 10. Patient has gastroesophageal reflux disease (GERD). 11. Deep venous thrombosis (DVT) prophylaxis is Eliquis.
--- NOTE | 2017-05-02 18:51 | IPN ---
DATE: 05/02/2017 Mrs. Novak is seen this morning on her bedside. She reports that her nasogastric tube has been removed this morning and she is feeling better. Her nausea and vomiting have improved. She denies any abdominal pain. Her dyspnea has also improved as she has diuresed very well. She denies any fever or chills. PHYSICAL EXAMINATION: Temperature 96.9 degrees Fahrenheit, heart rate 78 per minute and respiratory rate 18 per minute. Blood pressure 105/63 mmHg and oxygen saturation 98% on two liters of oxygen. Head is atraumatic. Neck is supple and without thyroid enlargement. Hepatojugular reflux is still present. Heart sounds are irregular in rhythm. Lungs sound much better but still has few basilar crepitations bilaterally. Abdomen is soft and nontender and bowel sounds are normal. Extremities have no cyanosis or clubbing. Lower extremity edema has improved almost completely. Neurologically, she is awake, alert and oriented times three. Intake and output records from yesterday show a negative fluid balance of 3.4 liters. She is diuresing very well with a negative fluid balance of about 1.5 liters so far. LABORATORY DATA: Today's laboratories show WBC count 8.5, hemoglobin 9.1, and hematocrit 28.6. Sodium 132 and potassium 4.1. BUN 68 and creatinine 1.78. Calcium level is 9.0. PROBLEMS: 1. Acute congestive heart failure superimposed on chronic diastolic congestive heart failure. The patient has diuresed very well and I am going to stop her IV Lasix at this point. She was nothing by mouth and is still not eating or drinking much. We will continue to monitor her without any further diuretic dosing today. 2. Acute renal failure superimposed on chronic kidney disease. Kidney function has started to improve which is very encouraging, and this is despite the negative fluid balance of about 3.5 liters. At this point, she has no uremic symptoms and we will continue to monitor renal function on a daily basis. 3. Hyponatremia. Sodium level has improved to 132. Once she resumes her regular diet then sodium level will improve back to normal range. 4. Anemia. Slight fluctuations but no significant change. At this point, we will continue to monitor without any intervention. 5. Nausea and vomiting. Her gastrointestinal (GI) symptoms have improved significantly. She is feeling much better today.
[2017-05-02 20:00] VITALS: BP 113/57
[2017-05-02] MEDS: predniSONE 5 MG TAB PO SCH (20:46)
[2017-05-02] MEDS: PRAVASTATIN 20 MG TAB PO SCH (20:46)
[2017-05-02] MEDS: OMEPRAZOLE 20 MG CAP PO SCH (20:46)
[2017-05-03] VITALS: BP 99/56
[2017-05-03] MEDS: IPRATROPIUM 0.5MG/ALBUTEROL 2.5MG INH SOL UD 3ML (DUONEB)(J7620) NEB SCH ×4 (00:33→20:17)
[2017-05-03] MEDS: BENZONATATE 100 MG CAP PO PRN (01:28)
[2017-05-03] MEDS: ACETAMINOPHEN TAB 650MG DOSE (2X325MG) PO PRN (01:28)
[2017-05-03 04:00] VITALS: BP 100/54
[2017-05-03 05:23] LABS: MEAN CORPUSCULAR HEMOGLOBIN 33.1 pg (27.0-33.0); MEAN CORPUSCULAR HGB CONC 31.8 g/dl (32.0-36.5); MEAN CORPUSCULAR VOLUME 104.1 fl (80.0-96.0); PLATELET COUNT, AUTOMATED 207 10^3/uL (150-450); WHITE BLOOD COUNT 7.3 10^3/uL (4.0-10.0)
[2017-05-03 05:24] LABS: ADD MANUAL DIFFER YES; DIFF SLIDE NUMBER 4
[2017-05-03 05:43] LABS: CALCIUM LEVEL 8.6 MG/DL (8.8-10.2); CREATININE FOR GFR 1.68 MG/DL (0.55-1.02); POTASSIUM SERUM 4.4 MEQ/L (3.5-5.1)
[2017-05-03] MEDS: FUROSEMIDE 100 MG/10 ML VIAL (J1940) IV SCH (06:25)
[2017-05-03] MEDS: LEVOTHYROXINE 125MCG TABLET (0.125MG) PO SCH (06:25)
[2017-05-03] MEDS: SLF 3 ML SYR IV SCH ×3 (06:26→20:30)
[2017-05-03 07:14] LABS: ANISOCYTOSIS 1+
[2017-05-03 08:00] VITALS: BP 107/59
[2017-05-03] MEDS: FERROUS GLUCONATE 324 MG TAB PO SCH ×2 (10:19→20:30)
[2017-05-03] MEDS: LETAIRIS 10 MG PO SCH (10:19)
[2017-05-03] MEDS: SILDENAFIL CITRATE 20 MG TABLET (REVATIO) PO SCH ×3 (10:19→20:28)
[2017-05-03] MEDS: SENOKOT S TAB PO SCH ×2 (10:19→20:28)
[2017-05-03] MEDS: APIXABAN 5 MG TAB (ELIQUIS) PO SCH ×2 (10:19→20:28)
[2017-05-03] MEDS: VERAPAMIL 80 MG TAB PO SCH ×2 (10:20→20:29)
[2017-05-03] MEDS: DIGOXIN 0.125 MG TAB PO SCH (10:20)
[2017-05-03] MEDS: cefTRIAXone SOD 1 GM in D5W MINI-BAG PLUS 50 ML IV SCH (10:21)
[2017-05-03 12:00] VITALS: BP 110/62
[2017-05-03 16:00] VITALS: BP 109/64
--- NOTE | 2017-05-03 17:18 | IPN ---
DATE: 05/03/2017 Ms. Novak is feeling better this morning. She would like to advance her diet. She has no complaints of pain. No chest pain or shortness of breath. Would like to have her Boone catheter our as well. Temperature 96.9, pulse 89, respiratory rate 18, blood pressure 107/59, 97% on 2 liters. Intake and output notable for a negative fluid balance of 2370. She is awake, appropriately interactive, pleasantly conversant. Neck supple. Breathing is symmetrical. Heart is distant sounding. Abdomen soft, doughy, nontender throughout. White cell count 7.3, hemoglobin 8.8, platelets of 207. BUN 62, creatinine 1.68. BNP 25,000. My assessment is as follows: This is a 61-year-old with decompensated congestive heart failure, ileus, and Escherichia (E) coli urinary tract infection. Plan is as follows: 1. Congestive heart failure and chronic kidney disease in the setting of acute renal failure. I have discussed this again in person with Dr. Puckett. Her renal function continues to improve. Boone catheter is currently removed. Plan for possible discharge as early as tomorrow. 2. Patient has resolving ileus. Diet will be advanced 3. Patient has pulmonary hypertension and pulmonary fibrosis. 4. Patient has positive urinary culture. Ceftriaxone will currently be discontinued. 5. Patient has atrial fibrillation. Rate is variable. She is on digoxin and Verapamil. Blood pressure is soft, but again I think will improve today. 6. Patient has hyponatremia. 7. The patient has hypothyroidism. 8. Patient has hyperlipidemia. 9. Patient has rheumatoid arthritis and is on chronic steroid therapy. 10. Patient has scleroderma. 11. Deep venous thrombosis (DVT) prophylaxis is Eliquis. 12. The patient has gastroesophageal reflux disease (GERD).
--- NOTE | 2017-05-03 18:14 | IPN ---
DATE: 05/03/2017 Ms. Novak is seen this morning on her bedside. She is feeling much better and is sitting in the chair. She had breakfast which included only liquids. She denies any nausea, vomiting, abdominal pain, fever or chills. Her leg edema and dyspnea has improved significantly. She diuresed very well over the last couple of days. PHYSICAL EXAMINATION: Temperature 97.0 degrees Fahrenheit, heart rate 88 per minute and respiratory rate 18 per minute. Blood pressure 107/59 mmHg and oxygen saturation 97% on two liters oxygen. Intake and output records from yesterday show a total intake 530 and output 2900. She has a total negative fluid balance of about 9.5 liters over the last few days. Her head is atraumatic. Neck is supple and there is no jugular venous distention (JVD) sitting upright. She does have mild hepatojugular reflux. Her heart sounds are irregular in rhythm. Lungs have only few basilar rales. Abdomen is soft and nontender and bowel sounds are normal. Extremities have no cyanosis or clubbing. Lower extremity edema has completely resolved. Neurologically, she is awake, alert and oriented times three. LABORATORY DATA: Today's laboratories show WBC count 7.3, hemoglobin 8.8 and hematocrit 27.7. Sodium 128 and potassium 4.4. BUN 62 and creatinine 1.68. PROBLEMS: 1. Acute renal failure, superimposed on chronic kidney disease. Kidney function continues to improve. She is in significant negative fluid balance. We will continue to monitor her kidney function on a daily basis. 2. Acute congestive heart failure, superimposed on diastolic congestive heart failure. The patient has diuresed very well. She is about 9.5 liters negative fluid balance. I am going to stop her Lasix once again. Her Lasix was stopped. However, it has been resumed. At this point, she does not need diuretic. Her spironolactone is also being stopped. 3. Hyponatremia. Sodium level is slightly lower compared with yesterday. She has been on clear liquids which is probably contributing to her low sodium. We will advance her diet to a regular diet. Her electrolytes will be checked again tomorrow morning. 4. Anemia. Her anemia is slightly worse compared with yesterday. We will give her Aranesp 100 mcg tomorrow morning. At this point, there is no emergent indication for transfusion. 5. Elevated pro brain natriuretic peptide (BNP) level. The patient does have a history of congestive heart failure. At this point, her volume status is very well-compensated. We will get a repeat pro BNP level today for baseline. I think that her level is chronically elevated.
[2017-05-03 20:00] VITALS: BP 101/50
[2017-05-03] MEDS: predniSONE 5 MG TAB PO SCH (20:28)
[2017-05-03] MEDS: OMEPRAZOLE 20 MG CAP PO SCH (20:28)
[2017-05-03] MEDS: PRAVASTATIN 20 MG TAB PO SCH (20:28)
[2017-05-04] VITALS (9 sets, daily range): BP systolic 101–142; BP diastolic 55–72
[2017-05-04] MEDS: IPRATROPIUM 0.5MG/ALBUTEROL 2.5MG INH SOL UD 3ML (DUONEB)(J7620) NEB SCH ×4 (01:39→20:00)
[2017-05-04] MEDS: SLF 3 ML SYR IV SCH ×3 (05:29→22:08)
[2017-05-04] MEDS: LEVOTHYROXINE 125MCG TABLET (0.125MG) PO SCH (05:29)
[2017-05-04 05:52] LABS: MEAN CORPUSCULAR HEMOGLOBIN 32.8 pg (27.0-33.0); MEAN CORPUSCULAR HGB CONC 31.8 g/dl (32.0-36.5); MEAN CORPUSCULAR VOLUME 103.2 fl (80.0-96.0); PLATELET COUNT, AUTOMATED 216 10^3/uL (150-450); RED CELL DISTRIBUTION WIDTH 15.7 % (11.5-14.5); WHITE BLOOD COUNT 6.1 10^3/uL (4.0-10.0)
[2017-05-04 06:06] LABS: ADD MANUAL DIFFER YES; DIFF SLIDE NUMBER 2
[2017-05-04 06:11] LABS: CALCIUM LEVEL 8.7 MG/DL (8.8-10.2); CREATININE FOR GFR 1.63 MG/DL (0.55-1.02); GLOMERULAR FILTRATION RATE 34.1 (>45); POTASSIUM SERUM 4.5 MEQ/L (3.5-5.1)
[2017-05-04 07:08] LABS: ANISOCYTOSIS 1+; BANDS 1 % (< 11); EOSINOPHILS 1 % (0-5)
[2017-05-04 07:09] LABS: HYPOCHROMASIA 1+
[2017-05-04] MEDS ORDERED: DARBEPOETIN 100 MCG/0.5 ML *NON-DIALYSIS* SYRINGE (J0881) SC SCH (09:00)
[2017-05-04] MEDS: SILDENAFIL CITRATE 20 MG TABLET (REVATIO) PO SCH ×3 (09:41→22:08)
[2017-05-04] MEDS: DIGOXIN 0.125 MG TAB PO SCH (09:41)
[2017-05-04] MEDS: LETAIRIS 10 MG PO SCH (09:42)
[2017-05-04] MEDS: SENOKOT S TAB PO SCH ×2 (09:42→20:54)
[2017-05-04] MEDS: VERAPAMIL 80 MG TAB PO SCH ×2 (09:42→20:50)
[2017-05-04] MEDS: APIXABAN 5 MG TAB (ELIQUIS) PO SCH ×2 (09:42→20:50)
[2017-05-04] MEDS: FERROUS GLUCONATE 324 MG TAB PO SCH ×2 (09:42→20:49)
--- NOTE | 2017-05-04 11:27 | IPN ---
DATE: 05/04/2017 Mrs. Novak is seen this morning on her bedside. She is feeling well and denies any nausea, vomiting, fever, chills or leg edema. Her dyspnea has improved and she remains on 2 liters oxygen, which is chronic for her hypoxia. She is tolerating a regular diet well. PHYSICAL EXAMINATION: Temperature 97.3 degrees Fahrenheit, heart rate 86 per minute and respiratory rate 20 per minute. Blood pressure 104/72 mmHg and oxygen saturation 100% on 2 liters oxygen. Intake and output records from yesterday show a negative balance of only 80 mL. Overall, since admission, she is negative by about 9 liters. Her head is atraumatic. Neck is supple and without jugular venous distention (JVD) or thyroid enlargement. Ears, nose and throat are unremarkable. Heart sounds are irregular in rhythm with a systolic murmur, which is unchanged. She has chronic atrial fibrillation known. Lungs have a few basilar crackles, which are chronic. There is no wheezing. Abdomen is soft and nontender and bowel sounds normal. Extremities have no cyanosis or clubbing. Her lower extremity edema has completely resolved. Neurologically, she is awake, alert and oriented times three. Today's labs show WBC count 6.1, hemoglobin 8.2 and hematocrit 25.8. Her sodium is 126 and potassium 4.5. BUN 56 and creatinine 1.63. Yesterday her pro BNP level was 25,373. PROBLEMS: 1. Acute congestive heart failure superimposed on chronic diastolic congestive heart failure. Volume status is very well compensated. We stopped her Lasix yesterday. At this point, we will continue to hold her diuretic for another 24 hours. Pro BNP level of 25,000 is at baseline and at this point she is not in any congestive heart failure. 2. Hyponatremia. Sodium level worsened once again, most likely related to liquid diet and diuretic use. She is currently off Lasix and back on regular diet. We will monitor her electrolytes again tomorrow morning. 3. Acute renal failure superimposed on chronic kidney disease. Slight improvement is noted in her BUN and creatinine over the last 24 hours. This is probably close to her baseline kidney function. 4. Anemia. Her anemia has worsened over the last few days. She will be given Aranesp 100 mcg today, and we will also transfuse her 1 unit of packed red blood cells. DISPOSITION: The patient is not medically stable for discharge today. She will be reevaluated tomorrow morning.
--- NOTE | 2017-05-04 11:59 | IPN ---
DATE: 05/04/2017 Ms. Novak is feeling relatively well today. She is tolerating a diet. No abdominal pain. No chest pain. Not short of breath. Has been out of bed for short distances. Temperature 97.3, pulse 86, respiratory rate 20, blood pressure 104/72, 100% on 2 liters nasal cannula. Negative fluid status of -80. Weight is 64.2 kg. She is awake, appropriately interactive, pleasantly conversant. Remembers me from previous encounters. Neck is thin, supple. No obvious elevation in jugular venous pressure. Breathing is symmetrical. I:E ratio is 1:3. Heart is distant sounding. Normal S1, S2. At times she has been tachycardic on monitor. She is not tachycardic now. Abdomen flat, soft, nontender. No significant lower extremity edema. White cell count 6.1, hemoglobin 8.2, and platelets of 216. BUN 56, creatinine 1.63. Sodium is trending downward at 126. My assessment is as follows: This is a 61-year-old with decompensated congestive heart failure, ileus, and Escherichia (E) coli urinary tract infection. Plan is as follows: 1. The patient has suspected congestive heart failure at the time of presentation, certainly had some fluid overload, but that has resolved. Renal failure has also resolved. I discussed the case in person with Dr. Puckett. Hemoglobin has been trending downward and he would like to pursue transfusion, which will be done today. 2. Patient has resolved ileus. 3. Patient has pulmonary hypertension and pulmonary fibrosis. 4. Patient had positive urinary culture. She was treated with a short course of ceftriaxone, which has been discontinued. 5. Patient has atrial fibrillation. Rate is variable. She is on digoxin and Verapamil. She did have short episodes of elevated rate and will be continued on telemetry. 6. Patient has hyponatremia, which is worsening. We will check urinary sodium and osmolality. This may still be related to poor intake of Solute. 7. The patient has hypothyroidism. 8. Patient has hyperlipidemia. 9. Patient has rheumatoid arthritis and is on chronic steroid therapy at low dose. 10. Patient has scleroderma. 11. Deep venous thrombosis (DVT) prophylaxis is Eliquis.
[2017-05-04 15:59] LABS: OSMOLALITY URINE 464 MOSM/KG (500-800)
[2017-05-04] MEDS: OMEPRAZOLE 20 MG CAP PO SCH (20:49)
[2017-05-04] MEDS: predniSONE 5 MG TAB PO SCH (20:50)
[2017-05-04] MEDS: PRAVASTATIN 20 MG TAB PO SCH (20:50)
[2017-05-04] MEDS: BENZONATATE 100 MG CAP PO PRN (22:11)
[2017-05-05] VITALS: BP 116/58
[2017-05-05] MEDS: IPRATROPIUM 0.5MG/ALBUTEROL 2.5MG INH SOL UD 3ML (DUONEB)(J7620) NEB SCH ×3 (02:00→13:22)
[2017-05-05 04:00] VITALS: BP 107/52
[2017-05-05] MEDS: SLF 3 ML SYR IV SCH (05:11)
[2017-05-05] MEDS: LEVOTHYROXINE 125MCG TABLET (0.125MG) PO SCH (05:11)
[2017-05-05 07:10] LABS: MEAN CORPUSCULAR HEMOGLOBIN 32.6 pg (27.0-33.0); MEAN CORPUSCULAR HGB CONC 31.8 g/dl (32.0-36.5); MEAN CORPUSCULAR VOLUME 102.6 fl (80.0-96.0); RED CELL DISTRIBUTION WIDTH 15.8 % (11.5-14.5); WHITE BLOOD COUNT 4.8 10^3/uL (4.0-10.0)
[2017-05-05 07:16] LABS: CREATININE FOR GFR 1.18 MG/DL (0.55-1.02); GLOMERULAR FILTRATION RATE 49.6 (>45); MAGNESIUM LEVEL 1.9 MG/DL (1.8-2.4); POTASSIUM SERUM 4.3 MEQ/L (3.5-5.1)
[2017-05-05 08:22] VITALS: BP 108/58
[2017-05-05] MEDS: FERROUS GLUCONATE 324 MG TAB PO SCH (09:46)
[2017-05-05] MEDS: LETAIRIS 10 MG PO SCH (09:46)
[2017-05-05] MEDS: SENOKOT S TAB PO SCH (09:46)
[2017-05-05 09:47] VITALS: BP 108/58
[2017-05-05] MEDS: VERAPAMIL 80 MG TAB PO SCH (09:47)
[2017-05-05] MEDS: DIGOXIN 0.125 MG TAB PO SCH (09:47)
[2017-05-05] MEDS: SILDENAFIL CITRATE 20 MG TABLET (REVATIO) PO SCH (09:47)
[2017-05-05] MEDS: APIXABAN 5 MG TAB (ELIQUIS) PO SCH (09:47)
[2017-05-05] MEDS ORDERED: BUMETANIDE 1 MG TAB PO ONE (10:00)
[2017-05-05 12:15] VITALS: BP 106/59
--- NOTE | 2017-05-05 12:38 | IPN ---
DATE: 05/05/2017 Ms. Novak is seen this morning on her bedside. She is feeling well and wants to go home. She reports that she ate 100% of her breakfast. She denies any nausea, vomiting, dyspnea or chest pain. She has no fever or chills. PHYSICAL EXAMINATION: Temperature 97.4 degrees Fahrenheit, heart rate 85 per minute and respiratory rate 20 per minute. Blood pressure 108/58 mmHg and oxygen saturation 99% on 2 liters oxygen. Intake and output records from yesterday show an even fluid balance. Her head is atraumatic. Neck is supple and jugular venous distention (JVD) is now about 6 cm above sternal angle. Lungs have bilateral rales which are increased compared with yesterday. Heart sounds are irregular in rhythm. Abdomen is soft and nontender. Bowel sounds are normal. Extremities have no cyanosis or clubbing. Neurologically, she is awake, alert and oriented times three. Today's labs show WBC count 4.8, hemoglobin 8.7 and hematocrit 27.4. Platelets 219. Sodium 127 and potassium 4.3. Chloride 91, CO2 of 33, BUN 44 and creatinine 1.18. Glucose 96 and calcium 9.0. PROBLEMS: 1. Acute renal failure superimposed on chronic kidney disease. Kidney function has improved significantly. She does have stage III of chronic kidney disease at baseline. 2. Acute on chronic diastolic congestive heart failure. The patient has been off diuretics. Her volume status is slightly decompensated once again. I am going to start her back on Bumex 1 mg twice a day, and she will be given first dose this morning. The patient understands to follow a fluid restriction of 1500 mL per day. 3. Hyponatremia. Slight improvement in her sodium level is noted. This is most likely related to events over the last 3 days when she had nausea, vomiting, nasogastric tube suctioning followed by clear liquid diet. She was also receiving diuretics at that time. In any event, her sodium level is slightly better now and we will continue with fluid restriction. Her sodium is likely to improve as the patient is now on regular diet. She will be followed up in my office in next couple of weeks. 4. Anemia. The patient did have transfusion and anemia is slightly improved. She was also given Aranesp 100 mcg just yesterday. Her anemia will also be followed up as an outpatient. 5. Pulmonary hypertension and chronic hypoxemia. This is chronic and stable at baseline. The patient will continue with home oxygen. She will remain on home diuretics at present. She will follow up in the office in couple of weeks. 6. Atrial fibrillation. Her ventricular rate is reasonably well-controlled and she will continue with her digoxin, calcium channel dottie and anticoagulation. DISPOSITION: From renal standpoint, the patient can be discharged to home and follow up as an outpatient.
[2017-05-05] MEDS ORDERED: BUMETANIDE 1 MG TAB PO SCH (21:00)
--- NOTE | 2017-05-07 15:39 | DSES ---
DATE OF ADMISSION: 04/27/2017 DATE OF DISCHARGE: 05/05/2017 SPECIALISTS INVOLVED IN HER CARE: Included: 1. Dr. Hutchins. 2. Dr. Puckett. No procedures performed during her stay. DISCHARGE DIAGNOSES: 1. Acute congestive heart failure, superimposed on chronic diastolic congestive heart failure. 2. Hyponatremia. 3. Acute renal failure in the setting of chronic kidney disease. 4. Anemia related to chronic disease. 5. Ileus. 6. Pulmonary hypertension. 7. Pulmonary fibrosis. 8. Positive urine culture. 9. Atrial fibrillation. 10. Rheumatoid arthritis on chronic steroids. 11. Scleroderma. SUMMARY OF HER PRESENTATION: This is a 61-year-old who presented with shortness of breath and increased lower extremity edema. She was noted to have a grossly elevated brain natriuretic peptide (BNP) that was up to 39,000. She was treated with aggressive diuresis which successfully treated her respiratory and edematous symptoms. She went on to develop an ileus and was made nothing by mouth with a nasogastric (NG) tube. She was seen in consultation by general surgery. She improved markedly. She was also noted to have hyponatremia during her stay which did improve and then slightly worsen prior to discharge. She was anemic during her stay and during the course of her stay, she did receive one unit of packed red blood cells as well as a dose of Aranesp. On the day of discharge, she is feeling well. She has passed physical therapy. She has no complaints of pain, chest pain, shortness of breath, and is looking forward to getting out of the hospital. Temperature is 97.2, pulse 91, respiratory rate 20, blood pressure 106/59, 97% on two liters. Awake, appropriately interactive, pleasantly conversant. Breathing is symmetrical and rested. Mucous membranes are moist. Neck is supple. Breathing is symmetrical. I:E ratio is 1:3. Heart is distant sounding, regular rate and rhythm. Abdomen is soft, doughy, nontender. LABORATORY DATA: White cell count 4.8, hemoglobin 8.7, and platelets of 219. BUN 44, creatinine 1.18. DISCHARGE INSTRUCTIONS: Include the followin. Followup with Dr. Mercado on 05/12/2017. 2. Follow[address] Dr. Puckett as he instructs. 3. Renal diet, 1.8 liters per day fluid restriction. DISCHARGE MEDICATIONS: Continue: - Eliquis 5 mg by mouth twice a day - Tessalon Perles 100 mg by mouth three times a day as needed - bisacodyl 10 mg by mouth rectally as needed for constipation - Bumex 1 mg by mouth twice a day - vitamin D and calcium supplement - digoxin 0.125 mg by mouth daily - Senokot-S one tablet by mouth twice a day - ferrous sulfate 324 mg twice a day - hydrocortisone 2.5% one dose topically daily - Letairis 5 mg by mouth daily - Synthroid 125 mcg by mouth daily - Bactroban topically daily to fingers - omeprazole 40 mg by mouth daily at bedtime - Pravachol 20 mg by mouth daily at bedtime - prednisone 5 mg by mouth daily at bedtime - Revatio 40 mg by mouth three times a day - spironolactone 25 mg by mouth daily - tramadol 100 mg by mouth three times a day as needed for pain - Tyvaso inhaled four times daily - verapamil 90 mg by mouth twice a day
== END 2017-05-05 15:37 | disposition home or self-care (01) | DRG 292 ==
LOC: M ED 18:27 → M ED INP 23:32 → M PCU 04-28 04:10
PROVIDERS: ADMIT Internal Medicine Nephrology; ATTEND Internal Medicine
PROC: 30233N1 Transfusion of Nonautologous Red Blood Cells into Peripheral Vein, Percutaneous Approach (ICD-10-PCS; principal; 2017-05-04)
DX: I50.33 Acute on chronic diastolic (congestive) heart failure (principal); N17.9 Acute kidney failure, unspecified; E87.1 Hypo-osmolality and hyponatremia; K56.7 Ileus, unspecified; N18.3 Chronic kidney disease, stage 3 (moderate); E03.9 Hypothyroidism, unspecified; M06.9 Rheumatoid arthritis, unspecified; K21.9 Gastro-esophageal reflux disease without esophagitis; E78.5 Hyperlipidemia, unspecified; G47.33 Obstructive sleep apnea (adult) (pediatric); I48.91 Unspecified atrial fibrillation; J84.10 Pulmonary fibrosis, unspecified; I27.2 Other secondary pulmonary hypertension; Z90.49 Acquired absence of other specified parts of digestive tract; Z79.01 Long term (current) use of anticoagulants; Z79.52 Long term (current) use of systemic steroids; Z79.899 Other long term (current) drug therapy

== ENCOUNTER → 2017-05-19 | Outpatient (REF) | payer MEDICARE, MEDICAID ==
[~2017-05-19] MED LIST changes: +BISA10SU4 PR; +ELIQ5TAB PO; +HYDR25OIN TOP; +MUPI2OI EXT; +SENN8.6T7 PO
== END ==
LOC: M LAB REF 17:07
PROVIDERS: ATTEND Internal Medicine Nephrology
DX: D50.9 Iron deficiency anemia, unspecified (principal)

== ENCOUNTER → 2017-06-19 | Outpatient (REF) | payer MEDICARE, MEDICAID ==
[2017-06-19 14:34] LABS: FREE T4 1.48 NG/DL (0.76-1.46); PERCENT SATURATION 16.2 % (13.2-45.0)
== END ==
LOC: M LAB REF 12:54
PROVIDERS: ATTEND Internal Medicine Nephrology
DX: E03.9 Hypothyroidism, unspecified (principal); N18.4 Chronic kidney disease, stage 4 (severe); D50.9 Iron deficiency anemia, unspecified

== ENCOUNTER → 2017-07-04 | Outpatient (CLI) | payer MEDICARE, MEDICAID | LOC: M SMT 11:41 | PROVIDERS: ATTEND Internal Medicine Pulmonary Disease | DX: J84.10 Pulmonary fibrosis, unspecified (principal) ==

== ENCOUNTER 2017-07-18 09:04 | Inpatient (IN) | payer MEDICARE, MEDICAID ==
[~2017-07-18] VITALS: Ht 165.1 cm; Wt 73.2 kg
[2017-07-18] VITALS (21 sets, daily range): BP systolic 87–106; BP diastolic 44–64
[2017-07-18] MEDS ORDERED: CALC1CAP31 PO (09:20)
[2017-07-18] MEDS ORDERED: MORPHINE 2 MG/ML 1ML SYRINGE IV PRN (09:45)
[2017-07-18] MEDS ORDERED: ONDANSETRON 4MG/2ML VIAL (J2405) IV ONE (09:45)
[2017-07-18] MEDS ORDERED: PANTOPRAZOLE 40MG INJ (PROTONIX) (C9113) IV ONE (09:45)
[2017-07-18] MEDS: NS 1,000 ML IV SCH (09:57)
[2017-07-18 10:11] LABS: BASO % 0.2 % (0.0-1.0); EOS % 0.4 % (0.0-3.0); IMMATURE GRANULOCYTE % 1.9 % (0-0); LYMPH # 0.7 10^3/uL (1.5-4.5); LYMPH % 12.3 % (24.0-44.0); MEAN CORPUSCULAR HEMOGLOBIN 31.6 pg (27.0-33.0); MEAN CORPUSCULAR HGB CONC 32.2 g/dl (32.0-36.5); MEAN CORPUSCULAR VOLUME 98.1 fl (80.0-96.0); MONO # 0.5 10^3/uL (0.0-0.8); MONO % 9.1 % (0.0-5.0); NEUTROPHILS % 76.1 % (36.0-66.0); PLATELET COUNT, AUTOMATED 157 10^3/uL (150-450); RED CELL DISTRIBUTION WIDTH 15.3 % (11.5-14.5); WHITE BLOOD COUNT 5.3 10^3/uL (4.0-10.0)
[2017-07-18 10:15] LABS: ADD MANUAL DIFFER NO; DIFF SLIDE NUMBER 162
[2017-07-18 10:22] LABS: INR 1.82
[2017-07-18 10:39] LABS: ALBUMIN 2.8 GM/DL (3.2-5.2); ALBUMIN/GLOBULIN RATIO 0.78 (1.00-1.93); BILIRUBIN,DIRECT 0.3 MG/DL (0.0-0.2); BILIRUBIN,TOTAL 0.5 MG/DL (0.2-1.0); CALCIUM LEVEL 8.2 MG/DL (8.8-10.2); CREATININE FOR GFR 3.12 MG/DL (0.55-1.02); GLOMERULAR FILTRATION RATE 16.1 (>45); TOTAL PROTEIN 6.4 GM/DL (6.4-8.2)
[2017-07-18 10:42] LABS: POTASSIUM SERUM 5.7 MEQ/L (3.5-5.1)
[2017-07-18] MEDS ORDERED: ONDANSETRON 4MG/2ML VIAL (J2405) IV PRN (11:15)
[2017-07-18] MEDS ORDERED: RENATAB5 PO (11:57)
[2017-07-18] MEDS ORDERED: HYDROCORTISONE 2.5% 20GM OINTMENT TOP PRN (12:00)
--- NOTE | 2017-07-18 12:28 | REP ---
CT of the abdomen pelvis without IV or bowel contrast: Comparison is 05/01/2017. There are chronic fibrotic changes in the visualized lower lung coon. Cardiac size is enlarged. There is a small right pleural effusion as an interval change. Studies performed without IV contrast. The unenhanced hepatic parenchyma, pancreas. Pelvis: The uterus and adnexa are unremarkable. There are phleboliths. There is a ring-shaped calcification in the left adnexa, unchanged, likely a cyst with a calcified wall. There is no ascites or adenopathy. The bladder is unremarkable. There is no diverticulosis or diverticulitis. Impression: The previous small bowel distension and wall thickening have resolved. Large and small bowel loops are unremarkable. There is no diverticulosis or diverticulitis. There is a cholecystectomy. There is a stable ring-shaped calcification in the left adnexa, likely a calcified adnexal cyst. Otherwise, negative CT of the abdomen pelvis without IV or bowel contrast. Signed by Harshad Harvey MD 07/18/2017 12:20 P
--- NOTE | 2017-07-18 13:08 | HPE ---
DATE OF ADMISSION: 07/18/2017 PCP: Oksana Mcginnis FASHION CONSULTANT SALES: Dr. Puckett. AIRCRAFT DISPATCHER: Dr. Acuña. CIRCULATING PROCESS INSPECTOR: Dr. Dominique. CHIEF COMPLAINT: Bright red blood per rectum. HISTORY OF PRESENT ILLNESS: The patient is a 61 female who tells me that six months ago, her primary care provider (PCP) switched her from Coumadin to Eliquis. She tells me that once last week she did have a bowel movement with blood in it. She thought nothing of it. She tells me that her stomach has felt yucky and has had diffuse abdominal pain for the past one week. She tells me that it has progressively worsened and is not associated with food or in any specific location. She tells me early this morning around 3 a.m., she had an episode of diarrhea but there was no stool. It was dark, tarry, and mayito red blood. She tells me that it persisted. She had 10 further bowel movements, which prompted her daughter to bring her to the emergency room. At the present time, she tells me she continues to feel yucky. She denies lightheadedness or dizziness. Her baseline has shortness of breath and denies any change in this. Denies nausea or vomiting. No other changes in medication or diet or recent travel. PAST MEDICAL HISTORY: 1. Atrial fibrillation on Eliquis. 2. Diastolic congestive heart failure. 3. Cor pulmonale with right-sided heart failure. 4. Pulmonary fibrosis with severe pulmonary hypertension with chronic hypoxic respiratory failure, 2-1/2 liters of continuous oxygen. 5. Rheumatoid arthritis. 6. Scleroderma. 7. Raynaud's phenomenon. 8. Obstructive sleep apnea rarely compliant with continuous positive airway pressure (CPAP) at home. 9. Gastroesophageal reflux disease. 10. Dyslipidemia. 11. Chronic kidney disease with baseline creatinine approximately 1.4. 12. Hypothyroidism. HOME MEDICATIONS: - Eliquis 5 mg twice a day - Tessalon Perles 100 mg as needed - bisacodyl 10 mg per rectum daily as needed for constipation. - bumetanide 1 mg by mouth twice a day - calcitriol 0.25 mcg at bedtime - calcium/vitamin D 600 plus D3 400 units one tablet daily - digoxin 0.125 mg daily - Senokot-S one tablet by mouth twice a day as needed for constipation - ferrous gluconate 324 mg twice a day - levothyroxine 125 mcg daily - mupirocin ointment three times a day as needed for redness or irritation - omeprazole 40 mg at bedtime - pravastatin 20 mg at bedtime - prednisone 5 mg at bedtime - spironolactone 25 mg daily - tramadol 100 mg by mouth three times a day as needed for pain - verapamil 80 mg by mouth twice a day - Letairis 10 mg daily - Carolina-Dangelo one tablet by mouth daily - treprostinil nebulizer four times a day SOCIAL HISTORY: The patient lives with her . She denies tobacco now or in the past. No alcohol or illicit drug use. She is accompanied in the emergency room with her daughter and [id number]. She has never thought about DO NOT INTUBATE (DNI) or DO NOT RESUSCITATE (DNR). We did have a lengthy discussion. She would like to think about it before making any decisions. ALLERGIES: No known drug allergies. PAST SURGICAL HISTORY: 1. Cholecystectomy. 2. Ablation in 2014. 3. Multiple spinal surgeries. FAMILY HISTORY: Noncontributory. REVIEW OF SYSTEMS: Otherwise negative other than in history of present illness (HPI). PHYSICAL EXAMINATION: VITAL SIGNS: Temperature 96.6, heart rate 75, blood pressure 96/50, oxygen saturation 92% on three liters. GENERAL: She is a frail, elderly female lying on the stretcher at a 30-degree angle. Appears older than her stated age. Does not appear to be in any acute distress. HEENT: Prominent venous congestion throughout her scalp. She has moist mucous membranes. Elevated central venous pressure (CVP). CARDIOVASCULAR: S1, S2 with a crescendo-decrescendo systolic murmur. RESPIRATORY: Diminished at the bases. ABDOMEN: Bowel sounds are present. Diffusely tender even to soft palpation. EXTREMITIES: No clubbing. She does have some tightening of the skin consistent Raynaud's bilaterally. She does have 1+ edema bilaterally. LABORATORY DATA: WBC 5.3, hemoglobin 6.5, baseline approximately 8.5, platelet count 157. Chemistry panel: Sodium 125, potassium 5.7, chloride 89, bicarbonate 28, BUN 71, creatinine 3.1, lactic acid 1.1, alkaline phosphatase elevated at 127. Lipase within normal limits. INR 1.8. No microbiology or imaging at this point. ASSESSMENT AND PLAN: This is a 61-year-old female presenting with bright red blood per rectum. 1. Bright red blood per rectum: Most likely etiology is acute blood loss anemia secondary to gastrointestinal (GI) bleed related to anticoagulation with Eliquis. For the time being, we will hold Eliquis and hold any anticoagulation or antiplatelet medications. She will be nothing by mouth and admitted to the medical intensive care unit as she is hypotensive. She did receive one liter of normal saline in the emergency room. I suspect she would benefit from two units of packed red blood cells (PRBCs) given quite slowly. Given her degree of cor pulmonale and heart failure, she will be prone to fluid overload quite quickly as she does at the present time even appear to be overloaded on the venous side, possible intravascularly depleted on the arterial side. I have contacted Dr. Robles of gastroenterology who has agreed to see the patient in consultation, and he agrees she would likely benefit from endoscopy and colonoscopy. 2. Acute renal failure: The patient hypervolemic, hyponatremic, also with hyperkalemia, hypochloridemia. She did receive one liter of normal saline in the emergency room, and baseline creatinine appears to be 1.4. Creatinine at this time is 3.0. I have placed a consult to nephrology. Dr. Moya has agreed to see the patient in consultation. She normally follows with Dr. Puckett. She will receive blood with recheck of her electrolytes this afternoon. At this time I will defer any diuresis to nephrology given acute kidney injury and her blood pressures. Unfortunately there is no reversal agent for Eliquis. 3. Pulmonary hypertension: The patient is normally on sildenafil, verapamil, treprostinil and Letairis. However, she is nothing by mouth and we do not have any inpatient substitutions which she can tolerate with her low blood pressure. At this time I did confirm with Dr. Acuña who is her hospital health claims examiner. 4. The patient has chronic hypoxic respiratory failure: At the present time she does not appear to be significantly far from her baseline, but we will have to monitor her closely while she is receiving blood transfusions. Keep the head of her bed up. Monitor intake and output and daily weights. 5. Cor pulmonale secondary to pulmonary hypertension type 1, pulmonary fibrosis: She had an echocardiogram read earlier this year which once again reconfirmed this. Her prognosis is extremely poor. I did discuss DNR, DNI, with her. She wishes to think about it before making any decisions. 6. Atrial fibrillation: Her anticoagulation was obviously on hold. Her digoxin will be provided intravenous (IV) as we are holding oral medications. 7. Hypothyroidism: Her levothyroxine will be provided IV. 8. Gastroesophageal reflux disease: As she is having a GI bleed, we are providing her with IV proton pump inhibitor (PPI) in place of her oral. 9. Dyslipidemia: We are holding her pravastatin. 10. Scleroderma, rheumatoid arthritis: The patient is normally on prednisone 5 mg at bedtime. We will provide her with hydrocortisone while she is acutely ill in hospital. 11. Obstructive sleep apnea: She is noncompliant with CPAP for the most part. I have asked that her mask be brought in. 12. Deep venous thrombosis (DVT) prophylaxis: Sequentials and thromboembolism deterrent stockings (TEDs). No pharmacological agents secondary to ongoing bleeding. DISPOSITION: The patient is admitted to the medical intensive care unit. Her prognosis is extremely guarded. MTDD
[2017-07-18] MEDS: HYDROCORTISONE 100 MG/2 ML VIAL (J1720) IV SCH (13:37)
[2017-07-18] MEDS: LEVOTHYROXINE 100 MCG (0.1MG) VIAL IV SCH (13:41)
[2017-07-18] MEDS: DIGOXIN INJ 0.5 MG/2 ML AMP (J1160) IV SCH (13:43)
--- NOTE | 2017-07-18 14:35 | CR.PDOC ---
[facility] Consultation Consultation DATE OF CONSULTATION: Jul 18, 2017 at 09:04 PRIMARY CARE PHYSICIAN: Oksana Kaplan DO REFERRING PROVIDER: Skye Silverman MD ATTENDING PHYSICIAN:Shant Lama MD REASON FOR CONSULTATION/CHIEF COMPLAINT: Acute Renal Failure and Hyperkalemia HISTORY OF PRESENT ILLNESS: Ms. Novak is a 61-year-old female who presents to [facility]'s Emergency Department with abdominal pain and gastrointestinal bleeding. Hospitalist consulted nephrology secondary to acute renal failure superimposed on chronic kidney disease,hyperkalemia and hyponatremia. Past medical history significant for: secondary pulmonary hypertension, hypothyroidism, scleroderma, interstitial fibrosis, obstructive sleep apnea, paroxysmal atrial fibrillation, osteopenia, right-sided heart failure with a LVEF 55-60%, Raynaud's phenomenon, and iatrogenic adrenal insufficiency, dyslipidemia, and renal insufficiency, iron deficiency anemia, chronic back pain , and gastroesophageal reflux disease. Patient states that she was in her usual state of health until about a week ago when her stomach "started acting up again." She started getting diffuse abdominal pains that she described as a dull ache. The pain has been worsening over the last week. She admits to having abdominal pain after dinner last evening. This morning at 3am the patient experienced a bloody bowel movement. She has subsequently had between 4-6 diarrheal episodes that are all maroon- colored. Regular bowel habits consisted of two bowel movements daily without blood. She denies bleeding from any other source, including her nose, mouth, vagina, or bladder. She has had an intermittent headache today with associated lightheadedness and dizziness. Denies falls. Her appetite has decreased, but she has not noticed any recent weight changes. Denies peripheral edema and states that she is thirsty. She most recently saw nephrology about four weeks ago and was started on Leona-Rite for her "kidneys." She has been taking the medication, that is dark red in color, for about four weeks now. She has also recently seen her local physical sciences instructor who did not make any changes to her medications. Recalls a colonoscopy and EGD approximately ten years ago. Emergency Department evaluation included a CT of the abdomen and pelvis which did not reveal any acute abnormality, labs showed a critical hemoglobin for which patient is being transfused, hyperkalemia, and acute kidney failure superimposed on chronic kidney disease. No lactic acidosis is appreciated. Blood pressure is somewhat soft due to acute blood loss. Nephrology is happy to continue following Ms. Novak while she is admitted. Thank you for the consult. ALLERGIES: Please see below. HOME MEDICATIONS: Please see below. PAST MEDICAL HISTORY: 1. Secondary pulmonary hypertension 2. Hypothyroidism 3. Scleroderma 4. Interstitial fibrosis 5. Obstructive sleep apnea 6. Paroxysmal atrial fibrillation 7. Osteopenia 8. Right-sided heart failure with a LVEF 55-60% 9. Raynaud's phenomenon 10. Iatrogenic adrenal insufficiency 11. Dyslipidemia 12. Renal insufficiency 13. Iron deficiency anemia 14. Chronic back pain 15. Gastroesophageal reflux disease PAST SURGICAL HISTORY: 1. Cholecystectomy 2. Cardiac ablation, 2015 3. 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 HEENT: Denies acute vision changes, allergy symptoms. CARDIOVASCULAR: Denies chest pain, palpitations. RESPIRATORY: Denies shortness of breath, orthopnea, PND. GENITOURINARY: Denies hematuria, dysuria, urinary frequency, urinary urgency, urinary retention. MUSCULOSKELETAL: Admits to weakness. GASTROINTESTINAL: Admits to hematochezia; denies epistaxis, hematemesis, hemoptysis, hematuria, vaginal bleeding, easy bruising/bleeding. SKIN: Denies skin rashes, lesions. NEUROLOGICAL: Denies numbness, tingling. PSYCHIATRIC: Mood is stable. ENDOCRINE: Admits to decreased appetite; denies weight changes. HEMATOLOGIC/LYMPHATIC: Denies lymphadenopathy. ALLERGIC/IMMUNOLOGIC: Denies allergy symptoms. PHYSICAL EXAMINATION: VITAL SIGNS: Please see below. GENERAL APPEARANCE: Gaunt, frail-appearing female, examined at bedside , no acute distress. HEENT: Atraumatic, normocephalic, PERRL, EOMI, oral mucosa appears dry, JVD @3- 4cm above the clavicle, nares are patent with NC in place, nasal septum appears midline, skin is pale with prominent vascular markings RESPIRATORY: Crackles appreciated throughout lung lobes. CARDIOVASCULAR: Irregularly irregular heart rate and rhythm, grade II/ systolic murmur appreciated bilaterally at the left and right second intercostal space. ABDOMEN: Flat, tender to palpation around the upper abdomen, tympanic throughout , somewhat more firm area rectangular in shape appreciated lateral of midline on the left without cutaneous erythema or edema appreciated EXTREMITIES: +1 pitting edema appreciated in the lower extremities bilaterally with chronic venous stasis changes appreciated, hands and particularly fingers are somewhat discolored and bluish in color NEUROLOGICAL: CN II-XII grossly intact PSYCHIATRIC: Alert and conversant, pleasant LABORATORY DATA: Please see below. ASSESSMENT/PLAN: Ms. Novak is a 61-year-old female with a past medical history significant for secondary pulmonary hypertension, hypothyroidism , scleroderma, interstitial fibrosis, obstructive sleep apnea, paroxysmal atrial fibrillation, osteopenia, right-sided heart failure with a LVEF 55-60, Raynaud's phenomenon, iatrogenic adrenal insufficiency, dyslipidemia, renal insufficiency, iron deficiency anemia, chronic back pain, and gastroesophageal reflux disease who presents for gastrointestinal bleeding. 1. Acute renal failure superimposed on chronic kidney disease: Baseline creatinine for patient is 1.5-1.6. Likely secondary to volume depletion secondary to gastrointestinal bleed. Monitor closely with BMP. Recheck at 2pm. Holding Bumetanide. 2. Hyperkalemia: Likely secondary to dehydration secondary to gastrointestinal bleeding and acute renal failure. Holding Spironolactone. Monitor with BMP. cont IVF and avoid SPS in the setting of GI bleed. 3. Hyponatremia: Hypovolemic secondary to gastrointestinal bleeding and acute renal failure. Give NS bolus. Recheck at 2pm. 4. Gastrointestinal bleeding: Source of bleeding yet to be identified. No acute findings on CT of abdomen and pelvis. Likely small bowel or upper colonic gastrointestinal bleed. Patient to receive three units of PRBC. Hemoglobin and hematocrit to be monitored closely. Currently admitted to the ICU for close observation. Gastroenterology has been consulted. Discontinuing Eliquis for the time-being. Continue with Zofran and Protonix. will give 2 unit FFP as well. 5. Hypotension: Related to being volume depletion secondary to gastrointestinal bleed. Continue to monitor. Should improve with blood transfusion. Holding Verapamil, Bumetanide, and Spironolactone. Bedrest. 6. Secondary pulmonary hypertension: Continue with Revatio. Oxygen therapy to maintain saturation between 88-92%. 7. Paroxysmal atrial fibrillation: Currently rate controlled. Continue with Digoxin. Holding Eliquis at this time secondary to acute gastrointestinal bleed. 8. Hypothyroidism: Continue with Levothyroxine. DISPOSITION: Thank you for the consult. We will continue to follow Ms. Novak while she is in the hospital. Vital Signs/I&O Vital Signs Date Time Temp Pulse Resp B/P (MAP) Pulse Ox O2 Delivery O2 Flow Rate FiO2 07/18/17 13:26 Nasal Cannula 2.0 07/18/17 13:10 97.4 77 24 94/53 (67) 94 I&O- Last 24 Hours up to 6 AM 07/19/17 06:00 Intake Total 0 ml Output Total 0 ml Balance 0 ml Laboratory Data Labs 24H Laboratory Tests 2 07/18/17 09:58: Immature Granulocyte % (Auto) 1.9H, White Blood Count 5.3, Red Blood Count 2.06L , Hemoglobin 6.5*L, Hematocrit 20.2L, Mean Corpuscular Volume 98.1H, Mean Corpuscular Hemoglobin 31.6, Mean Corpuscular Hemoglobin Concent 32.2, Red Cell Distribution Width 15.3H, Platelet Count 157, Neutrophils (%) (Auto) 76.1H, Lymphocytes (%) (Auto) 12.3L, Monocytes (%) (Auto) 9.1H, Eosinophils (%) (Auto) 0.4, Basophils (%) (Auto) 0.2, Neutrophils # (Auto) 4.0, Lymphocytes # (Auto) 0.7L, Monocytes # (Auto) 0.5, Eosinophils # (Auto) 0.0, Basophils # (Auto) 0.0, Immature Granulocyte # (Auto) 0.1H, Nucleated Red Blood Cells % (auto) 0.0, Prothrombin Time 21.6H, Prothromb Time International Ratio 1.82, Activated Partial Thromboplast Time 38.6H, Anion Gap 8, Glomerular Filtration Rate 16.1L, Calcium Level 8.2L, Aspartate Amino Transf (AST/SGOT) 16, Alanine Aminotransferase (ALT/SGPT) 18, Alkaline Phosphatase 127H, Total Bilirubin 0.5, Direct Bilirubin 0.3H, Troponin I 0.06, Total Protein 6.4, Albumin 2.8L, Albumin /Globulin Ratio 0.78L, Lipase 73 07/18/17 10:00: Lactic Acid Level 1.1 CBC/BMP Laboratory Tests 07/18/17 09:58 Red Blood Count 2.06 L, Mean Corpuscular Volume 98.1 H, Mean Corpuscular Hemoglobin 31.6, Mean Corpuscular Hemoglobin Concent 32.2, Red Cell Distribution Width 15.3 H, Neutrophils (%) (Auto) 76.1 H, Lymphocytes (%) (Auto ) 12.3 L, Monocytes (%) (Auto) 9.1 H, Eosinophils (%) (Auto) 0.4, Basophils (%) (Auto) 0.2, Neutrophils # (Auto) 4.0, Lymphocytes # (Auto) 0.7 L, Monocytes # ( Auto) 0.5, Eosinophils # (Auto) 0.0, Basophils # (Auto) 0.0 Allergies Coded Allergies: No Known Allergies (Verified , 11/24/16) Home Medications Scheduled (Letairis) 5 Mg Tab, 10 MG PO DAILY, (Reported) (Carolina-Dangelo) 1 Tab Tab, 1 TAB PO DAILY, (Reported) Apixaban Base (Eliquis) 5 Mg Tab, 5 MG PO BID, (Reported) Bumetanide (Bumetanide) 1 Mg Tab, 1 MG PO BID, (Reported) Calcitriol (Calcitriol) 0.25 Mcg Cap, 0.25 MCG PO QHS, (Reported) Calcium/Vitamin D (Calcium 600+D3 600-400 mg-Unit) 1 Tab Tab, 1 TAB PO DAILY, ( Reported) TAKES AT NOON Digoxin (Digoxin) 0.125 Mg Tab, 0.125 MG PO DAILY, (Reported) Ferrous Gluconate (Ferrous Gluconate) 324 Mg Tab, 324 MG PO BID, (Reported) Levothyroxine Sodium (Synthroid) 125 Mcg Tab, 125 MCG PO DAILY, (Reported) Omeprazole (Omeprazole) 40 Mg Cap, 40 MG PO QHS, (Reported) Pravastatin Sodium (Pravachol) 20 Mg Tab, 20 MG PO QHS, (Reported) Prednisone (Prednisone) 5 Mg Tab, 5 MG PO QHS, (Reported) Sildenafil Citrate (Revatio) 20 Mg Tab, 40 MG PO TID, (Reported) Spironolactone (Spironolactone) 25 Mg Tab, 25 MG PO DAILY, (Reported) TAKES AT NOON Treprostinil (Tyvaso) 0.6 Mg/Ml Ly, 1 NEB INH QID, (Reported) Verapamil HCl (Verapamil HCl) 80 Mg Tab, 80 MG PO BID, (Reported) TAKES AM AND 1500, HOLD IF HR < 60 Scheduled PRN Benzonatate (Benzonatate) 100 Mg Cap, 100 MG PO TID PRN for COUGH, (Reported) Bisacodyl (Bisacodyl) 10 Mg Sup, 10 MG UT DAILY PRN for CONSTIPATION, (Reported) Docusate Sod/Senna (Senna S 8.6-50 mg) 1 Tab Tab, 1 TAB PO BID PRN for CONSTIPATION, (Reported) Hydrocortisone (Hydrocortisone 2.5%) 1 Dose/20 Gm Oint, 1 DOSE TOP DAILY PRN for RASH/ITCHING, (Reported) USES ON ANKLES Mupirocin (Mupirocin) 2 % Oin, 1 DOSE EXT TID PRN for REDNESS/IRRITATION, ( Reported) USES ON FINGERS Tramadol HCl (Tramadol HCl) 50 Mg Tab, 100 MG PO TID PRN for PAIN, (Reported) OKSANA KAPLAN DO Jul 18, 2017 14:35 SHANT LAMA MD Jul 19, 2017 22:42
[2017-07-18 14:48] LABS: CALCIUM LEVEL 8.1 MG/DL (8.8-10.2); CREATININE FOR GFR 2.92 MG/DL (0.55-1.02); GLOMERULAR FILTRATION RATE 17.4 (>45)
[2017-07-18 14:49] LABS: POTASSIUM SERUM 5.8 MEQ/L (3.5-5.1)
[2017-07-18] MEDS ORDERED: DEXTROSE 50% 50 ML SYRINGE As Ordered ONE (15:06)
[2017-07-18] MEDS: SILDENAFIL CITRATE 20 MG TABLET (REVATIO) PO SCH ×2 (15:11→21:11)
[2017-07-18] MEDS ORDERED: DEXTROSE 50% 50 ML SYRINGE IV ONE (15:15)
[2017-07-18] MEDS ORDERED: NS 500 ML IV ONE (16:45)
[2017-07-18 18:24] LABS: CALCIUM LEVEL 7.8 MG/DL (8.8-10.2); CREATININE FOR GFR 2.64 MG/DL (0.55-1.02); GLOMERULAR FILTRATION RATE 19.6 (>45)
[2017-07-18 18:28] LABS: POTASSIUM SERUM 5.7 MEQ/L (3.5-5.1)
[2017-07-18] MEDS: PANTOPRAZOLE 40MG INJ (PROTONIX) (C9113) IV SCH (21:11)
--- NOTE | 2017-07-18 21:18 | ECGEPIP ---
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
[2017-07-19] VITALS (30 sets, daily range): BP systolic 89–115; BP diastolic 50–59
[2017-07-19] MEDS: HYDROCORTISONE 100 MG/2 ML VIAL (J1720) IV SCH ×2 (00:53→12:27)
[2017-07-19] MEDS: NS 1,000 ML IV SCH ×3 (03:41→13:17)
[2017-07-19 05:29] LABS: BASO % 0.2 % (0.0-1.0); IMMATURE GRANULOCYTE % 1.2 % (0-0); LYMPH # 0.5 10^3/uL (1.5-4.5); LYMPH % 7.8 % (24.0-44.0); MEAN CORPUSCULAR HEMOGLOBIN 30.5 pg (27.0-33.0); MEAN CORPUSCULAR HGB CONC 32.1 g/dl (32.0-36.5); MEAN CORPUSCULAR VOLUME 95.1 fl (80.0-96.0); MONO # 0.2 10^3/uL (0.0-0.8); NEUTROPHILS % 86.8 % (36.0-66.0); PLATELET COUNT, AUTOMATED 146 10^3/uL (150-450); RED CELL DISTRIBUTION WIDTH 17.9 % (11.5-14.5); WHITE BLOOD COUNT 5.8 10^3/uL (4.0-10.0)
[2017-07-19] MEDS: BENZONATATE 100 MG CAP PO PRN ×2 (05:29→12:27)
[2017-07-19 05:38] LABS: INR 1.44
[2017-07-19 05:44] LABS: CALCIUM LEVEL 8.4 MG/DL (8.8-10.2); CREATININE FOR GFR 2.29 MG/DL (0.55-1.02); GLOMERULAR FILTRATION RATE 23.1 (>45)
[2017-07-19 05:48] LABS: POTASSIUM SERUM 5.5 MEQ/L (3.5-5.1)
[2017-07-19] MEDS: PANTOPRAZOLE 40MG INJ (PROTONIX) (C9113) IV SCH ×2 (08:46→20:05)
[2017-07-19] MEDS: DIGOXIN INJ 0.5 MG/2 ML AMP (J1160) IV SCH (08:48)
[2017-07-19] MEDS: SILDENAFIL CITRATE 20 MG TABLET (REVATIO) PO SCH ×3 (08:48→20:05)
[2017-07-19] MEDS: LEVOTHYROXINE 100 MCG (0.1MG) VIAL IV SCH (08:50)
[2017-07-19] MEDS: TREPROSTINIL 1.74 MG/2.9 ML INH SCH (09:00)
[2017-07-19 13:09] LABS: BASO % 0.2 % (0.0-1.0); IMMATURE GRANULOCYTE % 1.4 % (0-0); LYMPH # 0.7 10^3/uL (1.5-4.5); LYMPH % 11.3 % (24.0-44.0); MEAN CORPUSCULAR HGB CONC 32.7 g/dl (32.0-36.5); MEAN CORPUSCULAR VOLUME 94.7 fl (80.0-96.0); MONO # 0.4 10^3/uL (0.0-0.8); MONO % 6.8 % (0.0-5.0); NEUTROPHILS % 80.3 % (36.0-66.0); PLATELET COUNT, AUTOMATED 148 10^3/uL (150-450); RED CELL DISTRIBUTION WIDTH 17.8 % (11.5-14.5); WHITE BLOOD COUNT 6.2 10^3/uL (4.0-10.0)
[2017-07-19] MEDS ORDERED: ACETAMINOPHEN TAB 650MG DOSE (2X325MG) PO PRN (13:15)
[2017-07-19 13:28] LABS: CALCIUM LEVEL 8.6 MG/DL (8.8-10.2); CREATININE FOR GFR 2.13 MG/DL (0.55-1.02); GLOMERULAR FILTRATION RATE 25.1 (>45)
[2017-07-19 13:35] LABS: POTASSIUM SERUM 5.4 MEQ/L (3.5-5.1)
--- NOTE | 2017-07-19 14:38 | IPNPDOC ---
Subjective Date Seen The patient was seen on 07/19/17. Subjective Chief Complaint/HPI The patient is a 61-year-old female admitted with a reason for visit of Gib ( Gastrointestinal Bleeding). Events since last encounter Ms. Novak reports that she is feeling somewhat better this morning. Her last bowel movement was at approximately 4-5 AM, and it still was bloody, however it was quite a small bowel movement, which she feels as though her bowels are still going down significantly. She is also no longer experiencing the abdominal pain that she had yesterday and last night. She also does feel as though she is regaining some of her strength, albeit she is still quite weak. Otherwise, she has no additional complaints this morning. General: Denies: Fatigue, Malaise Constitutional: Denies: Chills, Fever, Night Sweats ENT: Denies: Head Aches, Sore Throat Skin: Denies: Rash, Lesions, Bruising Pulmonary: Denies: Dyspnea, Cough Cardiovascular: Denies: Chest Pain, Palpitations Gastrointestinal: Reports: Diarrhea, Denies: Nausea, Vomiting, Abdominal Pain Neurological: Reports: Weakness (generalized) Objective Physical Examination General Exam: Positive: Alert, Cooperative, Mild Distress Eye Exam: Positive: Conjunctiva & lids normal, EOMI, Negative: Sclera icteric, Ptosis Neck Exam: Negative: JVD Chest Exam: Positive: Rales (she does have crackles at the bases, however these are chronic, therefore not as useful in assessing whether or not she has been given too much fluids), Negative: Rhonchi, Wheezing Heart Exam: Positive: Tachycardic, Murmurs (2/6 systolic), Negative: Gallops, Rubs Abdomen Exam: Positive: BS Hyperactive, Soft, Negative: Tenderness Extremity Exam: Positive: Normal pulses, Negative: Clubbing, Cyanosis, Edema Skin Exam: Positive: Nl turgor and temperature, Negative: Rash Neuro Exam: Positive: Normal Speech, Cranial Nerves 3-12 NL Psych Exam: Positive: Mental status NL, Mood NL, Oriented x 3 Assessment /Plan Problems (1) GIB (gastrointestinal bleeding) Status: Acute (2) Anemia Status: Acute (3) Abdominal pain Status: Acute (4) Acute renal failure superimposed on chronic kidney disease Status: Acute (5) Cor pulmonale (chronic) Status: Chronic (6) Dyslipidemia Status: Chronic (7) Pulmonary hypertension Status: Chronic (8) Hypothyroidism Status: Chronic (9) Afib Status: Chronic (10) Chronic respiratory failure with hypoxia Status: Chronic (11) COPD (chronic obstructive pulmonary disease) Status: Chronic (12) Scleroderma Status: Chronic (13) Rheumatoid arthritis Status: Chronic (14) Pulmonary fibrosis Status: Chronic (15) Obstructive sleep apnea on CPAP Status: Chronic Plan/VTE VTE Prophylaxis Ordered?: No VTE Exclusion Pharmacological: Active Bleeding Plan The patient has now received 5 units of blood as well as in 2 units of FFP, and a small bolus of saline. Her pressures are still soft, however her tachycardia is slowly improving. Clinically she does appear to be improving as well, and her bowel movements have slowed down. She does appear to be stabilizing for the moment. Repeat H&H at 1300 is 8.8. Nephrology has been consulted regarding her acute on chronic renal failure, their input and the matters greatly appreciated. Dr. Robles of gastroenterology is also been contacted, it sounds as though she'll be put on the schedule for a scope on Monday if she continues to be stable at that time. Otherwise, we will continue with serial H&H 's and will continue to give her blood as necessary. She is on GI prophylaxis of Protonix twice a day. VS, I&O, 24H, Fishbone Vital Signs/I&O Vital Signs Date Time Temp Pulse Resp B/P (MAP) Pulse Ox O2 Delivery O2 Flow Rate FiO2 07/19/17 12:00 Nasal Cannula 2.0 07/19/17 12:00 98.2 97 16 108/55 (72) 95 I&O- Last 24 Hours up to 6 AM 07/20/17 06:00 Intake Total 750 ml Output Total 375 ml Balance 375 ml Laboratory Data 24H LABS Laboratory Tests 2 07/18/17 17:43: Anion Gap 10, Glomerular Filtration Rate 19.6L, Blood Urea Nitrogen 67H, Creatinine 2.64H, Sodium Level 128L, Potassium Level 5.7H, Chloride Level 93L, Carbon Dioxide Level 25, Calcium Level 7.8L, Troponin I 0.06 07/19/17 00:35: Bedside Glucose (Misc Panel) 74L 07/19/17 05:18: Anion Gap 10, Glomerular Filtration Rate 23.1L, Blood Urea Nitrogen 62H, Creatinine 2.29H, Sodium Level 130L, Potassium Level 5.5H, Chloride Level 97L, Carbon Dioxide Level 23, Calcium Level 8.4L, Immature Granulocyte % (Auto) 1.2H , White Blood Count 5.8, Red Blood Count 2.23L, Hemoglobin 6.8*L, Hematocrit 21.2L, Mean Corpuscular Volume 95.1, Mean Corpuscular Hemoglobin 30.5, Mean Corpuscular Hemoglobin Concent 32.1, Red Cell Distribution Width 17.9H, Platelet Count 146L, Neutrophils (%) (Auto) 86.8H, Lymphocytes (%) (Auto) 7.8L, Monocytes (%) (Auto) 4.0, Eosinophils (%) (Auto) 0.0, Basophils (%) (Auto) 0.2, Neutrophils # (Auto) 5.0, Lymphocytes # (Auto) 0.5L, Monocytes # (Auto) 0.2, Eosinophils # (Auto) 0.0, Basophils # (Auto) 0.0, Immature Granulocyte # (Auto) 0.1H, Nucleated Red Blood Cells % (auto) 0.0, Prothrombin Time 17.9H, Prothromb Time International Ratio 1.44 07/19/17 13:01: Anion Gap 8, Glomerular Filtration Rate 25.1L, Blood Urea Nitrogen 62H, Creatinine 2.13H, Sodium Level 131L, Potassium Level 5.4H, Chloride Level 97L, Carbon Dioxide Level 26, Calcium Level 8.6L, Immature Granulocyte % (Auto) 1.4H , White Blood Count 6.2, Red Blood Count 2.84L, Hemoglobin 8.8#L, Hematocrit 26.9L, Mean Corpuscular Volume 94.7, Mean Corpuscular Hemoglobin 31.0, Mean Corpuscular Hemoglobin Concent 32.7, Red Cell Distribution Width 17.8H, Platelet Count 148L, Neutrophils (%) (Auto) 80.3H, Lymphocytes (%) (Auto) 11.3L , Monocytes (%) (Auto) 6.8H, Eosinophils (%) (Auto) 0.0, Basophils (%) (Auto) 0.2, Neutrophils # (Auto) 5.0, Lymphocytes # (Auto) 0.7L, Monocytes # (Auto) 0.4 , Eosinophils # (Auto) 0.0, Basophils # (Auto) 0.0, Immature Granulocyte # (Auto ) 0.1H, Nucleated Red Blood Cells % (auto) 0.3H CBC/BMP Laboratory Tests 07/18/17 17:43 Calcium Level 7.8 L 07/19/17 05:18 Calcium Level 8.4 L, Red Blood Count 2.23 L, Mean Corpuscular Volume 95.1, Mean Corpuscular Hemoglobin 30.5, Mean Corpuscular Hemoglobin Concent 32.1, Red Cell Distribution Width 17.9 H, Neutrophils (%) (Auto) 86.8 H, Lymphocytes (%) (Auto ) 7.8 L, Monocytes (%) (Auto) 4.0, Eosinophils (%) (Auto) 0.0, Basophils (%) ( Auto) 0.2, Neutrophils # (Auto) 5.0, Lymphocytes # (Auto) 0.5 L, Monocytes # ( Auto) 0.2, Eosinophils # (Auto) 0.0, Basophils # (Auto) 0.0 07/19/17 13:01 Calcium Level 8.6 L, Red Blood Count 2.84 L, Mean Corpuscular Volume 94.7, Mean Corpuscular Hemoglobin 31.0, Mean Corpuscular Hemoglobin Concent 32.7, Red Cell Distribution Width 17.8 H, Neutrophils (%) (Auto) 80.3 H, Lymphocytes (%) (Auto ) 11.3 L, Monocytes (%) (Auto) 6.8 H, Eosinophils (%) (Auto) 0.0, Basophils (%) (Auto) 0.2, Neutrophils # (Auto) 5.0, Lymphocytes # (Auto) 0.7 L, Monocytes # ( Auto) 0.4, Eosinophils # (Auto) 0.0, Basophils # (Auto) 0.0 BRANDY NAVARRETE DO Jul 19, 2017 14:38
[2017-07-20] VITALS (20 sets, daily range): BP systolic 92–130; BP diastolic 50–68
[2017-07-20] MEDS: NS 1,000 ML IV SCH ×3 (00:29→21:23)
[2017-07-20] MEDS: HYDROCORTISONE 100 MG/2 ML VIAL (J1720) IV SCH ×2 (00:29→14:02)
[2017-07-20] MEDS: BENZONATATE 100 MG CAP PO PRN ×2 (03:05→09:38)
[2017-07-20 05:17] LABS: MEAN CORPUSCULAR HEMOGLOBIN 30.8 pg (27.0-33.0); MEAN CORPUSCULAR HGB CONC 32.1 g/dl (32.0-36.5); PLATELET COUNT, AUTOMATED 129 10^3/uL (150-450); WHITE BLOOD COUNT 4.9 10^3/uL (4.0-10.0)
[2017-07-20 05:33] LABS: INR 1.3
[2017-07-20 05:49] LABS: CALCIUM LEVEL 7.9 MG/DL (8.8-10.2); CREATININE FOR GFR 1.77 MG/DL (0.55-1.02)
[2017-07-20] MEDS ORDERED: DEXTROSE 50% 50 ML SYRINGE IV PRN (06:00)
[2017-07-20] MEDS ORDERED: GLUCAGON FOR INJ 1 MG VIAL (J1610) SC PRN (06:00)
[2017-07-20] MEDS ORDERED: GLUCOSE 4 GM CHEW TABLET PO PRN (06:00)
--- NOTE | 2017-07-20 06:07 | IPN ---
DATE: 07/19/2017 SUBJECTIVE: The patient was seen and examined at the bedside today morning in the intensive care unit (ICU). Her family members were also present at the bedside. The patient is hemodynamically stable. Her hemoglobin is still low. She is getting packed red blood cells (PRBCs) transfusion; however, her renal function is slightly better today as compared with yesterday, and hyperkalemia is also within the acceptable range. REVIEW OF SYSTEMS: The patient denies any fevers, chills, rigors, headaches, nausea, vomiting. She denies any chest pain, shortness of breath. She reports that her abdominal pain is better, and her stools are getting more clear now, and she feels like her bleeding is stopping. Rest of review of systems is negative. OBJECTIVE: VITAL SIGNS: Temperature is 98.1 degrees Fahrenheit, blood pressure is 113/58, pulse is 96, respiratory rate of 16, saturating 95% on nasal cannula at two liters. INTAKE AND OUTPUT: Urine output recorded as 550 mL yesterday, 825 mL so far today since overnight. Weight in the bed scale is 65.4 kg. PHYSICAL EXAMINATION: GENERAL: The patient is awake, alert, and oriented times three, sitting in the chair, no apparent distress. HEAD/NECK: Extraocular muscles intact. Pupils equal, round, and reactive to light. The patient has conjunctival pallor. Neck is supple. There is no jugular venous distention (JVD). CARDIOVASCULAR: S1, S2, irregularly irregular heart rate. Grade 2/6 systolic murmur. RESPIRATORY: Clear to auscultation bilaterally, bilateral equal air entry. No rales or rhonchi. ABDOMEN: Soft, mildly tender to deep palpation in the left lower quadrant. Otherwise no organomegaly. MUSCULOSKELETAL: No clubbing or cyanosis. Pulses are 2+. 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 Power is 5/5 in all extremities. PSYCHIATRIC: Normal mood and affect. LABORATORY DATA: CBC done this morning showed a WBC of 5.8, hemoglobin 6.8, platelets of 146. BMP showed sodium 130, potassium 5.5, chloride 97, bicarbonate 23, BUN 62, creatinine 2.29, it was 26 yesterday. CURRENT INPATIENT MEDICATIONS: The patient's medications are all reviewed by me. She continues to be on intravenous (IV) normal saline at 100 mL an hour, and she is getting the blood transfusion at this time. ASSESSMENT: 61-year-old female with past medical history of scleroderma, chronic kidney disease stage III, atrial fibrillation on Eliquis, admitted this time because of gastrointestinal (GI) bleeding and acute kidney injury. PLAN: 1. Acute kidney injury superimposed on chronic kidney disease: The patient's baseline creatinine is around 1.5. Acute kidney injury (SU) is secondary to volume depletion and use of diuretics. Continue the IV fluid hydration. Continue to hold diuretics. Transfuse as needed. Renal function is improving. 2. Hyperkalemia: Hyperkalemia is secondary to dehydration, autodigestion of blood in the GI tract and use of spironolactone. Potassium level is improving. Continue the current fluid hydration which will help improve hyperkalemia as well. 3. Hyponatremia: The patient has hypovolemic hyponatremia. Hold the diuretics. Continue normal saline. Sodium is nicely improving. A repeat sodium level done in the evening today is 131. 4. Paroxysmal atrial fibrillation: Heart rate is controlled at this time. Continue digoxin. Eliquis was held. The patient was given two units of fresh frozen plasma (FFP) yesterday. MTDD
[2017-07-20] MEDS: TREPROSTINIL 1.74 MG/2.9 ML INH SCH (08:44)
[2017-07-20] MEDS: PANTOPRAZOLE 40MG INJ (PROTONIX) (C9113) IV SCH ×2 (09:09→21:23)
[2017-07-20] MEDS: LEVOTHYROXINE 100 MCG (0.1MG) VIAL IV SCH (09:10)
[2017-07-20] MEDS: DIGOXIN INJ 0.5 MG/2 ML AMP (J1160) IV SCH (09:11)
[2017-07-20] MEDS: SILDENAFIL CITRATE 20 MG TABLET (REVATIO) PO SCH ×3 (09:15→21:23)
[2017-07-20] MEDS ORDERED: CALCIUM GLUCONATE 1,000 MG in D5W MINI-BAG PLUS 100 ML IV ONE (09:15)
[2017-07-20 09:53] LABS: MAGNESIUM LEVEL 2.1 MG/DL (1.8-2.4); PHOSPHORUS LEVEL 3.3 MG/DL (2.5-4.9)
[2017-07-20] MEDS ORDERED: GOLYTELY SOLN 4000 ML BTL PO ONE (11:00)
--- NOTE | 2017-07-20 12:00 | IPNPDOC ---
Date Seen The patient was seen on 07/20/17. Progress Note SUBJECTIVE: The patient was seen and examined at the bedside this morning in the intensive care unit (ICU). Patient continues to pass "dottie" colored stool, but bowel movements are small and there is no mayito red blood. Patient states that she feels better today and does not have much fluid on her lower extremities. REVIEW OF SYSTEMS: The patient denies any fevers, chills, rigors, headaches, nausea, vomiting. She denies any chest pain, shortness of breath. She reports that her abdominal pain is better, and her stools are getting more clear now, and she feels like her bleeding is stopping. Rest of review of systems is negative. PHYSICAL EXAMINATION: GENERAL: The patient is awake, alert, and oriented times three, sitting in the chair, no apparent distress. HEAD/NECK: Extraocular muscles intact. Pupils equal, round, and reactive to light. The patient has conjunctival pallor. Neck is supple. There is no jugular venous distention (JVD). CARDIOVASCULAR: S1, S2, irregularly irregular heart rate. Grade 2/6 systolic murmur. RESPIRATORY: Crackles appreciated bilaterally, which is chronic. ABDOMEN: Soft, mildly tender to deep palpation in the left lower quadrant. Otherwise no organomegaly. MUSCULOSKELETAL: No clubbing or cyanosis. Pulses are 2+. CENTRAL NERVOUS SYSTEM (DISTILLERY MANAGER): No focal neurological deficit. Power is 5/5 in all extremities. PSYCHIATRIC: Normal mood and affect. LABORATORY DATA: See below. CURRENT INPATIENT MEDICATIONS: The patient's medications are all reviewed by myself and my attending.. She continues to be on intravenous (IV) normal saline at 100 mL an hour. Will be receiving one unit of PRBC. Also gave Calcium Gluconate 1g IV. Corrected calcium was 8.9. ASSESSMENT: 61-year-old female with past medical history of scleroderma, chronic kidney disease stage III, atrial fibrillation on Eliquis, admitted this time because of gastrointestinal (GI) bleeding and acute kidney injury. PLAN: 1. Acute kidney injury superimposed on chronic kidney disease: The patient's baseline creatinine is around 1.5. Current creatinine is 1.77. Acute kidney injury (SU) is secondary to volume depletion and use of diuretics. Continue the IV fluid hydration. Continue to hold diuretics. Transfuse one unit of PRBC. Renal function is improving. Urine output was 1025mL overnight. 2. Hypocalcemia: Corrected calcium was 8.9. Patient has received large volume blood transfusion which causes a metabolic alkalosis due to blood product being citrated which in turns binds to calcium causing hypocalcemia. Will give Calcium Gluconate 1g IV to mitigate this. 3. Hyperkalemia: Hyperkalemia is secondary to dehydration, autodigestion of blood in the GI tract and use of spironolactone. Potassium level has normalized. Continue the current fluid hydration which will help improve hyperkalemia as well. 4. Hyponatremia: The patient has hypovolemic hyponatremia. Hold the diuretics. Continue normal saline. Sodium is nicely improving. A repeat sodium level done in the evening today is 133. 5. Hypoglycemia: Morning labs revealed a blood glucose of 38. Recheck an hour later revealed a bedside fingerstick blood glucose of 108. 6. Paroxysmal atrial fibrillation: Heart rate is controlled at this time. Continue digoxin. Eliquis was held. The patient was given two units of fresh frozen plasma (FFP). DISPOSITION: Receiving one unit of PRBC. Continue to hold nephrotoxic agents. Patient will be going to EGD and colonoscopy with gastroenterology. VS, I&O, [facility] V[facility]/I&O Vital Signs Date Time Temp Pulse Resp B/P (MAP) Pulse Ox O2 Delivery O2 Flow Rate FiO2 07/20/17 09:11 111 07/20/17 04:00 98.2 16 106/55 (72) 98 Nasal Cannula 2.0 Laboratory Data 24H LABS Laboratory Tests 2 07/19/17 13:01: Immature Granulocyte % (Auto) 1.4H, White Blood Count 6.2, Red Blood Count 2.84L , Hemoglobin 8.8#L, Hematocrit 26.9L, Mean Corpuscular Volume 94.7, Mean Corpuscular Hemoglobin 31.0, Mean Corpuscular Hemoglobin Concent 32.7, Red Cell Distribution Width 17.8H, Platelet Count 148L, Neutrophils (%) (Auto) 80.3H, Lymphocytes (%) (Auto) 11.3L, Monocytes (%) (Auto) 6.8H, Eosinophils (%) (Auto) 0.0, Basophils (%) (Auto) 0.2, Neutrophils # (Auto) 5.0, Lymphocytes # (Auto) 0.7L, Monocytes # (Auto) 0.4, Eosinophils # (Auto) 0.0, Basophils # (Auto) 0.0, Immature Granulocyte # (Auto) 0.1H, Nucleated Red Blood Cells % (auto) 0.3H, Anion Gap 8, Glomerular Filtration Rate 25.1L, Blood Urea Nitrogen 62H, Creatinine 2.13H, Sodium Level 131L, Potassium Level 5.4H, Chloride Level 97L, Carbon Dioxide Level 26, Calcium Level 8.6L 07/20/17 05:02: Nucleated Red Blood Cells % (auto) 0.0, Anion Gap 10, Glomerular Filtration Rate 31.0L, Blood Urea Nitrogen 54H, Creatinine 1.77H, Sodium Level 133L, Potassium Level 5.0, Chloride Level 102, Carbon Dioxide Level 21, Calcium Level 7.9L, Prothrombin Time 16.5H, Prothromb Time International Ratio 1.30, Phosphorus Level 3.3, Magnesium Level 2.1 07/20/17 06:32: Bedside Glucose (Misc Panel) 108 CBC/BMP Laboratory Tests 07/19/17 13:01 Red Blood Count 2.84 L, Mean Corpuscular Volume 94.7, Mean Corpuscular Hemoglobin 31.0, Mean Corpuscular Hemoglobin Concent 32.7, Red Cell Distribution Width 17.8 H, Neutrophils (%) (Auto) 80.3 H, Lymphocytes (%) (Auto ) 11.3 L, Monocytes (%) (Auto) 6.8 H, Eosinophils (%) (Auto) 0.0, Basophils (%) (Auto) 0.2, Neutrophils # (Auto) 5.0, Lymphocytes # (Auto) 0.7 L, Monocytes # ( Auto) 0.4, Eosinophils # (Auto) 0.0, Basophils # (Auto) 0.0, Calcium Level 8.6 L 07/20/17 05:02 Red Blood Count 2.53 L, Mean Corpuscular Volume 96.0, Mean Corpuscular Hemoglobin 30.8, Mean Corpuscular Hemoglobin Concent 32.1, Red Cell Distribution Width 18.0 H, Calcium Level 7.9 L MATTHEW KAPLAN DO Jul 20, 2017 12:00
--- NOTE | 2017-07-20 20:10 | IPNPDOC ---
Subjective Date Seen The patient was seen on 07/20/17. Subjective Chief Complaint/HPI The patient is a 61-year-old female admitted with a reason for visit of Gib ( Gastrointestinal Bleeding). Events since last encounter Ms. Novak was sitting upright in the chair when I entered the room. She admits that she is feeling a little bit stronger. Yesterday she did have a small bloody bowel movement at approximately 5 PM, however she has not had any additional bowel movements since that time. She does appear to have a little more color in her skin. Otherwise, she denies any additional abdominal pain, and feels as though she might be up to trying some liquids. The remainder of her review of systems is negative. Objective Physical Examination General Exam: Positive: Alert, Cooperative, No Acute Distress Eye Exam: Positive: Conjunctiva & lids normal, EOMI, Negative: Sclera icteric, Ptosis Neck Exam: Negative: JVD Chest Exam: Positive: Rales (she does have crackles at the bases, however these are chronic), Negative: Rhonchi, Wheezing, Diminished Heart Exam: Positive: Rate Normal (borderline tachycardic), Irregular Rhythm, Murmurs (2/6 systolic), Negative: Gallops, Rubs Abdomen Exam: Positive: BS Hyperactive, Soft, Negative: Tenderness Extremity Exam: Positive: Normal pulses, Negative: Clubbing, Cyanosis, Edema Skin Exam: Negative: Rash Psych Exam: Positive: Mental status NL, Mood NL, Oriented x 3 Assessment /Plan Problems (1) GIB (gastrointestinal bleeding) Status: Acute (2) Anemia Status: Acute (3) Abdominal pain Status: Acute (4) Acute renal failure superimposed on chronic kidney disease Status: Acute (5) Hypoglycemia Status: Acute (6) Cor pulmonale (chronic) Status: Chronic (7) Dyslipidemia Status: Chronic (8) Pulmonary hypertension Status: Chronic (9) Hypothyroidism Status: Chronic (10) Afib Status: Chronic (11) Chronic respiratory failure with hypoxia Status: Chronic (12) COPD (chronic obstructive pulmonary disease) Status: Chronic (13) Scleroderma Status: Chronic (14) Rheumatoid arthritis Status: Chronic (15) Pulmonary fibrosis Status: Chronic (16) Obstructive sleep apnea on CPAP Status: Chronic Plan/VTE VTE Prophylaxis Ordered?: No VTE Exclusion Pharmacological: Active Bleeding Plan She was hypoglycemic this morning with a sugar of 38, and given the fact that her bleeding has significantly slowed down. I will start her on clear liquids diet and recommended we supplement with some juice at this time. We will check her fingersticks before meals and at bedtime for at least the next 24 hours, and supplement as necessary. She is not a diabetic therefore no insulin coverage should be necessary. With her strength returning I have changed her activity order to out of bed ad moo., and she is encouraged to take it slowly, but at least she will be able to use the restroom. Her H&H did drop to 7.8 this morning from 8.8 yesterday afternoon, and nephrology has ordered one additional unit of blood. Her renal function has plateaued a little, nephrology's input and the matters greatly appreciated. Otherwise, her hyperkalemia has resolved now, we will continue to monitor her electrolytes and kidney function on a daily basis. It still sounds like she is scheduled for a scope tomorrow with Dr. Robles, therefore she'll be made nothing by mouth after midnight tonight. VS, I&O, 24H, Fishbone Vital Signs/I&O Vital Signs Date Time Temp Pulse Resp B/P (MAP) Pulse Ox O2 Delivery O2 Flow Rate FiO2 07/20/17 17:00 97.3 102 16 123/64 (83) 95 Nasal Cannula 2.0 I&O- Last 24 Hours up to 6 AM 07/21/17 06:00 Intake Total 1250 ml Output Total 2700 ml Balance -1450 ml Laboratory Data 24H LABS Laboratory Tests 2 07/20/17 05:02: Nucleated Red Blood Cells % (auto) 0.0, Prothrombin Time 16.5H, Prothromb Time International Ratio 1.30, Anion Gap 10, Glomerular Filtration Rate 31.0L, Blood Urea Nitrogen 54H, Creatinine 1.77H, Sodium Level 133L, Potassium Level 5.0, Chloride Level 102, Carbon Dioxide Level 21, Calcium Level 7.9L, Phosphorus Level 3.3, Magnesium Level 2.1 07/20/17 06:32: Bedside Glucose (Misc Panel) 108 CBC/BMP Laboratory Tests 07/20/17 05:02 Red Blood Count 2.53 L, Mean Corpuscular Volume 96.0, Mean Corpuscular Hemoglobin 30.8, Mean Corpuscular Hemoglobin Concent 32.1, Red Cell Distribution Width 18.0 H, Calcium Level 7.9 L BRANDY NAVARRETE DO Jul 20, 2017 20:10
[2017-07-21] VITALS (9 sets, daily range): BP systolic 107–128; BP diastolic 53–66
[2017-07-21] MEDS: HYDROCORTISONE 100 MG/2 ML VIAL (J1720) IV SCH (01:28)
[2017-07-21 05:20] LABS: MEAN CORPUSCULAR HEMOGLOBIN 30.3 pg (27.0-33.0); MEAN CORPUSCULAR HGB CONC 32.3 g/dl (32.0-36.5); MEAN CORPUSCULAR VOLUME 93.8 fl (80.0-96.0); PLATELET COUNT, AUTOMATED 140 10^3/uL (150-450); WHITE BLOOD COUNT 5.7 10^3/uL (4.0-10.0)
[2017-07-21 05:34] LABS: CALCIUM LEVEL 8.6 MG/DL (8.8-10.2); CREATININE FOR GFR 1.27 MG/DL (0.55-1.02); GLOMERULAR FILTRATION RATE 45.5 (>45); POTASSIUM SERUM 4.5 MEQ/L (3.5-5.1)
[2017-07-21 05:37] LABS: INR 1.13
[2017-07-21] MEDS: TREPROSTINIL 1.74 MG/2.9 ML INH SCH (08:13)
[2017-07-21] MEDS: SILDENAFIL CITRATE 20 MG TABLET (REVATIO) PO SCH ×3 (09:59→20:14)
[2017-07-21] MEDS: DIGOXIN INJ 0.5 MG/2 ML AMP (J1160) IV SCH (09:59)
[2017-07-21] MEDS: PANTOPRAZOLE 40MG INJ (PROTONIX) (C9113) IV SCH ×2 (09:59→20:14)
[2017-07-21] MEDS: LEVOTHYROXINE 100 MCG (0.1MG) VIAL IV SCH (09:59)
[2017-07-21] MEDS ORDERED: D5W/0.45% SODIUM CHLORIDE 1,000 ML IV SCH (10:30)
[2017-07-21] MEDS ORDERED: PROPOFOL 200 MG/20 ML VIAL As Ordered ONE (14:23)
[2017-07-21] MEDS ORDERED: LIDOCAINE 2% INJ 100 MG/5 ML SDV (FOR ANES.) As Ordered ONE (14:23)
--- NOTE | 2017-07-21 14:30 | IPNPDOC ---
Date Seen The patient was seen on 07/21/17. Progress Note SUBJECTIVE: The patient was seen and examined at the bedside this morning in the intensive care unit (ICU). Patient states that her stool is now a yellow- fina color and she does not noticed any bright red blood or dark colored stools. Underwent bowel preparation yesterday for impending colonoscopy today. Patient says she feels better today. Has been nothing by mouth for procedures today with gastroenterology. REVIEW OF SYSTEMS: The patient denies any fevers, chills, rigors, headaches, nausea, vomiting. She denies any chest pain, shortness of breath. She reports that her abdominal pain is better, and her stools are getting more clear now, and she feels like her bleeding is stopping. Admits to diarrhea secondary to bowel preparation. Rest of review of systems is negative. PHYSICAL EXAMINATION: GENERAL: The patient is awake, alert, and oriented times three, sitting in the chair, no apparent distress. HEAD/NECK: Extraocular muscles intact. Pupils equal, round, and reactive to light. The patient has conjunctival pallor. Neck is supple. There is no jugular venous distention (JVD). CARDIOVASCULAR: S1, S2, irregularly irregular heart rate. Grade 2/6 systolic murmur. RESPIRATORY: Crackles appreciated bilaterally, which is chronic. ABDOMEN: Soft, improved tenderness with palpation of the left lower quadrant. Otherwise no organomegaly. MUSCULOSKELETAL: Cyanosis appreciated on hands bilaterally secondary to Raynaud' s phenomenon. Pulses are 2+. 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 Power is 5/5 in all extremities. PSYCHIATRIC: Normal mood and affect. LABORATORY DATA: See below. CURRENT INPATIENT MEDICATIONS: The patient's medications are all reviewed by myself and my attending. Normal saline intravenous fluid has been discontinued and have been adjusted to dextrose 5% with 0.45% normal saline at 60mLs/hr. This will continue until 6pm this evening and then be discontinued. Stress dose Hydrocortisone has been discontinued and patient has been restarted on home dose of Prednisone 5mg daily. ASSESSMENT: 61-year-old female with past medical history of scleroderma, chronic kidney disease stage III, atrial fibrillation on Eliquis, admitted this time because of gastrointestinal (GI) bleeding and acute kidney injury. PLAN: 1. Acute kidney injury superimposed on chronic kidney disease: The patient's baseline creatinine is around 1.5. Current creatinine is 1.27 which is greatly improved. Acute kidney injury (SU) is secondary to volume depletion and use of diuretics. Adjusted fluid management to dextrose 5% with 0.45 normal saline at 60mLs/hr. Continue to hold diuretics. Urine output was 550mL overnight. 2. Hypocalcemia: Normalized. Calcium is 8.6. 3. Hyperkalemia: Hyperkalemia is secondary to dehydration, autodigestion of blood in the GI tract and use of spironolactone. Potassium level has normalized. 4. Hyponatremia: The patient has hypovolemic hyponatremia. Hold the diuretics. Adjusted fluid management to dextrose 5% with 0.45% normal saline at 60mLs/hr. Fluids will be stopped at 6pm. Current sodium is 136. 5. Hypoglycemia: Morning blood glucose is 81. Adjusted fluid management to 5% dextrose with 0.45% normal saline at 60mLs/hr. Fluids will stop at 6pm. 6. Paroxysmal atrial fibrillation: Heart rate is controlled at this time. Continue digoxin. Eliquis was held. Patient has received a total of 5 units of PRBC and 2 units of FFP. DISPOSITION: Adjusted fluid management. Monitor BMP and CBC. Awaiting results of procedures with gastroenterology today. VS, I&O, 24H, Fishbone Vital Signs/I&O Vital Signs Date Time Temp Pulse Resp B/P (MAP) Pulse Ox O2 Delivery O2 Flow Rate FiO2 07/21/17 12:00 98.2 85 18 119/57 (77) 98 Nasal Cannula 2.0 I&O- Last 24 Hours up to 6 AM 07/22/17 06:00 Intake Total 400 ml Output Total 250 ml Balance 150 ml Laboratory Data 24H LABS Laboratory Tests 2 07/20/17 21:44: Bedside Glucose (Misc Panel) 38*L 07/20/17 21:56: Bedside Glucose Confirm (Misc) 73 07/20/17 23:28: Bedside Glucose (Misc Panel) 63L 07/21/17 00:05: Random Glucose 83 07/21/17 05:05: Nucleated Red Blood Cells % (auto) 0.0, Prothrombin Time 14.7H, Prothromb Time International Ratio 1.13, Anion Gap 10, Glomerular Filtration Rate 45.5, Blood Urea Nitrogen 32H, Creatinine 1.27H, Sodium Level 136, Potassium Level 4.5, Chloride Level 103, Carbon Dioxide Level 23, Calcium Level 8.6L 07/21/17 10:21: Bedside Glucose (Misc Panel) 55L 07/21/17 11:27: Bedside Glucose (Misc Panel) 82 CBC/BMP Laboratory Tests 07/21/17 05:05 Red Blood Count 3.20 L, Mean Corpuscular Volume 93.8, Mean Corpuscular Hemoglobin 30.3, Mean Corpuscular Hemoglobin Concent 32.3, Red Cell Distribution Width 18.0 H, Calcium Level 8.6 L MATTHEW KAPLAN DO Jul 21, 2017 14:30
--- NOTE | 2017-07-21 14:53 | ROOR ---
Patient Name: Kimberly Novak Procedure Date: 07/21/2017 2:18 PM Date of : 1955 Age: 61 Room: [facility] Gender: Female Note Status: Finalized Procedure: Total Colonoscopy to Cecum + Cold Snare Polypectomy + Hemoclips Indications: Gastrointestinal bleeding Providers: Mateus Robles MD Referring MD: [facility] [place] Requesting Provider: Medicines: Monitored Anesthesia Care Complications: No immediate complications. Procedure: Pre-Anesthesia Assessment: - The heart rate, respiratory rate, oxygen saturations, blood pressure, adequacy of pulmonary ventilation, and response to care were monitored throughout the procedure. The Colonoscope was introduced through the anus and advanced to the cecum, identified by appendiceal orifice and ileocecal valve. The colonoscopy was performed without difficulty. The patient tolerated the procedure well. The quality of the bowel preparation was excellent. Findings: The perianal and digital rectal examinations were normal. Hemorrhoids were found during retroflexion. The hemorrhoids were small and Grade I (internal hemorrhoids that do not prolapse). Multiple small and large-mouthed diverticula were found in the recto-sigmoid colon, sigmoid colon and descending colon. A medium polyp was found in the ascending colon. The polyp was pedunculated. The polyp was removed with a cold snare. Resection and retrieval were complete. To prevent bleeding after the polypectomy, two hemostatic clips were successfully placed (MR conditional). There was no bleeding at the end of the procedure. Multiple small diffuse angioectasias without bleeding were found in the entire colon. The exam was otherwise without abnormality. Impression: - Hemorrhoids. - Diverticulosis in the recto-sigmoid colon, in the sigmoid colon and in the descending colon. - One medium polyp in the ascending colon, removed with a cold snare. Resected and retrieved. Clips (MR conditional) were placed. - Multiple non-bleeding colonic angioectasias. - The examination was otherwise normal. - The exam was otherwise normal to the cecum. Recommendation: - Patient has a contact number available for emergencies. The signs and symptoms of potential delayed complications were discussed with the patient. Return to normal activities tomorrow. Written discharge instructions were provided to the patient. - High fiber diet. - Continue present medications. - Await pathology results. - Telephone GI clinic for pathology results in 1 week. - Repeat colonoscopy for surveillance based on pathology results. - Return to referring physician. - The findings and recommendations were discussed with the patient's family. - [facility] to [facility] for [facility] care. Mateus Robles MD Mateus Robles MD 07/21/2017 2:53:43 PM This report has been signed electronically. Number of Addenda: 0 Note Initiated On: 07/21/2017 2:18 PM Estimated Blood Loss: Estimated blood loss: none.
--- NOTE | 2017-07-21 14:55 | ROOR ---
Patient Name: Kimberly Novak Procedure Date: 07/21/2017 2:19 PM Date of : 1955 Age: 61 Room: [facility] Gender: Female Note Status: Finalized Procedure: Upper GI endoscopy Indications: Recent gastrointestinal bleeding Providers: Mateus Robles MD Referring MD[facility] Request[facility] Provider: Medicines: Monitored Anesthesia Care Complications: No immediate complications. Procedure: Pre-Anesthesia Assessment: - The heart rate, respiratory rate, oxygen saturations, blood pressure, adequacy of pulmonary ventilation, and response to care were monitored throughout the procedure. The Endoscope was introduced through the mouth, and advanced to the second part of duodenum. The upper GI endoscopy was accomplished without difficulty. The patient tolerated the procedure well. Findings: The Z-line was regular and was found 40 cm from the incisors. A small hiatal hernia was present. No other significant abnormalities were identified in a careful examination of the stomach. The exam of the duodenum was otherwise normal. Impression: - Z-line regular, 40 cm from the incisors. - Small hiatal hernia. - No specimens collected. - The examination was otherwise normal. Recommendation: - Patient has a contact number available for emergencies. The signs and symptoms of potential delayed complications were discussed with the patient. Return to normal activities tomorrow. Written discharge instructions were provided to the patient. - High fiber diet. - Discharge patient to home. - Continue present medications. - Return to referring physician. - The findings and recommendations were discussed with the patient's family. Mateus Robles MD Mateus Robles MD 07/21/2017 2:55:27 PM This report has been signed electronically. Number of Addenda: 0 Note Initiated On: 07/21/2017 2:19 PM Estimated Blood Loss: Estimated blood loss: none.
--- NOTE | 2017-07-21 19:01 | IPNPDOC ---
Subjective Date Seen The patient was seen on 07/21/17. Subjective Chief Complaint/HPI The patient is a 61-year-old female admitted with a reason for visit of Gib ( Gastrointestinal Bleeding). Events since last encounter Ms. Novak does not particularly enjoy drinking the GoLYTELY as a bowel prep, and she does report that she had multiple liquidy bowel movements which did have some blood mixed in them, however her pressures have remained stable and her pulse is improving, and she in fact does have a higher H&H. Otherwise, she is scheduled to go for her EGD and colonoscopy today with Dr. Robles and she is currently nothing by mouth. Otherwise, she is feeling significantly better than prior, and she has no additional complaints today, and the remainder of her review of systems is negative. Objective Physical Examination General Exam: Positive: Alert, No Acute Distress Eye Exam: Positive: Conjunctiva & lids normal, EOMI, Negative: Sclera icteric, Ptosis ENT Exam: Positive: Atraumatic, Mucous membr. moist/pink, Pharynx Normal Neck Exam: Negative: JVD Chest Exam: Positive: Rales (she does have crackles at the bases, however these are chronic), Negative: Rhonchi, Wheezing, Diminished Heart Exam: Positive: Rate Normal (borderline tachycardic), Irregular Rhythm, Murmurs (2/6 systolic), Negative: Gallops, Rubs Abdomen Exam: Positive: BS Hyperactive, Soft, Negative: Tenderness Extremity Exam: Positive: Normal pulses, Negative: Edema Skin Exam: Negative: Rash Psych Exam: Positive: Mental status NL, Mood NL, Oriented x 3 Assessment /Plan Problems (1) GIB (gastrointestinal bleeding) Status: Acute (2) Anemia Status: Acute (3) Abdominal pain Status: Acute (4) Acute renal failure superimposed on chronic kidney disease Status: Acute (5) Hypoglycemia Status: Acute (6) Cor pulmonale (chronic) Status: Chronic (7) Dyslipidemia Status: Chronic (8) Pulmonary hypertension Status: Chronic (9) Hypothyroidism Status: Chronic (10) Afib Status: Chronic (11) Chronic respiratory failure with hypoxia Status: Chronic (12) COPD (chronic obstructive pulmonary disease) Status: Chronic (13) Scleroderma Status: Chronic (14) Rheumatoid arthritis Status: Chronic (15) Pulmonary fibrosis Status: Chronic (16) Obstructive sleep apnea on CPAP Status: Chronic Plan/VTE VTE Prophylaxis Ordered?: No VTE Exclusion Pharmacological: Active Bleeding Plan She is nothing by mouth for her scopes today per Dr. Robles. Her H&H has improved since yesterday. She originally did have some liquidy bloody stools with the GoLYTELY, however now they're just liquidy and there is no additional blood. She has no acute complaints. She was started on stress dose steroids when she came in the hospital, these will be switched back to her usual home dose of 5 mg of prednisone daily. No additional changes will be made to her medical regimen at this time. Anticoagulation continues to be on hold. Otherwise, further plans will be made after the results from her EGD and colonoscopy are obtained. VS, I&O, 24H, Fishbone Vital Signs/I&O Vital Signs Date Time Temp Pulse Resp B/P (MAP) Pulse Ox O2 Delivery O2 Flow Rate FiO2 07/21/17 16:00 98.6 119 18 121/66 (84) 96 Nasal Cannula 2.0 I&O- Last 24 Hours up to 6 AM 07/22/17 06:00 Intake Total 580 ml Output Total 410 ml Balance 170 ml Laboratory Data 24H LABS Laboratory Tests 2 07/20/17 21:44: Bedside Glucose (Misc Panel) 38*L 07/20/17 21:56: Bedside Glucose Confirm (Misc) 73 07/20/17 23:28: Bedside Glucose (Misc Panel) 63L 07/21/17 00:05: Random Glucose 83 07/21/17 05:05: Nucleated Red Blood Cells % (auto) 0.0, Prothrombin Time 14.7H, Prothromb Time International Ratio 1.13, Anion Gap 10, Glomerular Filtration Rate 45.5, Blood Urea Nitrogen 32H, Creatinine 1.27H, Sodium Level 136, Potassium Level 4.5, Chloride Level 103, Carbon Dioxide Level 23, Calcium Level 8.6L 07/21/17 10:21: Bedside Glucose (Misc Panel) 55L 07/21/17 11:27: Bedside Glucose (Misc Panel) 82 07/21/17 16:46: Bedside Glucose (Misc Panel) 59L CBC/BMP Laboratory Tests 07/21/17 05:05 Red Blood Count 3.20 L, Mean Corpuscular Volume 93.8, Mean Corpuscular Hemoglobin 30.3, Mean Corpuscular Hemoglobin Concent 32.3, Red Cell Distribution Width 18.0 H, Calcium Level 8.6 L BRNADY NAVARRETE DO Jul 21, 2017 19:01
[2017-07-21] MEDS ORDERED: predniSONE 5 MG TAB PO SCH (21:00)
[2017-07-21] MEDS: BENZONATATE 100 MG CAP PO PRN (23:10)
[2017-07-22] VITALS: BP 110/57
[2017-07-22 04:00] VITALS: BP 116/65
[2017-07-22 04:50] LABS: MEAN CORPUSCULAR HEMOGLOBIN 30.5 pg (27.0-33.0); MEAN CORPUSCULAR HGB CONC 31.8 g/dl (32.0-36.5); PLATELET COUNT, AUTOMATED 125 10^3/uL (150-450); RED CELL DISTRIBUTION WIDTH 17.7 % (11.5-14.5); WHITE BLOOD COUNT 7.7 10^3/uL (4.0-10.0)
[2017-07-22 05:00] LABS: INR 1.07
[2017-07-22 05:06] LABS: CALCIUM LEVEL 8.3 MG/DL (8.8-10.2); CREATININE FOR GFR 1.3 MG/DL (0.55-1.02); GLOMERULAR FILTRATION RATE 44.3 (>45); POTASSIUM SERUM 4.4 MEQ/L (3.5-5.1)
[2017-07-22] MEDS ORDERED: LEVOTHYROXINE 125MCG TABLET (0.125MG) PO SCH (06:00)
[2017-07-22] MEDS: TREPROSTINIL 1.74 MG/2.9 ML INH SCH (07:52)
[2017-07-22] MEDS: SILDENAFIL CITRATE 20 MG TABLET (REVATIO) PO SCH (08:34)
[2017-07-22] MEDS ORDERED: DIGOXIN 0.125 MG TAB PO SCH (09:00)
[2017-07-22] MEDS ORDERED: SPIRONOLACTONE 25 MG TAB PO SCH (09:00)
[2017-07-22] MEDS ORDERED: ASPIRIN 325 MG TAB PO SCH (09:00)
[2017-07-22] MEDS ORDERED: ASPI1TAB20 PO (12:04)
[2017-07-22] MEDS ORDERED: BUMETANIDE 1 MG TAB PO SCH (12:45)
--- NOTE | 2017-07-22 14:05 | DS.PDOC ---
Discharge Summary General Date of Admission 07/18/2017 Date of Discharge 07/22/2017 Discharge Summary PRIMARY CARE PHYSICIAN: Dr. Oksana Hines CONSULTANTS: Dr. Moya and Dr. Norma Puckett of nephrology Dr. Robles of gastroenterology ATTENDING AT TIME OF DISCHARGE: Dr. Silverman DISCHARGE DIAGNOS(E)S: 1. Acute GI bleed with bright red blood per rectum, presented on Eliquis 2. Symptomatic anemia 3. Abdominal pain 4. Acute renal failure superimposed on chronic kidney disease 5. Hyperglycemia 6. Cor pulmonale 7. Dyslipidemia 8. Severe pulmonary hypertension 9. Hypothyroidism 10. Atrial fibrillation 11. Chronic respiratory failure with hypoxia 12. Chronic obstructive pulmonary disease 13. Scleroderma 14. Rheumatoid arthritis 15. Pulmonary Fibrosis 16. Obstructive sleep apnea on CPAP PROCEDURES DURING HOSPITALIZATION: Upper endoscopy Colonoscopy HPI & HOSPITAL COURSE: Miss Abbott is a 61-year-old female who presented to the emergency department with an acute episode of GI bleeding with bright red blood per rectum. She was admitted with severe anemia, hypotension, and tachycardia. She was treated with a total of 5 PRBCs and 2 FFP, placed on GI prophylaxis, Eliquis was obviously held, and Dr. Robles of gastroenterology was consulted and performed an upper endoscopy and colonoscopy, please see report for full details. Upon admission she was also in acute renal failure, the suspected etiology being hypotension and hypovolemia causing decreased renal perfusion. After her scopes she was started on a regular diet and has tolerated that well. This morning she is feeling back to her baseline, and she does appear to be stable for discharge. PHYSICAL EXAMINATION ON DISCHARGE: GENERAL: Awake, alert, oriented 3. She is in no acute distress. CARDIOVASCULAR EXAMINATION: Irregularly irregular with variable S1 and S2. She also does have a 2/6 systolic murmur RESPIRATORY EXAMINATION: Minimal crackles at the bilateral bases, otherwise clear. ABDOMINAL EXAMINATION: Soft, nontender, nondistended. Bowel sounds present. EXTREMITIES: No clubbing or edema noted. 2+ pulses in the radial bilaterally. She does have sclerosing changes in her fingers. DISPOSITION: Home DISCHARGE INSTRUCTIONS: Recommend close follow-up with her primary care provider, nephrology, as well as cardiology, within the next 7-10 days with all of them if possible. Recommend 2 g sodium diet. Activity as tolerated. If symptoms return, or if you experience worsening of your symptoms, please call your doctor or return to the emergency department. ITEMS THAT NEED OUTPATIENT FOLLOWUP: She will need to have a discussion with her life teacher about appropriate anticoagulation. Given her advanced pulmonary hypertension, cor pulmonale, and atrial fibrillation she should be anticoagulated, but this will need to be weighed against the risks of future bleeding episodes. My preceptor for this patient encounter was physically present in the building during the encounter and was fully available. As needed, all aspects of the patient interview, examination, medical decision making process, and medical care plan development were reviewed and approved by the preceptor. Preceptor is aware and concurs with the plan as stated in the body of this note and will attest to such by his/her cosignature. Vital Signs/I&Os Vital Signs Date Time Temp Pulse Resp B/P (MAP) Pulse Ox O2 Delivery O2 Flow Rate FiO2 07/22/17 08:34 93 07/22/17 07:45 Nasal Cannula 2.0 07/22/17 04:00 97.4 22 116/65 (82) 96 I&O- Last 24 Hours up to 6 AM 07/23/17 06:00 Intake Total 600 ml Output Total 175 ml Balance 425 ml Laboratory Data Labs 24H Laboratory Tests 2 07/21/17 16:46: Bedside Glucose (Misc Panel) 59L 07/21/17 23:17: Bedside Glucose (Misc Panel) 115 07/22/17 04:36: Nucleated Red Blood Cells % (auto) 0.0, Prothrombin Time 14.1, Prothromb Time International Ratio 1.07, Anion Gap 5L, Glomerular Filtration Rate 44.3L, Blood Urea Nitrogen 29H, Creatinine 1.30H, Sodium Level 134L, Potassium Level 4.4, Chloride Level 103, Carbon Dioxide Level 26, Calcium Level 8.3L CBC/BMP Laboratory Tests 07/22/17 04:36 Red Blood Count 2.98 L, Mean Corpuscular Volume 96.0, Mean Corpuscular Hemoglobin 30.5, Mean Corpuscular Hemoglobin Concent 31.8 L, Red Cell Distribution Width 17.7 H, Calcium Level 8.3 L FSBS Laboratory Tests Test 07/21/17 16:46 07/21/17 23:17 Range/Units Bedside Glucose (Misc Panel) 59 115 80-115 MG/DL Discharge Medications Scheduled (Letairis) 5 Mg Tab, 10 MG PO DAILY, (Reported) ([place]-Dangelo) 1 Tab Tab, 1 TAB PO DAILY, (Reported) Aspirin (Aspirin) 325 Mg Tab, 325 MG PO DAILY Bumetanide (Bumetanide) 1 Mg Tab, 1 MG PO BID, (Reported) Calcitriol (Calcitriol) 0.25 Mcg Cap, 0.25 MCG PO QHS, (Reported) Calcium/Vitamin D (Calcium 600+D3 600-400 mg-Unit) 1 Tab Tab, 1 TAB PO DAILY, ( Reported) TAKES AT NOON Digoxin (Digoxin) 0.125 Mg Tab, 0.125 MG PO DAILY, (Reported) Ferrous Gluconate (Ferrous Gluconate) 324 Mg Tab, 324 MG PO BID, (Reported) Levothyroxine Sodium (Synthroid) 125 Mcg Tab, 125 MCG PO DAILY, (Reported) Omeprazole (Omeprazole) 40 Mg Cap, 40 MG PO QHS, (Reported) Pravastatin Sodium (Pravachol) 20 Mg Tab, 20 MG PO QHS, (Reported) Prednisone (Prednisone) 5 Mg Tab, 5 MG PO QHS, (Reported) Sildenafil Citrate (Revatio) 20 Mg Tab, 40 MG PO TID, (Reported) Spironolactone (Spironolactone) 25 Mg Tab, 25 MG PO DAILY, (Reported) TAKES AT NOON Treprostinil (Tyvaso) 0.6 Mg/Ml Ly, 1 NEB INH QID, (Reported) Verapamil HCl (Verapamil HCl) 80 Mg Tab, 80 MG PO BID, (Reported) TAKES AM AND 1500, HOLD IF HR < 60 Scheduled PRN Benzonatate (Benzonatate) 100 Mg Cap, 100 MG PO TID PRN for COUGH, (Reported) Bisacodyl (Bisacodyl) 10 Mg Sup, 10 MG ME DAILY PRN for CONSTIPATION, (Reported) Docusate Sod/Senna (Senna S 8.6-50 mg) 1 Tab Tab, 1 TAB PO BID PRN for CONSTIPATION, (Reported) Hydrocortisone (Hydrocortisone 2.5%) 1 Dose/20 Gm Oint, 1 DOSE TOP DAILY PRN for RASH/ITCHING, (Reported) USES ON ANKLES Mupirocin (Mupirocin) 2 % Oin, 1 DOSE EXT TID PRN for REDNESS/IRRITATION, ( Reported) USES ON FINGERS Tramadol HCl (Tramadol HCl) 50 Mg Tab, 100 MG PO TID PRN for PAIN, (Reported) Allergies Coded Allergies: No Known Allergies (Verified , 11/24/16) BRANDY NAVARRETE DO Jul 22, 2017 14:05
--- NOTE | 2017-07-22 14:28 | IPNPDOC ---
Date Seen The patient was seen on 07/22/17. Progress Note SUBJECTIVE: The patient was seen and examined at the bedside this morning in the intensive care unit (ICU). She is accompanied by several family members. Admits to ankle edema, but also states that she has not been on her fluid medication to help control her fluid status. She would like to go home. She feels like she is at her baseline as far as her breathing and her peripheral edema. Denies any further visible bleeding. REVIEW OF SYSTEMS: The patient denies any fevers, chills, rigors, headaches, nausea, vomiting. She denies any chest pain, shortness of breath. Denies continued bleeding. Rest of review of systems is negative. PHYSICAL EXAMINATION: GENERAL: The patient is awake, alert, and oriented times three, sitting in the chair, no apparent distress. HEAD/NECK: Extraocular muscles intact. Pupils equal, round, and reactive to light. The patient has conjunctival pallor. Neck is supple. There is no jugular venous distention (JVD). CARDIOVASCULAR: S1, S2, irregularly irregular heart rate. Grade 2/6 systolic murmur. RESPIRATORY: Crackles appreciated bilaterally, which is chronic. ABDOMEN: Soft, non-tender, non-distended. Otherwise no organomegaly. MUSCULOSKELETAL: Cyanosis appreciated on hands bilaterally secondary to Raynaud' s phenomenon. Pulses are 2+. +1 pitting edema appreciated around the ankles bilaterally. CENTRAL NERVOUS SYSTEM (CL[place]AMER): No focal neurological deficit. Power is 5/5 in all extremities. PSYCHIATRIC: Normal mood and affect. LABORATORY DATA: See below. CURRENT INPATIENT MEDICATIONS: The patient's medications are all reviewed by myself and my attending. Intravenous fluids have been discontinued. Patient will be restarted on Bumex 1mg by mouth twice a day and resume her home dosage of Spironolactone 25mg by mouth daily. Continue with Prednisone 5mg daily. ASSESSMENT: 61-year-old female with past medical history of scleroderma, chronic kidney disease stage III, atrial fibrillation on Eliquis, admitted this time because of gastrointestinal (GI) bleeding and acute kidney injury. PLAN: 1. Acute kidney injury superimposed on chronic kidney disease: The patient's baseline creatinine is around 1.5. Current creatinine is 1.3. Acute kidney injury (SU) is secondary to volume depletion and use of diuretics. Peripheral edema appreciated around the ankles. Resume Bumex, but at a lower dosage. Recommend that patient start with Bumex 1mg by mouth twice a day until she is able to follow-up with nephrology early in the coming week. Resume Spironolactone 25mg by mouth daily. Overnight urine output was 510mL. 2. Hypocalcemia: Remains slightly low at 8.3. 3. Hyperkalemia: Resolved. Restart Spironolactone. 4. Hyponatremia: The patient has hypovolemic hyponatremia. Sodium has normalized. Restarting diuretics. Close follow-up with nephrology early next week. 5. Hypoglycemia: Fasting glucose has normalized. 6. Paroxysmal atrial fibrillation: Heart rate is controlled at this time. Continue digoxin. Eliquis was held. Patient has received a total of 5 units of PRBC and 2 units of FFP. Discussion regarding anticoagulation to continue as an outpatient. DISPOSITION: Restarting patient's diuretics, but at a lower dose that her home dosage until she is able to follow-up with nephrology early next week. Recommend giving patient Bumex 1mg by mouth twice a day and to resume Spironolactone at patient's home dosage. Continue with fluid restriction of 1500mL daily. VS, I&O, 24H, Fishbone Vital Signs/I&O Vital Signs Date Time Temp Pulse Resp B/P (MAP) Pulse Ox O2 Delivery O2 Flow Rate FiO2 07/22/17 08:34 93 07/22/17 07:45 Nasal Cannula 2.0 07/22/17 04:00 97.4 22 116/65 (82) 96 I&O- Last 24 Hours up to 6 AM 07/23/17 06:00 Intake Total 600 ml Output Total 175 ml Balance 425 ml Laboratory Data 24H LABS Laboratory Tests 2 07/21/17 16:46: Bedside Glucose (Misc Panel) 59L 07/21/17 23:17: Bedside Glucose (Misc Panel) 115 07/22/17 04:36: Nucleated Red Blood Cells % (auto) 0.0, Prothrombin Time 14.1, Prothromb Time International Ratio 1.07, Anion Gap 5L, Glomerular Filtration Rate 44.3L, Blood Urea Nitrogen 29H, Creatinine 1.30H, Sodium Level 134L, Potassium Level 4.4, Chloride Level 103, Carbon Dioxide Level 26, Calcium Level 8.3L CBC/BMP Laboratory Tests 12/16/17 04:36 Red Blood Count 2.98 L, Mean Corpuscular Volume 96.0, Mean Corpuscular Hemoglobin 30.5, Mean Corpuscular Hemoglobin Concent 31.8 L, Red Cell Distribution Width 17.7 H, Calcium Level 8.3 L MATTHEW KAPLAN DO Jul 22, 2017 14:28
[2017-07-22] MEDS ORDERED: OMEPRAZOLE 20 MG CAP PO SCH (21:00)
== END 2017-07-22 13:30 | disposition home or self-care (01) | DRG 813 ==
LOC: M ED 09:04 → M ED INP 11:02 → M ICU 13:18
PROVIDERS: ADMIT Internal Medicine; ATTEND Internal Medicine
PROC: 30253N1 (ICD-10-PCS; 2017-07-18)
PROC: 0DJ08ZZ Inspection of Upper Intestinal Tract, Via Natural or Artificial Opening Endoscopic (ICD-10-PCS; 2017-07-21)
PROC: 0DBK8ZX Excision of Ascending Colon, Via Natural or Artificial Opening Endoscopic, Diagnostic (ICD-10-PCS; principal; 2017-07-21 14:05)
DX: D68.32 Hemorrhagic disorder due to extrinsic circulating anticoagulants (principal); I50.32 Chronic diastolic (congestive) heart failure; J96.11 Chronic respiratory failure with hypoxia; D62 Acute posthemorrhagic anemia; N17.9 Acute kidney failure, unspecified; E87.1 Hypo-osmolality and hyponatremia; K62.5 Hemorrhage of anus and rectum; I48.0 Paroxysmal atrial fibrillation; I27.29 Other secondary pulmonary hypertension; J84.10 Pulmonary fibrosis, unspecified; M06.9 Rheumatoid arthritis, unspecified; D50.9 Iron deficiency anemia, unspecified; M34.9 Systemic sclerosis, unspecified; I73.00 Raynaud's syndrome without gangrene; I95.9 Hypotension, unspecified; E86.0 Dehydration; E87.8 Other disorders of electrolyte and fluid balance, not elsewhere classified; E87.6 Hypokalemia; D12.2 Benign neoplasm of ascending colon; K44.9 Diaphragmatic hernia without obstruction or gangrene; K64.0 First degree hemorrhoids; K57.30 Diverticulosis of large intestine without perforation or abscess without bleeding; E16.2 Hypoglycemia, unspecified; E83.51 Hypocalcemia; G47.33 Obstructive sleep apnea (adult) (pediatric); M85.80 Other specified disorders of bone density and structure, unspecified site; N18.3 Chronic kidney disease, stage 3 (moderate); E03.9 Hypothyroidism, unspecified; I27.21 Secondary pulmonary arterial hypertension; K21.9 Gastro-esophageal reflux disease without esophagitis; E78.5 Hyperlipidemia, unspecified; Z91.19 Patient's noncompliance with other medical treatment and regimen; Z79.01 Long term (current) use of anticoagulants; Z79.52 Long term (current) use of systemic steroids; Z79.891 Long term (current) use of opiate analgesic; Z79.899 Other long term (current) drug therapy

== ENCOUNTER → 2017-08-14 | Outpatient (REF) | payer MEDICARE, MEDICAID ==
[2017-08-14 19:15] LABS: FERRITIN 69 NG/ML (8-252); IRON (FE) 40 UG/DL (50-170); PERCENT SATURATION 15.1 % (13.2-45.0); TOTAL IRON BINDING CAPACITY 265 UG/DL (250-450)
== END ==
LOC: M LAB REF 17:23
DX: D50.9 Iron deficiency anemia, unspecified (principal)
CPT/HCPCS: 83550

== ENCOUNTER → 2017-09-04 | Outpatient (REF) | payer MEDICARE, MEDICAID | LOC: M LAB REF 18:22 | DX: I48.2 Chronic atrial fibrillation (principal) | CPT/HCPCS: 80162 ==

== ENCOUNTER 2017-10-10 11:51 | Day surgery (SDC) | payer MEDICARE, MEDICAID ==
[2017-10-10] MEDS ORDERED: CETACAINE SPRAY 5GM As Ordered (12:04)
[2017-10-10] MEDS ORDERED: LIDOCAINE VISCOUS 2% SOLN 15ML UDC As Ordered (12:04)
[2017-10-10] MEDS ORDERED: D5W 1,000 ML IV (13:00)
[2017-10-10] MEDS ORDERED: MIDAZOLAM INJ 2 MG/2 ML VIAL (J2250) As Ordered ×3 (13:03)
== END 2017-10-10 14:24 | disposition home or self-care (01) ==
LOC: M OPP 11:51
DX: I48.2 Chronic atrial fibrillation (principal); I27.81 Cor pulmonale (chronic); Z79.82 Long term (current) use of aspirin; Z79.899 Other long term (current) drug therapy
CPT/HCPCS: J2250

== ENCOUNTER 2017-10-25 08:35 | Outpatient (CLI) | payer MEDICARE, MEDICAID ==
[2017-10-25] MEDS: IRON SUCROSE 25 MG in NS 50 ML IV (09:35)
[2017-10-25] MEDS: IRON SUCROSE 475 MG in NS 250 ML IV (11:19)
== END 2017-10-25 15:20 | disposition home or self-care (01) ==
LOC: M INFU 08:35
DX: D50.9 Iron deficiency anemia, unspecified (principal); Z79.82 Long term (current) use of aspirin; Z79.52 Long term (current) use of systemic steroids; Z79.899 Other long term (current) drug therapy
CPT/HCPCS: J1756

== ENCOUNTER → 2017-12-11 | Outpatient (REF) | payer MEDICARE, MEDICAID ==
[2017-12-11 13:52] LABS: HEMATOCRIT 25.5 % (36.0-47.0); HEMOGLOBIN 7.8 g/dl (12.0-15.5)
== END ==
LOC: M LAB REF 13:32
DX: J96.11 Chronic respiratory failure with hypoxia (principal)
CPT/HCPCS: 85014

== ENCOUNTER → 2018-01-08 | Outpatient (REF) | payer MEDICARE, MEDICAID | LOC: M LAB REF 17:44 | DX: D50.9 Iron deficiency anemia, unspecified (principal) | CPT/HCPCS: 86900 ==

== ENCOUNTER 2018-01-13 12:50 | Inpatient (IN) | payer MEDICARE, MEDICAID ==
[2018-01-13 14:12] LABS: BASO % 0.4 % (0.0-1.0); EOS % 0.2 % (0.0-3.0); HEMATOCRIT 25.3 % (36.0-47.0); IMMATURE GRANULOCYTE % 1.1 % (0-3.0); LYMPH # 0.6 10^3/uL (1.5-4.5); LYMPH % 10.6 % (24.0-44.0); MEAN CORPUSCULAR HEMOGLOBIN 33.3 pg (27.0-33.0); MEAN CORPUSCULAR HGB CONC 31.6 g/dl (32.0-36.5); MEAN CORPUSCULAR VOLUME 105.4 fl (80.0-96.0); MONO # 0.4 10^3/uL (0.0-0.8); MONO % 7.8 % (0.0-5.0); NEUTROPHILS # 4.5 10^3/uL (1.8-7.7); NEUTROPHILS % 79.9 % (36.0-66.0); PLATELET COUNT, AUTOMATED 163 10^3/uL (150-450); RED CELL DISTRIBUTION WIDTH 16.5 % (11.5-14.5); WHITE BLOOD COUNT 5.6 10^3/uL (4.0-10.0)
[2018-01-13] MEDS: ASPIRIN 81 MG CHEW TABLET PO (14:17)
[2018-01-13 14:44] LABS: ALBUMIN 3.3 GM/DL (3.2-5.2); ALBUMIN/GLOBULIN RATIO 0.69 (1.00-1.93); ALKALINE PHOSPHATASE 183 U/L (45-117); ALT/SGPT 25 U/L (12-78); ANION GAP 7 MEQ/L (8-16); AST/SGOT 20 U/L (7-37); BILIRUBIN,DIRECT 0.3 MG/DL (0.0-0.2); BILIRUBIN,TOTAL 0.7 MG/DL (0.2-1.0); BLOOD UREA NITROGEN 66 MG/DL (7-18); CARBON DIOXIDE LEVEL 34 MEQ/L (21-32); CHLORIDE LEVEL 88 MEQ/L (98-107); CPK CREATINE PHOSPHOKINASE 29 U/L (26-192); CREATININE FOR GFR 1.85 MG/DL (0.55-1.30); GLOMERULAR FILTRATION RATE 29.4 (>45); GLUCOSE, FASTING 73 MG/DL (70-100); LIPASE 81 U/L (73-393); POTASSIUM SERUM 4.2 MEQ/L (3.5-5.1); SODIUM LEVEL 129 MEQ/L (136-145); TOTAL PROTEIN 8.1 GM/DL (6.4-8.2); TROPONIN I 0.18 NG/ML (< 0.10)
[2018-01-13 14:56] LABS: CK-MB VALUE MASS 1.8 NG/ML (<3.6); NT-PRO BNP 44159 PG/ML (<125)
[2018-01-13 16:56] LABS: D-DIMER QUANT 843.5 ng/ml (<500)
[2018-01-13] MEDS ORDERED: ONDANSETRON 4MG/2ML VIAL (J2405) IV (19:15)
[2018-01-13 19:30] LABS: CK-MB VALUE MASS 1.5 NG/ML (<3.6); CPK CREATINE PHOSPHOKINASE 24 U/L (26-192); MB/CK RELATIVE INDEX 6.25 (< OR =4); TROPONIN I 0.17 NG/ML (< 0.10)
[2018-01-13 20:13] LABS: FERRITIN 65 NG/ML (8-252); IRON (FE) 31 UG/DL (50-170); PERCENT SATURATION 10.4 % (13.2-45.0); TOTAL IRON BINDING CAPACITY 299 UG/DL (250-450)
[2018-01-13] MEDS: PERCOCET 5MG/325MG TAB PO (20:14)
[2018-01-13] MEDS: predniSONE 5 MG TAB PO (21:23)
[2018-01-13] MEDS: PRAVASTATIN 20 MG TAB PO (21:23)
[2018-01-13] MEDS: VERAPAMIL 80 MG TAB PO (21:24)
[2018-01-13] MEDS: ACETAMINOPHEN TAB 650MG DOSE (2X325MG) PO (21:24)
[2018-01-14 02:51] LABS: HEMATOCRIT 24.4 % (36.0-47.0); HEMOGLOBIN 7.7 g/dl (12.0-15.5); MEAN CORPUSCULAR HEMOGLOBIN 33.3 pg (27.0-33.0); MEAN CORPUSCULAR HGB CONC 31.6 g/dl (32.0-36.5); MEAN CORPUSCULAR VOLUME 105.6 fl (80.0-96.0); PLATELET COUNT, AUTOMATED 140 10^3/uL (150-450); RED BLOOD COUNT 2.31 10^6/uL (4.00-5.40); RED CELL DISTRIBUTION WIDTH 16.4 % (11.5-14.5); WHITE BLOOD COUNT 4.4 10^3/uL (4.0-10.0)
[2018-01-14 03:15] LABS: ALBUMIN/GLOBULIN RATIO 0.75 (1.00-1.93); ALKALINE PHOSPHATASE 179 U/L (45-117); ALT/SGPT 24 U/L (12-78); ANION GAP 6 MEQ/L (8-16); AST/SGOT 17 U/L (7-37); BILIRUBIN,TOTAL 0.7 MG/DL (0.2-1.0); BLOOD UREA NITROGEN 68 MG/DL (7-18); CALCIUM LEVEL 8.5 MG/DL (8.8-10.2); CARBON DIOXIDE LEVEL 35 MEQ/L (21-32); CHLORIDE LEVEL 90 MEQ/L (98-107); CREATININE FOR GFR 1.69 MG/DL (0.55-1.30); GLOMERULAR FILTRATION RATE 32.6 (>45); GLUCOSE, FASTING 76 MG/DL (70-100); MAGNESIUM LEVEL 2.1 MG/DL (1.8-2.4); SODIUM LEVEL 131 MEQ/L (136-145)
[2018-01-14 03:17] LABS: CK-MB VALUE MASS 2.1 NG/ML (<3.6); CPK CREATINE PHOSPHOKINASE 21 U/L (26-192); TROPONIN I 0.15 NG/ML (< 0.10)
[2018-01-14] MEDS: ACETAMINOPHEN TAB 650MG DOSE (2X325MG) PO ×2 (04:02→21:35)
[2018-01-14] MEDS: ASPIRIN 325 MG TAB PO (08:28)
[2018-01-14] MEDS: LEVOTHYROXINE 125MCG TABLET (0.125MG) PO (08:28)
[2018-01-14] MEDS: DIGOXIN 0.125 MG TAB PO (08:29)
[2018-01-14] MEDS: VERAPAMIL 80 MG TAB PO ×2 (08:29→21:34)
[2018-01-14 11:36] LABS: C REACTIVE PROTEIN QUANTITATIV 3.61 MG/DL (0.00-0.30)
[2018-01-14 11:41] LABS: CK-MB VALUE MASS 2.7 NG/ML (<3.6); CPK CREATINE PHOSPHOKINASE 28 U/L (26-192); MB/CK RELATIVE INDEX 9.64 (< OR =4); TROPONIN I 0.16 NG/ML (< 0.10)
[2018-01-14 14:45] LABS: IMMEDIATE SPIN CROSSMATCH 1 1
[2018-01-14] MEDS: PRAVASTATIN 20 MG TAB PO (21:35)
[2018-01-14] MEDS: predniSONE 5 MG TAB PO (21:35)
[2018-01-15 04:12] LABS: HEMATOCRIT 25.5 % (36.0-47.0); HEMOGLOBIN 8.1 g/dl (12.0-15.5); MEAN CORPUSCULAR HEMOGLOBIN 32.7 pg (27.0-33.0); MEAN CORPUSCULAR HGB CONC 31.8 g/dl (32.0-36.5); MEAN CORPUSCULAR VOLUME 102.8 fl (80.0-96.0); PLATELET COUNT, AUTOMATED 148 10^3/uL (150-450); RED BLOOD COUNT 2.48 10^6/uL (4.00-5.40); RED CELL DISTRIBUTION WIDTH 17.5 % (11.5-14.5); WHITE BLOOD COUNT 6.1 10^3/uL (4.0-10.0)
[2018-01-15 04:46] LABS: ALBUMIN 2.9 GM/DL (3.2-5.2); ALBUMIN/GLOBULIN RATIO 0.64 (1.00-1.93); ALT/SGPT 20 U/L (12-78); ANION GAP 8 MEQ/L (8-16); AST/SGOT 18 U/L (7-37); BILIRUBIN,TOTAL 0.6 MG/DL (0.2-1.0); BLOOD UREA NITROGEN 59 MG/DL (7-18); CALCIUM LEVEL 8.6 MG/DL (8.8-10.2); CARBON DIOXIDE LEVEL 32 MEQ/L (21-32); CHLORIDE LEVEL 91 MEQ/L (98-107); CREATININE FOR GFR 1.69 MG/DL (0.55-1.30); GLOMERULAR FILTRATION RATE 32.6 (>45); GLUCOSE, FASTING 103 MG/DL (70-100); POTASSIUM SERUM 4.4 MEQ/L (3.5-5.1); SODIUM LEVEL 131 MEQ/L (136-145); TOTAL PROTEIN 7.4 GM/DL (6.4-8.2); TROPONIN I 0.17 NG/ML (< 0.10)
[2018-01-15 04:48] LABS: ALKALINE PHOSPHATASE 180 U/L (45-117); CK-MB VALUE MASS 2.4 NG/ML (<3.6); CPK CREATINE PHOSPHOKINASE 23 U/L (26-192); MB/CK RELATIVE INDEX 10.43 (< OR =4)
[2018-01-15] MEDS: LEVOTHYROXINE 125MCG TABLET (0.125MG) PO (08:10)
[2018-01-15] MEDS: VERAPAMIL 80 MG TAB PO ×2 (08:10→19:35)
[2018-01-15] MEDS: DIGOXIN 0.125 MG TAB PO (08:10)
[2018-01-15] MEDS: ASPIRIN 325 MG TAB PO (08:10)
[2018-01-15 08:55] LABS: FOLATE > 24.0 NG/ML (>5.4)
[2018-01-15 08:56] LABS: VITAMIN B12 LEVEL 400 PG/ML (247-911)
[2018-01-15 13:03] LABS: IMMEDIATE SPIN CROSSMATCH 1 1
[2018-01-15] MEDS: predniSONE 5 MG TAB PO (19:35)
[2018-01-15] MEDS: PRAVASTATIN 20 MG TAB PO (19:35)
[2018-01-15] MEDS: ACETAMINOPHEN TAB 650MG DOSE (2X325MG) PO (19:36)
[2018-01-16 06:00] LABS: HEMATOCRIT 26.3 % (36.0-47.0); HEMOGLOBIN 8.4 g/dl (12.0-15.5); MEAN CORPUSCULAR HEMOGLOBIN 32.4 pg (27.0-33.0); MEAN CORPUSCULAR HGB CONC 31.9 g/dl (32.0-36.5); MEAN CORPUSCULAR VOLUME 101.5 fl (80.0-96.0); PLATELET COUNT, AUTOMATED 139 10^3/uL (150-450); RED BLOOD COUNT 2.59 10^6/uL (4.00-5.40); RED CELL DISTRIBUTION WIDTH 17.2 % (11.5-14.5); WHITE BLOOD COUNT 6.2 10^3/uL (4.0-10.0)
[2018-01-16 06:21] LABS: ALBUMIN 2.8 GM/DL (3.2-5.2); ALBUMIN/GLOBULIN RATIO 0.65 (1.00-1.93); ALKALINE PHOSPHATASE 171 U/L (45-117); ALT/SGPT 18 U/L (12-78); ANION GAP 8 MEQ/L (8-16); AST/SGOT 16 U/L (7-37); BILIRUBIN,TOTAL 0.6 MG/DL (0.2-1.0); BLOOD UREA NITROGEN 60 MG/DL (7-18); CALCIUM LEVEL 8.6 MG/DL (8.8-10.2); CARBON DIOXIDE LEVEL 30 MEQ/L (21-32); CHLORIDE LEVEL 92 MEQ/L (98-107); CREATININE FOR GFR 1.56 MG/DL (0.55-1.30); GLOMERULAR FILTRATION RATE 35.8 (>45); GLUCOSE, FASTING 97 MG/DL (70-100); POTASSIUM SERUM 4.5 MEQ/L (3.5-5.1); SODIUM LEVEL 130 MEQ/L (136-145); TOTAL PROTEIN 7.1 GM/DL (6.4-8.2)
[2018-01-16] MEDS: ASPIRIN 325 MG TAB PO (09:15)
[2018-01-16] MEDS: LEVOTHYROXINE 125MCG TABLET (0.125MG) PO (09:16)
[2018-01-16] MEDS: VERAPAMIL 80 MG TAB PO (09:16)
[2018-01-16] MEDS: DIGOXIN 0.125 MG TAB PO (09:16)
[2018-01-16] MEDS: IRON SUCROSE 100MG 5ML VIAL (J1756 PER 1MG) IV (10:15)
[2018-01-16] MEDS: IRON SUCROSE 25 MG in NS 50 ML IV (12:20)
[2018-01-16] MEDS: IRON SUCROSE 475 MG in NS 250 ML IV (13:35)
== END 2018-01-16 18:37 | disposition home or self-care (01) | DRG 812 ==
LOC: M ED 12:50 → M ED INP 19:30 → M PCU 21:01
PROC: 30233N1 Transfusion of Nonautologous Red Blood Cells into Peripheral Vein, Percutaneous Approach (ICD-10-PCS; principal; 2018-01-15)
DX: D50.9 Iron deficiency anemia, unspecified (principal); J96.11 Chronic respiratory failure with hypoxia; I24.8 Other forms of acute ischemic heart disease; I50.32 Chronic diastolic (congestive) heart failure; E87.1 Hypo-osmolality and hyponatremia; I48.91 Unspecified atrial fibrillation; I27.29 Other secondary pulmonary hypertension; J84.10 Pulmonary fibrosis, unspecified; M06.9 Rheumatoid arthritis, unspecified; M34.9 Systemic sclerosis, unspecified; E78.5 Hyperlipidemia, unspecified; N18.3 Chronic kidney disease, stage 3 (moderate); E03.9 Hypothyroidism, unspecified; Z79.82 Long term (current) use of aspirin; Z79.899 Other long term (current) drug therapy; Z90.49 Acquired absence of other specified parts of digestive tract; Z99.81 Dependence on supplemental oxygen; R06.02 Shortness of breath; Z79.52 Long term (current) use of systemic steroids

== ENCOUNTER 2018-01-17 06:51 | Inpatient (IN) | payer MEDICARE, MEDICAID ==
[2018-01-17 07:16] LABS: ABG BASE EXCESS 0.6 (-2.0-2.0); ABG HCO3 26.7 MEQ/L (22.0-26.0); ABG O2 SATURATION 92.8 % (95.0-99.0); ABG PARTIAL PRESSURE CO2 49.1 mmHg (35.0-45.0); ABG PARTIAL PRESSURE O2 71.1 mmHg (75.0-100.0); ABG STANDARD HCO3 24.9 MEQ/L (22.0-26.0); ABG TOTAL CO2 28.2 MEQ/L (23.0-31.0); ABG pH (ARTERIAL) 7.353 UNITS (7.350-7.450)
[2018-01-17 07:19] LABS: BASO % 0.3 % (0.0-1.0); EOS % 0.1 % (0.0-3.0); HEMATOCRIT 34.8 % (36.0-47.0); IMMATURE GRANULOCYTE % 1.8 % (0-3.0); LYMPH # 0.5 10^3/uL (1.5-4.5); LYMPH % 4.4 % (24.0-44.0); MEAN CORPUSCULAR HEMOGLOBIN 32.3 pg (27.0-33.0); MEAN CORPUSCULAR HGB CONC 31.9 g/dl (32.0-36.5); MEAN CORPUSCULAR VOLUME 101.2 fl (80.0-96.0); NEUTROPHILS # 10.4 10^3/uL (1.8-7.7); NEUTROPHILS % 85.4 % (36.0-66.0); PLATELET COUNT, AUTOMATED 180 10^3/uL (150-450); RED BLOOD COUNT 3.44 10^6/uL (4.00-5.40); WHITE BLOOD COUNT 12.2 10^3/uL (4.0-10.0)
[2018-01-17 07:23] LABS: HEMOGLOBIN 11.1 g/dl (12.0-15.5)
[2018-01-17 07:38] LABS: ANION GAP 7 MEQ/L (8-16); BLOOD UREA NITROGEN 68 MG/DL (7-18); CALCIUM LEVEL 9.4 MG/DL (8.8-10.2); CARBON DIOXIDE LEVEL 29 MEQ/L (21-32); CHLORIDE LEVEL 91 MEQ/L (98-107); CPK CREATINE PHOSPHOKINASE 33 U/L (26-192); GLOMERULAR FILTRATION RATE 25.4 (>45); GLUCOSE, FASTING 63 MG/DL (70-100); POTASSIUM SERUM 4.3 MEQ/L (3.5-5.1); SODIUM LEVEL 127 MEQ/L (136-145); TROPONIN I 0.16 NG/ML (< 0.10)
[2018-01-17 07:44] LABS: LACTIC ACID SEPSIS PROTOCOL 1.9 MMOL/L (0.4-2.0)
[2018-01-17 07:51] LABS: MB/CK RELATIVE INDEX 9.09 (< OR =4); NT-PRO BNP 85722 PG/ML (<125)
[2018-01-17 08:03] LABS: DIGOXIN LEVEL 1.6 NG/ML (0.5-2.0)
[2018-01-17] MEDS: metOLazone 2.5 MG TAB PO (08:15)
[2018-01-17] MEDS: BUMETANIDE 1 MG TAB PO (08:15)
[2018-01-17] MEDS: VERAPAMIL 80 MG TAB PO ×3 (08:24→21:00)
[2018-01-17] MEDS: DIGOXIN 0.125 MG TAB PO ×2 (08:24→14:34)
[2018-01-17] MEDS: FUROSEMIDE 40 MG/4 ML VIAL (J1940) IV ×2 (08:29→16:46)
[2018-01-17] MEDS ORDERED: OYSTER SHELL CALCIUM 500 MG TAB PO (09:00)
[2018-01-17] MEDS ORDERED: metOLazone 2.5 MG TAB PO (09:00)
[2018-01-17] MEDS: SPIRONOLACTONE 25 MG TAB PO ×2 (09:19→14:34)
[2018-01-17] MEDS ORDERED: MUPIROCIN 2% OINT 22 GM TUBE TOP (09:45)
[2018-01-17] MEDS ORDERED: GI COCKTAIL 50ML BTL(HYOSCYAMINE/MAALOX/LIDOCAINE VISCOUS)(1:3:1) PO (10:30)
[2018-01-17] MEDS: GI COCKTAIL 50ML BTL(HYOSCYAMINE/MAALOX/LIDOCAINE VISCOUS)(1:3:1) PO (10:35)
[2018-01-17] MEDS ORDERED: ENTER DRUG NAME HERE (PATIENT'S OWN MED) INH (13:00)
[2018-01-17 13:17] LABS: CPK CREATINE PHOSPHOKINASE 29 U/L (26-192); MB/CK RELATIVE INDEX 10.34 (< OR =4); TROPONIN I 0.16 NG/ML (< 0.10)
[2018-01-17] MEDS: LEVOTHYROXINE 125MCG TABLET (0.125MG) PO (15:12)
[2018-01-17] MEDS: PANTOPRAZOLE 40MG INJ (PROTONIX) (C9113) IV (15:12)
[2018-01-17] MEDS: SILDENAFIL CITRATE 20 MG TABLET (REVATIO) PO ×3 (15:12→21:57)
[2018-01-17] MEDS: FUROSEMIDE injection 250 MG in D5W 225 ML IV (18:00)
[2018-01-17] MEDS: TREPROSTINIL INH (20:00)
[2018-01-17] MEDS: OMEPRAZOLE 20 MG CAP PO (21:55)
[2018-01-17] MEDS: NEPHRO-VIT TAB (NEPHROCAPS) PO (21:55)
[2018-01-17] MEDS: predniSONE 5 MG TAB PO (21:56)
[2018-01-17] MEDS: FERROUS GLUCONATE 324 MG TAB PO (21:56)
[2018-01-17] MEDS: PRAVASTATIN 20 MG TAB PO (21:57)
[2018-01-17] MEDS: OYSTER SHELL CALCIUM 500 MG TAB PO (21:57)
[2018-01-17 23:01] LABS: CK-MB VALUE MASS 2.6 NG/ML (<3.6); CPK CREATINE PHOSPHOKINASE 31 U/L (26-192); MB/CK RELATIVE INDEX 8.38 (< OR =4); TROPONIN I 0.13 NG/ML (< 0.10)
[2018-01-18 05:30] LABS: HEMATOCRIT 25.3 % (36.0-47.0); MEAN CORPUSCULAR HEMOGLOBIN 31.9 pg (27.0-33.0); MEAN CORPUSCULAR HGB CONC 31.6 g/dl (32.0-36.5); MEAN CORPUSCULAR VOLUME 100.8 fl (80.0-96.0); PLATELET COUNT, AUTOMATED 128 10^3/uL (150-450); RED BLOOD COUNT 2.51 10^6/uL (4.00-5.40); RED CELL DISTRIBUTION WIDTH 16.7 % (11.5-14.5); WHITE BLOOD COUNT 7.1 10^3/uL (4.0-10.0)
[2018-01-18] MEDS: LEVOTHYROXINE 125MCG TABLET (0.125MG) PO (05:38)
[2018-01-18 05:55] LABS: ALBUMIN 2.7 GM/DL (3.2-5.2); ANION GAP 11 MEQ/L (8-16); BLOOD UREA NITROGEN 71 MG/DL (7-18); CALCIUM LEVEL 8.3 MG/DL (8.8-10.2); CARBON DIOXIDE LEVEL 28 MEQ/L (21-32); CHLORIDE LEVEL 90 MEQ/L (98-107); CREATININE FOR GFR 2.19 MG/DL (0.55-1.30); GLOMERULAR FILTRATION RATE 24.2 (>45); GLUCOSE, FASTING 65 MG/DL (70-100); PHOSPHORUS LEVEL 4.1 MG/DL (2.5-4.9); POTASSIUM SERUM 4.7 MEQ/L (3.5-5.1); SODIUM LEVEL 129 MEQ/L (136-145)
[2018-01-18 06:04] LABS: DIGOXIN LEVEL 2.4 NG/ML (0.5-2.0)
[2018-01-18] MEDS: TREPROSTINIL INH ×4 (08:00→20:00)
[2018-01-18 08:06] LABS: RETIC HEMOGLOBIN EQUIVALENT 35.1 pg (24-36); RETICULOCYTE # 46.9 10^9/L (17-77); RETICULOCYTE % 1.8 % (0.5-1.5)
[2018-01-18 08:26] LABS: FERRITIN 456 NG/ML (8-252); IRON (FE) 71 UG/DL (50-170); PERCENT SATURATION 28.3 % (13.2-45.0); TOTAL IRON BINDING CAPACITY 251 UG/DL (250-450)
[2018-01-18 08:48] LABS: REASON FOR REVIEW ANEMIA / RBC MORPH; SLIDE REVIEW Report; SOURCE PERIPHERAL SMEAR
[2018-01-18] MEDS ORDERED: ASPIRIN 325 MG TAB PO (09:00)
[2018-01-18] MEDS ORDERED: NON-FORMULARY COMPOUNDED MEDICATION PO ×3 (09:00)
[2018-01-18] MEDS ORDERED: ENTER DRUG NAME HERE (PATIENT'S OWN MED) PO (09:00)
[2018-01-18] MEDS: SPIRONOLACTONE 25 MG TAB PO (09:21)
[2018-01-18] MEDS: VERAPAMIL 80 MG TAB PO ×2 (09:22→20:56)
[2018-01-18] MEDS: CHLOROTHIAZIDE 500 MG VIAL (J1205) IV ×2 (09:45→10:21)
[2018-01-18] MEDS: SILDENAFIL CITRATE 20 MG TABLET (REVATIO) PO ×3 (10:20→20:55)
[2018-01-18] MEDS: CALCITRIOL 0.25 MCG CAP (S0169) PO (10:21)
[2018-01-18] MEDS: AMBRISENTAN 10 MG PO (10:22)
[2018-01-18] MEDS: PANTOPRAZOLE 40MG INJ (PROTONIX) (C9113) IV ×2 (10:22→20:55)
[2018-01-18] MEDS: FUROSEMIDE injection 250 MG in D5W 225 ML IV (18:34)
[2018-01-18] MEDS: predniSONE 5 MG TAB PO (20:54)
[2018-01-18] MEDS: NEPHRO-VIT TAB (NEPHROCAPS) PO (20:54)
[2018-01-18] MEDS: OYSTER SHELL CALCIUM 500 MG TAB PO (20:54)
[2018-01-18] MEDS: FERROUS GLUCONATE 324 MG TAB PO (20:55)
[2018-01-18] MEDS: PRAVASTATIN 20 MG TAB PO (20:55)
[2018-01-19] MEDS: METOPROLOL TART 25 MG TABLET PO (01:26)
[2018-01-19 05:36] LABS: HEMATOCRIT 24.7 % (36.0-47.0); MEAN CORPUSCULAR HEMOGLOBIN 32.1 pg (27.0-33.0); MEAN CORPUSCULAR HGB CONC 32.4 g/dl (32.0-36.5); MEAN CORPUSCULAR VOLUME 99.2 fl (80.0-96.0); PLATELET COUNT, AUTOMATED 141 10^3/uL (150-450); RED BLOOD COUNT 2.49 10^6/uL (4.00-5.40); RED CELL DISTRIBUTION WIDTH 16.4 % (11.5-14.5); WHITE BLOOD COUNT 7.1 10^3/uL (4.0-10.0)
[2018-01-19 06:03] LABS: ALBUMIN 2.7 GM/DL (3.2-5.2); ANION GAP 11 MEQ/L (8-16); BLOOD UREA NITROGEN 68 MG/DL (7-18); CALCIUM LEVEL 8.6 MG/DL (8.8-10.2); CARBON DIOXIDE LEVEL 30 MEQ/L (21-32); CHLORIDE LEVEL 86 MEQ/L (98-107); CREATININE FOR GFR 2.13 MG/DL (0.55-1.30); DIGOXIN LEVEL 1.8 NG/ML (0.5-2.0); GLUCOSE, FASTING 64 MG/DL (70-100); MAGNESIUM LEVEL 1.9 MG/DL (1.8-2.4); PHOSPHORUS LEVEL 3.7 MG/DL (2.5-4.9); POTASSIUM SERUM 4.2 MEQ/L (3.5-5.1); SODIUM LEVEL 127 MEQ/L (136-145)
[2018-01-19] MEDS: LEVOTHYROXINE 125MCG TABLET (0.125MG) PO (06:13)
[2018-01-19] MEDS: DIGOXIN INJ 0.5 MG/2 ML AMP (J1160) IV (06:31)
[2018-01-19] MEDS: TREPROSTINIL INH ×4 (07:41→20:00)
[2018-01-19] MEDS: CALCITRIOL 0.25 MCG CAP (S0169) PO (08:48)
[2018-01-19] MEDS: PANTOPRAZOLE 40MG INJ (PROTONIX) (C9113) IV ×2 (08:48→20:21)
[2018-01-19] MEDS: cefTRIAXone SOD 1 GM in D5W MINI-BAG PLUS 50 ML IV (08:48)
[2018-01-19] MEDS: SILDENAFIL CITRATE 20 MG TABLET (REVATIO) PO ×3 (08:48→20:21)
[2018-01-19] MEDS: AMBRISENTAN 10 MG PO (08:49)
[2018-01-19] MEDS: VERAPAMIL 80 MG TAB PO ×2 (09:06→20:22)
[2018-01-19] MEDS: SPIRONOLACTONE 25 MG TAB PO (09:06)
[2018-01-19] MEDS: FUROSEMIDE injection 250 MG in D5W 225 ML IV (17:25)
[2018-01-19] MEDS: NEPHRO-VIT TAB (NEPHROCAPS) PO (20:21)
[2018-01-19] MEDS: predniSONE 5 MG TAB PO (20:21)
[2018-01-19] MEDS: PRAVASTATIN 20 MG TAB PO (20:21)
[2018-01-19] MEDS: OYSTER SHELL CALCIUM 500 MG TAB PO (20:21)
[2018-01-19] MEDS: FERROUS GLUCONATE 324 MG TAB PO (20:22)
[2018-01-20 04:36] LABS: HEMATOCRIT 26.7 % (36.0-47.0); HEMOGLOBIN 8.6 g/dl (12.0-15.5); MEAN CORPUSCULAR HEMOGLOBIN 31.9 pg (27.0-33.0); MEAN CORPUSCULAR HGB CONC 32.2 g/dl (32.0-36.5); MEAN CORPUSCULAR VOLUME 98.9 fl (80.0-96.0); PLATELET COUNT, AUTOMATED 154 10^3/uL (150-450); RED CELL DISTRIBUTION WIDTH 16.5 % (11.5-14.5); WHITE BLOOD COUNT 7.4 10^3/uL (4.0-10.0)
[2018-01-20 05:06] LABS: ALBUMIN 2.6 GM/DL (3.2-5.2); ANION GAP 11 MEQ/L (8-16); BLOOD UREA NITROGEN 66 MG/DL (7-18); CALCIUM LEVEL 8.8 MG/DL (8.8-10.2); CARBON DIOXIDE LEVEL 33 MEQ/L (21-32); CHLORIDE LEVEL 84 MEQ/L (98-107); CREATININE FOR GFR 2.02 MG/DL (0.55-1.30); DIGOXIN LEVEL 1.6 NG/ML (0.5-2.0); GLOMERULAR FILTRATION RATE 26.6 (>45); GLUCOSE, FASTING 90 MG/DL (70-100); MAGNESIUM LEVEL 1.7 MG/DL (1.8-2.4); PHOSPHORUS LEVEL 2.9 MG/DL (2.5-4.9); POTASSIUM SERUM 3.9 MEQ/L (3.5-5.1); SODIUM LEVEL 128 MEQ/L (136-145)
[2018-01-20 05:09] LABS: ERYTHROCYTE SEDIMENTATION RATE 126 mm/hr (0-30)
[2018-01-20] MEDS: LEVOTHYROXINE 125MCG TABLET (0.125MG) PO (05:51)
[2018-01-20] MEDS: TREPROSTINIL INH ×4 (07:13→20:00)
[2018-01-20] MEDS: ALBUTEROL SULFATE 2.5 MG/0.5 ML INH NEB SOLN NEB (08:00)
[2018-01-20] MEDS: LEVALBUTEROL 1.25 MG/0.5 ML CONCENTRATE NEB INH ×4 (08:00→20:00)
[2018-01-20 08:26] LABS: FREE T4 1.14 NG/DL (0.76-1.46); THYROID STIMULATING HORMONE 0.913 uIU/ML (0.358-3.740)
[2018-01-20] MEDS: MAG SULF 1GM/100ML (MAG RUN) 1 GM in APPROPRIATE DILUENT 1 EA IV (09:17)
[2018-01-20] MEDS: PANTOPRAZOLE 40MG INJ (PROTONIX) (C9113) IV ×2 (09:17→21:25)
[2018-01-20] MEDS: SILDENAFIL CITRATE 20 MG TABLET (REVATIO) PO ×3 (09:17→21:26)
[2018-01-20] MEDS: VERAPAMIL 80 MG TAB PO ×2 (09:18→21:26)
[2018-01-20] MEDS: CALCITRIOL 0.25 MCG CAP (S0169) PO (09:18)
[2018-01-20] MEDS: SPIRONOLACTONE 25 MG TAB PO (09:18)
[2018-01-20] MEDS: AMBRISENTAN 10 MG PO (09:18)
[2018-01-20] MEDS: POTASSIUM CHLORIDE 10% LIQ 20 MEQ/15 ML UDC PO (09:20)
[2018-01-20 09:51] LABS: KETONE, URINE AUTO RFX NEGATIVE (NEGATIVE); NITRITE, URINE AUTO RFX NEGATIVE (NEGATIVE); RBC, URINE AUTO RFX 1 /HPF (0-3); SPECIFIC GRAVITY UR AUTO RFX 1.005 (1.002-1.035); SQUAM EPITHELIAL CELL UR AURFX 0 /HPF (0-6); WBC, URINE AUTO RFX 5 /HPF (0-3)
[2018-01-20 09:52] LABS: LEUKOCYTE ESTERASE UR AUTO RFX TRACE (NEGATIVE)
[2018-01-20] MEDS: cefTRIAXone SOD 1 GM in D5W MINI-BAG PLUS 50 ML IV (10:33)
[2018-01-20] MEDS: SUCRALFATE SUSP 1GM/10ML UD PO ×3 (12:34→21:25)
[2018-01-20] MEDS: TOLVAPTAN 15 MG TAB (SAMSCA) PO (18:04)
[2018-01-20] MEDS: FERROUS GLUCONATE 324 MG TAB PO (21:25)
[2018-01-20] MEDS: OYSTER SHELL CALCIUM 500 MG TAB PO (21:26)
[2018-01-20] MEDS: BUMETANIDE 1 MG TAB PO (21:26)
[2018-01-20] MEDS: NEPHRO-VIT TAB (NEPHROCAPS) PO (21:26)
[2018-01-20] MEDS: PRAVASTATIN 20 MG TAB PO (21:26)
[2018-01-20] MEDS: predniSONE 5 MG TAB PO (21:27)
[2018-01-21 05:11] LABS: HEMATOCRIT 27.5 % (36.0-47.0); HEMOGLOBIN 8.8 g/dl (12.0-15.5); MEAN CORPUSCULAR HEMOGLOBIN 31.8 pg (27.0-33.0); MEAN CORPUSCULAR VOLUME 99.3 fl (80.0-96.0); PLATELET COUNT, AUTOMATED 135 10^3/uL (150-450); RED BLOOD COUNT 2.77 10^6/uL (4.00-5.40); RED CELL DISTRIBUTION WIDTH 16.4 % (11.5-14.5)
[2018-01-21 05:45] LABS: ALBUMIN 2.8 GM/DL (3.2-5.2); ANION GAP 9 MEQ/L (8-16); BLOOD UREA NITROGEN 68 MG/DL (7-18); CALCIUM LEVEL 8.3 MG/DL (8.8-10.2); CARBON DIOXIDE LEVEL 35 MEQ/L (21-32); CHLORIDE LEVEL 85 MEQ/L (98-107); CREATININE FOR GFR 2.11 MG/DL (0.55-1.30); DIGOXIN LEVEL 1.5 NG/ML (0.5-2.0); GLOMERULAR FILTRATION RATE 25.3 (>45); GLUCOSE, FASTING 120 MG/DL (70-100); PHOSPHORUS LEVEL 3.1 MG/DL (2.5-4.9); POTASSIUM SERUM 4.5 MEQ/L (3.5-5.1); SODIUM LEVEL 129 MEQ/L (136-145)
[2018-01-21] MEDS: LEVOTHYROXINE 125MCG TABLET (0.125MG) PO (05:47)
[2018-01-21] MEDS: LEVALBUTEROL 1.25 MG/0.5 ML CONCENTRATE NEB INH ×4 (07:04→21:09)
[2018-01-21] MEDS: TREPROSTINIL INH ×4 (07:04→20:00)
[2018-01-21] MEDS: BUMETANIDE 1 MG TAB PO ×2 (08:25→20:08)
[2018-01-21] MEDS: SUCRALFATE SUSP 1GM/10ML UD PO ×4 (08:25→20:08)
[2018-01-21] MEDS: PANTOPRAZOLE 40MG INJ (PROTONIX) (C9113) IV ×2 (08:25→20:08)
[2018-01-21] MEDS: CALCITRIOL 0.25 MCG CAP (S0169) PO (08:25)
[2018-01-21] MEDS: SILDENAFIL CITRATE 20 MG TABLET (REVATIO) PO ×3 (08:26→20:09)
[2018-01-21] MEDS: VERAPAMIL 80 MG TAB PO ×2 (08:26→20:01)
[2018-01-21] MEDS: SPIRONOLACTONE 25 MG TAB PO (08:26)
[2018-01-21] MEDS: AMBRISENTAN 10 MG PO (08:27)
[2018-01-21] MEDS: cefTRIAXone SOD 1 GM in D5W MINI-BAG PLUS 50 ML IV (08:27)
[2018-01-21] MEDS ORDERED: SLF 3 ML SYR IV ×2 (17:30)
[2018-01-21] MEDS: traMADol 50 MG TAB PO (19:45)
[2018-01-21] MEDS: OYSTER SHELL CALCIUM 500 MG TAB PO (20:08)
[2018-01-21] MEDS: predniSONE 5 MG TAB PO (20:08)
[2018-01-21] MEDS: NEPHRO-VIT TAB (NEPHROCAPS) PO (20:08)
[2018-01-21] MEDS: PRAVASTATIN 20 MG TAB PO (20:09)
[2018-01-21] MEDS: FERROUS GLUCONATE 324 MG TAB PO (20:09)
[2018-01-21] MEDS: SLF 3 ML SYR IV ×2 (22:00)
[2018-01-22 04:57] LABS: HEMATOCRIT 27.3 % (36.0-47.0); HEMOGLOBIN 8.8 g/dl (12.0-15.5); MEAN CORPUSCULAR HEMOGLOBIN 32.4 pg (27.0-33.0); MEAN CORPUSCULAR HGB CONC 32.2 g/dl (32.0-36.5); MEAN CORPUSCULAR VOLUME 100.4 fl (80.0-96.0); PLATELET COUNT, AUTOMATED 139 10^3/uL (150-450); RED BLOOD COUNT 2.72 10^6/uL (4.00-5.40); RED CELL DISTRIBUTION WIDTH 16.5 % (11.5-14.5)
[2018-01-22] MEDS: LEVOTHYROXINE 125MCG TABLET (0.125MG) PO (05:16)
[2018-01-22] MEDS: SLF 3 ML SYR IV ×6 (05:16→21:19)
[2018-01-22 05:28] LABS: ALBUMIN 2.7 GM/DL (3.2-5.2); ANION GAP 5 MEQ/L (8-16); BLOOD UREA NITROGEN 65 MG/DL (7-18); CALCIUM LEVEL 8.8 MG/DL (8.8-10.2); CARBON DIOXIDE LEVEL 37 MEQ/L (21-32); CHLORIDE LEVEL 86 MEQ/L (98-107); CREATININE FOR GFR 2.02 MG/DL (0.55-1.30); DIGOXIN LEVEL 1.2 NG/ML (0.5-2.0); GLOMERULAR FILTRATION RATE 26.6 (>45); GLUCOSE, FASTING 110 MG/DL (70-100); MAGNESIUM LEVEL 1.7 MG/DL (1.8-2.4); PHOSPHORUS LEVEL 2.9 MG/DL (2.5-4.9); POTASSIUM SERUM 3.8 MEQ/L (3.5-5.1); SODIUM LEVEL 128 MEQ/L (136-145)
[2018-01-22] MEDS: LEVALBUTEROL 1.25 MG/0.5 ML CONCENTRATE NEB INH ×4 (07:07→19:43)
[2018-01-22] MEDS: TREPROSTINIL INH ×4 (07:08→19:43)
[2018-01-22] MEDS: CALCITRIOL 0.25 MCG CAP (S0169) PO (09:02)
[2018-01-22] MEDS: SUCRALFATE SUSP 1GM/10ML UD PO ×4 (09:02→20:43)
[2018-01-22] MEDS: VERAPAMIL 80 MG TAB PO ×2 (09:02→20:43)
[2018-01-22] MEDS: SILDENAFIL CITRATE 20 MG TABLET (REVATIO) PO ×3 (09:03→20:42)
[2018-01-22] MEDS: BUMETANIDE 1 MG TAB PO ×2 (09:04→20:43)
[2018-01-22] MEDS: PANTOPRAZOLE 40MG INJ (PROTONIX) (C9113) IV ×2 (09:04→20:43)
[2018-01-22] MEDS: AMBRISENTAN 10 MG PO (09:05)
[2018-01-22] MEDS: cefTRIAXone SOD 1 GM in D5W MINI-BAG PLUS 50 ML IV (09:05)
[2018-01-22] MEDS: aMILoride 5 MG TAB PO (09:25)
[2018-01-22] MEDS: PRAVASTATIN 20 MG TAB PO (20:42)
[2018-01-22] MEDS: predniSONE 5 MG TAB PO (20:42)
[2018-01-22] MEDS: NEPHRO-VIT TAB (NEPHROCAPS) PO (20:43)
[2018-01-22] MEDS: FERROUS GLUCONATE 324 MG TAB PO (20:43)
[2018-01-22] MEDS: OYSTER SHELL CALCIUM 500 MG TAB PO (20:43)
[2018-01-22] MEDS: MAG SULF 1GM/100ML (MAG RUN) 1 GM in APPROPRIATE DILUENT 1 EA IV (21:43)
[2018-01-22] MEDS: DIGOXIN 0.125 MG TAB PO (21:43)
[2018-01-23] MEDS: LEVOTHYROXINE 125MCG TABLET (0.125MG) PO (05:11)
[2018-01-23] MEDS: SLF 3 ML SYR IV ×2 (05:11)
[2018-01-23 05:15] LABS: HEMATOCRIT 28.1 % (36.0-47.0); HEMOGLOBIN 8.9 g/dl (12.0-15.5); MEAN CORPUSCULAR HGB CONC 31.7 g/dl (32.0-36.5); MEAN CORPUSCULAR VOLUME 101.1 fl (80.0-96.0); PLATELET COUNT, AUTOMATED 152 10^3/uL (150-450); RED BLOOD COUNT 2.78 10^6/uL (4.00-5.40); RED CELL DISTRIBUTION WIDTH 16.4 % (11.5-14.5); WHITE BLOOD COUNT 5.8 10^3/uL (4.0-10.0)
[2018-01-23 05:30] LABS: ALBUMIN 2.8 GM/DL (3.2-5.2); ANION GAP 7 MEQ/L (8-16); BLOOD UREA NITROGEN 68 MG/DL (7-18); CALCIUM LEVEL 8.7 MG/DL (8.8-10.2); CARBON DIOXIDE LEVEL 36 MEQ/L (21-32); CHLORIDE LEVEL 84 MEQ/L (98-107); GLOMERULAR FILTRATION RATE 26.9 (>45); GLUCOSE, FASTING 111 MG/DL (70-100); MAGNESIUM LEVEL 2.1 MG/DL (1.8-2.4); PHOSPHORUS LEVEL 2.9 MG/DL (2.5-4.9); POTASSIUM SERUM 4.4 MEQ/L (3.5-5.1); SODIUM LEVEL 127 MEQ/L (136-145)
[2018-01-23] MEDS: TREPROSTINIL INH (07:37)
[2018-01-23] MEDS: LEVALBUTEROL 1.25 MG/0.5 ML CONCENTRATE NEB INH ×2 (07:37→11:50)
[2018-01-23] MEDS: CALCITRIOL 0.25 MCG CAP (S0169) PO (07:52)
[2018-01-23] MEDS: PANTOPRAZOLE 40MG INJ (PROTONIX) (C9113) IV (07:52)
[2018-01-23] MEDS: SUCRALFATE SUSP 1GM/10ML UD PO (07:53)
[2018-01-23] MEDS: SILDENAFIL CITRATE 20 MG TABLET (REVATIO) PO (07:53)
[2018-01-23] MEDS: BUMETANIDE 1 MG TAB PO (07:53)
[2018-01-23] MEDS: aMILoride 5 MG TAB PO (07:53)
[2018-01-23] MEDS: AMBRISENTAN 10 MG PO (07:54)
[2018-01-23] MEDS: VERAPAMIL 80 MG TAB PO (07:55)
== END 2018-01-23 14:08 | disposition home or self-care (01) | DRG 291 ==
LOC: M ED 06:51 → M ED INP 13:40 → M PCU 13:52
DX: I50.33 Acute on chronic diastolic (congestive) heart failure (principal); J96.21 Acute and chronic respiratory failure with hypoxia; J96.22 Acute and chronic respiratory failure with hypercapnia; N18.4 Chronic kidney disease, stage 4 (severe); N25.81 Secondary hyperparathyroidism of renal origin; E27.3 Drug-induced adrenocortical insufficiency; N17.9 Acute kidney failure, unspecified; E87.1 Hypo-osmolality and hyponatremia; E87.4 Mixed disorder of acid-base balance; M34.81 Systemic sclerosis with lung involvement; M35.02 Sjogren syndrome with lung involvement; I48.91 Unspecified atrial fibrillation; I27.29 Other secondary pulmonary hypertension; J84.10 Pulmonary fibrosis, unspecified; M06.9 Rheumatoid arthritis, unspecified; I73.00 Raynaud's syndrome without gangrene; E03.9 Hypothyroidism, unspecified; E83.42 Hypomagnesemia; D63.1 Anemia in chronic kidney disease; J20.9 Acute bronchitis, unspecified; G47.33 Obstructive sleep apnea (adult) (pediatric); I83.93 Asymptomatic varicose veins of bilateral lower extremities; D50.9 Iron deficiency anemia, unspecified; E78.5 Hyperlipidemia, unspecified; Z79.01 Long term (current) use of anticoagulants; Z79.52 Long term (current) use of systemic steroids; Z79.891 Long term (current) use of opiate analgesic; Z79.899 Other long term (current) drug therapy; Z99.81 Dependence on supplemental oxygen; Z90.49 Acquired absence of other specified parts of digestive tract; Z87.19 Personal history of other diseases of the digestive system

== ENCOUNTER 2018-02-03 22:57 | Emergency (ER) | payer MEDICARE, MEDICAID ==
[2018-02-04] MEDS: OXYMETAZOLINE NASAL SPRAY (AFRIN) (01:44)
== END 2018-02-04 02:15 | disposition home or self-care (01) ==
LOC: M ED 02-04 02:15
DX: R04.0 Epistaxis (principal); Z99.81 Dependence on supplemental oxygen; J44.9 Chronic obstructive pulmonary disease, unspecified; I27.81 Cor pulmonale (chronic); J84.10 Pulmonary fibrosis, unspecified; J45.909 Unspecified asthma, uncomplicated; I10 Essential (primary) hypertension; K21.9 Gastro-esophageal reflux disease without esophagitis; Z87.891 Personal history of nicotine dependence; Z79.899 Other long term (current) drug therapy; Z79.82 Long term (current) use of aspirin; Z79.52 Long term (current) use of systemic steroids
CPT/HCPCS: 99283

== ENCOUNTER 2018-02-13 12:23 | Outpatient (CLI) | payer MEDICARE, MEDICAID ==
[2018-02-13] MEDS ORDERED: FUROSEMIDE 40 MG/4 ML VIAL (J1940) IV (12:45)
== END 2018-02-13 18:15 | disposition home or self-care (01) ==
LOC: M INFU 12:23
DX: D64.9 Anemia, unspecified (principal); Z86.79 Personal history of other diseases of the circulatory system; Z79.82 Long term (current) use of aspirin; Z79.899 Other long term (current) drug therapy; Z79.52 Long term (current) use of systemic steroids
CPT/HCPCS: 36430

== ENCOUNTER 2018-02-19 18:22 | Inpatient (IN) | payer MEDICARE, MEDICAID ==
[2018-02-19 19:39] LABS: VENOUS BASE EXCESS -2.2 (-2.0-2.0); VENOUS HCO3 23.5 MEQ/L (23.0-27.0); VENOUS O2 SATURATION 85.6 % (60.0-80.0); VENOUS PARTIAL PRESSURE CO2 44.1 mmHg (38.0-50.0); VENOUS PARTIAL PRESSURE O2 51.8 mmHg (30.0-50.0); VENOUS PH 7.344 UNITS (7.330-7.430); VENOUS STANDARD HCO3 22.5 MEQ/L; VENOUS TOTAL CO2 24.8 MEQ/L (24.0-28.0)
[2018-02-19 19:40] LABS: BASO % 0.6 % (0.0-1.0); EOS # 0.1 10^3/uL (0.0-0.50); EOS % 1.5 % (0.0-3.0); HEMATOCRIT 25.5 % (36.0-47.0); HEMOGLOBIN 8.1 g/dl (12.0-15.5); IMMATURE GRANULOCYTE % 1.3 % (0-3.0); LYMPH # 0.6 10^3/uL (1.5-4.5); LYMPH % 10.6 % (24.0-44.0); MEAN CORPUSCULAR HEMOGLOBIN 31.8 pg (27.0-33.0); MEAN CORPUSCULAR HGB CONC 31.8 g/dl (32.0-36.5); MONO # 0.5 10^3/uL (0.0-0.8); MONO % 8.5 % (0.0-5.0); NEUTROPHILS # 4.1 10^3/uL (1.8-7.7); NEUTROPHILS % 77.5 % (36.0-66.0); PLATELET COUNT, AUTOMATED 144 10^3/uL (150-450); RED BLOOD COUNT 2.55 10^6/uL (4.00-5.40); RED CELL DISTRIBUTION WIDTH 16.8 % (11.5-14.5); WHITE BLOOD COUNT 5.3 10^3/uL (4.0-10.0)
[2018-02-19 20:07] LABS: LACTIC ACID SEPSIS PROTOCOL 0.8 MMOL/L (0.4-2.0)
[2018-02-19 20:09] LABS: ALBUMIN 2.9 GM/DL (3.2-5.2); ALBUMIN/GLOBULIN RATIO 0.69 (1.00-1.93); ALKALINE PHOSPHATASE 201 U/L (45-117); ALT/SGPT 21 U/L (12-78); ANION GAP 11 MEQ/L (8-16); AST/SGOT 16 U/L (7-37); BILIRUBIN,DIRECT 0.3 MG/DL (0.0-0.2); BILIRUBIN,TOTAL 0.6 MG/DL (0.2-1.0); BLOOD UREA NITROGEN 86 MG/DL (7-18); CALCIUM LEVEL 8.7 MG/DL (8.8-10.2); CARBON DIOXIDE LEVEL 25 MEQ/L (21-32); CHLORIDE LEVEL 92 MEQ/L (98-107); CPK CREATINE PHOSPHOKINASE 22 U/L (26-192); CREATININE FOR GFR 2.28 MG/DL (0.55-1.30); GLOMERULAR FILTRATION RATE 23.1 (>45); GLUCOSE, FASTING 75 MG/DL (70-100); SODIUM LEVEL 128 MEQ/L (136-145); TOTAL PROTEIN 7.1 GM/DL (6.4-8.2); TROPONIN I 0.08 NG/ML (< 0.10)
[2018-02-19 20:12] LABS: CK-MB VALUE MASS 2.7 NG/ML (<3.6); MB/CK RELATIVE INDEX 12.27 (< OR =4); POTASSIUM SERUM 5.2 MEQ/L (3.5-5.1)
[2018-02-19 20:22] LABS: NT-PRO BNP 55330 PG/ML (<125)
[2018-02-19] MEDS: FUROSEMIDE 100 MG/10 ML VIAL (J1940) IV (22:27)
[2018-02-19] MEDS ORDERED: HYDROCORTISONE 2.5% 20GM OINTMENT TOP (23:15)
[2018-02-19] MEDS ORDERED: CALCIUM CARBONATE 500 MG CHEW U/D PO (23:15)
[2018-02-19] MEDS ORDERED: traMADol 50 MG TAB PO (23:15)
[2018-02-19] MEDS: predniSONE 2.5 MG TAB PO (23:29)
[2018-02-19] MEDS ORDERED: IPRATROPIUM 0.5MG/ALBUTEROL 2.5MG INH SOL UD 3ML (DUONEB)(J7620) NEB (23:30)
[2018-02-20 00:32] LABS: MAGNESIUM LEVEL 1.9 MG/DL (1.8-2.4)
[2018-02-20] MEDS: PRAVASTATIN 20 MG TAB PO ×2 (01:42→21:13)
[2018-02-20] MEDS: OMEPRAZOLE 20 MG CAP PO ×2 (01:44→21:12)
[2018-02-20 02:22] LABS: APPEARANCE, URINE CLEAR (CLEAR); BACTERIA, URINE AUTO 1+ (NEGATIVE); BILIRUBIN, URINE AUTO NEGATIVE (NEGATIVE); BLOOD, URINE BLOOD NEGATIVE (NEGATIVE); COLOR, URINE YELLOW (YELLOW); GLUCOSE, URINE (UA) AUTO NEGATIVE (NEGATIVE); KETONE, URINE AUTO NEGATIVE (NEGATIVE); LEUKOCYTE ESTERASE, URINE AUTO 2+ (NEGATIVE); MUCUS, URINE SMALL (NEGATIVE); NITRITE, URINE AUTO NEGATIVE (NEGATIVE); PROTEIN, URINE AUTO NEGATIVE (NEGATIVE); RBC, URINE AUTO 1 /HPF (0-3); SPECIFIC GRAVITY URINE AUTO 1.005 (1.002-1.035); SQUAMOUS EPITHELIAL CELL UR AU 1 /HPF (0-6); UROBILINOGEN, URINE AUTO 0.2 mg/dL (0.0-2.0); WBC, URINE AUTO 2 /HPF (0-3)
[2018-02-20] MEDS: FUROSEMIDE 100 MG/10 ML VIAL (J1940) IV ×5 (04:40→21:12)
[2018-02-20 06:37] LABS: HEMATOCRIT 24.7 % (36.0-47.0); HEMOGLOBIN 7.9 g/dl (12.0-15.5); MEAN CORPUSCULAR HEMOGLOBIN 31.6 pg (27.0-33.0); MEAN CORPUSCULAR VOLUME 98.8 fl (80.0-96.0); PLATELET COUNT, AUTOMATED 124 10^3/uL (150-450); RED CELL DISTRIBUTION WIDTH 16.7 % (11.5-14.5); WHITE BLOOD COUNT 3.2 10^3/uL (4.0-10.0)
[2018-02-20 07:00] LABS: ANION GAP 11 MEQ/L (8-16); BLOOD UREA NITROGEN 84 MG/DL (7-18); CALCIUM LEVEL 8.7 MG/DL (8.8-10.2); CARBON DIOXIDE LEVEL 26 MEQ/L (21-32); CHLORIDE LEVEL 93 MEQ/L (98-107); CREATININE FOR GFR 2.14 MG/DL (0.55-1.30); GLOMERULAR FILTRATION RATE 24.9 (>45); GLUCOSE, FASTING 56 MG/DL (70-100); POTASSIUM SERUM 4.3 MEQ/L (3.5-5.1); SODIUM LEVEL 130 MEQ/L (136-145); TROPONIN I 0.07 NG/ML (< 0.10)
[2018-02-20] MEDS: TREPROSTINIL INH ×4 (07:26→21:00)
[2018-02-20] MEDS ORDERED: aMILoride 5 MG TAB PO (09:00)
[2018-02-20] MEDS: CALCITRIOL 0.25 MCG CAP (S0169) PO (09:29)
[2018-02-20] MEDS: ASPIRIN 325 MG TAB PO (09:29)
[2018-02-20] MEDS: SILDENAFIL CITRATE 20 MG TABLET (REVATIO) PO ×3 (09:30→21:12)
[2018-02-20] MEDS: VERAPAMIL 80 MG TAB PO ×2 (09:30→21:13)
[2018-02-20] MEDS: FERROUS GLUCONATE 324 MG TAB PO ×2 (09:31→21:13)
[2018-02-20] MEDS: LEVOTHYROXINE 125MCG TABLET (0.125MG) PO (09:31)
[2018-02-20] MEDS: HEPARIN SOD (PORCINE) 5000 UNITS/ML VIAL SQ ×2 (09:31→21:13)
[2018-02-20] MEDS: AMBRISENTAN 10 MG PO (09:32)
[2018-02-20 13:01] LABS: HEMATOCRIT 25.5 % (36.0-47.0); HEMOGLOBIN 8.1 g/dl (12.0-15.5)
[2018-02-20] MEDS: predniSONE 2.5 MG TAB PO (21:12)
[2018-02-21] MEDS: FUROSEMIDE 100 MG/10 ML VIAL (J1940) IV ×3 (04:12→16:00)
[2018-02-21 06:19] LABS: HEMATOCRIT 22.8 % (36.0-47.0); HEMOGLOBIN 7.3 g/dl (12.0-15.5); MEAN CORPUSCULAR HEMOGLOBIN 31.6 pg (27.0-33.0); MEAN CORPUSCULAR VOLUME 98.7 fl (80.0-96.0); PLATELET COUNT, AUTOMATED 121 10^3/uL (150-450); RED BLOOD COUNT 2.31 10^6/uL (4.00-5.40); RED CELL DISTRIBUTION WIDTH 16.7 % (11.5-14.5); WHITE BLOOD COUNT 3.4 10^3/uL (4.0-10.0)
[2018-02-21 06:39] LABS: ANION GAP 11 MEQ/L (8-16); BLOOD UREA NITROGEN 80 MG/DL (7-18); CALCIUM LEVEL 8.4 MG/DL (8.8-10.2); CARBON DIOXIDE LEVEL 28 MEQ/L (21-32); CHLORIDE LEVEL 92 MEQ/L (98-107); GLOMERULAR FILTRATION RATE 26.9 (>45); GLUCOSE, FASTING 86 MG/DL (70-100); SODIUM LEVEL 131 MEQ/L (136-145)
[2018-02-21] MEDS: AMBRISENTAN 10 MG PO (08:39)
[2018-02-21] MEDS: ASPIRIN 325 MG TAB PO (09:23)
[2018-02-21] MEDS: CALCITRIOL 0.25 MCG CAP (S0169) PO (09:24)
[2018-02-21] MEDS: FERROUS GLUCONATE 324 MG TAB PO ×2 (09:24→20:40)
[2018-02-21] MEDS: VERAPAMIL 80 MG TAB PO ×2 (09:24→20:43)
[2018-02-21] MEDS: SILDENAFIL CITRATE 20 MG TABLET (REVATIO) PO ×3 (09:24→20:40)
[2018-02-21] MEDS: LEVOTHYROXINE 125MCG TABLET (0.125MG) PO (09:24)
[2018-02-21] MEDS: TREPROSTINIL INH ×5 (09:24→21:30)
[2018-02-21] MEDS: HEPARIN SOD (PORCINE) 5000 UNITS/ML VIAL SQ ×2 (09:25→20:41)
[2018-02-21] MEDS ORDERED: SLF 3 ML SYR IV (11:00)
[2018-02-21 13:37] LABS: IMMEDIATE SPIN CROSSMATCH 1 2
[2018-02-21] MEDS: SLF 3 ML SYR IV ×2 (13:39→20:43)
[2018-02-21] MEDS: OMEPRAZOLE 20 MG CAP PO (20:40)
[2018-02-21] MEDS: predniSONE 2.5 MG TAB PO (20:40)
[2018-02-21] MEDS: PRAVASTATIN 20 MG TAB PO (20:40)
[2018-02-22] MEDS: BENZONATATE 100 MG CAP PO (03:04)
[2018-02-22] MEDS: SLF 3 ML SYR IV ×3 (05:19→22:18)
[2018-02-22 05:40] LABS: HEMATOCRIT 26.4 % (36.0-47.0); HEMOGLOBIN 8.8 g/dl (12.0-15.5); MEAN CORPUSCULAR HEMOGLOBIN 31.5 pg (27.0-33.0); MEAN CORPUSCULAR HGB CONC 33.3 g/dl (32.0-36.5); MEAN CORPUSCULAR VOLUME 94.6 fl (80.0-96.0); PLATELET COUNT, AUTOMATED 125 10^3/uL (150-450); RED BLOOD COUNT 2.79 10^6/uL (4.00-5.40); RED CELL DISTRIBUTION WIDTH 17.2 % (11.5-14.5); WHITE BLOOD COUNT 3.5 10^3/uL (4.0-10.0)
[2018-02-22 05:53] LABS: ANION GAP 9 MEQ/L (8-16); BLOOD UREA NITROGEN 81 MG/DL (7-18); CALCIUM LEVEL 8.4 MG/DL (8.8-10.2); CARBON DIOXIDE LEVEL 27 MEQ/L (21-32); CHLORIDE LEVEL 92 MEQ/L (98-107); CREATININE FOR GFR 2.09 MG/DL (0.55-1.30); GLOMERULAR FILTRATION RATE 25.5 (>45); GLUCOSE, FASTING 91 MG/DL (70-100); SODIUM LEVEL 128 MEQ/L (136-145)
[2018-02-22] MEDS: AMBRISENTAN 10 MG PO (08:05)
[2018-02-22] MEDS: ASPIRIN 325 MG TAB PO (09:21)
[2018-02-22] MEDS: FERROUS GLUCONATE 324 MG TAB PO ×2 (09:22→22:13)
[2018-02-22] MEDS: CALCITRIOL 0.25 MCG CAP (S0169) PO (09:22)
[2018-02-22] MEDS: SILDENAFIL CITRATE 20 MG TABLET (REVATIO) PO ×3 (09:22→22:13)
[2018-02-22] MEDS: HEPARIN SOD (PORCINE) 5000 UNITS/ML VIAL SQ ×2 (09:22→22:17)
[2018-02-22] MEDS: LEVOTHYROXINE 125MCG TABLET (0.125MG) PO (09:22)
[2018-02-22] MEDS: VERAPAMIL 80 MG TAB PO ×2 (09:22→22:13)
[2018-02-22] MEDS: TREPROSTINIL INH ×4 (11:12→22:19)
[2018-02-22] MEDS: SPIRONOLACTONE 25 MG TAB PO ×2 (13:52→17:14)
[2018-02-22] MEDS: BUMETANIDE 1 MG TAB PO ×2 (13:52→17:15)
[2018-02-22] MEDS: GOLYTELY SOLN 4000 ML BTL PO (17:14)
[2018-02-22] MEDS: PRAVASTATIN 20 MG TAB PO (22:13)
[2018-02-22] MEDS: predniSONE 2.5 MG TAB PO (22:14)
[2018-02-22] MEDS: OMEPRAZOLE 20 MG CAP PO (22:14)
[2018-02-23 05:54] LABS: HEMATOCRIT 28.4 % (36.0-47.0); HEMOGLOBIN 9.3 g/dl (12.0-15.5); MEAN CORPUSCULAR HEMOGLOBIN 31.6 pg (27.0-33.0); MEAN CORPUSCULAR HGB CONC 32.7 g/dl (32.0-36.5); MEAN CORPUSCULAR VOLUME 96.6 fl (80.0-96.0); PLATELET COUNT, AUTOMATED 124 10^3/uL (150-450); RED BLOOD COUNT 2.94 10^6/uL (4.00-5.40); RED CELL DISTRIBUTION WIDTH 17.2 % (11.5-14.5); WHITE BLOOD COUNT 3.6 10^3/uL (4.0-10.0)
[2018-02-23] MEDS: SLF 3 ML SYR IV ×3 (06:04→21:06)
[2018-02-23 06:12] LABS: ANION GAP 11 MEQ/L (8-16); BLOOD UREA NITROGEN 70 MG/DL (7-18); CALCIUM LEVEL 8.4 MG/DL (8.8-10.2); CARBON DIOXIDE LEVEL 28 MEQ/L (21-32); CHLORIDE LEVEL 92 MEQ/L (98-107); CREATININE FOR GFR 1.93 MG/DL (0.55-1.30); GLUCOSE, FASTING 79 MG/DL (70-100); SODIUM LEVEL 131 MEQ/L (136-145)
[2018-02-23] MEDS: TREPROSTINIL INH ×4 (07:19→21:15)
[2018-02-23] MEDS: AMBRISENTAN 10 MG PO (08:18)
[2018-02-23] MEDS: SPIRONOLACTONE 25 MG TAB PO ×2 (08:19→16:42)
[2018-02-23] MEDS: LEVOTHYROXINE 125MCG TABLET (0.125MG) PO (08:19)
[2018-02-23] MEDS: HEPARIN SOD (PORCINE) 5000 UNITS/ML VIAL SQ ×2 (08:19→21:00)
[2018-02-23] MEDS: FERROUS GLUCONATE 324 MG TAB PO ×2 (08:20→21:05)
[2018-02-23] MEDS: SILDENAFIL CITRATE 20 MG TABLET (REVATIO) PO ×3 (08:20→21:05)
[2018-02-23] MEDS: ASPIRIN 325 MG TAB PO (08:20)
[2018-02-23] MEDS: VERAPAMIL 80 MG TAB PO ×2 (08:20→21:05)
[2018-02-23] MEDS: CALCITRIOL 0.25 MCG CAP (S0169) PO (08:20)
[2018-02-23] MEDS: BUMETANIDE 1 MG TAB PO ×2 (08:21→16:41)
[2018-02-23] MEDS ORDERED: GOLYTELY SOLN 4000 ML BTL PO (11:00)
[2018-02-23] MEDS ORDERED: SIMETHICONE 40MG/0.6ML DROPS 30ML As Ordered (12:39)
[2018-02-23] MEDS ORDERED: LIDOCAINE 2% INJ 100 MG/5 ML SDV (FOR ANES.) As Ordered (12:43)
[2018-02-23] MEDS ORDERED: PROPOFOL 200 MG/20 ML VIAL As Ordered (12:44)
[2018-02-23] MEDS ORDERED: ePHEDrine SULFATE 25 MG/5 ML(5MG/ML) SYRINGE As Ordered (13:21)
[2018-02-23] MEDS ORDERED: ONDANSETRON 4MG/2ML VIAL (J2405) IV (14:00)
[2018-02-23] MEDS: LR 1,000 ML IV (14:00)
[2018-02-23] MEDS: OMEPRAZOLE 20 MG CAP PO (21:02)
[2018-02-23] MEDS: PRAVASTATIN 20 MG TAB PO (21:05)
[2018-02-23] MEDS: predniSONE 2.5 MG TAB PO (21:05)
[2018-02-24] MEDS: SLF 3 ML SYR IV ×3 (05:23→21:18)
[2018-02-24 05:56] LABS: HEMATOCRIT 27.2 % (36.0-47.0); HEMOGLOBIN 8.8 g/dl (12.0-15.5); MEAN CORPUSCULAR HEMOGLOBIN 31.1 pg (27.0-33.0); MEAN CORPUSCULAR HGB CONC 32.4 g/dl (32.0-36.5); MEAN CORPUSCULAR VOLUME 96.1 fl (80.0-96.0); PLATELET COUNT, AUTOMATED 132 10^3/uL (150-450); RED BLOOD COUNT 2.83 10^6/uL (4.00-5.40); RED CELL DISTRIBUTION WIDTH 17.2 % (11.5-14.5); WHITE BLOOD COUNT 4.1 10^3/uL (4.0-10.0)
[2018-02-24 06:12] LABS: ANION GAP 8 MEQ/L (8-16); BLOOD UREA NITROGEN 68 MG/DL (7-18); CALCIUM LEVEL 8.3 MG/DL (8.8-10.2); CARBON DIOXIDE LEVEL 30 MEQ/L (21-32); CHLORIDE LEVEL 92 MEQ/L (98-107); CREATININE FOR GFR 1.89 MG/DL (0.55-1.30); GLOMERULAR FILTRATION RATE 28.7 (>45); GLUCOSE, FASTING 92 MG/DL (70-100); POTASSIUM SERUM 3.7 MEQ/L (3.5-5.1); SODIUM LEVEL 130 MEQ/L (136-145)
[2018-02-24] MEDS: TREPROSTINIL INH ×4 (09:00→21:37)
[2018-02-24] MEDS: AMBRISENTAN 10 MG PO (09:00)
[2018-02-24] MEDS: BUMETANIDE 1 MG TAB PO (09:27)
[2018-02-24] MEDS: SILDENAFIL CITRATE 20 MG TABLET (REVATIO) PO ×3 (09:27→20:59)
[2018-02-24] MEDS: SPIRONOLACTONE 25 MG TAB PO ×2 (09:27→16:32)
[2018-02-24] MEDS: CALCITRIOL 0.25 MCG CAP (S0169) PO (09:27)
[2018-02-24] MEDS: ASPIRIN 325 MG TAB PO (09:27)
[2018-02-24] MEDS: LEVOTHYROXINE 125MCG TABLET (0.125MG) PO (09:28)
[2018-02-24] MEDS: FERROUS GLUCONATE 324 MG TAB PO ×2 (09:28→20:59)
[2018-02-24] MEDS: VERAPAMIL 80 MG TAB PO ×2 (09:28→21:04)
[2018-02-24] MEDS: HEPARIN SOD (PORCINE) 5000 UNITS/ML VIAL SQ ×2 (09:28→21:00)
[2018-02-24] MEDS: FUROSEMIDE injection 250 MG in D5W 225 ML IV (12:06)
[2018-02-24 13:16] LABS: MAGNESIUM LEVEL 1.8 MG/DL (1.8-2.4)
[2018-02-24] MEDS: PRAVASTATIN 20 MG TAB PO (20:59)
[2018-02-24] MEDS: predniSONE 2.5 MG TAB PO (20:59)
[2018-02-24] MEDS: OMEPRAZOLE 20 MG CAP PO (20:59)
[2018-02-25 05:57] LABS: HEMATOCRIT 26.5 % (36.0-47.0); HEMOGLOBIN 8.7 g/dl (12.0-15.5); MEAN CORPUSCULAR HEMOGLOBIN 31.6 pg (27.0-33.0); MEAN CORPUSCULAR HGB CONC 32.8 g/dl (32.0-36.5); MEAN CORPUSCULAR VOLUME 96.4 fl (80.0-96.0); PLATELET COUNT, AUTOMATED 129 10^3/uL (150-450); RED BLOOD COUNT 2.75 10^6/uL (4.00-5.40); RED CELL DISTRIBUTION WIDTH 17.2 % (11.5-14.5)
[2018-02-25] MEDS: SLF 3 ML SYR IV ×2 (06:00→14:00)
[2018-02-25 06:24] LABS: ANION GAP 8 MEQ/L (8-16); BLOOD UREA NITROGEN 67 MG/DL (7-18); CALCIUM LEVEL 8.5 MG/DL (8.8-10.2); CARBON DIOXIDE LEVEL 30 MEQ/L (21-32); CHLORIDE LEVEL 93 MEQ/L (98-107); CREATININE FOR GFR 2.02 MG/DL (0.55-1.30); GLOMERULAR FILTRATION RATE 26.6 (>45); GLUCOSE, FASTING 91 MG/DL (70-100); MAGNESIUM LEVEL 1.8 MG/DL (1.8-2.4); SODIUM LEVEL 131 MEQ/L (136-145)
[2018-02-25] MEDS: FERROUS GLUCONATE 324 MG TAB PO (08:09)
[2018-02-25] MEDS: HEPARIN SOD (PORCINE) 5000 UNITS/ML VIAL SQ (08:09)
[2018-02-25] MEDS: LEVOTHYROXINE 125MCG TABLET (0.125MG) PO (08:09)
[2018-02-25] MEDS: SPIRONOLACTONE 25 MG TAB PO ×2 (08:09→16:10)
[2018-02-25] MEDS: VERAPAMIL 80 MG TAB PO (08:10)
[2018-02-25] MEDS: SILDENAFIL CITRATE 20 MG TABLET (REVATIO) PO ×2 (08:11→16:10)
[2018-02-25] MEDS: AMBRISENTAN 10 MG PO (08:11)
[2018-02-25] MEDS: CALCITRIOL 0.25 MCG CAP (S0169) PO (08:11)
[2018-02-25] MEDS: ASPIRIN 325 MG TAB PO (08:11)
[2018-02-25] MEDS: TREPROSTINIL INH ×2 (08:23→13:00)
[2018-02-25] MEDS: FUROSEMIDE injection 250 MG in D5W 225 ML IV (12:39)
== END 2018-02-25 17:59 | disposition home or self-care (01) | DRG 291 ==
LOC: M PCU 02-20 00:22 → M ED 18:22 → M ED INP 23:24
PROC: 0W3P8ZZ Control Bleeding in Gastrointestinal Tract, Via Natural or Artificial Opening Endoscopic (ICD-10-PCS; principal; 2018-02-23 12:30)
PROC: 0DJD8ZZ Inspection of Lower Intestinal Tract, Via Natural or Artificial Opening Endoscopic (ICD-10-PCS; 2018-02-23 12:30)
PROC: 30233N1 Transfusion of Nonautologous Red Blood Cells into Peripheral Vein, Percutaneous Approach (ICD-10-PCS; 2018-02-23 12:54)
DX: I50.33 Acute on chronic diastolic (congestive) heart failure (principal); K31.811 Angiodysplasia of stomach and duodenum with bleeding; J96.11 Chronic respiratory failure with hypoxia; N18.4 Chronic kidney disease, stage 4 (severe); E87.1 Hypo-osmolality and hyponatremia; N25.81 Secondary hyperparathyroidism of renal origin; D62 Acute posthemorrhagic anemia; I48.2 Chronic atrial fibrillation; J84.112 Idiopathic pulmonary fibrosis; I27.29 Other secondary pulmonary hypertension; M34.9 Systemic sclerosis, unspecified; E03.9 Hypothyroidism, unspecified; M06.9 Rheumatoid arthritis, unspecified; K44.9 Diaphragmatic hernia without obstruction or gangrene; K57.30 Diverticulosis of large intestine without perforation or abscess without bleeding; I95.89 Other hypotension; E87.5 Hyperkalemia; G47.33 Obstructive sleep apnea (adult) (pediatric); K21.9 Gastro-esophageal reflux disease without esophagitis; E78.5 Hyperlipidemia, unspecified; Z99.81 Dependence on supplemental oxygen; Z79.82 Long term (current) use of aspirin; Z79.899 Other long term (current) drug therapy; Z79.52 Long term (current) use of systemic steroids

== ENCOUNTER 2018-03-04 14:19 | Inpatient (IN) | payer MEDICARE, MEDICAID ==
[2018-03-04 14:56] LABS: VENOUS BASE EXCESS 0.2 (-2.0-2.0); VENOUS HCO3 26.1 MEQ/L (23.0-27.0); VENOUS O2 SATURATION 78.9 % (60.0-80.0); VENOUS PARTIAL PRESSURE CO2 47.7 mmHg (38.0-50.0); VENOUS PARTIAL PRESSURE O2 46.4 mmHg (30.0-50.0); VENOUS PH 7.356 UNITS (7.330-7.430); VENOUS STANDARD HCO3 24.4 MEQ/L; VENOUS TOTAL CO2 27.6 MEQ/L (24.0-28.0)
[2018-03-04 14:57] LABS: BASO % 0.1 % (0.0-1.0); EOS % 0.5 % (0.0-3.0); HEMATOCRIT 30.2 % (36.0-47.0); HEMOGLOBIN 9.7 g/dl (12.0-15.5); IMMATURE GRANULOCYTE % 1.5 % (0-3.0); LYMPH # 0.4 10^3/uL (1.5-4.5); MEAN CORPUSCULAR HEMOGLOBIN 31.5 pg (27.0-33.0); MEAN CORPUSCULAR HGB CONC 32.1 g/dl (32.0-36.5); MEAN CORPUSCULAR VOLUME 98.1 fl (80.0-96.0); MONO # 0.4 10^3/uL (0.0-0.8); NEUTROPHILS # 6.4 10^3/uL (1.8-7.7); NEUTROPHILS % 86.9 % (36.0-66.0); PLATELET COUNT, AUTOMATED 190 10^3/uL (150-450); RED BLOOD COUNT 3.08 10^6/uL (4.00-5.40); RED CELL DISTRIBUTION WIDTH 17.1 % (11.5-14.5); WHITE BLOOD COUNT 7.4 10^3/uL (4.0-10.0)
[2018-03-04] MEDS: ONDANSETRON 4MG/2ML VIAL (J2405) IV (15:08)
[2018-03-04 15:20] LABS: LACTIC ACID SEPSIS PROTOCOL 1.3 MMOL/L (0.4-2.0)
[2018-03-04 15:31] LABS: ALBUMIN 3.1 GM/DL (3.2-5.2); ALBUMIN/GLOBULIN RATIO 0.76 (1.00-1.93); ALKALINE PHOSPHATASE 214 U/L (45-117); ALT/SGPT 32 U/L (12-78); ANION GAP 12 MEQ/L (8-16); AST/SGOT 39 U/L (7-37); BILIRUBIN,DIRECT 0.7 MG/DL (0.0-0.2); BILIRUBIN,TOTAL 1.1 MG/DL (0.2-1.0); BLOOD UREA NITROGEN 85 MG/DL (7-18); CALCIUM LEVEL 9.4 MG/DL (8.8-10.2); CARBON DIOXIDE LEVEL 27 MEQ/L (21-32); CHLORIDE LEVEL 88 MEQ/L (98-107); CPK CREATINE PHOSPHOKINASE 43 U/L (26-192); CREATININE FOR GFR 3.02 MG/DL (0.55-1.30); GLOMERULAR FILTRATION RATE 16.7 (>45); GLUCOSE, FASTING 51 MG/DL (70-100); SODIUM LEVEL 127 MEQ/L (136-145); TOTAL PROTEIN 7.2 GM/DL (6.4-8.2); TROPONIN I 0.04 NG/ML (< 0.10)
[2018-03-04 15:32] LABS: INR 1.15; PROTHROMBIN TIME 14.9 SECONDS (12.1-14.4)
[2018-03-04 15:33] LABS: MB/CK RELATIVE INDEX 6.97 (< OR =4); POTASSIUM SERUM 5.5 MEQ/L (3.5-5.1)
[2018-03-04 15:45] LABS: NT-PRO BNP 92842 PG/ML (<125)
[2018-03-04 15:55] LABS: MAGNESIUM LEVEL 1.6 MG/DL (1.8-2.4); PHOSPHORUS LEVEL 4.2 MG/DL (2.5-4.9)
[2018-03-04] MEDS ORDERED: BENZONATATE 100 MG CAP PO (16:15)
[2018-03-04] MEDS ORDERED: traMADol 50 MG TAB PO (16:15)
[2018-03-04] MEDS ORDERED: HYDROCORTISONE 2.5% 20GM OINTMENT TOP (16:15)
[2018-03-04] MEDS ORDERED: MUPIROCIN 2% OINT 22 GM TUBE TOP (16:15)
[2018-03-04] MEDS ORDERED: ONDANSETRON 4MG/2ML VIAL (J2405) IV (16:30)
[2018-03-04] MEDS ORDERED: ACETAMINOPHEN TAB 650MG DOSE (2X325MG) PO (16:30)
[2018-03-04 16:40] LABS: FREE THYROXINE INDEX 2.9 % (1.3-4.8); T UPTAKE 39 % (30-39); THYROXINE (T4) 7.4 UG/DL (4.5-12.0)
[2018-03-04] MEDS: MAG SULF 1GM/100ML (MAG RUN) 1 GM in APPROPRIATE DILUENT 1 EA IV (16:58)
[2018-03-04] MEDS: metOLazone 5 MG TAB PO (16:58)
[2018-03-04 17:14] LABS: OSMOLALITY URINE 309 MOSM/KG (500-800)
[2018-03-04 17:15] LABS: APPEARANCE, URINE HAZY (CLEAR); BACTERIA, URINE AUTO NEGATIVE (NEGATIVE); BILIRUBIN, URINE AUTO NEGATIVE (NEGATIVE); BLOOD, URINE BLOOD NEGATIVE (NEGATIVE); COLOR, URINE YELLOW (YELLOW); GLUCOSE, URINE (UA) AUTO NEGATIVE (NEGATIVE); KETONE, URINE AUTO NEGATIVE (NEGATIVE); LEUKOCYTE ESTERASE, URINE AUTO TRACE (NEGATIVE); MUCUS, URINE SMALL (NEGATIVE); NITRITE, URINE AUTO NEGATIVE (NEGATIVE); PROTEIN, URINE AUTO NEGATIVE (NEGATIVE); RBC, URINE AUTO 0 /HPF (0-3); SPECIFIC GRAVITY URINE AUTO 1.009 (1.002-1.035); SQUAMOUS EPITHELIAL CELL UR AU 0 /HPF (0-6); WBC, URINE AUTO 3 /HPF (0-3)
[2018-03-04 17:27] LABS: CHLORIDE,RANDOM URINE 64 MEQ/L; CREATININE,RANDOM URINE 61.1 MG/DL; POTASSIUM RANDOM URINE 22.7 MEQ/L; SODIUM,RANDOM URINE 70 MEQ/L; TOTAL PROTEIN,RANDOM URINE 19.6 MG/DL (0.0-12.0)
[2018-03-04] MEDS: FUROSEMIDE injection 250 MG in D5W 225 ML IV (17:43)
[2018-03-04] MEDS: FUROSEMIDE 100 MG/10 ML VIAL (J1940) IV (17:44)
[2018-03-04] MEDS: VERAPAMIL 80 MG TAB PO (20:36)
[2018-03-04] MEDS: SILDENAFIL CITRATE 20 MG TABLET (REVATIO) PO (20:37)
[2018-03-04 20:45] LABS: ANION GAP 12 MEQ/L (8-16); BLOOD UREA NITROGEN 86 MG/DL (7-18); CARBON DIOXIDE LEVEL 27 MEQ/L (21-32); CHLORIDE LEVEL 89 MEQ/L (98-107); CK-MB VALUE MASS 2.5 NG/ML (<3.6); CPK CREATINE PHOSPHOKINASE 25 U/L (26-192); CREATININE FOR GFR 2.97 MG/DL (0.55-1.30); GLUCOSE, FASTING 51 MG/DL (70-100); SODIUM LEVEL 128 MEQ/L (136-145); TROPONIN I 0.04 NG/ML (< 0.10)
[2018-03-04 20:47] LABS: POTASSIUM SERUM 5.3 MEQ/L (3.5-5.1)
[2018-03-04] MEDS: OMEPRAZOLE 20 MG CAP PO (20:49)
[2018-03-04] MEDS: SENOKOT S TAB PO (20:49)
[2018-03-04] MEDS: CALCIUM CARBONATE 500 MG CHEW U/D PO (20:49)
[2018-03-04] MEDS: FERROUS GLUCONATE 324 MG TAB PO (20:49)
[2018-03-04] MEDS: PRAVASTATIN 20 MG TAB PO (20:49)
[2018-03-04] MEDS: predniSONE 5 MG TAB PO (20:49)
[2018-03-04] MEDS ORDERED: GLUCOSE 4 GM CHEW TABLET PO (21:15)
[2018-03-04] MEDS ORDERED: GLUCAGON FOR INJ 1 MG VIAL (J1610) SC (21:15)
[2018-03-04 21:24] LABS: BEDSIDE GLUCOSE 50 MG/DL (80-115)
[2018-03-04] MEDS: DEXTROSE 50% 50 ML SYRINGE IV (21:42)
[2018-03-04 22:04] LABS: BEDSIDE GLUCOSE 115 MG/DL (80-115)
[2018-03-05 00:17] LABS: BEDSIDE GLUCOSE 73 MG/DL (80-115)
[2018-03-05 01:57] LABS: BEDSIDE GLUCOSE 66 MG/DL (80-115)
[2018-03-05] MEDS: DEXTROSE 50% 50 ML SYRINGE IV (01:58)
[2018-03-05 02:30] LABS: BEDSIDE GLUCOSE 116 MG/DL (80-115)
[2018-03-05 02:30] LABS: CK-MB VALUE MASS 2.4 NG/ML (<3.6); CPK CREATINE PHOSPHOKINASE 23 U/L (26-192); MB/CK RELATIVE INDEX 10.43 (< OR =4); TROPONIN I 0.03 NG/ML (< 0.10)
[2018-03-05 04:35] LABS: HEMATOCRIT 27.5 % (36.0-47.0); HEMOGLOBIN 8.7 g/dl (12.0-15.5); MEAN CORPUSCULAR HEMOGLOBIN 31.4 pg (27.0-33.0); MEAN CORPUSCULAR HGB CONC 31.6 g/dl (32.0-36.5); MEAN CORPUSCULAR VOLUME 99.3 fl (80.0-96.0); PLATELET COUNT, AUTOMATED 153 10^3/uL (150-450); RED BLOOD COUNT 2.77 10^6/uL (4.00-5.40); WHITE BLOOD COUNT 5.2 10^3/uL (4.0-10.0)
[2018-03-05 04:53] LABS: ALBUMIN 2.6 GM/DL (3.2-5.2); ALBUMIN/GLOBULIN RATIO 0.62 (1.00-1.93); ALKALINE PHOSPHATASE 184 U/L (45-117); ALT/SGPT 30 U/L (12-78); ANION GAP 10 MEQ/L (8-16); AST/SGOT 27 U/L (7-37); BILIRUBIN,TOTAL 0.9 MG/DL (0.2-1.0); BLOOD UREA NITROGEN 83 MG/DL (7-18); CALCIUM LEVEL 8.9 MG/DL (8.8-10.2); CARBON DIOXIDE LEVEL 27 MEQ/L (21-32); CHLORIDE LEVEL 89 MEQ/L (98-107); CREATININE FOR GFR 3.05 MG/DL (0.55-1.30); GLOMERULAR FILTRATION RATE 16.5 (>45); GLUCOSE, FASTING 84 MG/DL (70-100); PHOSPHORUS LEVEL 4.3 MG/DL (2.5-4.9); SODIUM LEVEL 126 MEQ/L (136-145); TOTAL PROTEIN 6.8 GM/DL (6.4-8.2)
[2018-03-05 04:55] LABS: POTASSIUM SERUM 5.2 MEQ/L (3.5-5.1)
[2018-03-05] MEDS: LEVOTHYROXINE 125MCG TABLET (0.125MG) PO (06:11)
[2018-03-05 08:10] LABS: NT-PRO BNP 81056 PG/ML (<125)
[2018-03-05] MEDS: LETAIRIS 10 MG PO (09:00)
[2018-03-05] MEDS: VERAPAMIL 80 MG TAB PO ×2 (09:00→20:25)
[2018-03-05] MEDS: SILDENAFIL CITRATE 20 MG TABLET (REVATIO) PO ×3 (09:00→20:24)
[2018-03-05] MEDS: CALCITRIOL 0.25 MCG CAP (S0169) PO (09:06)
[2018-03-05] MEDS: ASPIRIN 325 MG TAB PO (09:06)
[2018-03-05] MEDS: FERROUS GLUCONATE 324 MG TAB PO ×2 (09:06→20:24)
[2018-03-05] MEDS: SENOKOT S TAB PO ×2 (09:06→20:24)
[2018-03-05] MEDS: [UNRECOGNIZED DRUG - OTHER] INH ×4 (10:50→19:54)
[2018-03-05 12:06] LABS: BEDSIDE GLUCOSE 73 MG/DL (80-115)
[2018-03-05] MEDS: metOLazone 5 MG TAB PO (13:04)
[2018-03-05] MEDS: FUROSEMIDE injection 250 MG in D5W 225 ML IV (17:57)
[2018-03-05 18:22] LABS: BEDSIDE GLUCOSE 105 MG/DL (80-115)
[2018-03-05] MEDS: PRAVASTATIN 20 MG TAB PO (20:24)
[2018-03-05] MEDS: predniSONE 5 MG TAB PO (20:24)
[2018-03-05] MEDS: CALCIUM CARBONATE 500 MG CHEW U/D PO (20:24)
[2018-03-05] MEDS: OMEPRAZOLE 20 MG CAP PO (20:24)
[2018-03-05 23:34] LABS: BEDSIDE GLUCOSE 86 MG/DL (80-115)
[2018-03-06 05:04] LABS: HEMATOCRIT 27.6 % (36.0-47.0); MEAN CORPUSCULAR HEMOGLOBIN 31.9 pg (27.0-33.0); MEAN CORPUSCULAR HGB CONC 32.6 g/dl (32.0-36.5); MEAN CORPUSCULAR VOLUME 97.9 fl (80.0-96.0); PLATELET COUNT, AUTOMATED 155 10^3/uL (150-450); RED BLOOD COUNT 2.82 10^6/uL (4.00-5.40); WHITE BLOOD COUNT 5.3 10^3/uL (4.0-10.0)
[2018-03-06 05:23] LABS: ALBUMIN 2.7 GM/DL (3.2-5.2); ALBUMIN/GLOBULIN RATIO 0.63 (1.00-1.93); ALKALINE PHOSPHATASE 192 U/L (45-117); ALT/SGPT 29 U/L (12-78); ANION GAP 11 MEQ/L (8-16); AST/SGOT 23 U/L (7-37); BILIRUBIN,TOTAL 0.9 MG/DL (0.2-1.0); BLOOD UREA NITROGEN 84 MG/DL (7-18); C REACTIVE PROTEIN QUANTITATIV 4.42 MG/DL (0.00-0.30); CALCIUM LEVEL 8.7 MG/DL (8.8-10.2); CARBON DIOXIDE LEVEL 27 MEQ/L (21-32); CHLORIDE LEVEL 86 MEQ/L (98-107); CREATININE FOR GFR 2.93 MG/DL (0.55-1.30); GLOMERULAR FILTRATION RATE 17.3 (>45); GLUCOSE, FASTING 65 MG/DL (70-100); MAGNESIUM LEVEL 1.9 MG/DL (1.8-2.4); POTASSIUM SERUM 5.1 MEQ/L (3.5-5.1); SODIUM LEVEL 124 MEQ/L (136-145)
[2018-03-06] MEDS: LEVOTHYROXINE 125MCG TABLET (0.125MG) PO (06:38)
[2018-03-06] MEDS: [UNRECOGNIZED DRUG - OTHER] INH ×4 (08:06→20:06)
[2018-03-06 08:18] LABS: BEDSIDE GLUCOSE 58 MG/DL (80-115)
[2018-03-06] MEDS: LETAIRIS 10 MG PO (09:00)
[2018-03-06] MEDS: SILDENAFIL CITRATE 20 MG TABLET (REVATIO) PO ×3 (09:00→20:38)
[2018-03-06] MEDS: VERAPAMIL 80 MG TAB PO ×2 (10:14→20:39)
[2018-03-06] MEDS: ASPIRIN 325 MG TAB PO (10:14)
[2018-03-06] MEDS: SENOKOT S TAB PO ×2 (10:14→20:38)
[2018-03-06] MEDS: CALCITRIOL 0.25 MCG CAP (S0169) PO (10:15)
[2018-03-06] MEDS: FERROUS GLUCONATE 324 MG TAB PO ×2 (10:15→20:39)
[2018-03-06] MEDS: TOLVAPTAN 15 MG TAB (SAMSCA) PO (12:06)
[2018-03-06 12:20] LABS: BEDSIDE GLUCOSE 53 MG/DL (80-115)
[2018-03-06] MEDS: FUROSEMIDE injection 250 MG in D5W 225 ML IV (17:00)
[2018-03-06 17:48] LABS: BEDSIDE GLUCOSE 109 MG/DL (80-115)
[2018-03-06] MEDS: PRAVASTATIN 20 MG TAB PO (20:38)
[2018-03-06] MEDS: CALCIUM CARBONATE 500 MG CHEW U/D PO (20:38)
[2018-03-06] MEDS: OMEPRAZOLE 20 MG CAP PO (20:38)
[2018-03-06] MEDS: predniSONE 5 MG TAB PO (20:39)
[2018-03-06 20:47] LABS: BEDSIDE GLUCOSE 107 MG/DL (80-115)
[2018-03-07 05:01] LABS: HEMATOCRIT 27.1 % (36.0-47.0); HEMOGLOBIN 8.9 g/dl (12.0-15.5); MEAN CORPUSCULAR HEMOGLOBIN 31.4 pg (27.0-33.0); MEAN CORPUSCULAR HGB CONC 32.8 g/dl (32.0-36.5); MEAN CORPUSCULAR VOLUME 95.8 fl (80.0-96.0); PLATELET COUNT, AUTOMATED 160 10^3/uL (150-450); RED BLOOD COUNT 2.83 10^6/uL (4.00-5.40); RED CELL DISTRIBUTION WIDTH 16.9 % (11.5-14.5); WHITE BLOOD COUNT 5.6 10^3/uL (4.0-10.0)
[2018-03-07 05:21] LABS: ALBUMIN 2.8 GM/DL (3.2-5.2); ALBUMIN/GLOBULIN RATIO 0.65 (1.00-1.93); ALKALINE PHOSPHATASE 187 U/L (45-117); ALT/SGPT 27 U/L (12-78); ANION GAP 11 MEQ/L (8-16); AST/SGOT 18 U/L (7-37); BILIRUBIN,TOTAL 0.8 MG/DL (0.2-1.0); BLOOD UREA NITROGEN 81 MG/DL (7-18); C REACTIVE PROTEIN QUANTITATIV 3.36 MG/DL (0.00-0.30); CALCIUM LEVEL 8.8 MG/DL (8.8-10.2); CARBON DIOXIDE LEVEL 31 MEQ/L (21-32); CHLORIDE LEVEL 83 MEQ/L (98-107); CREATININE FOR GFR 2.86 MG/DL (0.55-1.30); GLOMERULAR FILTRATION RATE 17.8 (>45); GLUCOSE, FASTING 103 MG/DL (70-100); MAGNESIUM LEVEL 1.9 MG/DL (1.8-2.4); POTASSIUM SERUM 5.1 MEQ/L (3.5-5.1); SODIUM LEVEL 125 MEQ/L (136-145); TOTAL PROTEIN 7.1 GM/DL (6.4-8.2)
[2018-03-07] MEDS: LEVOTHYROXINE 125MCG TABLET (0.125MG) PO (06:31)
[2018-03-07] MEDS: [UNRECOGNIZED DRUG - OTHER] INH ×4 (07:46→20:00)
[2018-03-07] MEDS: FERROUS GLUCONATE 324 MG TAB PO ×2 (08:57→20:27)
[2018-03-07] MEDS: VERAPAMIL 80 MG TAB PO ×2 (08:57→20:27)
[2018-03-07] MEDS: ASPIRIN 325 MG TAB PO (08:57)
[2018-03-07] MEDS: LETAIRIS 10 MG PO (08:58)
[2018-03-07] MEDS: SENOKOT S TAB PO ×2 (08:59→20:27)
[2018-03-07] MEDS: CALCITRIOL 0.25 MCG CAP (S0169) PO (08:59)
[2018-03-07] MEDS: SILDENAFIL CITRATE 20 MG TABLET (REVATIO) PO ×3 (08:59→20:27)
[2018-03-07] MEDS: TOLVAPTAN 15 MG TAB (SAMSCA) PO (10:09)
[2018-03-07 11:51] LABS: BEDSIDE GLUCOSE 82 MG/DL (80-115)
[2018-03-07 17:42] LABS: BEDSIDE GLUCOSE 42 MG/DL (80-115)
[2018-03-07] MEDS: FUROSEMIDE injection 250 MG in D5W 225 ML IV (18:00)
[2018-03-07 18:12] LABS: BEDSIDE GLUCOSE 78 MG/DL (80-115)
[2018-03-07 20:13] LABS: BEDSIDE GLUCOSE 105 MG/DL (80-115)
[2018-03-07] MEDS: OMEPRAZOLE 20 MG CAP PO (20:26)
[2018-03-07] MEDS: CALCIUM CARBONATE 500 MG CHEW U/D PO (20:26)
[2018-03-07] MEDS: PRAVASTATIN 20 MG TAB PO (20:27)
[2018-03-07] MEDS: predniSONE 5 MG TAB PO (20:27)
[2018-03-08 05:10] LABS: HEMATOCRIT 25.8 % (36.0-47.0); HEMOGLOBIN 8.6 g/dl (12.0-15.5); MEAN CORPUSCULAR HEMOGLOBIN 32.1 pg (27.0-33.0); MEAN CORPUSCULAR HGB CONC 33.3 g/dl (32.0-36.5); MEAN CORPUSCULAR VOLUME 96.3 fl (80.0-96.0); PLATELET COUNT, AUTOMATED 145 10^3/uL (150-450); RED BLOOD COUNT 2.68 10^6/uL (4.00-5.40); RED CELL DISTRIBUTION WIDTH 16.9 % (11.5-14.5); WHITE BLOOD COUNT 5.5 10^3/uL (4.0-10.0)
[2018-03-08 05:31] LABS: ALBUMIN 2.7 GM/DL (3.2-5.2); ALBUMIN/GLOBULIN RATIO 0.64 (1.00-1.93); ALKALINE PHOSPHATASE 182 U/L (45-117); ALT/SGPT 25 U/L (12-78); ANION GAP 8 MEQ/L (8-16); AST/SGOT 14 U/L (7-37); BILIRUBIN,TOTAL 0.7 MG/DL (0.2-1.0); BLOOD UREA NITROGEN 75 MG/DL (7-18); C REACTIVE PROTEIN QUANTITATIV 2.27 MG/DL (0.00-0.30); CALCIUM LEVEL 8.9 MG/DL (8.8-10.2); CARBON DIOXIDE LEVEL 36 MEQ/L (21-32); CHLORIDE LEVEL 82 MEQ/L (98-107); CREATININE FOR GFR 2.46 MG/DL (0.55-1.30); GLOMERULAR FILTRATION RATE 21.2 (>45); GLUCOSE, FASTING 91 MG/DL (70-100); MAGNESIUM LEVEL 1.7 MG/DL (1.8-2.4); POTASSIUM SERUM 4.3 MEQ/L (3.5-5.1); SODIUM LEVEL 126 MEQ/L (136-145); TOTAL PROTEIN 6.9 GM/DL (6.4-8.2)
[2018-03-08] MEDS: LEVOTHYROXINE 125MCG TABLET (0.125MG) PO (05:48)
[2018-03-08] MEDS: [UNRECOGNIZED DRUG - OTHER] INH (08:00)
[2018-03-08] MEDS: ASPIRIN 325 MG TAB PO (08:15)
[2018-03-08] MEDS: CALCITRIOL 0.25 MCG CAP (S0169) PO (08:15)
[2018-03-08] MEDS: LETAIRIS 10 MG PO (08:15)
[2018-03-08] MEDS: SILDENAFIL CITRATE 20 MG TABLET (REVATIO) PO (08:15)
[2018-03-08] MEDS: FERROUS GLUCONATE 324 MG TAB PO (08:15)
[2018-03-08] MEDS: SENOKOT S TAB PO (08:15)
[2018-03-08] MEDS: VERAPAMIL 80 MG TAB PO (08:16)
[2018-03-08 11:56] LABS: BEDSIDE GLUCOSE 49 MG/DL (80-115)
[2018-03-08] MEDS ORDERED: TORSEMIDE (DEMADEX) 50 MG PER 1/2 TAB PO (17:00)
== END 2018-03-08 12:44 | disposition home health service (06) | DRG 315 ==
LOC: M ED 14:19 → M ED INP 16:17 → M ICU 17:20
DX: I27.29 Other secondary pulmonary hypertension (principal); I50.32 Chronic diastolic (congestive) heart failure; J96.11 Chronic respiratory failure with hypoxia; N18.4 Chronic kidney disease, stage 4 (severe); E87.1 Hypo-osmolality and hyponatremia; I24.0 Acute coronary thrombosis not resulting in myocardial infarction; N17.9 Acute kidney failure, unspecified; I13.0 Hypertensive heart and chronic kidney disease with heart failure and stage 1 through stage 4 chronic kidney disease, or unspecified chronic kidney disease; D63.1 Anemia in chronic kidney disease; I48.91 Unspecified atrial fibrillation; Z66 Do not resuscitate; I50.811 Acute right heart failure; I50.84 End stage heart failure; I78.1 Nevus, non-neoplastic; J84.10 Pulmonary fibrosis, unspecified; M06.9 Rheumatoid arthritis, unspecified; M34.9 Systemic sclerosis, unspecified; G47.33 Obstructive sleep apnea (adult) (pediatric); I95.9 Hypotension, unspecified; E03.9 Hypothyroidism, unspecified; R11.2 Nausea with vomiting, unspecified; E83.42 Hypomagnesemia; K21.9 Gastro-esophageal reflux disease without esophagitis; E78.5 Hyperlipidemia, unspecified; E87.5 Hyperkalemia; Z99.81 Dependence on supplemental oxygen; Z79.82 Long term (current) use of aspirin; Z79.52 Long term (current) use of systemic steroids; Z79.899 Other long term (current) drug therapy

== ENCOUNTER → 2018-04-24 | Outpatient (REF) | payer MEDICARE, MEDICAID ==
[2018-04-25 13:39] LABS: IMMEDIATE SPIN CROSSMATCH 1 2
== END ==
LOC: M LAB REF 17:25
DX: N18.9 Chronic kidney disease, unspecified (principal); D63.1 Anemia in chronic kidney disease
CPT/HCPCS: 86900

== ENCOUNTER 2018-04-25 13:07 | Outpatient (CLI) | payer MEDICARE, MEDICAID ==
[2018-04-25] MEDS: FUROSEMIDE 40 MG/4 ML VIAL (J1940) IV (13:41)
== END 2018-04-25 17:45 | disposition home or self-care (01) ==
LOC: M INFU 13:07
DX: N18.9 Chronic kidney disease, unspecified (principal); D63.1 Anemia in chronic kidney disease; R51 Headache; N25.81 Secondary hyperparathyroidism of renal origin; E87.5 Hyperkalemia; I50.9 Heart failure, unspecified; E87.1 Hypo-osmolality and hyponatremia; R60.9 Edema, unspecified; I48.2 Chronic atrial fibrillation; Z79.891 Long term (current) use of opiate analgesic; Z79.899 Other long term (current) drug therapy
CPT/HCPCS: 36430

== ENCOUNTER → 2018-05-03 | Outpatient (REF) | payer MEDICARE, MEDICAID ==
[2018-05-03 16:46] LABS: HEMATOCRIT 22.1 % (36.0-47.0); HEMOGLOBIN 7.2 g/dl (12.0-15.5); MEAN CORPUSCULAR HEMOGLOBIN 32.6 pg (27.0-33.0); MEAN CORPUSCULAR HGB CONC 32.6 g/dl (32.0-36.5); PLATELET COUNT, AUTOMATED 123 10^3/uL (150-450); RED BLOOD COUNT 2.21 10^6/uL (4.00-5.40); RED CELL DISTRIBUTION WIDTH 17.4 % (11.5-14.5); WHITE BLOOD COUNT 4.7 10^3/uL (4.0-10.0)
[2018-05-03 17:38] LABS: ANION GAP 11 MEQ/L (8-16); BLOOD UREA NITROGEN 106 MG/DL (7-18); CALCIUM LEVEL 9.2 MG/DL (8.8-10.2); CARBON DIOXIDE LEVEL 36 MEQ/L (21-32); CHLORIDE LEVEL 80 MEQ/L (98-107); CREATININE FOR GFR 2.02 MG/DL (0.55-1.30); GLOMERULAR FILTRATION RATE 26.6 (>45); GLUCOSE, FASTING 76 MG/DL (70-100); POTASSIUM SERUM 3.1 MEQ/L (3.5-5.1); SODIUM LEVEL 127 MEQ/L (136-145)
[2018-05-04 15:57] LABS: IMMEDIATE SPIN CROSSMATCH 1 2
== END ==
LOC: M SFHCPLAZ 14:08
PROVIDERS: Pediatrics
DX: R58 Hemorrhage, not elsewhere classified (principal); I50.33 Acute on chronic diastolic (congestive) heart failure
CPT/HCPCS: 80048

== ENCOUNTER 2018-05-04 11:27 | Outpatient (CLI) | payer MEDICARE, MEDICAID ==
[2018-05-04] MEDS: FUROSEMIDE 40 MG/4 ML VIAL (J1940) IV ×2 (15:39→17:58)
[2018-05-04 19:24] LABS: HEMATOCRIT 26.6 % (36.0-47.0); HEMOGLOBIN 8.6 g/dl (12.0-15.5); MEAN CORPUSCULAR HEMOGLOBIN 31.3 pg (27.0-33.0); MEAN CORPUSCULAR HGB CONC 32.3 g/dl (32.0-36.5); MEAN CORPUSCULAR VOLUME 96.7 fl (80.0-96.0); PLATELET COUNT, AUTOMATED 126 10^3/uL (150-450); RED BLOOD COUNT 2.75 10^6/uL (4.00-5.40); WHITE BLOOD COUNT 5.2 10^3/uL (4.0-10.0)
[2018-05-04 19:41] LABS: ANION GAP 13 MEQ/L (8-16); BLOOD UREA NITROGEN 113 MG/DL (7-18); CALCIUM LEVEL 9.2 MG/DL (8.8-10.2); CARBON DIOXIDE LEVEL 34 MEQ/L (21-32); CHLORIDE LEVEL 80 MEQ/L (98-107); CREATININE FOR GFR 1.91 MG/DL (0.55-1.30); GLOMERULAR FILTRATION RATE 28.3 (>45); GLUCOSE, FASTING 93 MG/DL (70-100); POTASSIUM SERUM 3.1 MEQ/L (3.5-5.1); SODIUM LEVEL 127 MEQ/L (136-145)
== END 2018-05-04 20:10 | disposition home or self-care (01) ==
LOC: M OPCLI4PR 20:10 → M PED 11:31
DX: D62 Acute posthemorrhagic anemia (principal)
CPT/HCPCS: 36430

== ENCOUNTER → 2018-05-07 | Outpatient (CLI) | payer MEDICARE, MEDICAID ==
[2018-05-07 17:11] LABS: HEMATOCRIT 25.3 % (36.0-47.0); HEMOGLOBIN 8.2 g/dl (12.0-15.5); MEAN CORPUSCULAR HEMOGLOBIN 31.7 pg (27.0-33.0); MEAN CORPUSCULAR HGB CONC 32.4 g/dl (32.0-36.5); MEAN CORPUSCULAR VOLUME 97.7 fl (80.0-96.0); PLATELET COUNT, AUTOMATED 140 10^3/uL (150-450); RED BLOOD COUNT 2.59 10^6/uL (4.00-5.40); RED CELL DISTRIBUTION WIDTH 18.2 % (11.5-14.5); WHITE BLOOD COUNT 4.8 10^3/uL (4.0-10.0)
[2018-05-07 17:17] LABS: ANION GAP 11 MEQ/L (8-16); BLOOD UREA NITROGEN 109 MG/DL (7-18); CARBON DIOXIDE LEVEL 34 MEQ/L (21-32); CHLORIDE LEVEL 80 MEQ/L (98-107); CREATININE FOR GFR 2.13 MG/DL (0.55-1.30); GLUCOSE, FASTING 80 MG/DL (70-100); POTASSIUM SERUM 4.5 MEQ/L (3.5-5.1); SODIUM LEVEL 125 MEQ/L (136-145)
== END ==
LOC: M LRY 10:33
DX: D64.9 Anemia, unspecified (principal)

== ENCOUNTER 2018-05-09 12:19 | Inpatient (IN) | payer MEDICARE, MEDICAID ==
[2018-05-09 13:34] LABS: OSMOLALITY SERUM 295 MOSM/KG (280-301)
[2018-05-09 13:50] LABS: ALBUMIN 2.9 GM/DL (3.2-5.2); ALBUMIN/GLOBULIN RATIO 0.63 (1.00-1.93); ALKALINE PHOSPHATASE 160 U/L (45-117); ALT/SGPT 22 U/L (12-78); ANION GAP 11 MEQ/L (8-16); AST/SGOT 20 U/L (7-37); BILIRUBIN,TOTAL 0.6 MG/DL (0.2-1.0); BLOOD UREA NITROGEN 97 MG/DL (7-18); CALCIUM LEVEL 8.5 MG/DL (8.8-10.2); CARBON DIOXIDE LEVEL 33 MEQ/L (21-32); CHLORIDE LEVEL 80 MEQ/L (98-107); CREATININE FOR GFR 2.38 MG/DL (0.55-1.30); FREE THYROXINE INDEX 3.1 % (1.3-4.8); GLUCOSE, FASTING 85 MG/DL (70-100); POTASSIUM SERUM 3.2 MEQ/L (3.5-5.1); SODIUM LEVEL 124 MEQ/L (136-145); T UPTAKE 41 % (30-39); THYROXINE (T4) 7.6 UG/DL (4.5-12.0); TOTAL PROTEIN 7.5 GM/DL (6.4-8.2)
[2018-05-09] MEDS ORDERED: ONDANSETRON 4MG/2ML VIAL (J2405) IV (15:30)
[2018-05-09] MEDS: POTASSIUM CHLORIDE 10 MEQ SR TABLET PO (17:28)
[2018-05-09] MEDS ORDERED: SLF 3 ML SYR IV (17:30)
[2018-05-09] MEDS ORDERED: metOLazone 5 MG TAB PO (19:00)
[2018-05-09] MEDS ORDERED: HYDROCORTISONE 2.5% 20GM OINTMENT TOP (19:00)
[2018-05-09] MEDS ORDERED: BENZONATATE 100 MG CAP PO (19:00)
[2018-05-09] MEDS ORDERED: traMADol 50 MG TAB PO (19:00)
[2018-05-09 19:28] LABS: BASO % 0.2 % (0.0-1.0); HEMATOCRIT 23.4 % (36.0-47.0); HEMOGLOBIN 7.8 g/dl (12.0-15.5); IMMATURE GRANULOCYTE % 1.4 % (0-3.0); LYMPH # 0.4 10^3/uL (1.5-4.5); LYMPH % 10.6 % (24.0-44.0); MEAN CORPUSCULAR HEMOGLOBIN 32.1 pg (27.0-33.0); MEAN CORPUSCULAR HGB CONC 33.3 g/dl (32.0-36.5); MEAN CORPUSCULAR VOLUME 96.3 fl (80.0-96.0); MONO # 0.3 10^3/uL (0.0-0.8); MONO % 7.4 % (0.0-5.0); NEUTROPHILS # 3.3 10^3/uL (1.8-7.7); NEUTROPHILS % 79.4 % (36.0-66.0); PLATELET COUNT, AUTOMATED 120 10^3/uL (150-450); RED BLOOD COUNT 2.43 10^6/uL (4.00-5.40); RED CELL DISTRIBUTION WIDTH 17.8 % (11.5-14.5); WHITE BLOOD COUNT 4.2 10^3/uL (4.0-10.0)
[2018-05-09 19:50] LABS: MAGNESIUM LEVEL 1.7 MG/DL (1.8-2.4)
[2018-05-09 20:09] LABS: CPK CREATINE PHOSPHOKINASE 26 U/L (26-192); MB/CK RELATIVE INDEX 11.54 (< OR =4); NT-PRO BNP 48262 PG/ML (<125); TROPONIN I 0.09 NG/ML (< 0.10)
[2018-05-09] MEDS: FUROSEMIDE 100 MG/10 ML VIAL (J1940) IV (20:29)
[2018-05-09] MEDS ORDERED: MAG SULF 1GM/100ML (MAG RUN) 1 GM in APPROPRIATE DILUENT 1 EA IV (20:30)
[2018-05-09 20:45] LABS: RETIC HEMOGLOBIN EQUIVALENT 34.9 pg (24-36); RETICULOCYTE # 42.2 10^9/L (17-77); RETICULOCYTE % 1.8 % (0.5-1.5)
[2018-05-09 20:47] LABS: REASON FOR REVIEW RBC MORPHOLOGY; SLIDE REVIEW Report; SOURCE PERIPHERAL SMEAR
[2018-05-09 20:57] LABS: FERRITIN 273 NG/ML (8-252); IRON (FE) 54 UG/DL (50-170); PERCENT SATURATION 21.3 % (13.2-45.0); TOTAL IRON BINDING CAPACITY 254 UG/DL (250-450)
[2018-05-09] MEDS ORDERED: ENTER DRUG NAME HERE (PATIENT'S OWN MED) PO (21:00)
[2018-05-09] MEDS: MAG SULF 1GM/100ML (MAG RUN) 1 GM in APPROPRIATE DILUENT 1 EA IV (21:04)
[2018-05-09] MEDS: PRAVASTATIN 20 MG TAB PO (21:38)
[2018-05-09] MEDS: OMEPRAZOLE 20 MG CAP PO (21:38)
[2018-05-09] MEDS: CALCIUM CARBONATE 500 MG CHEW U/D PO (21:38)
[2018-05-09] MEDS: FERROUS GLUCONATE 324 MG TAB PO (21:38)
[2018-05-09] MEDS: FUROSEMIDE injection 250 MG in D5W 225 ML IV (21:38)
[2018-05-09] MEDS: predniSONE 5 MG TAB PO (21:38)
[2018-05-09] MEDS: VERAPAMIL 80 MG TAB PO (21:39)
[2018-05-09] MEDS: SPIRONOLACTONE 25 MG TAB PO (21:54)
[2018-05-09] MEDS: TOLVAPTAN 15 MG TAB (SAMSCA) PO (21:54)
[2018-05-09] MEDS: NEPHRO-VIT TAB (NEPHROCAPS) PO (21:54)
[2018-05-09] MEDS: SILDENAFIL CITRATE 20 MG TABLET (REVATIO) PO (21:54)
[2018-05-09] MEDS: SLF 3 ML SYR IV (22:00)
[2018-05-09] MEDS ORDERED: HEPARIN SOD (PORCINE) 5000 UNITS/ML VIAL SC (22:00)
[2018-05-10 00:28] LABS: HEMATOCRIT 22.3 % (36.0-47.0); HEMOGLOBIN 7.5 g/dl (12.0-15.5)
[2018-05-10 01:00] LABS: CPK CREATINE PHOSPHOKINASE 23 U/L (26-192); MB/CK RELATIVE INDEX 10.43 (< OR =4); TROPONIN I 0.09 NG/ML (< 0.10)
[2018-05-10 01:59] LABS: ANION GAP 12 MEQ/L (8-16); BLOOD UREA NITROGEN 106 MG/DL (7-18); CALCIUM LEVEL 8.2 MG/DL (8.8-10.2); CARBON DIOXIDE LEVEL 32 MEQ/L (21-32); CHLORIDE LEVEL 82 MEQ/L (98-107); CREATININE FOR GFR 2.29 MG/DL (0.55-1.30); GLUCOSE, FASTING 91 MG/DL (70-100); POTASSIUM SERUM 3.4 MEQ/L (3.5-5.1); SODIUM LEVEL 126 MEQ/L (136-145)
[2018-05-10] MEDS: POTASSIUM CHLORIDE 10 MEQ SR TABLET PO ×2 (04:49→08:45)
[2018-05-10] MEDS: SLF 3 ML SYR IV ×3 (05:00→22:00)
[2018-05-10] MEDS: LEVOTHYROXINE 125MCG TABLET (0.125MG) PO (05:00)
[2018-05-10 05:59] LABS: HEMATOCRIT 22.8 % (36.0-47.0); HEMOGLOBIN 7.4 g/dl (12.0-15.5); MEAN CORPUSCULAR HEMOGLOBIN 31.4 pg (27.0-33.0); MEAN CORPUSCULAR HGB CONC 32.5 g/dl (32.0-36.5); MEAN CORPUSCULAR VOLUME 96.6 fl (80.0-96.0); PLATELET COUNT, AUTOMATED 106 10^3/uL (150-450); RED BLOOD COUNT 2.36 10^6/uL (4.00-5.40); RED CELL DISTRIBUTION WIDTH 17.6 % (11.5-14.5); WHITE BLOOD COUNT 4.9 10^3/uL (4.0-10.0)
[2018-05-10 06:40] LABS: ANION GAP 12 MEQ/L (8-16); BLOOD UREA NITROGEN 106 MG/DL (7-18); CALCIUM LEVEL 8.5 MG/DL (8.8-10.2); CARBON DIOXIDE LEVEL 32 MEQ/L (21-32); CHLORIDE LEVEL 84 MEQ/L (98-107); CPK CREATINE PHOSPHOKINASE 23 U/L (26-192); CREATININE FOR GFR 2.28 MG/DL (0.55-1.30); GLOMERULAR FILTRATION RATE 23.1 (>45); GLUCOSE, FASTING 111 MG/DL (70-100); MAGNESIUM LEVEL 2.1 MG/DL (1.8-2.4); MB/CK RELATIVE INDEX 9.57 (< OR =4); NT-PRO BNP 49874 PG/ML (<125); POTASSIUM SERUM 3.3 MEQ/L (3.5-5.1); SODIUM LEVEL 128 MEQ/L (136-145)
[2018-05-10] MEDS: FERROUS GLUCONATE 324 MG TAB PO ×2 (08:44→20:53)
[2018-05-10] MEDS: ASPIRIN 325 MG TAB PO (08:45)
[2018-05-10] MEDS: VERAPAMIL 80 MG TAB PO ×2 (08:45→20:55)
[2018-05-10] MEDS: CALCITRIOL 0.25 MCG CAP (S0169) PO (08:45)
[2018-05-10] MEDS: SILDENAFIL CITRATE 20 MG TABLET (REVATIO) PO ×3 (08:45→20:53)
[2018-05-10] MEDS: SPIRONOLACTONE 25 MG TAB PO ×2 (08:45→16:01)
[2018-05-10] MEDS: LETAIRIS 10 MG PO (09:00)
[2018-05-10 12:05] LABS: IMMEDIATE SPIN CROSSMATCH 1 1
[2018-05-10 12:57] LABS: HEMATOCRIT 23.1 % (36.0-47.0); HEMOGLOBIN 7.5 g/dl (12.0-15.5)
[2018-05-10 13:08] LABS: ANION GAP 11 MEQ/L (8-16); BLOOD UREA NITROGEN 111 MG/DL (7-18); CALCIUM LEVEL 8.7 MG/DL (8.8-10.2); CARBON DIOXIDE LEVEL 34 MEQ/L (21-32); CHLORIDE LEVEL 83 MEQ/L (98-107); CREATININE FOR GFR 2.28 MG/DL (0.55-1.30); GLOMERULAR FILTRATION RATE 23.1 (>45); GLUCOSE, FASTING 79 MG/DL (70-100); POTASSIUM SERUM 3.8 MEQ/L (3.5-5.1); SODIUM LEVEL 128 MEQ/L (136-145)
[2018-05-10 18:29] LABS: ANION GAP 10 MEQ/L (8-16); BLOOD UREA NITROGEN 105 MG/DL (7-18); CALCIUM LEVEL 8.7 MG/DL (8.8-10.2); CARBON DIOXIDE LEVEL 34 MEQ/L (21-32); CHLORIDE LEVEL 84 MEQ/L (98-107); CREATININE FOR GFR 2.24 MG/DL (0.55-1.30); GLOMERULAR FILTRATION RATE 23.6 (>45); GLUCOSE, FASTING 103 MG/DL (70-100); POTASSIUM SERUM 3.8 MEQ/L (3.5-5.1); SODIUM LEVEL 128 MEQ/L (136-145)
[2018-05-10] MEDS: ACETAMINOPHEN TAB 650MG DOSE (2X325MG) PO (18:37)
[2018-05-10] MEDS: TOLVAPTAN 15 MG TAB (SAMSCA) PO (20:52)
[2018-05-10] MEDS: CALCIUM CARBONATE 500 MG CHEW U/D PO (20:53)
[2018-05-10] MEDS: OMEPRAZOLE 20 MG CAP PO (20:53)
[2018-05-10] MEDS: PRAVASTATIN 20 MG TAB PO (20:54)
[2018-05-10] MEDS: predniSONE 5 MG TAB PO (20:54)
[2018-05-10] MEDS: NEPHRO-VIT TAB (NEPHROCAPS) PO (20:57)
[2018-05-10] MEDS: FUROSEMIDE injection 250 MG in D5W 225 ML IV (20:58)
[2018-05-10] MEDS: [UNRECOGNIZED DRUG - OTHER] INH (21:35)
[2018-05-11 00:38] LABS: ANION GAP 7 MEQ/L (8-16); BLOOD UREA NITROGEN 98 MG/DL (7-18); CALCIUM LEVEL 8.2 MG/DL (8.8-10.2); CARBON DIOXIDE LEVEL 35 MEQ/L (21-32); CHLORIDE LEVEL 84 MEQ/L (98-107); GLOMERULAR FILTRATION RATE 24.1 (>45); GLUCOSE, FASTING 106 MG/DL (70-100); POTASSIUM SERUM 4.3 MEQ/L (3.5-5.1); SODIUM LEVEL 126 MEQ/L (136-145)
[2018-05-11] MEDS: LEVOTHYROXINE 125MCG TABLET (0.125MG) PO (05:20)
[2018-05-11] MEDS: SLF 3 ML SYR IV ×3 (05:20→22:00)
[2018-05-11 05:31] LABS: HEMATOCRIT 22.9 % (36.0-47.0); HEMOGLOBIN 7.4 g/dl (12.0-15.5); MEAN CORPUSCULAR HEMOGLOBIN 31.2 pg (27.0-33.0); MEAN CORPUSCULAR HGB CONC 32.3 g/dl (32.0-36.5); MEAN CORPUSCULAR VOLUME 96.6 fl (80.0-96.0); PLATELET COUNT, AUTOMATED 103 10^3/uL (150-450); RED BLOOD COUNT 2.37 10^6/uL (4.00-5.40); RED CELL DISTRIBUTION WIDTH 17.6 % (11.5-14.5); WHITE BLOOD COUNT 4.2 10^3/uL (4.0-10.0)
[2018-05-11 06:11] LABS: ANION GAP 9 MEQ/L (8-16); BLOOD UREA NITROGEN 109 MG/DL (7-18); CALCIUM LEVEL 8.7 MG/DL (8.8-10.2); CARBON DIOXIDE LEVEL 35 MEQ/L (21-32); CHLORIDE LEVEL 85 MEQ/L (98-107); CREATININE FOR GFR 2.19 MG/DL (0.55-1.30); GLOMERULAR FILTRATION RATE 24.2 (>45); GLUCOSE, FASTING 97 MG/DL (70-100); MAGNESIUM LEVEL 1.9 MG/DL (1.8-2.4); NT-PRO BNP 56539 PG/ML (<125); POTASSIUM SERUM 4.2 MEQ/L (3.5-5.1); SODIUM LEVEL 129 MEQ/L (136-145)
[2018-05-11] MEDS: [UNRECOGNIZED DRUG - OTHER] INH ×3 (08:11→20:47)
[2018-05-11] MEDS: SPIRONOLACTONE 25 MG TAB PO ×2 (09:43→17:54)
[2018-05-11] MEDS: FERROUS GLUCONATE 324 MG TAB PO ×2 (09:43→20:30)
[2018-05-11] MEDS: POTASSIUM CHLORIDE 10 MEQ SR TABLET PO (09:44)
[2018-05-11] MEDS: VERAPAMIL 80 MG TAB PO ×2 (09:44→20:31)
[2018-05-11] MEDS: ASPIRIN 325 MG TAB PO (09:44)
[2018-05-11] MEDS: CALCITRIOL 0.25 MCG CAP (S0169) PO (09:44)
[2018-05-11] MEDS: SILDENAFIL CITRATE 20 MG TABLET (REVATIO) PO ×3 (09:44→20:31)
[2018-05-11] MEDS: LETAIRIS 10 MG PO (09:45)
[2018-05-11] MEDS: SENNA 8.6 MG TAB (SENOKOT) PO (11:19)
[2018-05-11 11:51] LABS: IMMEDIATE SPIN CROSSMATCH 1 1
[2018-05-11 16:24] LABS: HEMATOCRIT 25.5 % (36.0-47.0); HEMOGLOBIN 8.3 g/dl (12.0-15.5)
[2018-05-11] MEDS: FUROSEMIDE injection 250 MG in D5W 225 ML IV (17:55)
[2018-05-11] MEDS: ACETAMINOPHEN TAB 650MG DOSE (2X325MG) PO (19:34)
[2018-05-11] MEDS: LORazepam 0.5 MG TAB PO (19:35)
[2018-05-11] MEDS: CALCIUM CARBONATE 500 MG CHEW U/D PO (20:30)
[2018-05-11] MEDS: OMEPRAZOLE 20 MG CAP PO (20:30)
[2018-05-11] MEDS: PRAVASTATIN 20 MG TAB PO (20:30)
[2018-05-11] MEDS: predniSONE 5 MG TAB PO (20:31)
[2018-05-11] MEDS: TOLVAPTAN 15 MG TAB (SAMSCA) PO (20:31)
[2018-05-11] MEDS: NEPHRO-VIT TAB (NEPHROCAPS) PO (20:31)
[2018-05-12] MEDS: LEVOTHYROXINE 125MCG TABLET (0.125MG) PO (06:00)
[2018-05-12] MEDS: SLF 3 ML SYR IV ×3 (06:00→22:00)
[2018-05-12 06:05] LABS: HEMATOCRIT 24.4 % (36.0-47.0); MEAN CORPUSCULAR HEMOGLOBIN 31.3 pg (27.0-33.0); MEAN CORPUSCULAR HGB CONC 32.8 g/dl (32.0-36.5); MEAN CORPUSCULAR VOLUME 95.3 fl (80.0-96.0); PLATELET COUNT, AUTOMATED 109 10^3/uL (150-450); RED BLOOD COUNT 2.56 10^6/uL (4.00-5.40); RED CELL DISTRIBUTION WIDTH 17.7 % (11.5-14.5); WHITE BLOOD COUNT 4.6 10^3/uL (4.0-10.0)
[2018-05-12 07:14] LABS: ALBUMIN 2.9 GM/DL (3.2-5.2); ANION GAP 6 MEQ/L (8-16); BLOOD UREA NITROGEN 111 MG/DL (7-18); CALCIUM LEVEL 8.8 MG/DL (8.8-10.2); CARBON DIOXIDE LEVEL 36 MEQ/L (21-32); CHLORIDE LEVEL 85 MEQ/L (98-107); CREATININE FOR GFR 2.17 MG/DL (0.55-1.30); GLOMERULAR FILTRATION RATE 24.5 (>45); GLUCOSE, FASTING 101 MG/DL (70-100); MAGNESIUM LEVEL 1.8 MG/DL (1.8-2.4); NT-PRO BNP 60044 PG/ML (<125); PHOSPHORUS LEVEL 4.1 MG/DL (2.5-4.9); POTASSIUM SERUM 4.5 MEQ/L (3.5-5.1); SODIUM LEVEL 127 MEQ/L (136-145)
[2018-05-12] MEDS: [UNRECOGNIZED DRUG - OTHER] INH ×4 (08:20→20:40)
[2018-05-12] MEDS: CALCITRIOL 0.25 MCG CAP (S0169) PO (09:18)
[2018-05-12] MEDS: SILDENAFIL CITRATE 20 MG TABLET (REVATIO) PO ×3 (09:18→20:51)
[2018-05-12] MEDS: ASPIRIN 325 MG TAB PO (09:18)
[2018-05-12] MEDS: POTASSIUM CHLORIDE 10 MEQ SR TABLET PO (09:19)
[2018-05-12] MEDS: SPIRONOLACTONE 25 MG TAB PO ×2 (09:19→17:27)
[2018-05-12] MEDS: LETAIRIS 10 MG PO (09:19)
[2018-05-12] MEDS: DOCUSATE SODIUM 100 MG CAP PO (09:19)
[2018-05-12] MEDS: FERROUS GLUCONATE 324 MG TAB PO ×2 (09:19→20:50)
[2018-05-12] MEDS: SENNA 8.6 MG TAB (SENOKOT) PO (09:19)
[2018-05-12] MEDS: VERAPAMIL 80 MG TAB PO ×2 (09:19→20:51)
[2018-05-12] MEDS: TOLVAPTAN 15 MG TAB (SAMSCA) PO (12:27)
[2018-05-12 13:50] LABS: HEMATOCRIT 25.1 % (36.0-47.0); MEAN CORPUSCULAR HEMOGLOBIN 31.1 pg (27.0-33.0); MEAN CORPUSCULAR HGB CONC 31.9 g/dl (32.0-36.5); MEAN CORPUSCULAR VOLUME 97.7 fl (80.0-96.0); PLATELET COUNT, AUTOMATED 100 10^3/uL (150-450); RED BLOOD COUNT 2.57 10^6/uL (4.00-5.40); RED CELL DISTRIBUTION WIDTH 17.7 % (11.5-14.5); WHITE BLOOD COUNT 4.5 10^3/uL (4.0-10.0)
[2018-05-12] MEDS: FUROSEMIDE injection 250 MG in D5W 225 ML IV (17:27)
[2018-05-12] MEDS ORDERED: PANTOPRAZOLE 40MG INJ (PROTONIX) (C9113) IV (17:30)
[2018-05-12] MEDS: SUCRALFATE 1 GM TAB PO ×2 (18:31→23:38)
[2018-05-12 19:14] LABS: HEMOGLOBIN 8.3 g/dl (12.0-15.5)
[2018-05-12] MEDS: PANTOPRAZOLE 40MG INJ (PROTONIX) (C9113) IV (20:50)
[2018-05-12] MEDS: predniSONE 5 MG TAB PO (20:50)
[2018-05-12] MEDS: NEPHRO-VIT TAB (NEPHROCAPS) PO (20:50)
[2018-05-12] MEDS: CALCIUM CARBONATE 500 MG CHEW U/D PO (20:51)
[2018-05-12] MEDS: PRAVASTATIN 20 MG TAB PO (20:51)
[2018-05-12] MEDS: MIRALAX POWDER 255 GM BTL (POLYETHYLENE GLYCOL) PO (22:01)
[2018-05-13] MEDS: SLF 3 ML SYR IV ×3 (05:06→20:44)
[2018-05-13] MEDS: SUCRALFATE 1 GM TAB PO ×4 (05:06→23:23)
[2018-05-13] MEDS: LEVOTHYROXINE 125MCG TABLET (0.125MG) PO (05:06)
[2018-05-13 05:42] LABS: HEMATOCRIT 24.2 % (36.0-47.0); HEMOGLOBIN 7.8 g/dl (12.0-15.5); MEAN CORPUSCULAR HEMOGLOBIN 31.1 pg (27.0-33.0); MEAN CORPUSCULAR HGB CONC 32.2 g/dl (32.0-36.5); MEAN CORPUSCULAR VOLUME 96.4 fl (80.0-96.0); PLATELET COUNT, AUTOMATED 114 10^3/uL (150-450); RED BLOOD COUNT 2.51 10^6/uL (4.00-5.40); RED CELL DISTRIBUTION WIDTH 17.5 % (11.5-14.5); WHITE BLOOD COUNT 4.8 10^3/uL (4.0-10.0)
[2018-05-13 06:02] LABS: ALBUMIN 2.8 GM/DL (3.2-5.2); ANION GAP 7 MEQ/L (8-16); BLOOD UREA NITROGEN 106 MG/DL (7-18); CALCIUM LEVEL 9.1 MG/DL (8.8-10.2); CARBON DIOXIDE LEVEL 35 MEQ/L (21-32); CHLORIDE LEVEL 86 MEQ/L (98-107); CREATININE FOR GFR 2.19 MG/DL (0.55-1.30); GLOMERULAR FILTRATION RATE 24.2 (>45); GLUCOSE, FASTING 97 MG/DL (70-100); MAGNESIUM LEVEL 1.9 MG/DL (1.8-2.4); PHOSPHORUS LEVEL 4.4 MG/DL (2.5-4.9); POTASSIUM SERUM 4.2 MEQ/L (3.5-5.1); SODIUM LEVEL 128 MEQ/L (136-145)
[2018-05-13] MEDS: [UNRECOGNIZED DRUG - OTHER] INH ×4 (07:53→20:42)
[2018-05-13 08:44] LABS: IMMEDIATE SPIN CROSSMATCH 1 1
[2018-05-13] MEDS ORDERED: LIDOCAINE 2% INJ 100 MG/5 ML SDV (FOR ANES.) As Ordered (10:56)
[2018-05-13] MEDS ORDERED: PROPOFOL 200 MG/20 ML VIAL As Ordered (10:56)
[2018-05-13] MEDS ORDERED: fentaNYL 100 MCG/2 ML INJECTION (J3010) As Ordered (10:57)
[2018-05-13] MEDS ORDERED: MIDAZOLAM INJ 2 MG/2 ML VIAL (J2250) As Ordered (10:57)
[2018-05-13] MEDS: NS 1,000 ML IV (12:45)
[2018-05-13] MEDS ORDERED: fentaNYL 100 MCG/2 ML INJECTION (J3010) IV (12:45)
[2018-05-13] MEDS ORDERED: ONDANSETRON 4MG/2ML VIAL (J2405) IV (12:45)
[2018-05-13 13:48] LABS: HEMATOCRIT 29.3 % (36.0-47.0); HEMOGLOBIN 9.2 g/dl (12.0-15.5)
[2018-05-13] MEDS: ASPIRIN 325 MG TAB PO (14:28)
[2018-05-13] MEDS: POTASSIUM CHLORIDE 10 MEQ SR TABLET PO (14:28)
[2018-05-13] MEDS: SILDENAFIL CITRATE 20 MG TABLET (REVATIO) PO ×3 (14:28→20:44)
[2018-05-13] MEDS: FERROUS GLUCONATE 324 MG TAB PO ×2 (14:29→20:20)
[2018-05-13] MEDS: SPIRONOLACTONE 25 MG TAB PO ×2 (14:29→17:30)
[2018-05-13] MEDS: CALCITRIOL 0.25 MCG CAP (S0169) PO (14:29)
[2018-05-13] MEDS: PANTOPRAZOLE 40MG INJ (PROTONIX) (C9113) IV ×2 (14:29→20:20)
[2018-05-13] MEDS: LETAIRIS 10 MG PO (14:30)
[2018-05-13] MEDS: VERAPAMIL 80 MG TAB PO ×2 (14:30→20:19)
[2018-05-13] MEDS: FUROSEMIDE injection 250 MG in D5W 225 ML IV (17:30)
[2018-05-13] MEDS: CALCIUM CARBONATE 500 MG CHEW U/D PO (20:18)
[2018-05-13] MEDS: predniSONE 5 MG TAB PO (20:20)
[2018-05-13] MEDS: PRAVASTATIN 20 MG TAB PO (20:20)
[2018-05-13] MEDS: NEPHRO-VIT TAB (NEPHROCAPS) PO (20:44)
[2018-05-14 05:41] LABS: HEMOGLOBIN 8.4 g/dl (12.0-15.5); MEAN CORPUSCULAR HGB CONC 32.3 g/dl (32.0-36.5); MEAN CORPUSCULAR VOLUME 95.9 fl (80.0-96.0); PLATELET COUNT, AUTOMATED 105 10^3/uL (150-450); RED BLOOD COUNT 2.71 10^6/uL (4.00-5.40); RED CELL DISTRIBUTION WIDTH 17.8 % (11.5-14.5); WHITE BLOOD COUNT 4.7 10^3/uL (4.0-10.0)
[2018-05-14 06:03] LABS: ALBUMIN 2.8 GM/DL (3.2-5.2); ANION GAP 10 MEQ/L (8-16); BLOOD UREA NITROGEN 95 MG/DL (7-18); CALCIUM LEVEL 8.6 MG/DL (8.8-10.2); CARBON DIOXIDE LEVEL 34 MEQ/L (21-32); CHLORIDE LEVEL 86 MEQ/L (98-107); CREATININE FOR GFR 2.21 MG/DL (0.55-1.30); GLUCOSE, FASTING 97 MG/DL (70-100); MAGNESIUM LEVEL 1.7 MG/DL (1.8-2.4); PHOSPHORUS LEVEL 3.3 MG/DL (2.5-4.9); POTASSIUM SERUM 4.6 MEQ/L (3.5-5.1); SODIUM LEVEL 130 MEQ/L (136-145)
[2018-05-14] MEDS: SUCRALFATE 1 GM TAB PO ×2 (06:15→12:27)
[2018-05-14] MEDS: LEVOTHYROXINE 125MCG TABLET (0.125MG) PO (06:15)
[2018-05-14] MEDS: SLF 3 ML SYR IV ×3 (06:15→20:06)
[2018-05-14] MEDS: [UNRECOGNIZED DRUG - OTHER] INH ×4 (07:35→21:00)
[2018-05-14] MEDS: SILDENAFIL CITRATE 20 MG TABLET (REVATIO) PO ×3 (08:05→20:05)
[2018-05-14] MEDS: PANTOPRAZOLE 40MG INJ (PROTONIX) (C9113) IV (08:06)
[2018-05-14] MEDS: CALCITRIOL 0.25 MCG CAP (S0169) PO (08:06)
[2018-05-14] MEDS: ASPIRIN 325 MG TAB PO (08:06)
[2018-05-14] MEDS: FERROUS GLUCONATE 324 MG TAB PO ×2 (08:06→20:06)
[2018-05-14] MEDS: SPIRONOLACTONE 25 MG TAB PO ×2 (08:06→16:58)
[2018-05-14] MEDS: POTASSIUM CHLORIDE 10 MEQ SR TABLET PO (08:06)
[2018-05-14] MEDS: LETAIRIS 10 MG PO (08:09)
[2018-05-14] MEDS: VERAPAMIL 80 MG TAB PO ×2 (09:10→20:06)
[2018-05-14] MEDS: TOLVAPTAN 15 MG TAB (SAMSCA) PO (12:27)
[2018-05-14] MEDS: FUROSEMIDE injection 250 MG in D5W 225 ML IV (16:58)
[2018-05-14] MEDS: PRAVASTATIN 20 MG TAB PO (20:05)
[2018-05-14] MEDS: CALCIUM CARBONATE 500 MG CHEW U/D PO (20:05)
[2018-05-14] MEDS: NEPHRO-VIT TAB (NEPHROCAPS) PO (20:05)
[2018-05-14] MEDS: predniSONE 5 MG TAB PO (20:05)
[2018-05-15] MEDS: LEVOTHYROXINE 125MCG TABLET (0.125MG) PO (05:41)
[2018-05-15] MEDS: SLF 3 ML SYR IV ×3 (05:41→20:41)
[2018-05-15 06:07] LABS: HEMATOCRIT 26.7 % (36.0-47.0); HEMOGLOBIN 8.5 g/dl (12.0-15.5); MEAN CORPUSCULAR HEMOGLOBIN 30.9 pg (27.0-33.0); MEAN CORPUSCULAR HGB CONC 31.8 g/dl (32.0-36.5); MEAN CORPUSCULAR VOLUME 97.1 fl (80.0-96.0); PLATELET COUNT, AUTOMATED 109 10^3/uL (150-450); RED BLOOD COUNT 2.75 10^6/uL (4.00-5.40); RED CELL DISTRIBUTION WIDTH 17.6 % (11.5-14.5); WHITE BLOOD COUNT 4.8 10^3/uL (4.0-10.0)
[2018-05-15 06:30] LABS: ALBUMIN 2.9 GM/DL (3.2-5.2); ANION GAP 6 MEQ/L (8-16); BLOOD UREA NITROGEN 96 MG/DL (7-18); CALCIUM LEVEL 8.8 MG/DL (8.8-10.2); CARBON DIOXIDE LEVEL 36 MEQ/L (21-32); CHLORIDE LEVEL 87 MEQ/L (98-107); CREATININE FOR GFR 2.17 MG/DL (0.55-1.30); GLOMERULAR FILTRATION RATE 24.5 (>45); GLUCOSE, FASTING 100 MG/DL (70-100); MAGNESIUM LEVEL 1.6 MG/DL (1.8-2.4); POTASSIUM SERUM 5.1 MEQ/L (3.5-5.1); SODIUM LEVEL 129 MEQ/L (136-145)
[2018-05-15] MEDS: [UNRECOGNIZED DRUG - OTHER] INH ×3 (08:00→20:00)
[2018-05-15] MEDS: SILDENAFIL CITRATE 20 MG TABLET (REVATIO) PO ×3 (08:46→20:33)
[2018-05-15] MEDS: OMEPRAZOLE 20 MG CAP PO (08:46)
[2018-05-15] MEDS: CALCITRIOL 0.25 MCG CAP (S0169) PO (08:46)
[2018-05-15] MEDS: LETAIRIS 10 MG PO (08:47)
[2018-05-15] MEDS: SPIRONOLACTONE 25 MG TAB PO ×2 (08:47→16:18)
[2018-05-15] MEDS: FERROUS GLUCONATE 324 MG TAB PO ×2 (08:47→20:33)
[2018-05-15] MEDS: VERAPAMIL 80 MG TAB PO ×2 (08:47→21:00)
[2018-05-15] MEDS: ASPIRIN 325 MG TAB PO (09:00)
[2018-05-15] MEDS: MAGNESIUM OXIDE 400 MG TAB (MAG-OX) PO (10:38)
[2018-05-15] MEDS: TORSEMIDE 100 MG TAB PO ×2 (12:11→17:48)
[2018-05-15] MEDS: predniSONE 5 MG TAB PO (20:33)
[2018-05-15] MEDS: CALCIUM CARBONATE 500 MG CHEW U/D PO (20:33)
[2018-05-15] MEDS: PRAVASTATIN 20 MG TAB PO (20:33)
[2018-05-15] MEDS: NEPHRO-VIT TAB (NEPHROCAPS) PO (20:34)
[2018-05-16 06:00] LABS: HEMATOCRIT 24.1 % (36.0-47.0); HEMOGLOBIN 7.7 g/dl (12.0-15.5); MEAN CORPUSCULAR VOLUME 97.2 fl (80.0-96.0); PLATELET COUNT, AUTOMATED 110 10^3/uL (150-450); RED BLOOD COUNT 2.48 10^6/uL (4.00-5.40); RED CELL DISTRIBUTION WIDTH 17.2 % (11.5-14.5); WHITE BLOOD COUNT 4.4 10^3/uL (4.0-10.0)
[2018-05-16 06:07] LABS: ALBUMIN 2.7 GM/DL (3.2-5.2); ANION GAP 6 MEQ/L (8-16); BLOOD UREA NITROGEN 88 MG/DL (7-18); CALCIUM LEVEL 8.8 MG/DL (8.8-10.2); CARBON DIOXIDE LEVEL 36 MEQ/L (21-32); CHLORIDE LEVEL 88 MEQ/L (98-107); CREATININE FOR GFR 2.17 MG/DL (0.55-1.30); GLOMERULAR FILTRATION RATE 24.5 (>45); GLUCOSE, FASTING 82 MG/DL (70-100); MAGNESIUM LEVEL 1.7 MG/DL (1.8-2.4); PHOSPHORUS LEVEL 3.5 MG/DL (2.5-4.9); POTASSIUM SERUM 4.9 MEQ/L (3.5-5.1); SODIUM LEVEL 130 MEQ/L (136-145)
[2018-05-16] MEDS: LEVOTHYROXINE 125MCG TABLET (0.125MG) PO (06:11)
[2018-05-16] MEDS: SLF 3 ML SYR IV ×3 (06:11→20:25)
[2018-05-16] MEDS: CALCITRIOL 0.25 MCG CAP (S0169) PO (08:13)
[2018-05-16] MEDS: TORSEMIDE 100 MG TAB PO ×2 (08:13→16:01)
[2018-05-16] MEDS: SPIRONOLACTONE 25 MG TAB PO ×2 (08:13→16:01)
[2018-05-16] MEDS: FERROUS GLUCONATE 324 MG TAB PO ×2 (08:13→20:24)
[2018-05-16] MEDS: ASPIRIN 325 MG TAB PO (08:13)
[2018-05-16] MEDS: SILDENAFIL CITRATE 20 MG TABLET (REVATIO) PO ×3 (08:13→20:24)
[2018-05-16] MEDS: LETAIRIS 10 MG PO (08:14)
[2018-05-16] MEDS: OMEPRAZOLE 20 MG CAP PO (08:14)
[2018-05-16] MEDS: VERAPAMIL 80 MG TAB PO ×2 (08:14→20:25)
[2018-05-16] MEDS: [UNRECOGNIZED DRUG - OTHER] INH ×4 (08:32→20:00)
[2018-05-16] MEDS: FUROSEMIDE 100 MG/10 ML VIAL (J1940) IV (12:14)
[2018-05-16 12:29] LABS: HEMATOCRIT 28.2 % (36.0-47.0)
[2018-05-16 18:34] LABS: HEMATOCRIT 29.3 % (36.0-47.0); HEMOGLOBIN 9.5 g/dl (12.0-15.5)
[2018-05-16] MEDS: predniSONE 5 MG TAB PO (20:24)
[2018-05-16] MEDS: CALCIUM CARBONATE 500 MG CHEW U/D PO (20:24)
[2018-05-16] MEDS: NEPHRO-VIT TAB (NEPHROCAPS) PO (20:24)
[2018-05-16] MEDS: PRAVASTATIN 20 MG TAB PO (20:24)
[2018-05-17 01:10] LABS: HEMATOCRIT 26.8 % (36.0-47.0); HEMOGLOBIN 8.5 g/dl (12.0-15.5)
[2018-05-17] MEDS: SLF 3 ML SYR IV ×3 (05:49→20:23)
[2018-05-17] MEDS: LEVOTHYROXINE 125MCG TABLET (0.125MG) PO (05:49)
[2018-05-17 06:36] LABS: HEMATOCRIT 25.1 % (36.0-47.0)
[2018-05-17 06:58] LABS: ALBUMIN 2.6 GM/DL (3.2-5.2); ANION GAP 6 MEQ/L (8-16); BLOOD UREA NITROGEN 80 MG/DL (7-18); CALCIUM LEVEL 8.1 MG/DL (8.8-10.2); CARBON DIOXIDE LEVEL 35 MEQ/L (21-32); CHLORIDE LEVEL 86 MEQ/L (98-107); CREATININE FOR GFR 2.34 MG/DL (0.55-1.30); GLOMERULAR FILTRATION RATE 22.4 (>45); GLUCOSE, FASTING 88 MG/DL (70-100); PHOSPHORUS LEVEL 3.3 MG/DL (2.5-4.9); SODIUM LEVEL 127 MEQ/L (136-145)
[2018-05-17] MEDS: [UNRECOGNIZED DRUG - OTHER] INH ×4 (07:19→20:00)
[2018-05-17 08:37] LABS: IMMEDIATE SPIN CROSSMATCH 1 2
[2018-05-17] MEDS: FERROUS GLUCONATE 324 MG TAB PO ×2 (09:35→20:23)
[2018-05-17] MEDS: OMEPRAZOLE 20 MG CAP PO (09:35)
[2018-05-17] MEDS: ASPIRIN 325 MG TAB PO (09:35)
[2018-05-17] MEDS: CALCITRIOL 0.25 MCG CAP (S0169) PO (09:35)
[2018-05-17] MEDS: LETAIRIS 10 MG PO (09:36)
[2018-05-17] MEDS: SPIRONOLACTONE 25 MG TAB PO ×2 (10:10→17:41)
[2018-05-17] MEDS: SILDENAFIL CITRATE 20 MG TABLET (REVATIO) PO ×3 (10:10→20:23)
[2018-05-17] MEDS: TORSEMIDE 100 MG TAB PO ×2 (10:10→17:40)
[2018-05-17] MEDS: DIGOXIN INJ 0.5 MG/2 ML AMP (J1160) IV ×2 (10:12→13:32)
[2018-05-17] MEDS: VERAPAMIL 40 MG TAB PO ×2 (10:45→20:22)
[2018-05-17] MEDS: FUROSEMIDE 100 MG/10 ML VIAL (J1940) IV (11:00)
[2018-05-17 12:31] LABS: HEMATOCRIT 27.7 % (36.0-47.0)
[2018-05-17 12:47] LABS: INR 0.98; PROTHROMBIN TIME 13.1 SECONDS (12.1-14.4)
[2018-05-17 12:48] LABS: PARTIAL THROMBOPLASTIN TIME 28.8 SECONDS (25.4-37.6)
[2018-05-17] MEDS: MIRALAX POWDER 255 GM BTL (POLYETHYLENE GLYCOL) PO (16:00)
[2018-05-17 17:27] LABS: HEMATOCRIT 29.2 % (36.0-47.0); HEMOGLOBIN 9.4 g/dl (12.0-15.5)
[2018-05-17] MEDS: predniSONE 5 MG TAB PO (20:23)
[2018-05-17] MEDS: PRAVASTATIN 20 MG TAB PO (20:23)
[2018-05-17] MEDS: CALCIUM CARBONATE 500 MG CHEW U/D PO (20:23)
[2018-05-17] MEDS: NEPHRO-VIT TAB (NEPHROCAPS) PO (20:23)
[2018-05-17 23:14] LABS: HEMOGLOBIN 9.3 g/dl (12.0-15.5)
[2018-05-18] MEDS: MIRALAX POWDER 255 GM BTL (POLYETHYLENE GLYCOL) PO (04:56)
[2018-05-18 05:57] LABS: HEMATOCRIT 30.2 % (36.0-47.0); HEMOGLOBIN 9.7 g/dl (12.0-15.5); MEAN CORPUSCULAR HEMOGLOBIN 31.5 pg (27.0-33.0); MEAN CORPUSCULAR HGB CONC 32.1 g/dl (32.0-36.5); MEAN CORPUSCULAR VOLUME 98.1 fl (80.0-96.0); PLATELET COUNT, AUTOMATED 113 10^3/uL (150-450); RED BLOOD COUNT 3.08 10^6/uL (4.00-5.40); RED CELL DISTRIBUTION WIDTH 16.7 % (11.5-14.5)
[2018-05-18] MEDS: SLF 3 ML SYR IV ×3 (06:02→21:26)
[2018-05-18] MEDS: LEVOTHYROXINE 125MCG TABLET (0.125MG) PO (06:02)
[2018-05-18 06:27] LABS: ALBUMIN 2.8 GM/DL (3.2-5.2); ANION GAP 8 MEQ/L (8-16); BLOOD UREA NITROGEN 68 MG/DL (7-18); CALCIUM LEVEL 8.7 MG/DL (8.8-10.2); CARBON DIOXIDE LEVEL 35 MEQ/L (21-32); CHLORIDE LEVEL 86 MEQ/L (98-107); CREATININE FOR GFR 2.06 MG/DL (0.55-1.30); GLUCOSE, FASTING 73 MG/DL (70-100); MAGNESIUM LEVEL 1.9 MG/DL (1.8-2.4); PHOSPHORUS LEVEL 3.7 MG/DL (2.5-4.9); POTASSIUM SERUM 4.6 MEQ/L (3.5-5.1); SODIUM LEVEL 129 MEQ/L (136-145)
[2018-05-18] MEDS: [UNRECOGNIZED DRUG - OTHER] INH ×4 (07:27→20:00)
[2018-05-18] MEDS: OMEPRAZOLE 20 MG CAP PO (08:45)
[2018-05-18] MEDS: CALCITRIOL 0.25 MCG CAP (S0169) PO (08:45)
[2018-05-18] MEDS: SILDENAFIL CITRATE 20 MG TABLET (REVATIO) PO ×3 (08:46→21:25)
[2018-05-18] MEDS: SPIRONOLACTONE 25 MG TAB PO ×2 (08:46→16:55)
[2018-05-18] MEDS: ASPIRIN 325 MG TAB PO (08:46)
[2018-05-18] MEDS: TORSEMIDE 100 MG TAB PO ×2 (08:46→16:55)
[2018-05-18] MEDS: DIGOXIN 0.125 MG TAB PO (08:47)
[2018-05-18] MEDS: VERAPAMIL 40 MG TAB PO ×2 (08:47→21:25)
[2018-05-18] MEDS: FERROUS GLUCONATE 324 MG TAB PO ×2 (08:47→21:26)
[2018-05-18] MEDS: LETAIRIS 10 MG PO (08:48)
[2018-05-18 11:18] LABS: HEMOGLOBIN 9.7 g/dl (12.0-15.5)
[2018-05-18] MEDS ORDERED: PROPOFOL 200 MG/20 ML VIAL As Ordered (15:12)
[2018-05-18] MEDS ORDERED: LIDOCAINE 2% INJ 100 MG/5 ML SDV (FOR ANES.) As Ordered (15:12)
[2018-05-18] MEDS ORDERED: PHENYLephrine HCL 500 MCG/5 ML (100MCG/ML) SYRINGE (J2370) As Ordered ×2 (15:35)
[2018-05-18 16:49] LABS: HEMATOCRIT 30.4 % (36.0-47.0); HEMOGLOBIN 9.8 g/dl (12.0-15.5)
[2018-05-18] MEDS: CALCIUM CARBONATE 500 MG CHEW U/D PO (21:25)
[2018-05-18] MEDS: predniSONE 5 MG TAB PO (21:25)
[2018-05-18] MEDS: PRAVASTATIN 20 MG TAB PO (21:26)
[2018-05-18] MEDS: NEPHRO-VIT TAB (NEPHROCAPS) PO (21:26)
[2018-05-18 23:01] LABS: HEMATOCRIT 29.7 % (36.0-47.0); HEMOGLOBIN 9.5 g/dl (12.0-15.5)
[2018-05-19 05:49] LABS: HEMATOCRIT 30.8 % (36.0-47.0); HEMOGLOBIN 9.7 g/dl (12.0-15.5); MEAN CORPUSCULAR HEMOGLOBIN 31.1 pg (27.0-33.0); MEAN CORPUSCULAR HGB CONC 31.5 g/dl (32.0-36.5); MEAN CORPUSCULAR VOLUME 98.7 fl (80.0-96.0); PLATELET COUNT, AUTOMATED 118 10^3/uL (150-450); RED BLOOD COUNT 3.12 10^6/uL (4.00-5.40); WHITE BLOOD COUNT 5.6 10^3/uL (4.0-10.0)
[2018-05-19 06:32] LABS: ALBUMIN 2.7 GM/DL (3.2-5.2); ANION GAP 5 MEQ/L (8-16); BLOOD UREA NITROGEN 60 MG/DL (7-18); CALCIUM LEVEL 8.3 MG/DL (8.8-10.2); CARBON DIOXIDE LEVEL 35 MEQ/L (21-32); CHLORIDE LEVEL 89 MEQ/L (98-107); CREATININE FOR GFR 2.04 MG/DL (0.55-1.30); DIGOXIN LEVEL 1.4 NG/ML (0.5-2.0); GLOMERULAR FILTRATION RATE 26.3 (>45); GLUCOSE, FASTING 92 MG/DL (70-100); MAGNESIUM LEVEL 1.9 MG/DL (1.8-2.4); PHOSPHORUS LEVEL 3.8 MG/DL (2.5-4.9); POTASSIUM SERUM 4.6 MEQ/L (3.5-5.1); SODIUM LEVEL 129 MEQ/L (136-145)
[2018-05-19] MEDS: LEVOTHYROXINE 125MCG TABLET (0.125MG) PO (06:37)
[2018-05-19] MEDS: SLF 3 ML SYR IV ×3 (06:38→22:00)
[2018-05-19] MEDS: [UNRECOGNIZED DRUG - OTHER] INH ×4 (08:00→19:54)
[2018-05-19] MEDS: OMEPRAZOLE 20 MG CAP PO (08:39)
[2018-05-19] MEDS: ASPIRIN 325 MG TAB PO (08:39)
[2018-05-19] MEDS: NORTREL PO (08:39)
[2018-05-19] MEDS: TORSEMIDE 100 MG TAB PO ×2 (08:40→17:12)
[2018-05-19] MEDS: LETAIRIS 10 MG PO (08:40)
[2018-05-19] MEDS: DIGOXIN 0.125 MG TAB PO (08:40)
[2018-05-19] MEDS: SILDENAFIL CITRATE 20 MG TABLET (REVATIO) PO ×4 (08:40→20:00)
[2018-05-19] MEDS: SPIRONOLACTONE 25 MG TAB PO ×2 (08:40→17:12)
[2018-05-19] MEDS: CALCITRIOL 0.25 MCG CAP (S0169) PO (08:40)
[2018-05-19] MEDS: FERROUS GLUCONATE 324 MG TAB PO ×2 (08:40→20:00)
[2018-05-19 11:13] LABS: HEMATOCRIT 29.3 % (36.0-47.0); HEMOGLOBIN 9.4 g/dl (12.0-15.5)
[2018-05-19 17:32] LABS: HEMATOCRIT 29.3 % (36.0-47.0); HEMOGLOBIN 9.3 g/dl (12.0-15.5)
[2018-05-19] MEDS: PRAVASTATIN 20 MG TAB PO (20:00)
[2018-05-19] MEDS: predniSONE 5 MG TAB PO (20:00)
[2018-05-19] MEDS: CALCIUM CARBONATE 500 MG CHEW U/D PO (20:00)
[2018-05-19] MEDS: NEPHRO-VIT TAB (NEPHROCAPS) PO (20:00)
[2018-05-19 22:52] LABS: HEMATOCRIT 28.2 % (36.0-47.0); HEMOGLOBIN 8.9 g/dl (12.0-15.5)
[2018-05-20 06:30] LABS: HEMATOCRIT 27.5 % (36.0-47.0); HEMOGLOBIN 8.8 g/dl (12.0-15.5); MEAN CORPUSCULAR HEMOGLOBIN 31.4 pg (27.0-33.0); MEAN CORPUSCULAR VOLUME 98.2 fl (80.0-96.0); PLATELET COUNT, AUTOMATED 111 10^3/uL (150-450); RED CELL DISTRIBUTION WIDTH 16.7 % (11.5-14.5); WHITE BLOOD COUNT 4.1 10^3/uL (4.0-10.0)
[2018-05-20] MEDS: LEVOTHYROXINE 125MCG TABLET (0.125MG) PO (06:39)
[2018-05-20] MEDS: SLF 3 ML SYR IV ×3 (06:39→22:00)
[2018-05-20 06:54] LABS: ALBUMIN 2.7 GM/DL (3.2-5.2); ANION GAP 6 MEQ/L (8-16); BLOOD UREA NITROGEN 67 MG/DL (7-18); CALCIUM LEVEL 8.2 MG/DL (8.8-10.2); CARBON DIOXIDE LEVEL 36 MEQ/L (21-32); CHLORIDE LEVEL 89 MEQ/L (98-107); GLOMERULAR FILTRATION RATE 28.5 (>45); GLUCOSE, FASTING 84 MG/DL (70-100); MAGNESIUM LEVEL 1.7 MG/DL (1.8-2.4); PHOSPHORUS LEVEL 3.1 MG/DL (2.5-4.9); POTASSIUM SERUM 4.7 MEQ/L (3.5-5.1); SODIUM LEVEL 131 MEQ/L (136-145)
[2018-05-20] MEDS: [UNRECOGNIZED DRUG - OTHER] INH ×4 (08:00→20:00)
[2018-05-20] MEDS: SENOKOT S TAB PO (08:47)
[2018-05-20] MEDS: SILDENAFIL CITRATE 20 MG TABLET (REVATIO) PO ×3 (08:47→20:09)
[2018-05-20] MEDS: OMEPRAZOLE 20 MG CAP PO (08:47)
[2018-05-20] MEDS: MAG SULF 1GM/100ML (MAG RUN) 1 GM in APPROPRIATE DILUENT 1 EA IV (08:47)
[2018-05-20] MEDS: CALCITRIOL 0.25 MCG CAP (S0169) PO (08:47)
[2018-05-20] MEDS: ASPIRIN 325 MG TAB PO (08:47)
[2018-05-20] MEDS: TORSEMIDE 100 MG TAB PO ×2 (08:47→16:19)
[2018-05-20] MEDS: SPIRONOLACTONE 25 MG TAB PO ×2 (08:47→16:19)
[2018-05-20] MEDS: LETAIRIS 10 MG PO (08:48)
[2018-05-20] MEDS: FERROUS GLUCONATE 324 MG TAB PO ×2 (08:48→20:09)
[2018-05-20] MEDS: DIGOXIN 0.125 MG TAB PO (08:48)
[2018-05-20] MEDS: NORTREL PO (08:48)
[2018-05-20] MEDS: predniSONE 5 MG TAB PO (20:09)
[2018-05-20] MEDS: PRAVASTATIN 20 MG TAB PO (20:09)
[2018-05-20] MEDS: CALCIUM CARBONATE 500 MG CHEW U/D PO (20:09)
[2018-05-20] MEDS: NEPHRO-VIT TAB (NEPHROCAPS) PO (20:09)
[2018-05-21 05:07] LABS: HEMOGLOBIN 8.9 g/dl (12.0-15.5); MEAN CORPUSCULAR HEMOGLOBIN 30.7 pg (27.0-33.0); MEAN CORPUSCULAR HGB CONC 31.8 g/dl (32.0-36.5); MEAN CORPUSCULAR VOLUME 96.6 fl (80.0-96.0); PLATELET COUNT, AUTOMATED 127 10^3/uL (150-450); RED CELL DISTRIBUTION WIDTH 16.7 % (11.5-14.5); WHITE BLOOD COUNT 5.2 10^3/uL (4.0-10.0)
[2018-05-21 05:21] LABS: ALBUMIN 2.8 GM/DL (3.2-5.2); ANION GAP 6 MEQ/L (8-16); BLOOD UREA NITROGEN 68 MG/DL (7-18); CALCIUM LEVEL 8.4 MG/DL (8.8-10.2); CARBON DIOXIDE LEVEL 36 MEQ/L (21-32); CHLORIDE LEVEL 87 MEQ/L (98-107); CREATININE FOR GFR 1.81 MG/DL (0.55-1.30); GLOMERULAR FILTRATION RATE 30.2 (>45); GLUCOSE, FASTING 102 MG/DL (70-100); MAGNESIUM LEVEL 2.1 MG/DL (1.8-2.4); POTASSIUM SERUM 4.8 MEQ/L (3.5-5.1); SODIUM LEVEL 129 MEQ/L (136-145)
[2018-05-21] MEDS: SLF 3 ML SYR IV ×3 (06:00→21:01)
[2018-05-21] MEDS: LEVOTHYROXINE 125MCG TABLET (0.125MG) PO (06:06)
[2018-05-21] MEDS: [UNRECOGNIZED DRUG - OTHER] INH ×4 (07:35→20:35)
[2018-05-21] MEDS: NORTREL PO (08:47)
[2018-05-21] MEDS: OMEPRAZOLE 20 MG CAP PO (08:47)
[2018-05-21] MEDS: CALCITRIOL 0.25 MCG CAP (S0169) PO (08:47)
[2018-05-21] MEDS: LETAIRIS 10 MG PO (08:47)
[2018-05-21] MEDS: SILDENAFIL CITRATE 20 MG TABLET (REVATIO) PO ×3 (08:48→21:00)
[2018-05-21] MEDS: FERROUS GLUCONATE 324 MG TAB PO ×2 (08:48→21:01)
[2018-05-21] MEDS: DIGOXIN 0.125 MG TAB PO (08:48)
[2018-05-21] MEDS: TORSEMIDE 100 MG TAB PO ×2 (08:48→16:54)
[2018-05-21] MEDS: SPIRONOLACTONE 25 MG TAB PO ×2 (08:48→16:53)
[2018-05-21] MEDS: ACETAMINOPHEN TAB 650MG DOSE (2X325MG) PO (10:54)
[2018-05-21] MEDS: LIDOCAINE 5% OINT 30 GM TOP (15:20)
[2018-05-21] MEDS: CALCIUM CARBONATE 500 MG CHEW U/D PO (21:00)
[2018-05-21] MEDS: NEPHRO-VIT TAB (NEPHROCAPS) PO (21:01)
[2018-05-21] MEDS: PRAVASTATIN 20 MG TAB PO (21:01)
[2018-05-21] MEDS: predniSONE 5 MG TAB PO (21:01)
[2018-05-22] MEDS: traMADol 50 MG TAB PO ×2 (00:14→13:40)
[2018-05-22] MEDS: LEVOTHYROXINE 125MCG TABLET (0.125MG) PO (05:13)
[2018-05-22] MEDS: SLF 3 ML SYR IV ×2 (05:14→13:41)
[2018-05-22 05:39] LABS: HEMATOCRIT 29.2 % (36.0-47.0); HEMOGLOBIN 9.4 g/dl (12.0-15.5); MEAN CORPUSCULAR HEMOGLOBIN 31.4 pg (27.0-33.0); MEAN CORPUSCULAR HGB CONC 32.2 g/dl (32.0-36.5); MEAN CORPUSCULAR VOLUME 97.7 fl (80.0-96.0); PLATELET COUNT, AUTOMATED 136 10^3/uL (150-450); RED BLOOD COUNT 2.99 10^6/uL (4.00-5.40); RED CELL DISTRIBUTION WIDTH 16.8 % (11.5-14.5); WHITE BLOOD COUNT 5.7 10^3/uL (4.0-10.0)
[2018-05-22 06:05] LABS: ALBUMIN 2.8 GM/DL (3.2-5.2); ANION GAP 8 MEQ/L (8-16); BLOOD UREA NITROGEN 64 MG/DL (7-18); CALCIUM LEVEL 8.5 MG/DL (8.8-10.2); CARBON DIOXIDE LEVEL 34 MEQ/L (21-32); CHLORIDE LEVEL 85 MEQ/L (98-107); CREATININE FOR GFR 1.83 MG/DL (0.55-1.30); GLOMERULAR FILTRATION RATE 29.8 (>45); GLUCOSE, FASTING 84 MG/DL (70-100); MAGNESIUM LEVEL 1.9 MG/DL (1.8-2.4); PHOSPHORUS LEVEL 3.2 MG/DL (2.5-4.9); POTASSIUM SERUM 4.8 MEQ/L (3.5-5.1); SODIUM LEVEL 127 MEQ/L (136-145)
[2018-05-22] MEDS: [UNRECOGNIZED DRUG - OTHER] INH (07:44)
[2018-05-22] MEDS: NORTREL PO (08:49)
[2018-05-22] MEDS: SILDENAFIL CITRATE 20 MG TABLET (REVATIO) PO ×2 (08:49→15:59)
[2018-05-22] MEDS: LETAIRIS 10 MG PO (08:49)
[2018-05-22] MEDS: SPIRONOLACTONE 25 MG TAB PO (08:49)
[2018-05-22] MEDS: FERROUS GLUCONATE 324 MG TAB PO (08:49)
[2018-05-22] MEDS: OMEPRAZOLE 20 MG CAP PO (08:49)
[2018-05-22] MEDS: CALCITRIOL 0.25 MCG CAP (S0169) PO (08:50)
[2018-05-22] MEDS: TORSEMIDE 100 MG TAB PO (08:50)
[2018-05-22] MEDS: DIGOXIN 0.125 MG TAB PO (08:50)
[2018-05-22] MEDS: LIDOCAINE 5% OINT 30 GM TOP (08:51)
== END 2018-05-22 16:46 | disposition home health service (06) | DRG 291 ==
LOC: M ED 12:19 → M ED INP 15:20 → M PCU 16:26
PROC: 0W3P8ZZ Control Bleeding in Gastrointestinal Tract, Via Natural or Artificial Opening Endoscopic (ICD-10-PCS; principal; 2018-05-13 09:30)
PROC: 30233N1 Transfusion of Nonautologous Red Blood Cells into Peripheral Vein, Percutaneous Approach (ICD-10-PCS; 2018-05-13 11:26)
PROC: 0W3P8ZZ Control Bleeding in Gastrointestinal Tract, Via Natural or Artificial Opening Endoscopic (ICD-10-PCS; 2018-05-13 11:26)
DX: I13.0 Hypertensive heart and chronic kidney disease with heart failure and stage 1 through stage 4 chronic kidney disease, or unspecified chronic kidney disease (principal); I50.33 Acute on chronic diastolic (congestive) heart failure; K31.811 Angiodysplasia of stomach and duodenum with bleeding; E87.1 Hypo-osmolality and hyponatremia; N18.4 Chronic kidney disease, stage 4 (severe); N17.9 Acute kidney failure, unspecified; N25.81 Secondary hyperparathyroidism of renal origin; D62 Acute posthemorrhagic anemia; I27.29 Other secondary pulmonary hypertension; Z66 Do not resuscitate; J84.10 Pulmonary fibrosis, unspecified; G47.33 Obstructive sleep apnea (adult) (pediatric); D63.1 Anemia in chronic kidney disease; J44.9 Chronic obstructive pulmonary disease, unspecified; I48.91 Unspecified atrial fibrillation; E78.5 Hyperlipidemia, unspecified; L94.0 Localized scleroderma [morphea]; R09.02 Hypoxemia; M06.9 Rheumatoid arthritis, unspecified; D69.6 Thrombocytopenia, unspecified; I78.1 Nevus, non-neoplastic; K57.30 Diverticulosis of large intestine without perforation or abscess without bleeding; K64.8 Other hemorrhoids; F32.9 Major depressive disorder, single episode, unspecified; E03.9 Hypothyroidism, unspecified; E87.6 Hypokalemia; Z79.52 Long term (current) use of systemic steroids; Z79.899 Other long term (current) drug therapy; Z79.82 Long term (current) use of aspirin; Z99.81 Dependence on supplemental oxygen

== ENCOUNTER 2018-05-28 07:44 | Observation (INO) | payer MEDICARE, MEDICAID ==
[2018-05-28 08:44] LABS: HEMATOCRIT 33.1 % (36.0-47.0); HEMOGLOBIN 10.6 g/dl (12.0-15.5); MEAN CORPUSCULAR HEMOGLOBIN 31.2 pg (27.0-33.0); MEAN CORPUSCULAR VOLUME 97.4 fl (80.0-96.0); RED CELL DISTRIBUTION WIDTH 16.4 % (11.5-14.5); WHITE BLOOD COUNT 4.4 10^3/uL (4.0-10.0)
[2018-05-28 08:45] LABS: BASO % 0.2 % (0.0-1.0); IMMATURE GRANULOCYTE % 1.1 % (0-3.0); LYMPH # 0.5 10^3/uL (1.5-4.5); LYMPH % 11.4 % (24.0-44.0); MONO # 0.3 10^3/uL (0.0-0.8); MONO % 7.8 % (0.0-5.0); NEUTROPHILS # 3.5 10^3/uL (1.8-7.7); NEUTROPHILS % 79.5 % (36.0-66.0); PLATELET COUNT, AUTOMATED 164 10^3/uL (150-450)
[2018-05-28 09:09] LABS: ALBUMIN 3.1 GM/DL (3.2-5.2); ALBUMIN/GLOBULIN RATIO 0.58 (1.00-1.93); ALKALINE PHOSPHATASE 168 U/L (45-117); ALT/SGPT 17 U/L (12-78); ANION GAP 8 MEQ/L (8-16); AST/SGOT 15 U/L (7-37); BILIRUBIN,DIRECT 0.7 MG/DL (0.0-0.2); BILIRUBIN,TOTAL 1.1 MG/DL (0.2-1.0); BLOOD UREA NITROGEN 76 MG/DL (7-18); CALCIUM LEVEL 10.2 MG/DL (8.8-10.2); CARBON DIOXIDE LEVEL 35 MEQ/L (21-32); CHLORIDE LEVEL 84 MEQ/L (98-107); CREATININE FOR GFR 2.56 MG/DL (0.55-1.30); GLOMERULAR FILTRATION RATE 20.2 (>45); GLUCOSE, FASTING 87 MG/DL (70-100); LIPASE 61 U/L (73-393); POTASSIUM SERUM 5.4 MEQ/L (3.5-5.1); SODIUM LEVEL 127 MEQ/L (136-145); TOTAL PROTEIN 8.4 GM/DL (6.4-8.2)
[2018-05-28 10:47] LABS: CPK CREATINE PHOSPHOKINASE 20 U/L (26-192); TROPONIN I 0.14 NG/ML (< 0.10)
[2018-05-28] MEDS: GASTROGRAFIN SOLUTION 30ML PO ×4 (11:22→11:52)
[2018-05-28] MEDS: NS 1,000 ML IV ×6 (11:22→22:30)
[2018-05-28 12:41] LABS: CPK CREATINE PHOSPHOKINASE 20 U/L (26-192); TROPONIN I 0.16 NG/ML (< 0.10)
[2018-05-28] MEDS ORDERED: ONDANSETRON 4MG/2ML VIAL (J2405) IV ×2 (14:30)
[2018-05-28] MEDS ORDERED: BISACODYL 10 MG SUPP PR ×2 (14:30)
[2018-05-28] MEDS: DEXTROSE 50% 50 ML SYRINGE IV ×2 (14:50)
[2018-05-28] MEDS: HumuLIN R (REGULAR) INSULIN (NovoLIN R) **100U/ML** PER UNIT IV ×2 (14:51)
[2018-05-28] MEDS: CALCIUM GLUCONATE 1,000 MG in D5W MINI-BAG PLUS 100 ML IV (14:51)
[2018-05-28] MEDS ORDERED: traMADol 50 MG TAB PO ×2 (16:30)
[2018-05-28] MEDS: SOD POLYSTYRENE SULFONATE SUSP 15 GM/60 ML UD PO ×2 (18:09)
[2018-05-28 18:50] LABS: ANION GAP 8 MEQ/L (8-16); BLOOD UREA NITROGEN 81 MG/DL (7-18); CALCIUM LEVEL 9.5 MG/DL (8.8-10.2); CARBON DIOXIDE LEVEL 36 MEQ/L (21-32); CHLORIDE LEVEL 85 MEQ/L (98-107); CREATININE FOR GFR 2.39 MG/DL (0.55-1.30); GLOMERULAR FILTRATION RATE 21.9 (>45); GLUCOSE, FASTING 101 MG/DL (70-100); POTASSIUM SERUM 5.1 MEQ/L (3.5-5.1); SODIUM LEVEL 129 MEQ/L (136-145)
[2018-05-28 18:55] LABS: CPK CREATINE PHOSPHOKINASE 16 U/L (26-192); MB/CK RELATIVE INDEX 13.75 (< OR =4); TROPONIN I 0.13 NG/ML (< 0.10)
[2018-05-28] MEDS: SENOKOT S TAB PO ×2 (21:26)
[2018-05-28] MEDS: OMEPRAZOLE 20 MG CAP PO ×2 (21:27)
[2018-05-28] MEDS: FERROUS GLUCONATE 324 MG TAB PO ×2 (21:27)
[2018-05-28] MEDS: SILDENAFIL CITRATE 20 MG TABLET (REVATIO) PO ×2 (21:27)
[2018-05-28] MEDS: predniSONE 5 MG TAB PO ×2 (21:27)
[2018-05-28] MEDS: PRAVASTATIN 20 MG TAB PO ×2 (21:27)
[2018-05-28] MEDS: HEPARIN SOD (PORCINE) 5000 UNITS/ML VIAL SC ×2 (21:28)
[2018-05-29 01:52] LABS: ANION GAP 7 MEQ/L (8-16); BLOOD UREA NITROGEN 79 MG/DL (7-18); CARBON DIOXIDE LEVEL 34 MEQ/L (21-32); CHLORIDE LEVEL 87 MEQ/L (98-107); CREATININE FOR GFR 2.13 MG/DL (0.55-1.30); GLUCOSE, FASTING 78 MG/DL (70-100); POTASSIUM SERUM 4.7 MEQ/L (3.5-5.1); SODIUM LEVEL 128 MEQ/L (136-145)
[2018-05-29 01:57] LABS: CPK CREATINE PHOSPHOKINASE 17 U/L (26-192); MB/CK RELATIVE INDEX 12.94 (< OR =4); TROPONIN I 0.14 NG/ML (< 0.10)
[2018-05-29] MEDS: LEVOTHYROXINE 125MCG TABLET (0.125MG) PO ×2 (06:17)
[2018-05-29] MEDS: HEPARIN SOD (PORCINE) 5000 UNITS/ML VIAL SC ×6 (06:17→22:22)
[2018-05-29] MEDS: ACETAMINOPHEN TAB 650MG DOSE (2X325MG) PO ×4 (06:21→23:45)
[2018-05-29 06:28] LABS: HEMATOCRIT 27.8 % (36.0-47.0); HEMOGLOBIN 8.8 g/dl (12.0-15.5); MEAN CORPUSCULAR HGB CONC 31.7 g/dl (32.0-36.5); MEAN CORPUSCULAR VOLUME 97.9 fl (80.0-96.0); PLATELET COUNT, AUTOMATED 148 10^3/uL (150-450); RED BLOOD COUNT 2.84 10^6/uL (4.00-5.40); RED CELL DISTRIBUTION WIDTH 16.6 % (11.5-14.5); WHITE BLOOD COUNT 4.4 10^3/uL (4.0-10.0)
[2018-05-29 06:47] LABS: ANION GAP 7 MEQ/L (8-16); BLOOD UREA NITROGEN 72 MG/DL (7-18); CALCIUM LEVEL 8.8 MG/DL (8.8-10.2); CARBON DIOXIDE LEVEL 33 MEQ/L (21-32); CHLORIDE LEVEL 90 MEQ/L (98-107); CREATININE FOR GFR 2.01 MG/DL (0.55-1.30); GLOMERULAR FILTRATION RATE 26.7 (>45); GLUCOSE, FASTING 73 MG/DL (70-100); POTASSIUM SERUM 4.6 MEQ/L (3.5-5.1); SODIUM LEVEL 130 MEQ/L (136-145)
[2018-05-29] MEDS: TREPROSTINIL 1.74 MG/2.9 ML INH ×6 (08:00→20:19)
[2018-05-29] MEDS: SILDENAFIL CITRATE 20 MG TABLET (REVATIO) PO ×6 (08:09→22:21)
[2018-05-29] MEDS: DIGOXIN 0.125 MG TAB PO ×2 (08:10)
[2018-05-29] MEDS: SENOKOT S TAB PO ×4 (08:10→22:22)
[2018-05-29] MEDS: FERROUS GLUCONATE 324 MG TAB PO ×4 (08:10→22:21)
[2018-05-29] MEDS: NS 1,000 ML IV ×2 (08:11)
[2018-05-29] MEDS: LETAIRIS 10 MG PO ×2 (08:11)
[2018-05-29 09:19] LABS: GOLD SPEC TUBE RECIEVED
[2018-05-29 10:55] LABS: CPK CREATINE PHOSPHOKINASE 16 U/L (26-192); MB/CK RELATIVE INDEX 13.12 (< OR =4); TROPONIN I 0.13 NG/ML (< 0.10)
[2018-05-29] MEDS: MIRALAX *UNIT DOSE* 17GM PACKET PO ×2 (12:51)
[2018-05-29] MEDS: MOM 30ML SUSPENSION UDC PO ×2 (12:51)
[2018-05-29 13:08] LABS: HEMATOCRIT 29.9 % (36.0-47.0); HEMOGLOBIN 9.5 g/dl (12.0-15.5)
[2018-05-29] MEDS: FLEET ENEMA PR ×2 (15:59)
[2018-05-29] MEDS: OMEPRAZOLE 20 MG CAP PO ×2 (22:21)
[2018-05-29] MEDS: predniSONE 5 MG TAB PO ×2 (22:21)
[2018-05-29] MEDS: PRAVASTATIN 20 MG TAB PO ×2 (22:22)
[2018-05-29 22:26] LABS: ANION GAP 6 MEQ/L (8-16); BLOOD UREA NITROGEN 63 MG/DL (7-18); CALCIUM LEVEL 8.9 MG/DL (8.8-10.2); CARBON DIOXIDE LEVEL 34 MEQ/L (21-32); CHLORIDE LEVEL 90 MEQ/L (98-107); CREATININE FOR GFR 1.98 MG/DL (0.55-1.30); GLOMERULAR FILTRATION RATE 27.2 (>45); GLUCOSE, FASTING 119 MG/DL (70-100); POTASSIUM SERUM 4.5 MEQ/L (3.5-5.1); SODIUM LEVEL 130 MEQ/L (136-145)
[2018-05-30] MEDS: LEVOTHYROXINE 125MCG TABLET (0.125MG) PO ×2 (05:50)
[2018-05-30] MEDS: HEPARIN SOD (PORCINE) 5000 UNITS/ML VIAL SC ×2 (05:50)
[2018-05-30 06:06] LABS: HEMATOCRIT 25.8 % (36.0-47.0); HEMOGLOBIN 8.3 g/dl (12.0-15.5); MEAN CORPUSCULAR HEMOGLOBIN 31.3 pg (27.0-33.0); MEAN CORPUSCULAR HGB CONC 32.2 g/dl (32.0-36.5); MEAN CORPUSCULAR VOLUME 97.4 fl (80.0-96.0); PLATELET COUNT, AUTOMATED 153 10^3/uL (150-450); RED BLOOD COUNT 2.65 10^6/uL (4.00-5.40); RED CELL DISTRIBUTION WIDTH 16.9 % (11.5-14.5); WHITE BLOOD COUNT 4.6 10^3/uL (4.0-10.0)
[2018-05-30 06:25] LABS: ANION GAP 6 MEQ/L (8-16); BLOOD UREA NITROGEN 59 MG/DL (7-18); CALCIUM LEVEL 8.9 MG/DL (8.8-10.2); CARBON DIOXIDE LEVEL 33 MEQ/L (21-32); CHLORIDE LEVEL 91 MEQ/L (98-107); CREATININE FOR GFR 1.78 MG/DL (0.55-1.30); GLOMERULAR FILTRATION RATE 30.7 (>45); GLUCOSE, FASTING 92 MG/DL (70-100); POTASSIUM SERUM 4.7 MEQ/L (3.5-5.1); SODIUM LEVEL 130 MEQ/L (136-145)
[2018-05-30 08:21] LABS: GOLD SPEC TUBE RECIEVED
[2018-05-30] MEDS: MOM 30ML SUSPENSION UDC PO ×2 (08:59)
[2018-05-30] MEDS: FERROUS GLUCONATE 324 MG TAB PO ×2 (09:00)
[2018-05-30] MEDS ORDERED: SPIRONOLACTONE 25 MG TAB PO ×2 (09:00)
[2018-05-30] MEDS: DIGOXIN 0.125 MG TAB PO ×2 (09:00)
[2018-05-30] MEDS ORDERED: TORSEMIDE 100 MG TAB PO ×2 (09:00)
[2018-05-30] MEDS: SENOKOT S TAB PO ×2 (09:01)
[2018-05-30] MEDS: NORTREL PO ×2 (09:01)
[2018-05-30] MEDS: SILDENAFIL CITRATE 20 MG TABLET (REVATIO) PO ×2 (09:02)
[2018-05-30] MEDS: MIRALAX *UNIT DOSE* 17GM PACKET PO ×2 (09:02)
[2018-05-30] MEDS: LETAIRIS 10 MG PO ×2 (09:08)
== END 2018-05-30 13:26 | disposition home health service (06) ==
LOC: M ED 07:44 → M ED INP 15:59 → M PCU 20:19
PROVIDERS: Internal Medicine
DX: N17.9 Acute kidney failure, unspecified (principal); N18.4 Chronic kidney disease, stage 4 (severe); E87.5 Hyperkalemia; E87.1 Hypo-osmolality and hyponatremia; I48.91 Unspecified atrial fibrillation; I50.30 Unspecified diastolic (congestive) heart failure; I27.20 Pulmonary hypertension, unspecified; D64.9 Anemia, unspecified; E03.9 Hypothyroidism, unspecified; M06.9 Rheumatoid arthritis, unspecified; J44.9 Chronic obstructive pulmonary disease, unspecified; E78.5 Hyperlipidemia, unspecified; M34.9 Systemic sclerosis, unspecified; I51.7 Cardiomegaly; Z79.899 Other long term (current) drug therapy; Z79.52 Long term (current) use of systemic steroids
CPT/HCPCS: Q9963

== ENCOUNTER → 2018-06-21 | Outpatient (REF) | payer MEDICARE, MEDICAID ==
[2018-06-21 16:21] LABS: BASO % 0.3 % (0.0-1.0); EOS # 0.1 10^3/uL (0.0-0.50); EOS % 1.1 % (0.0-3.0); HEMATOCRIT 28.6 % (36.0-47.0); HEMOGLOBIN 9.2 g/dl (12.0-15.5); IMMATURE GRANULOCYTE % 0.5 % (0-3.0); LYMPH # 0.6 10^3/uL (1.5-4.5); LYMPH % 7.3 % (24.0-44.0); MEAN CORPUSCULAR HEMOGLOBIN 31.5 pg (27.0-33.0); MEAN CORPUSCULAR HGB CONC 32.2 g/dl (32.0-36.5); MEAN CORPUSCULAR VOLUME 97.9 fl (80.0-96.0); MONO # 0.4 10^3/uL (0.0-0.8); MONO % 5.1 % (0.0-5.0); NEUTROPHILS # 6.4 10^3/uL (1.8-7.7); NEUTROPHILS % 85.7 % (36.0-66.0); PLATELET COUNT, AUTOMATED 194 10^3/uL (150-450); RED BLOOD COUNT 2.92 10^6/uL (4.00-5.40); RED CELL DISTRIBUTION WIDTH 17.1 % (11.5-14.5); WHITE BLOOD COUNT 7.5 10^3/uL (4.0-10.0)
[2018-06-21 16:56] LABS: ALBUMIN/GLOBULIN RATIO 0.63 (1.00-1.93); ALKALINE PHOSPHATASE 130 U/L (45-117); ALT/SGPT 15 U/L (12-78); ANION GAP 9 MEQ/L (8-16); AST/SGOT 10 U/L (7-37); BILIRUBIN,TOTAL 1.2 MG/DL (0.2-1.0); BLOOD UREA NITROGEN 88 MG/DL (7-18); C REACTIVE PROTEIN QUANTITATIV 2.69 MG/DL (0.00-0.30); CALCIUM LEVEL 8.9 MG/DL (8.8-10.2); CARBON DIOXIDE LEVEL 33 MEQ/L (21-32); CHLORIDE LEVEL 86 MEQ/L (98-107); CREATININE FOR GFR 2.46 MG/DL (0.55-1.30); GLOMERULAR FILTRATION RATE 21.2 (>45); GLUCOSE, FASTING 67 MG/DL (70-100); POTASSIUM SERUM 4.8 MEQ/L (3.5-5.1); SODIUM LEVEL 128 MEQ/L (136-145); TOTAL PROTEIN 7.8 GM/DL (6.4-8.2)
[2018-06-21 17:15] LABS: ERYTHROCYTE SEDIMENTATION RATE 126 mm/hr (0-30)
[2018-06-21 18:11] LABS: ESTIMATED AVERAGE GLUCOSE 105 MG/DL (60-110); HEMOGLOBIN A1c 5.3 %
[2018-06-22 10:21] LABS: HEPATITIS C VIRUS ABY INDEX 0.1 INDEX (<0.8)
== END ==
LOC: M SFHCPLAZ 14:16
DX: R63.4 Abnormal weight loss (principal); Z79.899 Other long term (current) drug therapy
CPT/HCPCS: 84443

== ENCOUNTER 2018-07-17 12:27 | Emergency (ER) | payer MEDICARE, MEDICAID ==
[2018-07-17] MEDS: IPRATROPIUM 0.5MG/ALBUTEROL 2.5MG INH SOL UD 3ML (DUONEB)(J7620) NEB (13:26)
[2018-07-17 13:30] LABS: VENOUS BASE EXCESS 11.8 (-2.0-2.0); VENOUS HCO3 36.8 MEQ/L (23.0-27.0); VENOUS O2 SATURATION 98.3 % (60.0-80.0); VENOUS PARTIAL PRESSURE CO2 50.5 mmHg (38.0-50.0); VENOUS PARTIAL PRESSURE O2 109.5 mmHg (30.0-50.0); VENOUS STANDARD HCO3 35.5 MEQ/L; VENOUS TOTAL CO2 38.3 MEQ/L (24.0-28.0)
[2018-07-17 13:41] LABS: BASO % 0.3 % (0.0-1.0); EOS % 0.2 % (0.0-3.0); HEMATOCRIT 28.5 % (36.0-47.0); HEMOGLOBIN 9.2 g/dl (12.0-15.5); IMMATURE GRANULOCYTE % 0.6 % (0-3.0); LYMPH # 0.6 10^3/uL (1.5-4.5); LYMPH % 10.1 % (24.0-44.0); MEAN CORPUSCULAR HEMOGLOBIN 31.8 pg (27.0-33.0); MEAN CORPUSCULAR HGB CONC 32.3 g/dl (32.0-36.5); MEAN CORPUSCULAR VOLUME 98.6 fl (80.0-96.0); MONO # 0.4 10^3/uL (0.0-0.8); NEUTROPHILS # 5.1 10^3/uL (1.8-7.7); NEUTROPHILS % 82.8 % (36.0-66.0); PLATELET COUNT, AUTOMATED 170 10^3/uL (150-450); RED BLOOD COUNT 2.89 10^6/uL (4.00-5.40); RED CELL DISTRIBUTION WIDTH 15.5 % (11.5-14.5); WHITE BLOOD COUNT 6.2 10^3/uL (4.0-10.0)
[2018-07-17] MEDS: FAMOTIDINE IV BAG 20 MG in APPROPRIATE DILUENT 1 EA IV (14:03)
[2018-07-17 14:53] LABS: ALBUMIN 2.9 GM/DL (3.2-5.2); ALKALINE PHOSPHATASE 136 U/L (45-117); ALT/SGPT 15 U/L (12-78); AMYLASE 42 U/L (25-115); ANION GAP 7 MEQ/L (8-16); AST/SGOT 22 U/L (7-37); BILIRUBIN,DIRECT 0.8 MG/DL (0.0-0.2); BILIRUBIN,TOTAL 1.4 MG/DL (0.2-1.0); BLOOD UREA NITROGEN 88 MG/DL (7-18); CALCIUM LEVEL 9.2 MG/DL (8.8-10.2); CARBON DIOXIDE LEVEL 36 MEQ/L (21-32); CHLORIDE LEVEL 83 MEQ/L (98-107); CPK CREATINE PHOSPHOKINASE 27 U/L (26-192); CREATININE FOR GFR 2.22 MG/DL (0.55-1.30); GLOMERULAR FILTRATION RATE 23.8 (>45); GLUCOSE, FASTING 60 MG/DL (70-100); LIPASE 77 U/L (73-393); POTASSIUM SERUM 4.6 MEQ/L (3.5-5.1); SODIUM LEVEL 126 MEQ/L (136-145); TOTAL PROTEIN 7.7 GM/DL (6.4-8.2); TROPONIN I 0.27 NG/ML (< 0.10)
[2018-07-17] MEDS: NS 500 ML IV (15:15)
[2018-07-17] MEDS: NS 1,000 ML IV (15:39)
[2018-07-17] MEDS: MORPHINE 2 MG/ML 1ML SYRINGE (J2270) IV ×2 (16:05→17:38)
[2018-07-17 16:27] LABS: CK-MB VALUE MASS 3.2 NG/ML (<3.6)
[2018-07-17 16:36] LABS: MB/CK RELATIVE INDEX 11.85 (< OR =4)
[2018-07-17 17:06] LABS: CPK CREATINE PHOSPHOKINASE 18 U/L (26-192); MB/CK RELATIVE INDEX 19.44 (< OR =4); TROPONIN I 0.23 NG/ML (< 0.10)
[2018-07-17 18:01] LABS: DIGOXIN LEVEL 2.4 NG/ML (0.5-2.0)
== END 2018-07-17 19:00 | disposition home or self-care (01) ==
LOC: M ED 12:27
DX: A41.9 Sepsis, unspecified organism (principal)

== ENCOUNTER 2018-07-20 13:50 | Inpatient (IN) | payer MEDICARE, MEDICAID ==
[2018-07-20] MEDS: DEXTROSE 50% 50 ML SYRINGE IV ×3 (14:04→18:15)
[2018-07-20] MEDS: NS 1,000 ML IV ×5 (14:08→18:55)
[2018-07-20 14:09] LABS: BEDSIDE GLUCOSE 29 MG/DL (80-115)
[2018-07-20 14:20] LABS: HEMATOCRIT 30.8 % (36.0-47.0); HEMOGLOBIN 9.7 g/dl (12.0-15.5); MEAN CORPUSCULAR HEMOGLOBIN 32.1 pg (27.0-33.0); MEAN CORPUSCULAR HGB CONC 31.5 g/dl (32.0-36.5); PLATELET COUNT, AUTOMATED 165 10^3/uL (150-450); RED BLOOD COUNT 3.02 10^6/uL (4.00-5.40); RED CELL DISTRIBUTION WIDTH 15.6 % (11.5-14.5); WHITE BLOOD COUNT 8.6 10^3/uL (4.0-10.0)
[2018-07-20 14:22] LABS: BEDSIDE GLUCOSE 120 MG/DL (80-115)
[2018-07-20 14:29] LABS: AMORPHOUS SEDIMENT RFX SMALL (NEGATIVE); KETONE, URINE AUTO RFX NEGATIVE (NEGATIVE); LEUKOCYTE ESTERASE UR AUTO RFX NEGATIVE (NEGATIVE); MUCUS, URINE RFX SMALL (NEGATIVE); NITRITE, URINE AUTO RFX NEGATIVE (NEGATIVE); RBC, URINE AUTO RFX 1 /HPF (0-3); SPECIFIC GRAVITY UR AUTO RFX 1.009 (1.002-1.035); SQUAM EPITHELIAL CELL UR AURFX 0 /HPF (0-6); WBC, URINE AUTO RFX 2 /HPF (0-3)
[2018-07-20 14:50] LABS: BEDSIDE GLUCOSE 102 MG/DL (80-115)
[2018-07-20 14:50] LABS: ADD MANUAL DIFFER YES; DIFF SLIDE NUMBER 241; POSITIVE DIFF POS FLAG
[2018-07-20 14:54] LABS: BANDS 14 % (< 11); BASOPHILS 1 % (0-4); EOSINOPHILS 1 % (0-5); LYMPHOCYTES 6 % (16-52); MONOCYTES 1 % (0-8); NEUTROPHILS 77 % (35-75)
[2018-07-20 14:56] LABS: PLATELET ESTIMATE NORMAL (NORMAL)
[2018-07-20 14:57] LABS: ANISOCYTOSIS 1+; POLYCHROMASIA 1+
[2018-07-20] MEDS ORDERED: ONDANSETRON 4MG/2ML VIAL (J2405) As Ordered (15:07)
[2018-07-20] MEDS: ONDANSETRON 4MG/2ML VIAL (J2405) IV ×2 (15:09→17:00)
[2018-07-20] MEDS: cefTRIAXone SOD 1 GM in D5W MINI-BAG PLUS 50 ML IV (15:16)
[2018-07-20 15:20] LABS: BEDSIDE GLUCOSE 57 MG/DL (80-115)
[2018-07-20 15:53] LABS: ALBUMIN 2.4 GM/DL (3.2-5.2); ALBUMIN/GLOBULIN RATIO 0.47 (1.00-1.93); ALKALINE PHOSPHATASE 129 U/L (45-117); ALT/SGPT 16 U/L (12-78); ANION GAP 5 MEQ/L (8-16); AST/SGOT 21 U/L (7-37); BILIRUBIN,DIRECT 0.7 MG/DL (0.0-0.2); BILIRUBIN,TOTAL 1.1 MG/DL (0.2-1.0); BLOOD UREA NITROGEN 93 MG/DL (7-18); CALCIUM LEVEL 9.4 MG/DL (8.8-10.2); CARBON DIOXIDE LEVEL 39 MEQ/L (21-32); CHLORIDE LEVEL 86 MEQ/L (98-107); CPK CREATINE PHOSPHOKINASE 28 U/L (26-192); CREATININE FOR GFR 2.81 MG/DL (0.55-1.30); GLOMERULAR FILTRATION RATE 18.2 (>45); GLUCOSE, FASTING 31 MG/DL (70-100); MB/CK RELATIVE INDEX 11.79 (< OR =4); POTASSIUM SERUM 4.2 MEQ/L (3.5-5.1); SODIUM LEVEL 130 MEQ/L (136-145); TOTAL PROTEIN 7.5 GM/DL (6.4-8.2); TROPONIN I 0.33 NG/ML (< 0.10)
[2018-07-20] MEDS: PIPERACILLIN/TAZOBACTAM SOD 3.375 GM in D5W MINI-BAG PLUS 50 ML IV (17:05)
[2018-07-20 17:08] LABS: BEDSIDE GLUCOSE 54 MG/DL (80-115)
[2018-07-20] MEDS: D5W/0.9% SODIUM CHLORIDE 1,000 ML IV (17:12)
[2018-07-20] MEDS ORDERED: PIPERACILLIN/TAZOBACTAM SOD 3.375 GM in D5W MINI-BAG PLUS 50 ML IV (18:00)
[2018-07-20] MEDS ORDERED: VANCOMYCIN HCL 750 MG, VIAL MATE ADAPTER 1 EACH in D5W 250 ML IV (18:00)
[2018-07-20 18:05] LABS: ABG HCO3 31.3 MEQ/L (22.0-26.0); ABG O2 SATURATION 91.2 % (95.0-99.0); ABG PARTIAL PRESSURE CO2 57.4 mmHg (35.0-45.0); ABG PARTIAL PRESSURE O2 61.5 mmHg (75.0-100.0); ABG STANDARD HCO3 28.9 MEQ/L (22.0-26.0); ABG TOTAL CO2 33.1 MEQ/L (23.0-31.0); ABG pH (ARTERIAL) 7.355 UNITS (7.350-7.450)
[2018-07-20] MEDS ORDERED: VANCOMYCIN INTERMITTENT/PULSE DOSING BY CLINICAL PHARMACIST PER DOSING PROTOCOL XX (18:45)
[2018-07-20] MEDS: NOREPINEPHRINE BITARTRATE 8 MG in D5W 492 ML IV (18:49)
[2018-07-20] MEDS: HYDROCORTISONE 100 MG/2 ML VIAL (J1720) IV (18:55)
[2018-07-20 18:59] LABS: BEDSIDE GLUCOSE 120 MG/DL (80-115)
[2018-07-20 18:59] LABS: BEDSIDE GLUCOSE 58 MG/DL (80-115)
[2018-07-20 19:09] LABS: BASO % 0.1 % (0.0-1.0); HEMATOCRIT 23.8 % (36.0-47.0); IMMATURE GRANULOCYTE % 0.5 % (0-3.0); LYMPH % 1.9 % (24.0-44.0); MEAN CORPUSCULAR HEMOGLOBIN 32.3 pg (27.0-33.0); MEAN CORPUSCULAR HGB CONC 31.5 g/dl (32.0-36.5); MEAN CORPUSCULAR VOLUME 102.6 fl (80.0-96.0); MONO # 0.2 10^3/uL (0.0-0.8); MONO % 1.7 % (0.0-5.0); NEUTROPHILS # 11.4 10^3/uL (1.8-7.7); NEUTROPHILS % 95.8 % (36.0-66.0); PLATELET COUNT, AUTOMATED 122 10^3/uL (150-450); RED BLOOD COUNT 2.32 10^6/uL (4.00-5.40); RED CELL DISTRIBUTION WIDTH 15.8 % (11.5-14.5); WHITE BLOOD COUNT 11.9 10^3/uL (4.0-10.0)
[2018-07-20 19:11] LABS: HEMOGLOBIN 7.5 g/dl (12.0-15.5); LYMPH # 0.2 10^3/uL (1.5-4.5); POSITIVE DIFF POS FLAG; POSITIVE MORPH POS FLAG
[2018-07-20 19:25] LABS: MAGNESIUM LEVEL 1.3 MG/DL (1.8-2.4)
[2018-07-20] MEDS: VANCOMYCIN HCL 1,000 MG, VIAL MATE ADAPTER 1 EACH in D5W 250 ML IV (19:29)
[2018-07-20] MEDS ORDERED: MUPIROCIN 2% OINT 22 GM TUBE TOP (19:30)
[2018-07-20] MEDS ORDERED: traMADol 50 MG TAB PO (19:30)
[2018-07-20] MEDS ORDERED: ONDANSETRON 4 MG ORAL DISINTEGRATING TAB (Q0162 PER 1MG) PO (19:30)
[2018-07-20 19:50] LABS: LACTIC ACID SEPSIS PROTOCOL 2.1 MMOL/L (0.4-2.0)
[2018-07-20 20:42] LABS: INR 1.04; PROTHROMBIN TIME 13.7 SECONDS (12.1-14.4)
[2018-07-20 20:43] LABS: PARTIAL THROMBOPLASTIN TIME 35.3 SECONDS (25.4-37.6)
[2018-07-20 20:50] LABS: TROPONIN I 0.36 NG/ML (< 0.10)
[2018-07-20] MEDS: OMEPRAZOLE 20 MG CAP PO (21:00)
[2018-07-20] MEDS: MAG SULF 1GM/100ML (MAG RUN) 1 GM in APPROPRIATE DILUENT 1 EA IV ×2 (21:00→21:46)
[2018-07-20] MEDS ORDERED: predniSONE 2.5 MG TAB PO (21:00)
[2018-07-20] MEDS: FERROUS GLUCONATE 324 MG TAB PO (21:00)
[2018-07-20] MEDS: PRAVASTATIN 20 MG TAB PO (21:00)
[2018-07-20] MEDS: CHLORHEXIDINE GLUCONATE 0.12 % 15ML UDC (PERIDEX ORAL RINSE) MT (21:47)
[2018-07-20] MEDS: D5W 1,000 ML IV (21:47)
[2018-07-20] MEDS: PIPERACILLIN/TAZOBACTAM SOD 2.25 GM in D5W MINI-BAG PLUS 50 ML IV (23:00)
[2018-07-21 01:04] LABS: BEDSIDE GLUCOSE 127 MG/DL (80-115)
[2018-07-21] MEDS: HYDROCORTISONE 100 MG/2 ML VIAL (J1720) IV ×4 (02:32→18:51)
[2018-07-21 03:54] LABS: TROPONIN I 0.43 NG/ML (< 0.10)
[2018-07-21] MEDS: LEVOTHYROXINE 125MCG TABLET (0.125MG) PO (06:00)
[2018-07-21 06:22] LABS: BEDSIDE GLUCOSE 77 MG/DL (80-115)
[2018-07-21] MEDS: NOREPINEPHRINE BITARTRATE 8 MG in D5W 492 ML IV ×4 (06:28→15:55)
[2018-07-21 06:35] LABS: HEMATOCRIT 26.2 % (36.0-47.0); HEMOGLOBIN 8.1 g/dl (12.0-15.5); MEAN CORPUSCULAR HEMOGLOBIN 32.5 pg (27.0-33.0); MEAN CORPUSCULAR HGB CONC 30.9 g/dl (32.0-36.5); MEAN CORPUSCULAR VOLUME 105.2 fl (80.0-96.0); PLATELET COUNT, AUTOMATED 160 10^3/uL (150-450); RED BLOOD COUNT 2.49 10^6/uL (4.00-5.40); WHITE BLOOD COUNT 26.3 10^3/uL (4.0-10.0)
[2018-07-21 06:38] LABS: ADD MANUAL DIFFER YES; DIFF SLIDE NUMBER 55; POSITIVE DIFF POS FLAG; POSITIVE MORPH POS FLAG
[2018-07-21 06:52] LABS: ABG HCO3 27.1 MEQ/L (22.0-26.0); ABG O2 SATURATION 95.9 % (95.0-99.0); ABG STANDARD HCO3 23.6 MEQ/L (22.0-26.0); ABG TOTAL CO2 29.1 MEQ/L (23.0-31.0)
[2018-07-21 06:56] LABS: ABG PARTIAL PRESSURE CO2 65.8 mmHg (35.0-45.0); ABG pH (ARTERIAL) 7.232 UNITS (7.350-7.450)
[2018-07-21 06:58] LABS: VANCOMYCIN RANDOM 11.4 UG/ML
[2018-07-21 06:59] LABS: BANDS 6 % (< 11); METAMYELOCYTES 9 % (0-0); MYELOCYTES 4 % (0-0); NEUTROPHILS 81 % (35-75); PLATELET ESTIMATE NORMAL (NORMAL)
[2018-07-21 07:02] LABS: POLYCHROMASIA 1+
[2018-07-21 07:10] LABS: ALBUMIN 1.9 GM/DL (3.2-5.2); ALBUMIN/GLOBULIN RATIO 0.48 (1.00-1.93); ALKALINE PHOSPHATASE 66 U/L (45-117); ALT/SGPT 18 U/L (12-78); ANION GAP 10 MEQ/L (8-16); AST/SGOT 28 U/L (7-37); BILIRUBIN,TOTAL 0.8 MG/DL (0.2-1.0); BLOOD UREA NITROGEN 77 MG/DL (7-18); CALCIUM LEVEL 7.3 MG/DL (8.8-10.2); CARBON DIOXIDE LEVEL 28 MEQ/L (21-32); CHLORIDE LEVEL 97 MEQ/L (98-107); CREATININE FOR GFR 2.84 MG/DL (0.55-1.30); GLOMERULAR FILTRATION RATE 17.9 (>45); GLUCOSE, FASTING 73 MG/DL (70-100); MAGNESIUM LEVEL 2.1 MG/DL (1.8-2.4); POTASSIUM SERUM 4.1 MEQ/L (3.5-5.1); SODIUM LEVEL 135 MEQ/L (136-145); TOTAL PROTEIN 5.9 GM/DL (6.4-8.2)
[2018-07-21] MEDS: PIPERACILLIN/TAZOBACTAM SOD 2.25 GM in D5W MINI-BAG PLUS 50 ML IV ×3 (07:20→23:00)
[2018-07-21 08:16] LABS: BEDSIDE GLUCOSE 87 MG/DL (80-115)
[2018-07-21 08:55] LABS: CENTRAL VEN O2 SATURATION 87.8 %
[2018-07-21] MEDS ORDERED: DIGOXIN 0.125 MG TAB PO (09:00)
[2018-07-21] MEDS: D5W/0.45% SODIUM CHLORIDE 1,000 ML IV ×2 (09:13→23:01)
[2018-07-21] MEDS: PANTOPRAZOLE SODIUM 40 MG in D5W 50 ML IV ×4 (09:13→23:01)
[2018-07-21 09:21] LABS: LACTIC ACID SEPSIS PROTOCOL 1.2 MMOL/L (0.4-2.0)
[2018-07-21 09:33] LABS: DIGOXIN LEVEL 1.6 NG/ML (0.5-2.0)
[2018-07-21] MEDS: DIGOXIN INJ 0.5 MG/2 ML AMP (J1160) IV (10:25)
[2018-07-21 11:00] LABS: ABG BASE EXCESS -1.9 (-2.0-2.0); ABG HCO3 25.4 MEQ/L (22.0-26.0); ABG O2 SATURATION 99.3 % (95.0-99.0); ABG PARTIAL PRESSURE CO2 57.7 mmHg (35.0-45.0); ABG STANDARD HCO3 22.9 MEQ/L (22.0-26.0); ABG TOTAL CO2 27.1 MEQ/L (23.0-31.0); ABG pH (ARTERIAL) 7.261 UNITS (7.350-7.450)
[2018-07-21 12:22] LABS: BEDSIDE GLUCOSE 101 MG/DL (80-115)
[2018-07-21] MEDS: VANCOMYCIN HCL 500 MG in D5W MINI-BAG PLUS 100 ML IV (12:54)
[2018-07-21 13:48] LABS: TROPONIN I 0.59 NG/ML (< 0.10)
[2018-07-21] MEDS: HEPARIN SOD (PORCINE) 5000 UNITS/ML VIAL SQ ×2 (15:49→23:01)
[2018-07-21] MEDS ORDERED: SPIRONOLACTONE 25 MG TAB PO (17:00)
[2018-07-21 18:30] LABS: BEDSIDE GLUCOSE 140 MG/DL (80-115)
[2018-07-21 23:12] LABS: BEDSIDE GLUCOSE 122 MG/DL (80-115)
[2018-07-22] MEDS: HYDROCORTISONE 100 MG/2 ML VIAL (J1720) IV ×2 (01:24→06:09)
[2018-07-22 04:41] LABS: BEDSIDE GLUCOSE 126 MG/DL (80-115)
[2018-07-22 05:17] LABS: BASO % 0.1 % (0.0-1.0); HEMATOCRIT 22.3 % (36.0-47.0); HEMOGLOBIN 7.1 g/dl (12.0-15.5); LYMPH % 0.8 % (24.0-44.0); MEAN CORPUSCULAR HEMOGLOBIN 32.3 pg (27.0-33.0); MEAN CORPUSCULAR HGB CONC 31.8 g/dl (32.0-36.5); MEAN CORPUSCULAR VOLUME 101.4 fl (80.0-96.0); MONO # 0.4 10^3/uL (0.0-0.8); MONO % 1.8 % (0.0-5.0); NEUTROPHILS # 23.9 10^3/uL (1.8-7.7); NEUTROPHILS % 95.3 % (36.0-66.0); PLATELET COUNT, AUTOMATED 121 10^3/uL (150-450); RED CELL DISTRIBUTION WIDTH 16.2 % (11.5-14.5); WHITE BLOOD COUNT 25.1 10^3/uL (4.0-10.0)
[2018-07-22 05:19] LABS: LYMPH # 0.2 10^3/uL (1.5-4.5); POS COUNT POS FLAG; POSITIVE DIFF POS FLAG
[2018-07-22 05:43] LABS: TROPONIN I 0.54 NG/ML (< 0.10)
[2018-07-22 05:47] LABS: ALBUMIN 1.8 GM/DL (3.2-5.2); ALBUMIN/GLOBULIN RATIO 0.46 (1.00-1.93); ALKALINE PHOSPHATASE 49 U/L (45-117); ALT/SGPT 37 U/L (12-78); ANION GAP 11 MEQ/L (8-16); AST/SGOT 50 U/L (7-37); BLOOD UREA NITROGEN 82 MG/DL (7-18); CALCIUM LEVEL 7.1 MG/DL (8.8-10.2); CARBON DIOXIDE LEVEL 24 MEQ/L (21-32); CHLORIDE LEVEL 92 MEQ/L (98-107); CREATININE FOR GFR 3.26 MG/DL (0.55-1.30); GLOMERULAR FILTRATION RATE 15.3 (>45); GLUCOSE, FASTING 117 MG/DL (70-100); MAGNESIUM LEVEL 1.9 MG/DL (1.8-2.4); POTASSIUM SERUM 4.6 MEQ/L (3.5-5.1); SODIUM LEVEL 127 MEQ/L (136-145); TOTAL PROTEIN 5.7 GM/DL (6.4-8.2); VANCOMYCIN RANDOM 14.1 UG/ML
[2018-07-22] MEDS: HEPARIN SOD (PORCINE) 5000 UNITS/ML VIAL SQ (06:00)
[2018-07-22] MEDS: LEVOTHYROXINE 125MCG TABLET (0.125MG) PO (06:00)
[2018-07-22] MEDS: PIPERACILLIN/TAZOBACTAM SOD 2.25 GM in D5W MINI-BAG PLUS 50 ML IV (06:09)
[2018-07-22] MEDS: PANTOPRAZOLE SODIUM 40 MG in D5W 50 ML IV (06:10)
[2018-07-22 06:46] LABS: ABG PARTIAL PRESSURE O2 136.8 mmHg (75.0-100.0)
[2018-07-22 06:49] LABS: ABG BASE EXCESS -3.1 (-2.0-2.0); ABG HCO3 24.3 MEQ/L (22.0-26.0); ABG PARTIAL PRESSURE CO2 52.8 mmHg (35.0-45.0); ABG TOTAL CO2 25.9 MEQ/L (23.0-31.0); ABG pH (ARTERIAL) 7.281 UNITS (7.350-7.450)
[2018-07-22] MEDS: NOREPINEPHRINE BITARTRATE 8 MG in D5W 492 ML IV (08:39)
[2018-07-22] MEDS ORDERED: ATROPINE SULFATE 1% OP SOLN 2 ML BTL SL (10:00)
[2018-07-22] MEDS ORDERED: VANCOMYCIN HCL 500 MG in D5W MINI-BAG PLUS 100 ML IV (12:00)
[2018-07-22] MEDS: LORazepam 2 MG/ML VIAL (J2060) IV (12:11)
[2018-07-22] MEDS: MORPHINE 4 MG/ML 1ML VIAL/SYRINGE (J2270) IV (12:11)
[2018-07-22] MEDS: SCOPOLAMINE 1MG TRANSDERMAL PATCH TOP (12:23)
== END 2018-07-22 14:16 | disposition expired | DRG 871 ==
LOC: M ED 13:50 → M ED INP 19:10 → M ICU 19:57
PROVIDERS: Internal Medicine
PROC: 02HV33Z Insertion of Infusion Device into Superior Vena Cava, Percutaneous Approach (ICD-10-PCS; principal; 2018-07-20)
DX: A41.9 Sepsis, unspecified organism (principal); J69.0 Pneumonitis due to inhalation of food and vomit; R65.21 Severe sepsis with septic shock; E43 Unspecified severe protein-calorie malnutrition; G93.41 Metabolic encephalopathy; J96.02 Acute respiratory failure with hypercapnia; I50.32 Chronic diastolic (congestive) heart failure; N18.4 Chronic kidney disease, stage 4 (severe); K56.7 Ileus, unspecified; N17.9 Acute kidney failure, unspecified; E87.1 Hypo-osmolality and hyponatremia; E87.2 Acidosis; E27.40 Unspecified adrenocortical insufficiency; Z51.5 Encounter for palliative care; Z66 Do not resuscitate; I27.29 Other secondary pulmonary hypertension; D63.1 Anemia in chronic kidney disease; J84.10 Pulmonary fibrosis, unspecified; M34.9 Systemic sclerosis, unspecified; M06.9 Rheumatoid arthritis, unspecified; G47.33 Obstructive sleep apnea (adult) (pediatric); J44.9 Chronic obstructive pulmonary disease, unspecified; I48.91 Unspecified atrial fibrillation; E78.5 Hyperlipidemia, unspecified; D50.9 Iron deficiency anemia, unspecified; E03.9 Hypothyroidism, unspecified; Z79.52 Long term (current) use of systemic steroids; Z79.899 Other long term (current) drug therapy